=== PATIENT | male | born 1980 | race Caucasian/White ===

== ENCOUNTER → 2018-01-30 | Outpatient (CLI) | payer BC ==
--- NOTE | 2018-01-30 15:48 | P.HPBAR ---
Bariatric H&P - History & Physicial H&P Date: 01/30/18 History & Physicial: Visit/CC: Patient initial contact: Initial weight: Initial weight in pounds: Height: Initial BMI: Last weight: Current weight: 310 Current weight in pounds: Current BMI: [place] body weight (based on NIH guidelines): Excess body weight loss: The patient is a 37 year-old M who presents for Bariatric Assessment. Patient resents for new patient consultation for sleeve gastrectomy. He currently weighs 310 pounds. His BMI is 44. He has lifetime problems obesity. He is requesting sleeve gastrectomy... Past Medical History Past Medical History: No Reported History History of Any Multi-Drug Resistant Organisms: None Reported Past Surgical History: Orthopedic Surgery Past Anesthesia/Blood Transfusion Reactions: No Reported Reaction Smoking Status: Never smoker Past Alcohol Use History: Rare Past Drug Use History: None Reported - Past Family History Mother Family Medical History: No Reported History Surgical - Exam - General well developed, well nourished, moderate distress - Eyes PERRL - ENT normal pinna - Neck no masses - Respiratory normal expansion - Cardiovascular Rhythm: regular - Abdomen Abdomen: soft, non tender Bariatric Assessment & Plan Plan: Morbid obesity with severe comorbidities. Patient will be scheduled for EGD. I discussed the patient risk of surgery including conversion O procedure and injury to the stomach liver spleen. The patient will follow-up after his EGD performed. Bariatric Checklist Checklist: Plan: Checklist: EGD: 1. Hiatal hernia: 2. H. Pylori: HgbA1c: Vitamin D: Smoking: Never smoker Primary care physician referral: Psychiatry clearance: Cardiology clearance: Sleep study: Diet journal: VTE risk score: VTE risk level: Rehab needs at discharge:
[2018-01-30 16:00] VITALS: BP 129/80; PULSE 81; RESP 15; TEMP 98.5; BMI 40.0
== END | disposition home or self-care (01) ==
LOC: BARWHC3 15:26
PROVIDERS: ATTEND Surgery
DX: E66.01 Morbid (severe) obesity due to excess calories (principal); Z68.41 Body mass index [BMI] 40.0-44.9, adult; Z98.890 Other specified postprocedural states
CPT/HCPCS: 99211

== ENCOUNTER 2018-04-09 20:33 | Inpatient (IN) | payer BC ==
[2018-04-09] MEDS ORDERED: IBUPROFEN 600 MG TAB PO STA (20:45)
[2018-04-09] MEDS ORDERED: ACETAMINOPHEN TAB 500 MG TAB PO STA (20:45)
--- NOTE | 2018-04-09 21:28 | ED ---
URI HPI - General Chief Complaint: Upper Respiratory Infection Stated Complaint: Fever Time Seen by Provider: 04/09/18 20:45 Source: patient Mode of arrival: ambulatory Limitations: no limitations - History of Present Illness Initial Comments: Bakari is a previously healthy 38-year-old male who presents the emergency department today for evaluation of URI symptoms and fever. Patient reports he' s had a cough for a couple of days, yesterday he developed a fever, he's been taking 1000 mg of Tylenol every 6 hours and has had a persistent fever. She reports overnight last night he had shaking chills and was sweating, he felt like he couldn't get warm but he also had a fever. Throughout the day he still very fatigued and unwell so he came to the ER for evaluation. Patient states a prior to arrival in the emergency department he had a fever of 104 Fahrenheit. The patient has not yet had a flu shot this year. - Related Data Home Medications Medication Instructions Recorded Confirmed Acetaminophen Tab [Tylenol Tab] 650 mg PO Q4H PRN 04/09/18 04/09/18 Allergies Allergy/AdvReac Type Severity Reaction Status Date / Time No Known Allergies Allergy Verified 04/09/18 21:29 Review of Systems ROS Statement: Those systems with pertinent positive or pertinent negative responses have been documented in the HPI. ROS Other: All systems not noted in ROS Statement are negative. Past Medical History Past Medical History: No Reported History Additional Past Medical History / Comment(s): seasonal allergies History of Any Multi-Drug Resistant Organisms: None Reported Past Surgical History: Orthopedic Surgery Additional Past Surgical History / Comment(s): Right ACL sx Past Anesthesia/Blood Transfusion Reactions: No Reported Reaction Past Psychological History: No Psychological Hx Reported Smoking Status: Never smoker Past Alcohol Use History: Rare Past Drug Use History: None Reported - Past Family History Mother Family Medical History: No Reported History General Exam - General Exam Comments Initial Comments: Physical Exam GENERAL: Flushed, diaphoretic and appears unwell HENT: Normocephalic, Atraumatic. EYES: PERRL, EOMI PULMONARY: Unlabored respirations. No audible rales rhonchi or wheezing was noted. CARDIOVASCULAR: Tachycardic, regular warm and well-perfused extremities ABDOMEN: Obese, Soft and nontender with normal bowel sounds. SKIN: Skin is clear with no lesions or rashes and otherwise unremarkable. : Deferred NEUROLOGIC: Patient is alert and oriented x3. Moving all extremities spontaneously MUSCULOSKELETAL: Normal extremities with adequate strength and full range of motion. No lower extremity swelling or edema. No calf tenderness. PSYCHIATRIC: Normal psychiatric evaluation. Limitations: no limitations Limitations: no limitations Course Vital Signs 04/09/18 04/09/18 04/09/18 20:39 20:54 22:11 Temperature 101.8 F H 102.3 F H 102.7 F H Pulse Rate 124 H 113 H 107 H Respiratory 20 18 Rate Blood Pressure 108/76 140/80 O2 Sat by Pulse 96 96 Oximetry 04/10/18 04/10/18 00:00 00:23 Temperature 98.4 F Pulse Rate 86 Respiratory 16 Rate Blood Pressure 134/79 O2 Sat by Pulse 95 Oximetry Medical Decision Making - Medical Decision Making The patient was seen and evaluated immediately upon arrival to the emergency department, patient was noted to be febrile and tachycardic, history is concerning for influenza however a sepsis workup was initiated Patient is taken Tylenol prior to arrival, Motrin was given in the ER IV fluids infusing Labs with no significant abnormalities aside from mildly elevated lactic acid at 2.3 Influenza was negative Patient was reassessed and results were discussed, despite Tylenol Motrin IV fluids the patient's fever is actually increasing, patient is diaphoretic and appears unwell at this time I don't feel the patient is stable for discharge home have a high concern that he will become dehydrated given his fever and his persistent sweating and feeling unwell patient is agreeable to plan for admission Patient care was discussed with admitting physician Dr. Rushing who agrees with plan for admission but requests that antibiotics be ordered empirically recommends Rocephin and azithromycin. Orders were placed. was reevaluated and updated on plan for admission, at this time the patient's fever has broke however the patient remains diaphoretic, IV fluids infusing - Lab Data Result diagrams: 04/09/18 21:20 04/09/18 21:20 Lab Results 04/09/18 04/09/18 04/09/18 Range/Units 21:20 21:20 21:20 WBC 5.0 (3.8-10.6) k/uL RBC 5.24 (4.30-5.90) m/uL Hgb 13.8 (13.0-17.5) gm/dL Hct 42.3 (39.0-53.0) % MCV 80.7 (80.0-100.0) fL MCH 26.3 (25.0-35.0) pg MCHC 32.6 (31.0-37.0) g/dL RDW 13.4 (11.5-15.5) % Plt Count 193 (150-450) k/uL Neutrophils % 66 % Lymphocytes % 23 % Monocytes % 7 % Eosinophils % 1 % Basophils % 1 % Neutrophils # 3.3 (1.3-7.7) k/uL Lymphocytes # 1.1 (1.0-4.8) k/uL Monocytes # 0.4 (0-1.0) k/uL Eosinophils # 0.0 (0-0.7) k/uL Basophils # 0.0 (0-0.2) k/uL PT (9.0-12.0) sec INR (<1.2) APTT (22.0-30.0) sec Sodium 139 (137-145) mmol/L Potassium 4.5 (3.5-5.1) mmol/L Chloride 105 (98-107) mmol/L Carbon Dioxide 22 (22-30) mmol/L Anion Gap 12 mmol/L BUN 21 H (9-20) mg/dL Creatinine 1.00 (0.66-1.25) mg/dL Est GFR (CKD-EPI)AfAm >90 (>60 ml/min/1.73 sqM) Est GFR (CKD-EPI)NonAf >90 (>60 ml/min/1.73 sqM) Glucose 122 H (74-99) mg/dL Lactic Ac Sepsis Rflx Plasma Lactic Acid Esau 2.3 H* (0.7-2.0) mmol/L Calcium 9.5 (8.4-10.2) mg/dL Total Bilirubin 1.0 (0.2-1.3) mg/dL AST 46 (17-59) U/L ALT 40 (21-72) U/L Alkaline Phosphatase 133 H (38-126) U/L Troponin I (0.000-0.034) ng/mL Total Protein 7.6 (6.3-8.2) g/dL Albumin 4.2 (3.5-5.0) g/dL Urine Color Urine Appearance (Clear) Urine pH (5.0-8.0) Ur Specific [place] (1.001-1.035) Urine Protein (Negative) Urine Glucose (UA) (Negative) Urine Ketones (Negative) Urine Blood (Negative) Urine Nitrite (Negative) Urine Bilirubin (Negative) Urine Urobilinogen (<2.0) mg/dL Ur Leukocyte Esterase (Negative) Urine RBC (0-5) /hpf Urine WBC (0-5) /hpf Ur Squamous Epith Cells (0-4) /hpf Urine Bacteria (None) /hpf Urine Mucus (None) /hpf Influenza Type A RNA (Not Detectd) Influenza Type B (PCR) (Not Detectd) 04/09/18 04/09/18 04/09/18 Range/Units 21:20 21:20 22:04 WBC (3.8-10.6) k/uL RBC (4.30-5.90) m/uL Hgb (13.0-17.5) gm/dL Hct (39.0-53.0) % MCV (80.0-100.0) fL MCH (25.0-35.0) pg MCHC (31.0-37.0) g/dL RDW (11.5-15.5) % Plt Count (150-450) k/uL Neutrophils % % Lymphocytes % % Monocytes % % Eosinophils % % Basophils % % Neutrophils # (1.3-7.7) k/uL Lymphocytes # (1.0-4.8) k/uL Monocytes # (0-1.0) k/uL Eosinophils # (0-0.7) k/uL Basophils # (0-0.2) k/uL PT 10.6 (9.0-12.0) sec INR 1.1 (<1.2) APTT 25.6 (22.0-30.0) sec Sodium (137-145) mmol/L Potassium (3.5-5.1) mmol/L Chloride (98-107) mmol/L Carbon Dioxide (22-30) mmol/L Anion Gap mmol/L BUN (9-20) mg/dL Creatinine (0.66-1.25) mg/dL Est GFR (CKD-EPI)AfAm (>60 ml/min/1.73 sqM) Est GFR (CKD-EPI)NonAf (>60 ml/min/1.73 sqM) Glucose (74-99) mg/dL Lactic Ac Sepsis Rflx Y Plasma Lactic Acid Esau (0.7-2.0) mmol/L Calcium (8.4-10.2) mg/dL Total Bilirubin (0.2-1.3) mg/dL AST (17-59) U/L ALT (21-72) U/L Alkaline Phosphatase (38-126) U/L Troponin I <0.012 (0.000-0.034) ng/mL Total Protein (6.3-8.2) g/dL Albumin (3.5-5.0) g/dL Urine Color Urine Appearance (Clear) Urine pH (5.0-8.0) Ur Specific [place] (1.001-1.035) Urine Protein (Negative) Urine Glucose (UA) (Negative) Urine Ketones (Negative) Urine Blood (Negative) Urine Nitrite (Negative) Urine Bilirubin (Negative) Urine Urobilinogen (<2.0) mg/dL Ur Leukocyte Esterase (Negative) Urine RBC (0-5) /hpf Urine WBC (0-5) /hpf Ur Squamous Epith Cells (0-4) /hpf Urine Bacteria (None) /hpf Urine Mucus (None) /hpf Influenza Type A RNA (Not Detectd) Influenza Type B (PCR) (Not Detectd) 04/09/18 04/09/18 Range/Units 22:04 23:08 WBC (3.8-10.6) k/uL RBC (4.30-5.90) m/uL Hgb (13.0-17.5) gm/dL Hct (39.0-53.0) % MCV (80.0-100.0) fL MCH (25.0-35.0) pg MCHC (31.0-37.0) g/dL RDW (11.5-15.5) % Plt Count (150-450) k/uL Neutrophils % % Lymphocytes % % Monocytes % % Eosinophils % % Basophils % % Neutrophils # (1.3-7.7) k/uL Lymphocytes # (1.0-4.8) k/uL Monocytes # (0-1.0) k/uL Eosinophils # (0-0.7) k/uL Basophils # (0-0.2) k/uL PT (9.0-12.0) sec INR (<1.2) APTT (22.0-30.0) sec Sodium (137-145) mmol/L Potassium (3.5-5.1) mmol/L Chloride (98-107) mmol/L Carbon Dioxide (22-30) mmol/L Anion Gap mmol/L BUN (9-20) mg/dL Creatinine (0.66-1.25) mg/dL Est GFR (CKD-EPI)AfAm (>60 ml/min/1.73 sqM) Est GFR (CKD-EPI)NonAf (>60 ml/min/1.73 sqM) Glucose (74-99) mg/dL Lactic Ac Sepsis Rflx Plasma Lactic Acid Esau (0.7-2.0) mmol/L Calcium (8.4-10.2) mg/dL Total Bilirubin (0.2-1.3) mg/dL AST (17-59) U/L ALT (21-72) U/L Alkaline Phosphatase (38-126) U/L Troponin I (0.000-0.034) ng/mL Total Protein (6.3-8.2) g/dL Albumin (3.5-5.0) g/dL Urine Color Yellow Urine Appearance Clear (Clear) Urine pH 6.5 (5.0-8.0) Ur Specific [place] 1.039 H (1.001-1.035) Urine Protein 1+ H (Negative) Urine Glucose (UA) Negative (Negative) Urine Ketones Negative (Negative) Urine Blood Negative (Negative) Urine Nitrite Negative (Negative) Urine Bilirubin Negative (Negative) Urine Urobilinogen 4.0 (<2.0) mg/dL Ur Leukocyte Esterase Negative (Negative) Urine RBC <1 (0-5) /hpf Urine WBC 1 (0-5) /hpf Ur Squamous Epith Cells <1 (0-4) /hpf Urine Bacteria Rare H (None) /hpf Urine Mucus Moderate H (None) /hpf Influenza Type A RNA Not Detected (Not Detectd) Influenza Type B (PCR) Not Detected (Not Detectd) Disposition Clinical Impression: Viral infection Disposition: ADMITTED IP TO THIS HOSP Condition: Stable
[2018-04-09] MEDS: SODIUM CHLORIDE 0.9% 500 ML 500 ML IV SCH ×2 (21:29→23:21)
[2018-04-09 21:48] LABS: Basophils % (A) 1 %; Eosinophils % (A) 1 %; HCT 42.3 % (39.0-53.0); HGB 13.8 gm/dL (13.0-17.5); Lymphocytes # (A) 1.1 k/uL (1.0-4.8); Lymphocytes % (A) 23 %; MCH 26.3 pg (25.0-35.0); MCHC 32.6 g/dL (31.0-37.0); MCV 80.7 fL (80.0-100.0); Mean Platelet Volume 7.4; Monocytes # (A) 0.4 k/uL (0-1.0); Monocytes % (A) 7 %; Neutrophils # (A) 3.3 k/uL (1.3-7.7); Neutrophils % (A) 66 %; Platelet Count 193 k/uL (150-450); RBC 5.24 m/uL (4.30-5.90); RDW 13.4 % (11.5-15.5)
[2018-04-09 22:00] LABS: INR 1.1 (<1.2); Partial Thromboplastin Time 25.6 sec (22.0-30.0); Prothrombin Time 10.6 sec (9.0-12.0)
[2018-04-09 22:02] LABS: Albumin 4.2 g/dL (3.5-5.0); Anion Gap 12 mmol/L; Blood Urea Nitrogen 21 mg/dL (9-20); Calcium 9.5 mg/dL (8.4-10.2); Carbon Dioxide 22 mmol/L (22-30); Chloride 105 mmol/L (98-107); Glucose 122 mg/dL (74-99); Sodium 139 mmol/L (137-145); Total Protein 7.6 g/dL (6.3-8.2)
[2018-04-09 22:04] LABS: ALT 40 U/L (21-72); AST 46 U/L (17-59); Alkaline Phosphatase 133 U/L (38-126); Potassium 4.5 mmol/L (3.5-5.1)
--- NOTE | 2018-04-09 22:45 | XR ---
EXAMINATION TYPE: XR chest 2V DATE OF EXAM: 04/09/2018 COMPARISON: NONE HISTORY: Fever and cough TECHNIQUE: Frontal and lateral views of the chest are obtained. FINDINGS: Heart and mediastinum are normal. Lungs are clear. Diaphragm is normal. Bony thorax appear s normal. Pulmonary vascularity is normal. IMPRESSION: Normal chest
[2018-04-09 23:36] LABS: Appearance,Urine Clear (Clear); Bacteria,Urine Rare /hpf; Bilirubin,Urine Negative (Negative); Blood,Urine Negative (Negative); Color,Urine Yellow; Glucose,Urine (UA) Negative (Negative); Ketones,Urine Negative (Negative); Leukocyte Esterase,Urine Negative (Negative); Mucus,Urine Moderate /hpf; Nitrite,Urine Negative (Negative); PH, Urine 6.5 (5.0-8.0); Protein,Urine 1+ (Negative); RBC,Urine <1 /hpf (0-5); Specific Gravity,Urine 1.039 (1.001-1.035); Squamous Epithelial Cell,Urine <1 /hpf (0-4); WBC,Urine 1 /hpf (0-5)
[2018-04-10] MEDS ORDERED: NALOXONE 0.4 MG/ML 1 ML VIAL IV PRN (01:11)
[2018-04-10] MEDS ORDERED: AZITHROMYCIN 500 MG TAB PO STA (01:11)
[2018-04-10] MEDS: SODIUM CHLORIDE 0.9% 1,000 ML IV SCH ×5 (01:48→21:27)
[2018-04-10] MEDS: ACETAMINOPHEN TAB 325 MG TAB PO PRN ×3 (05:51→21:27)
[2018-04-10 09:32] LABS: Basophils % (A) 1 %; Eosinophils % (A) 1 %; HCT 35.3 % (39.0-53.0); Lymphocytes # (A) 0.8 k/uL (1.0-4.8); Lymphocytes % (A) 20 %; MCH 27.2 pg (25.0-35.0); MCHC 34.1 g/dL (31.0-37.0); MCV 79.8 fL (80.0-100.0); Mean Platelet Volume 6.9; Monocytes # (A) 0.4 k/uL (0-1.0); Monocytes % (A) 9 %; Neutrophils # (A) 2.6 k/uL (1.3-7.7); Neutrophils % (A) 66 %; Platelet Count 151 k/uL (150-450); RBC 4.42 m/uL (4.30-5.90); RDW 13.3 % (11.5-15.5); WBC 3.9 k/uL (3.8-10.6)
[2018-04-10 09:52] LABS: ALT 52 U/L (21-72); AST 43 U/L (17-59); Albumin 3.2 g/dL (3.5-5.0); Alkaline Phosphatase 110 U/L (38-126); Anion Gap 7 mmol/L; Blood Urea Nitrogen 17 mg/dL (9-20); Calcium 8.4 mg/dL (8.4-10.2); Carbon Dioxide 24 mmol/L (22-30); Chloride 108 mmol/L (98-107); Glucose 124 mg/dL (74-99); Potassium 3.9 mmol/L (3.5-5.1); Sodium 139 mmol/L (137-145); Total Bilirubin 0.8 mg/dL (0.2-1.3); Total Protein 6.2 g/dL (6.3-8.2)
--- NOTE | 2018-04-10 10:25 | P.HPIM ---
History of Present Illness H&P Date: 04/10/18 Chief Complaint: Fever This is a 37-year-old male patient presents to emergency room with fever 104. Patient states fever started Saturday night and that he has taken Tylenol every 6 hours the fever has been persistent. Patient does complain that he's had slight cough for the past few days and headache. Patient had one episode of emesis in emergency room but denies any other GI issues. Patient denies any significant past medical history. Chest x-ray completed showing normal chest. EKG completed showing sinus tachycardia with a heart rate of 107. Patient denies any alcohol or drug use. Patient denies any nicotine dependence. Initial lactic 2.3. Repeat lactic 0.8. Urinary analysis completed. Influenza A and B negative. Urine and blood cultures have been ordered. Patient started on Zithromax and Rocephin. At this time patient denies chest pain or shortness of breath. Patient denies any nausea vomiting or diarrhea. Patient denies any urinary burning or frequency. Dr. De Santiago has been consulted for infectious disease. Review of Systems please refer to HPI otherwise unremarkable Past Medical History Past Medical History: No Reported History Additional Past Medical History / Comment(s): seasonal allergies History of Any Multi-Drug Resistant Organisms: None Reported Past Surgical History: Orthopedic Surgery Additional Past Surgical History / Comment(s): Right ACL sx Past Anesthesia/Blood Transfusion Reactions: No Reported Reaction Past Psychological History: No Psychological Hx Reported Smoking Status: Never smoker Past Alcohol Use History: Rare Past Drug Use History: None Reported - Past Family History Mother Family Medical History: No Reported History Father History Unknown: Yes Medications and Allergies Home Medications Medication Instructions Recorded Confirmed Type Acetaminophen Tab [Tylenol Tab] 650 mg PO Q4H PRN 04/09/18 04/09/18 History Allergies Allergy/AdvReac Type Severity Reaction Status Date / Time No Known Allergies Allergy Verified 04/09/18 21:29 Physical Exam Vitals: Vital Signs Temp Pulse Pulse Resp BP BP Pulse Ox 04/10/18 05:53 99.6 F 04/10/18 03:25 81 18 04/10/18 03:24 98.0 F 81 18 106/64 96 04/10/18 02:24 98.8 F 78 18 138/72 98 04/10/18 00:23 86 16 134/79 95 04/10/18 00:00 98.4 F 04/09/18 22:11 102.7 F H 107 H 18 140/80 96 04/09/18 20:54 102.3 F H 113 H 04/09/18 20:39 101.8 F H 124 H 20 108/76 96 Intake and Output 04/09/18 04/10/18 04/10/18 22:59 06:59 14:59 Intake Total 480 240 Balance 480 240 Intake: Oral 480 240 Other: Voiding Method Toilet Urinal Weight 136.078 kg 140.9 kg Head normocephalic Neck supple Lungs clear to auscultation bilaterally no wheezing or crackles Heart regular rate and rhythm S1-S2, no rub or gallop Abdomen is soft nontender nondistended positive bowel sounds no hepatosplenomegaly Extremities no edema Neuro alert and orientated to 3 Results CBC & Chem 7: 04/10/18 08:51 04/10/18 08:51 Labs: Abnormal Lab Results - Last 24 Hours (Table) 04/09/18 04/09/18 04/09/18 Range/Units 21:20 21:20 23:08 Hgb (13.0-17.5) gm/dL Hct (39.0-53.0) % MCV (80.0-100.0) fL Lymphocytes # (1.0-4.8) k/uL Chloride (98-107) mmol/L BUN 21 H (9-20) mg/dL Glucose 122 H (74-99) mg/dL Plasma Lactic Acid Esau 2.3 H* (0.7-2.0) mmol/L Alkaline Phosphatase 133 H (38-126) U/L Total Protein (6.3-8.2) g/dL Albumin (3.5-5.0) g/dL Ur Specific [place] 1.039 H (1.001-1.035) Urine Protein 1+ H (Negative) Urine Bacteria Rare H (None) /hpf Urine Mucus Moderate H (None) /hpf 04/10/18 04/10/18 Range/Units 08:51 08:51 Hgb 12.0 L (13.0-17.5) gm/dL Hct 35.3 L (39.0-53.0) % MCV 79.8 L (80.0-100.0) fL Lymphocytes # 0.8 L (1.0-4.8) k/uL Chloride 108 H (98-107) mmol/L BUN (9-20) mg/dL Glucose 124 H (74-99) mg/dL Plasma Lactic Acid Esau (0.7-2.0) mmol/L Alkaline Phosphatase (38-126) U/L Total Protein 6.2 L (6.3-8.2) g/dL Albumin 3.2 L (3.5-5.0) g/dL Ur Specific [place] (1.001-1.035) Urine Protein (Negative) Urine Bacteria (None) /hpf Urine Mucus (None) /hpf Thrombosis Risk Factor Assmnt - Choose All That Apply Any of the Below Risk Factors Present?: No Other Risk Factors: No Other congenital or acquired thrombophilia - If yes, enter type in comment: No Thrombosis Risk Factor Assessment Level: Very Low Risk Assessment and Plan Assessment: 1. Fever. Patient reports high fever of 104. Urine and blood cultures have been ordered. Chest x-ray completed showing normal chest. EKG completed showing sinus tachycardia. Influenza negative. Urine and blood cultures have been ordered. Patient started on Rocephin and Zithromax. Dr. De Santiago has been consulted for infectious disease. Urine and blood cultures ordered. 2. History of right ACL repair DVT prophylaxis Lovenox. GI prophylaxis Protonix Time with Patient: Greater than 30 (Greater than 60% of the total time spent in counseling and coordination of care. I performed an examination of the patient and discussed their management with the Nurse Practitioner. I have reviewed the Nurse Practitioner's notes and agree with the documented findings and plan of care)
[2018-04-10] MEDS: IBUPROFEN 400 MG TAB PO PRN ×2 (11:06→22:36)
--- NOTE | 2018-04-10 20:15 | CT ---
EXAMINATION TYPE: CT brain without contrast DATE OF EXAM: 04/10/2018 COMPARISON: None HISTORY: ams, headache, fever CT DLP: 1211.4 mGycm. Automated Exposure Control for Dose Reduction was Utilized. TECHNIQUE: CT scan of the head is performed without contrast. FINDINGS: Ventricles of normal size. There is no mass effect nor midline shift. There is no sign of i ntracranial hemorrhage. Calvarium is intact. IMPRESSION: Negative CT scan of the brain.
--- NOTE | 2018-04-10 20:24 | CONS ---
CONSULTATION DATE OF SERVICE: 04/10/2018 REASON FOR CONSULTATION: Fever of unknown origin. HISTORY OF PRESENT ILLNESS: The patient is a 37-year-old male, otherwise healthy, who presented to the ER with the chief complaints of headache and a fever. His symptoms had been going on for about 2 days before he presented to hospital. The patient says he has been exposed to his son, who has some cough but no fever. The patient's cough is mostly mild in intensity and dry in nature with no associated shortness of breath or chest pain. The patient is also complaining of headache. Headache is mostly mild to moderate in intensity, about 5 to 6 out of 10. Denies significant photophobia. Some nausea but no vomiting. He mentioned that he just has no appetite. Denies having any abdominal pain. No diarrhea. No burning or frequency of urine. With these symptoms, the patient was evaluated by the ER physician. On arrival in the ER, the patient had a chest x-ray which was negative for any acute infiltrate. The patient's white count is normal at 5.0; repeat was 3.9 this morning. The patient's lactic acid was initially high at 2.3; repeat is 0.8. Liver enzymes are normal. UA has been negative. Influenza serology was negative. The patient did receive a dose of Rocephin in the ER. He subsequently has been admitted to hospital. I was asked to see the patient for further recommendations regarding this fever with no clear focus of infection. The patient denies having any joint swelling and no cellulitis. REVIEW OF SYSTEMS: CONSTITUTIONAL: Positive for weakness along with a fever. EYES: No complaint. ENT: No complaint. RESPIRATORY: As per HPI. CARDIOVASCULAR: No complaint. GENITOURINARY: No complaint. GASTROINTESTINAL: No complaint. MUSCULOSKELETAL: No complaint. INTEGUMENTARY: No complaint. PSYCHOLOGICAL: No complaint. ENDOCRINE: No complaint. NEUROLOGICAL: No complaint. PAST MEDICAL HISTORY: Seasonal allergies. No other medical problem. PAST SURGICAL HISTORY: Right ACL repair. SOCIAL HISTORY: The patient denies smoking. Rarely drinks. No drug use. 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 FAMILY HISTORY: No pertinent findings were noticed. ALLERGIES: NO KNOWN DRUG ALLERGIES. MEDICATION: Medications currently include: 1. Protonix. 2. Narcan. 3. Motrin. 4. Lovenox. 5. Tylenol. 6. Did receive a dose of Rocephin and Zithromax in the ER. PHYSICAL EXAMINATION: Blood pressure is 115/69 with a pulse of 83, temperature 97.4. He is 98% on room air. General description is a middle-aged male lying in bed in no distress. No tachypnea or accessory muscle of respiration use. HEENT examination shows no pallor or scleral icterus. Oral mucosa membrane is dry. NECK: Trachea is central. No thyromegaly. LUNGS: Unlabored breathing. Clear to auscultation anteriorly. No wheeze or crackle. HEART: S1, S2. Regular rate and rhythm. No murmur. ABDOMEN: Soft. No tenderness. No guarding or rigidity. EXTREMITIES: No edema of the feet. SKIN EXAMINATION: No rashes or mass palpable. No evidence of any cellulitis. No joint swelling was noticed, either. Neurologically the patient is awake, alert, oriented x3. Mood and affect normal. No neck rigidity was noticed. LABS: Hemoglobin is 12, white count 3.9 with a BUN of 17, creatinine 0.86. Electrolytes have been normal. Liver enzymes are normal. Lactic acid was 2.3, down to 0.8. Chest x-ray reported negative. DIAGNOSTIC IMPRESSION AND PLAN: Patient admitted to hospital with a fever of 102 degrees Fahrenheit. The patient was also having a headache and mild cough. No clinical findings on lung examination to be suspicious for pneumonia. Chest x-ray has been negative. UA has been negative. No sign of cellulitis or joint swelling. His abdomen was soft on clinical examination. Concern for possible viral meningitis is to be on top of the list. Clinically doubt bacterial meningitis. The patient currently does not look toxic. Did not have any elevated white count. Doubt encephalitis. PLAN: 1. STAT CT of the brain to make sure no evidence of any bleed, though clinically doubt. Afterwards will recommend obtaining anesthesia evaluation for an LP. The fluid should be sent for Gram stain, protein, cell count, differential and cultures. 2. Symptomatic treatment of his headache and cough. 3. Will follow up on his clinical condition as well as investigations to further adjust medication if needed. Thank you for this consultation. Will follow this patient along with you. MMODL / IJN: [id number] /
[2018-04-10] MEDS ORDERED: SODIUM CHLORIDE 0.9% 1,000 ML IV ONE (20:30)
--- NOTE | 2018-04-10 21:12 | P.PCN ---
Date of Procedure: 04/10/18 Preoperative Diagnosis: FUO Postoperative Diagnosis: Same Procedure(s) Performed: Diagnostic LP Anesthesia: local Surgeon: Michael Weller Estimated Blood Loss (ml): 0.01 IV fluids (ml): 20 Urine output (ml): 0 Pathology: other (Four sample tubes labeled 1 through 4 sequentially containing 3-4 mL of clear untinged CSF) Condition: stable Disposition: floor Indications for Procedure: FUO Operative Findings: Clear untinged CSF Description of Procedure: Cap, mask, and sterile gloves. With the patient seated at the edge of the streatcher, the skin over the lumbar back was sterilely prepped and draped. Approximately 0.5 cc of 1% plain lidocaine was used to raise a skin wheal over the L3-4 interspace. A 20 ga quinke spinal needle was then advanced through the wheal into the sub dural space with the elicitation of a R sided paresthesia which instantly resolved. Subsequently, 3 to 4 cc of clear untinged CSF was collected sequentially in specimen tubes 1 throuth 4. The patient tolerated the procedure well and was returned to his room.
[2018-04-10 21:51] LABS: Glucose,CSF 60 mg/dL (40-70)
[2018-04-10 22:00] LABS: Appearance,CSF Clear; CSF Tube Number 4; CSF Tube Volume 3.5; Nucleated Cells, CSF 0 u/L (0-5); Red Blood Cell,CSF 0 u/L (0-10)
[2018-04-10] MEDS ORDERED: LEVOFLOXACIN 750MG-D5W PMX 750 MG in DEXTROSE/WATER 1 150ML.BAG IVPB STA (22:39)
[2018-04-11] MEDS: SODIUM CHLORIDE 0.9% 1,000 ML IV SCH ×5 (02:44→21:12)
[2018-04-11] MEDS: PANTOPRAZOLE 40 MG TABLET PO SCH (06:39)
[2018-04-11 06:52] LABS: HCT 35.9 % (39.0-53.0); HGB 11.6 gm/dL (13.0-17.5); MCH 25.9 pg (25.0-35.0); MCHC 32.3 g/dL (31.0-37.0); MCV 80.4 fL (80.0-100.0); Mean Platelet Volume 7.1; Platelet Count 120 k/uL (150-450); RBC 4.47 m/uL (4.30-5.90); RDW 13.4 % (11.5-15.5); WBC 2.6 k/uL (3.8-10.6)
[2018-04-11 06:55] LABS: ALT 48 U/L (21-72); AST 44 U/L (17-59); Alkaline Phosphatase 117 U/L (38-126); Anion Gap 6 mmol/L; Blood Urea Nitrogen 13 mg/dL (9-20); Calcium 8.4 mg/dL (8.4-10.2); Carbon Dioxide 24 mmol/L (22-30); Chloride 108 mmol/L (98-107); Glucose 97 mg/dL (74-99); Potassium 4.3 mmol/L (3.5-5.1); Sodium 138 mmol/L (137-145); Total Bilirubin 0.7 mg/dL (0.2-1.3)
--- NOTE | 2018-04-11 07:49 | XR ---
EXAMINATION TYPE: XR chest 2V DATE OF EXAM: 04/11/2018 COMPARISON: Chest x-ray from 2 days ago. HISTORY: High fever for 4 days. TECHNIQUE: Frontal and lateral views of the chest are obtained. FINDINGS: Low lung volumes are redemonstrated. There is no focal air space opacity, pleural effusion , or pneumothorax seen. The cardiac silhouette size is within normal limits. The osseous structure s are intact. IMPRESSION: No suspicious acute infiltrate. No significant change from prior.
[2018-04-11 08:05] LABS: Eosinophils # (M) 0.08 k/uL (0-0.7); Monocytes # (M) 0.23 k/uL (0-1.0); Neutrophils # (M) 0.99 k/uL (1.3-7.7); Neutrophils % (M) 38 %; Nucleated Red Blood Cells 0 /100 WBC (0-0); Total Cells Counted 100
[2018-04-11 08:06] LABS: Poikilocytosis (M) Present
[2018-04-11] MEDS: ENOXAPARIN 40 MG/0.4 ML SYRINGE SQ SCH (09:04)
--- NOTE | 2018-04-11 11:07 | P.PN ---
Subjective Progress Note Date: 04/11/18 This is a 37-year-old male patient presents to emergency room with fever 104. Patient states fever started Saturday night and that he has taken Tylenol every 6 hours the fever has been persistent. Patient does complain that he's had slight cough for the past few days and headache. Patient had one episode of emesis in emergency room but denies any other GI issues. Patient denies any significant past medical history. Chest x-ray completed showing normal chest. EKG completed showing sinus tachycardia with a heart rate of 107. Patient denies any alcohol or drug use. Patient denies any nicotine dependence. Initial lactic 2.3. Repeat lactic 0.8. Urinary analysis completed. Influenza A and B negative. Urine and blood cultures have been ordered. Patient started on Zithromax and Rocephin. At this time patient denies chest pain or shortness of breath. Patient denies any nausea vomiting or diarrhea. Patient denies any urinary burning or frequency. Dr. De Santiago has been consulted for infectious disease. On 04/11/2018 patient is currently sitting up in chair. Patient still feels very fatigued. Patient had a temp of 102.8 last night. Patient also has two enlarged lymph nodes on right side of neck. Patient denies any open sores or problems with teeth. Patient denies any ear pain. Patient denies chest pain or shortness breath. Patient denies any nausea vomiting or diarrhea. Patient denies any upper respiratory symptoms. Patient denies any urinary burning or frequency Objective - Vital Signs Vital signs: Vital Signs Temp 98.0 F 04/11/18 08:00 Pulse 88 04/11/18 08:00 Resp 16 04/11/18 08:00 BP 118/74 04/11/18 08:00 Pulse Ox 97 04/11/18 08:00 Intake & Output 04/10/18 04/11/18 04/11/18 18:59 06:59 18:59 Intake Total 702 0 540 Output Total 700 500 Balance 2 -500 540 Weight 140.9 kg Intake: IV 0 Intake, IV Titration 300 Amount Sodium Chloride 0.9% 1, 200 000 ml @ 200 mls/hr IV . Q5H [place] Rx#:[id number] cefTRIAXone 1,000 mg In 100 Sodium Chloride 0.9% 50 ml @ 100 mls/hr IVPB Q24HR [place] Rx#:[id number] Oral 702 240 Output: Urine 700 500 Other: Voiding Method Toilet Toilet Urinal # Voids 1 1 - Exam Head normocephalic Neck supple. 2 enlarged right cervical lymph nodes Lungs clear to auscultation bilaterally no wheezing or crackles Heart regular rate and rhythm S1-S2, no rub or gallop Abdomen is soft nontender nondistended positive bowel sounds no hepatosplenomegaly Extremities no edema Neuro alert and orientated to 3 - Labs CBC & Chem 7: 04/11/18 05:40 04/11/18 05:40 Labs: Abnormal Lab Results - Last 24 Hours (Table) 04/10/18 04/11/18 04/11/18 Range/Units 20:46 05:40 05:40 WBC 2.6 L (3.8-10.6) k/uL Hgb 11.6 L (13.0-17.5) gm/dL Hct 35.9 L (39.0-53.0) % Plt Count 120 L (150-450) k/uL Neutrophils # (Manual) 0.99 L (1.3-7.7) k/uL Chloride 108 H (98-107) mmol/L Total Protein 6.0 L (6.3-8.2) g/dL Albumin 3.0 L (3.5-5.0) g/dL CSF Total Protein 86 H (12-60) mg/dL Microbiology - Last 24 Hours (Table) 04/10/18 20:46 CSF Gram Stain - Preliminary Cerebral Spinal Fluid 04/09/18 21:20 Blood Culture - Preliminary Blood No Growth after 24 hours 04/09/18 23:08 Urine Culture - Preliminary Urine,Voided Assessment and Plan Assessment: 1. Fever. Patient reports high fever of 104. Urine and blood cultures have been ordered. Chest x-ray completed showing normal chest. EKG completed showing sinus tachycardia. Influenza negative. Urine and blood cultures have been ordered. Patient started on Rocephin and Zithromax. Infectious disease following. Lumbar puncture has been performed. Patient remains on Rocephin for antibiotics 2. History of right ACL repair 3. 2 enlarged right cervical lymph nodes. Dr. benitez has been consulted for hematology cervices. DVT prophylaxis Lovenox. GI prophylaxis Protonix I performed an examination of the patient and discussed their management with the Nurse Practitioner. I have reviewed the Nurse Practitioner's notes and agree with the documented findings and plan of care
[2018-04-11] MEDS: ACETAMINOPHEN TAB 325 MG TAB PO PRN (11:14)
[2018-04-11] MEDS: LEVOFLOXACIN 750 MG TAB PO SCH (12:45)
[2018-04-11] MEDS: IBUPROFEN 400 MG TAB PO PRN (12:45)
[2018-04-11] MEDS ORDERED: CALCIUM CARBONATE 500 MG CHEWABLE PO PRN (18:20)
--- NOTE | 2018-04-11 23:13 | PN ---
PROGRESS NOTE DATE OF SERVICE: 04/11/2018. REASON FOR FOLLOWUP: Fever. INTERVAL HISTORY: The patient's overall fever pattern has improved. His temperature today has been 100.4. The patient has been complaining of a lump on his right side of neck but denies significant difficulty swallowing or sore throat. Did mention some problem with right- sided upper teeth, but denies having any pain on chewing. No chest pain or shortness of breath. Minimal cough and nasal drainage. No abdominal pain, no diarrhea. EXAMINATION: Blood pressure is 120/68 with a pulse of 91, temperature 98.6, T-max is 100.4. GENERAL DESCRIPTION: A middle-aged male up in the bed in no distress. HEENT: Shows slight pallor. No scleral icterus. Minimal pharyngeal erythema. No dental caries or periodontal inflammation was noticed. NECK: Examination shows right-sided lymph node. LUNGS: Unlabored breathing. Clear to auscultation anteriorly. HEART: S1, S2. Regular rate and rhythm. ABDOMEN: No tenderness. EXTREMITIES: No edema of the feet. LABS: Hemoglobin 11.6, white count 4.6 with a BUN of 13, creatinine 0.88. Blood culture has been negative so far. DIAGNOSTIC IMPRESSION AND PLAN: Patient admitted to the hospital with a fever with a question of possible viral syndrome versus bacterial pharyngitis. The patient did have right-sided cervical lymphadenopathy. The patient's fever pattern seems to be improving. Continue patient on Rocephin and Levaquin while waiting for the cultures to finalize. Family was present at bedside, they have multiple questions which were all answered. MMODL / IJN: [id number] /
[2018-04-12] MEDS: SODIUM CHLORIDE 0.9% 1,000 ML IV SCH ×5 (03:05→22:47)
[2018-04-12] MEDS: ACETAMINOPHEN TAB 325 MG TAB PO PRN ×2 (05:25→17:50)
[2018-04-12] MEDS: PANTOPRAZOLE 40 MG TABLET PO SCH (06:11)
[2018-04-12] MEDS: IBUPROFEN 400 MG TAB PO PRN ×2 (06:11→20:05)
[2018-04-12 06:56] LABS: HCT 34.9 % (39.0-53.0); HGB 11.6 gm/dL (13.0-17.5); MCH 26.4 pg (25.0-35.0); MCHC 33.2 g/dL (31.0-37.0); MCV 79.5 fL (80.0-100.0); Mean Platelet Volume 6.7; Platelet Count 119 k/uL (150-450); RBC 4.39 m/uL (4.30-5.90); RDW 13.2 % (11.5-15.5); WBC 2.3 k/uL (3.8-10.6)
[2018-04-12 07:16] LABS: ALT 61 U/L (21-72); AST 57 U/L (17-59); Albumin 3.2 g/dL (3.5-5.0); Alkaline Phosphatase 138 U/L (38-126); Anion Gap 8 mmol/L; Blood Urea Nitrogen 8 mg/dL (9-20); Calcium 8.5 mg/dL (8.4-10.2); Carbon Dioxide 23 mmol/L (22-30); Chloride 107 mmol/L (98-107); Glucose 110 mg/dL (74-99); Potassium 4.1 mmol/L (3.5-5.1); Sodium 138 mmol/L (137-145); Total Bilirubin 0.7 mg/dL (0.2-1.3); Total Protein 6.1 g/dL (6.3-8.2)
[2018-04-12] MEDS: ENOXAPARIN 40 MG/0.4 ML SYRINGE SQ SCH (08:43)
[2018-04-12] MEDS: LEVOFLOXACIN 750 MG TAB PO SCH (08:43)
[2018-04-12 08:44] LABS: Band Neutrophils % 1 %; Basophils # (M) 0.02 k/uL (0-0.2); Lymphocytes # (M) 0.97 k/uL (1.0-4.8); Monocytes # (M) 0.25 k/uL (0-1.0); Neutrophils % (M) 45 %; Nucleated Red Blood Cells 0 /100 WBC (0-0); Total Cells Counted 100
[2018-04-12] MEDS: AMPICILLIN-SULBACTAM 3 GM in SODIUM CHLORIDE 0.9% 100 ML IVPB SCH ×3 (11:34→22:47)
[2018-04-12] MEDS: IOPAMIDOL-300 CONTRAST 30 ML VIAL (ORAL USE) PO PRN ×2 (11:34→12:33)
--- NOTE | 2018-04-12 13:11 | P.PN ---
Subjective Progress Note Date: 04/12/18 This is a 37-year-old male patient presents to emergency room with fever 104. Patient states fever started day night and that he has taken Tylenol every 6 hours the fever has been persistent. Patient does complain that he's had slight cough for the past few days and headache. Patient had one episode of emesis in emergency room but denies any other GI issues. Patient denies any significant past medical history. Chest x-ray completed showing normal chest. EKG completed showing sinus tachycardia with a heart rate of 107. Patient denies any alcohol or drug use. Patient denies any nicotine dependence. Initial lactic 2.3. Repeat lactic 0.8. Urinary analysis completed. Influenza A and B negative. Urine and blood cultures have been ordered. Patient started on Zithromax and Rocephin. At this time patient denies chest pain or shortness of breath. Patient denies any nausea vomiting or diarrhea. Patient denies any urinary burning or frequency. Dr. De Santiago has been consulted for infectious disease. On 04/11/2018 patient is currently sitting up in chair. Patient still feels very fatigued. Patient had a temp of 102.8 last night. Patient also has two enlarged lymph nodes on right side of neck. Patient denies any open sores or problems with teeth. Patient denies any ear pain. Patient denies chest pain or shortness breath. Patient denies any nausea vomiting or diarrhea. Patient denies any upper respiratory symptoms. Patient denies any urinary burning or frequency On 04/12/2018 patient currently sitting up in chair with family at bedside. Patient had temp this AM 101.3. Per infectious disease possible viral syndrome versus bacterial pharyngitis. Patient does have right cervical lymph node enlargement. Dr. Stevens per oncology consulted. At this time patient denies chest pain or shortness of breath. Patient denies nausea vomiting or diarrhea. Patient denies any urinary burning or frequency Objective - Vital Signs Vital signs: Vital Signs Temp 98.3 F 04/12/18 11:49 Pulse 82 04/12/18 11:49 Resp 18 04/12/18 11:49 BP 116/72 04/12/18 11:49 Pulse Ox 98 04/12/18 11:49 Intake & Output 04/11/18 04/12/18 04/12/18 18:59 06:59 18:59 Intake Total 2850 1180 Output Total 403 Balance 2447 1180 Weight 141 kg Intake: Intake, IV Titration 1900 700 Amount Sodium Chloride 0.9% 1, 1800 600 000 ml @ 200 mls/hr IV . Q5H [place] Rx#:[id number] cefTRIAXone 1,000 mg In 100 100 Sodium Chloride 0.9% 50 ml @ 100 mls/hr IVPB Q24HR [place] Rx#:[id number] Oral 950 480 Output: Urine 403 Other: Voiding Method Toilet # Voids 3 2 1 - Exam Head normocephalic Neck supple. 2 enlarged right cervical lymph nodes Lungs clear to auscultation bilaterally no wheezing or crackles Heart regular rate and rhythm S1-S2, no rub or gallop Abdomen is soft nontender nondistended positive bowel sounds no hepatosplenomegaly Extremities no edema Neuro alert and orientated to 3 - Labs CBC & Chem 7: 04/12/18 06:36 04/12/18 06:36 Labs: Abnormal Lab Results - Last 24 Hours (Table) 04/12/18 04/12/18 Range/Units 06:36 06:36 WBC 2.3 L (3.8-10.6) k/uL Hgb 11.6 L (13.0-17.5) gm/dL Hct 34.9 L (39.0-53.0) % MCV 79.5 L (80.0-100.0) fL Plt Count 119 L (150-450) k/uL Neutrophils # (Manual) 1.00 L (1.3-7.7) k/uL Lymphocytes # (Manual) 0.97 L (1.0-4.8) k/uL BUN 8 L (9-20) mg/dL Glucose 110 H (74-99) mg/dL Alkaline Phosphatase 138 H (38-126) U/L Total Protein 6.1 L (6.3-8.2) g/dL Albumin 3.2 L (3.5-5.0) g/dL Microbiology - Last 24 Hours (Table) 04/10/18 23:36 Blood Culture - Preliminary Blood No Growth after 24 hours 04/09/18 21:20 Blood Culture - Preliminary Blood No Growth after 48 hours 04/10/18 20:46 CSF Gram Stain - Preliminary Cerebral Spinal Fluid CSF Culture - Preliminary 04/09/18 23:08 Urine Culture - Final Urine,Voided Assessment and Plan Assessment: 1. Fever. Patient reports high fever of 104. Urine and blood cultures have been ordered. Chest x-ray completed showing normal chest. EKG completed showing sinus tachycardia. Influenza negative. Urine and blood cultures have been ordered. Patient started on Rocephin and Zithromax. Infectious disease following. Lumbar puncture has been performed. Patient remains Unasyn and Levaquin for antibiotics. Blood, urine and cerebrospinal fluid cultures currently negative 2. History of right ACL repair 3. 2 enlarged right cervical lymph nodes. Dr. stevens has been consulted for hematology services. CT scan of the chest abdomen and pelvis and soft tissue neck ordered per oncology services DVT prophylaxis Lovenox. GI prophylaxis Protonix I performed an examination of the patient and discussed their management with the Nurse Practitioner. I have reviewed the Nurse Practitioner's notes and agree with the documented findings and plan of care
--- NOTE | 2018-04-12 14:14 | PN ---
PROGRESS NOTE DATE OF SERVICE: 04/12/2018 REASON FOR FOLLOWUP: Fever. INTERVAL HISTORY: The patient did have a fever of 101.6 this morning, has been afebrile since then. The patient did mention that the right-sided head and neck swelling and redness and the pain has decreased. Denies any difficulty swallowing. No chest pain or shortness of breath. He did have a cough last night and was bringing up some sputum. However, has been thrown away and not collected. No abdominal pain, no diarrhea. PHYSICAL EXAMINATION: Blood pressure 116/72 with a pulse of 82, temperature 98.8, T-max 101.3. He is 98% on room air. General description is a middle-aged male, up in the bed in no distress. RESPIRATORY SYSTEM: Unlabored breathing, clear to auscultation. HEART: S1, S2. Regular rate and rhythm. ABDOMEN: Soft, no tenderness. LABS: Hemoglobin is 11.8, white count of 2.3 with a BUN of 8, creatinine 0.85. DIAGNOSTIC IMPRESSION AND PLAN: Patient with fever with right cervical lymph node with concern for possible oropharyngeal infection near persistent fever despite being on Rocephin antibiotic bed to Unasyn 3 g every 6 hours and continue with Levaquin. Waiting for the urine for Legionella to finalize as well. With him having a more productive sputum, will get a sputum for Gram stain culture and repeat a chest x-ray tomorrow. Continue supportive care. MMODL / IJN: [id number] /
--- NOTE | 2018-04-12 15:40 | CT ---
EXAMINATION TYPE: CT ChestAbdPelvis w con DATE OF EXAM: 04/12/2018 INDICATION: lymphadenopathy COMPARISON: None CT DLP: 3176 mGycm CONTRAST: Performed with Oral Contrast and with IV Contrast, patient injected with 100 mL of Isovue 300. TECHNIQUE: Axial images at 5 mm thick sections. Reconstructed images in the coronal plane. Delayed images through the kidneys. FINDINGS: CT CHEST: Portion of the thyroid visualized is normal. No suspicious lung nodules or focal infiltrates are present. No enlarged mediastinal or hilar adenopathy is evident. Significant shotty lymphadenopathy is not milagros ntified. There are couple tiny nodes in the pretracheal space. The ascending aorta diameter at the level of the main pulmonary artery is 4.2 cm. The main pulmonary artery diameter at the bifurcation is 3.[address] ABDOMEN: No retrocrural adenopathy is evident. No periaortic or retrocaval area. Liver: Mild fatty infiltration may be within the liver. Spleen: Enlarged measuring 19.5 cm. Normal less than 12.5 cm dimension. Pancreas: Normal Adrenal glands: The adrenal glands are normal. Gallbladder: Normal Kidneys: No masses are evident. No hydronephrosis is present. There is a 0.9 cm hypodense area with in the anterior lateral left mid kidney measuring 32 Hounsfield units on postcontrast imaging. Monito ring is recommended. Delayed images were obtained through the kidneys, which remain unremarkable. Aorta: Normal Inferior vena cava: Normal. CT PELVIS: Greater canal or iliac chain adenopathy is evident. Couple small inguinal r region lymph nodes are pr esent. Largest on the left measures 1.3 cm. Largest on the right measures 1.0 cm. Series 3022, image 151. Loops of bowel within the abdomen and pelvis are normal. There are loops of bowel which are incom pletely distended or lack oral contrast limiting their evaluation. Appendix: Normal as visualized. Urinary bladder: Normal. Genitourinary structures: Prostate is unremarkable. Osseous structures: No suspicious lytic or sclerotic lesions. IMPRESSIONS: 1. Ascending thoracic aortic aneurysm at the level of main pulmonary artery measures 4.2 cm. Aorta ta pers remaining visualized course. 2. Inguinal adenopathy. Additional adenopathy. 3. Splenomegaly 4. Complex cyst left kidney. Monitoring is recommended.
--- NOTE | 2018-04-12 15:44 | CT ---
EXAMINATION TYPE: CT soft tissue neck w con DATE OF EXAM: 04/12/2018 COMPARISON: CT chest same date HISTORY: lymphadenopathy CT DLP: 685 mGycm CONTRAST: Patient injected with 100 mL of Isovue 300. TECHNIQUE: Axial images at 3 mm thick sections. Reconstructed images in the coronal plane and sagitt al plane are reviewed. FINDINGS: Limited CT sections are obtained the lung apices. The lung apices appear clear. CT neck: The torus tubarius and fossa of Rosenmuller are normal. Buckle Sewer spaces are normal. Rete ntion cysts are within the bilateral maxillary sinuses. Parotid glands appear normal and symmetrical. Submandibular glands, are normal. Parapharyngeal spac es are normal. No suspicious adenopathy is evident. A small lymph nodes are present in the submandib ular regions. The hypopharynx appears within normal limits. Vocal cord level appear symmetrical. Thyroid as visualized is normal. Osseous structures are normal. There is straightening of the cervical spine sagittal plane. Preverteb ral space appears unremarkable. IMPRESSIONS: 1. No suspicious enlarged adenopathy.
--- NOTE | 2018-04-12 17:13 | P.CONS ---
History of Present Illness - Reason for Consult Consult date: 04/12/18 Lymphadenopathy - History of Present Illness The patient is a 37-year-old white male, and otherwise good health. The patient had presented to the hospital with complaints of fever, up to 104, accompanied with some chills and malaise, that had started about 4 days prior. He had been taking Tylenol at home without benefit. Due to progression of the symptoms he came into the emergency room and was admitted for further management. The patient reported some sore throat, and was started on antibiotics. Fever pattern has improved. Cultures, including CSF study have remained negative. The patient stated that he had noted a lump in his right upper neck, about 2 days ago. This was mildly tender on palpation, with some improvement since starting antibiotics. Consult was therefore placed for further evaluation. He denied any prior history of malignancy. No history of smoking or chewing tobacco use. Review of Systems Constitutional: Reports fever, Reports malaise Eyes: denies blurred vision, denies pain Ears, nose, mouth and throat: Reports neck lump Cardiovascular: Denies chest pain, Denies shortness of breath Respiratory: Denies cough Gastrointestinal: Denies abdominal pain, Denies diarrhea, Denies nausea, Denies vomiting Genitourinary: Reports as per HPI Musculoskeletal: Reports neck pain, Denies myalgias Integumentary: Denies pruritus, Denies rash Neurological: Denies numbness, Denies weakness Psychiatric: Denies anxiety, Denies depression Endocrine: Denies fatigue, Denies weight change Hematologic/Lymphatic: Reports lymphadenopathy Past Medical History Past Medical History: No Reported History Additional Past Medical History / Comment(s): seasonal allergies History of Any Multi-Drug Resistant Organisms: None Reported Past Surgical History: Orthopedic Surgery Additional Past Surgical History / Comment(s): Right ACL sx Past Anesthesia/Blood Transfusion Reactions: No Reported Reaction Past Psychological History: No Psychological Hx Reported Smoking Status: Never smoker Past Alcohol Use History: Rare Past Drug Use History: None Reported - Past Family History Mother Family Medical History: No Reported History Father History Unknown: Yes Medications and Allergies Home Medications Medication Instructions Recorded Confirmed Type Acetaminophen Tab [Tylenol Tab] 650 mg PO Q4H PRN 04/09/18 04/09/18 History Allergies Allergy/AdvReac Type Severity Reaction Status Date / Time No Known Allergies Allergy Verified 04/09/18 21:29 Physical Exam Vitals: Vital Signs Temp Pulse Resp BP Pulse Ox 04/12/18 11:49 98.3 F 82 18 116/72 98 04/12/18 07:53 98.4 F 76 16 110/69 96 04/12/18 06:41 99.1 F 04/12/18 06:13 101.3 F H 04/12/18 04:00 101.5 F H 98 18 117/70 95 04/12/18 00:00 98.8 F 81 18 113/70 99 04/11/18 20:00 98.1 F 86 18 117/71 96 04/11/18 16:00 98.6 F 91 16 120/68 96 Intake and Output 04/11/18 04/12/18 04/12/18 22:59 06:59 14:59 Intake Total 2069 940 Output Total 3 Balance 2066 940 Intake: Intake, IV Titration 1600 700 Amount Sodium Chloride 0.9% 1, 1600 600 000 ml @ 200 mls/hr IV . Q5H [place] Rx#:[id number] cefTRIAXone 1,000 mg In 100 Sodium Chloride 0.9% 50 ml @ 100 mls/hr IVPB Q24HR [place] Rx#:[id number] Oral 470 240 Output: Urine 3 Other: Voiding Method Toilet Toilet # Voids 3 2 1 Weight 141 kg - Constitutional General appearance: no acute distress - EENT Eyes: EOMI, PERRLA ENT: hearing grossly normal, pharyngeal erythema - Neck Neck: lymphadenopathy (2.5-3 cm oblong mass right upper lateral cervical chain) Thyroid: bilateral: normal size - Respiratory Respiratory: bilateral: CTA - Cardiovascular Rhythm: regular Heart sounds: normal: S1, S2 - Gastrointestinal General gastrointestinal: normal bowel sounds, soft - Neurologic Neurologic: CNII-XII intact - Musculoskeletal Musculoskeletal: generalized weakness, strength equal bilaterally - Psychiatric Psychiatric: A&O x's 3, appropriate affect Results CBC & Chem 7: 04/12/18 06:36 04/12/18 06:36 Labs: Abnormal Lab Results - Last 24 Hours (Table) 04/12/18 04/12/18 Range/Units 06:36 06:36 WBC 2.3 L (3.8-10.6) k/uL Hgb 11.6 L (13.0-17.5) gm/dL Hct 34.9 L (39.0-53.0) % MCV 79.5 L (80.0-100.0) fL Plt Count 119 L (150-450) k/uL Neutrophils # (Manual) 1.00 L (1.3-7.7) k/uL Lymphocytes # (Manual) 0.97 L (1.0-4.8) k/uL BUN 8 L (9-20) mg/dL Glucose 110 H (74-99) mg/dL Alkaline Phosphatase 138 H (38-126) U/L Total Protein 6.1 L (6.3-8.2) g/dL Albumin 3.2 L (3.5-5.0) g/dL Microbiology - Last 24 Hours (Table) 04/10/18 23:36 Blood Culture - Preliminary Blood No Growth after 24 hours 04/09/18 21:20 Blood Culture - Preliminary Blood No Growth after 48 hours 04/10/18 20:46 CSF Gram Stain - Preliminary Cerebral Spinal Fluid CSF Culture - Preliminary 04/09/18 23:08 Urine Culture - Final Urine,Voided Chest x-ray: report reviewed CT Scan - head: report reviewed Assessment and Plan (1) Lymphadenopathy of right cervical region Narrative/Plan: According to the patient, this is a fairly acute finding. This is recommended tender on palpation. Given the patient's presentation, reactive etiology is more likely. However malignant etiology cannot be totally ruled out. - I will just check computed tomography scan of the neck, as well as chest abdomen and pelvis. The patient has other sites of significant adenopathy, then malignant etiology is more suspicious. I will also check labs for adenopathy. If his scans and labs did not show any major findings, and the patient can likely be discharged with follow-up in the outpatient setting. In that case if the nga enlargement is persistent, then biopsy can be arranged Current Visit: Yes Status: Acute Code(s): R59.0 - LOCALIZED ENLARGED LYMPH NODES SNOMED Code(s): 310967373 (2) Bicytopenia Narrative/Plan: Counts are in a safe range. Given the clinical presentation, viral suppression is the primary differential diagnosis. Other etiologies are not ruled out. Autoimmune and inflammatory markers, as well as protein electrophoresis studies have already been ordered as part of lymphadenopathy workup. If no abnormality is noted, recommend outpatient follow-up to ensure recovery. Current Visit: Yes Status: Acute Code(s): D75.89 - OTHER SPECIFIED DISEASES OF BLOOD AND BLOOD-FORMING ORGANS SNOMED Code(s): 409906139 (3) Viral infection Narrative/Plan: Cultures are negative. ID is following. Clinically this appears to be very reasonable differential, given improvement in fever pattern, and his clinical presentation Current Visit: Yes Status: Acute Code(s): B34.9 - VIRAL INFECTION, UNSPECIFIED SNOMED Code(s): 05141898 Plan: Case discussed in detail with the admitting service
[2018-04-12 20:01] LABS: Protein, Total 5.6 g/dL (6.2-8.2); Rheumatoid Factor 10 IU/mL (0-15)
[2018-04-13] MEDS: SODIUM CHLORIDE 0.9% 1,000 ML IV SCH ×5 (05:59→23:21)
[2018-04-13] MEDS: AMPICILLIN-SULBACTAM 3 GM in SODIUM CHLORIDE 0.9% 100 ML IVPB SCH ×4 (05:59→23:21)
[2018-04-13] MEDS: PANTOPRAZOLE 40 MG TABLET PO SCH (05:59)
[2018-04-13 07:32] LABS: HGB 12.4 gm/dL (13.0-17.5); MCH 26.8 pg (25.0-35.0); MCHC 33.6 g/dL (31.0-37.0); MCV 79.8 fL (80.0-100.0); Platelet Count 112 k/uL (150-450); RBC 4.64 m/uL (4.30-5.90); RDW 13.6 % (11.5-15.5); WBC 2.4 k/uL (3.8-10.6)
[2018-04-13 07:33] LABS: ALT 76 U/L (21-72); AST 86 U/L (17-59); Albumin 3.1 g/dL (3.5-5.0); Alkaline Phosphatase 184 U/L (38-126); Anion Gap 5 mmol/L; Blood Urea Nitrogen 8 mg/dL (9-20); Calcium 8.5 mg/dL (8.4-10.2); Carbon Dioxide 28 mmol/L (22-30); Chloride 107 mmol/L (98-107); Glucose 102 mg/dL (74-99); Potassium 4.7 mmol/L (3.5-5.1); Sodium 140 mmol/L (137-145); Total Bilirubin 0.7 mg/dL (0.2-1.3); Total Protein 6.1 g/dL (6.3-8.2)
[2018-04-13] MEDS: ACETAMINOPHEN TAB 325 MG TAB PO PRN ×2 (08:00→14:06)
[2018-04-13] MEDS: LEVOFLOXACIN 750 MG TAB PO SCH (08:00)
[2018-04-13] MEDS: ENOXAPARIN 40 MG/0.4 ML SYRINGE SQ SCH (08:00)
[2018-04-13 10:55] LABS: Basophils # (M) 0.02 k/uL (0-0.2); Eosinophils # (M) 0.07 k/uL (0-0.7); Lymphocytes # (M) 1.08 k/uL (1.0-4.8); Monocytes # (M) 0.31 k/uL (0-1.0); Neutrophils # (M) 0.91 k/uL (1.3-7.7); Neutrophils % (M) 38 %; Nucleated Red Blood Cells 0 /100 WBC (0-0); Total Cells Counted 100
--- NOTE | 2018-04-13 11:53 | P.PN ---
Subjective Progress Note Date: 04/13/18 This is a 37-year-old male patient presents to emergency room with fever 104. Patient states fever started day night and that he has taken Tylenol every 6 hours the fever has been persistent. Patient does complain that he's had slight cough for the past few days and headache. Patient had one episode of emesis in emergency room but denies any other GI issues. Patient denies any significant past medical history. Chest x-ray completed showing normal chest. EKG completed showing sinus tachycardia with a heart rate of 107. Patient denies any alcohol or drug use. Patient denies any nicotine dependence. Initial lactic 2.3. Repeat lactic 0.8. Urinary analysis completed. Influenza A and B negative. Urine and blood cultures have been ordered. Patient started on Zithromax and Rocephin. At this time patient denies chest pain or shortness of breath. Patient denies any nausea vomiting or diarrhea. Patient denies any urinary burning or frequency. Dr. De Santiago has been consulted for infectious disease. On 04/11/2018 patient is currently sitting up in chair. Patient still feels very fatigued. Patient had a temp of 102.8 last night. Patient also has two enlarged lymph nodes on right side of neck. Patient denies any open sores or problems with teeth. Patient denies any ear pain. Patient denies chest pain or shortness breath. Patient denies any nausea vomiting or diarrhea. Patient denies any upper respiratory symptoms. Patient denies any urinary burning or frequency On 04/12/2018 patient currently sitting up in chair with family at bedside. Patient had temp this AM 101.3. Per infectious disease possible viral syndrome versus bacterial pharyngitis. Patient does have right cervical lymph node enlargement. Dr. Stevens per oncology consulted. At this time patient denies chest pain or shortness of breath. Patient denies nausea vomiting or diarrhea. Patient denies any urinary burning or frequency On 04/13/2018 patient was seen and examined on the telemetry floor he is alert and oriented 3 in no apparent distress still having elevated temperature up to 102 this morning still complaining of headache and nausea otherwise no complaints at this time there is no dizziness no chest pain no shortness of breath there is occasional cough no vomiting no abdominal pain no diarrhea and no urinary symptoms Objective - Vital Signs Vital signs: Vital Signs Temp 98.7 F 04/13/18 11:26 Pulse 95 11/22/18 11:26 Resp 17 04/13/18 11:26 BP 121/72 04/13/18 11:26 Pulse Ox 96 04/13/18 11:26 Intake & Output 04/12/18 04/13/18 04/13/18 18:59 06:59 18:59 Intake Total 3220 1600 2240 Balance 3220 1600 2240 Weight 141.6 kg Intake: IV 1600 2000 0.9 1600 2000 Intake, IV Titration 2500 Amount Ampicillin-Sulbactam 3 gm 200 In Sodium Chloride 0.9% 100 ml @ 200 mls/hr IVPB Q6HR [place] Rx#:[id number] Sodium Chloride 0.9% 1, 2200 000 ml @ 200 mls/hr IV . Q5H [place] Rx#:[id number] cefTRIAXone 1,000 mg In 100 Sodium Chloride 0.9% 50 ml @ 100 mls/hr IVPB Q24HR [place] Rx#:[id number] Oral 720 240 Other: Voiding Method Toilet Toilet # Voids 1 - Exam Head normocephalic and atraumatic Neck supple. 2 enlarged right cervical lymph nodes Lungs clear to auscultation bilaterally no wheezing or crackles Heart regular rate and rhythm S1-S2, no rub or gallop Abdomen is soft nontender nondistended positive bowel sounds no hepatosplenomegaly Extremities no edema no cyanosis or clubbing Neuro alert and orientated to 3 no gross focal deficit - Labs CBC & Chem 7: 04/13/18 06:29 04/13/18 06:29 Labs: Abnormal Lab Results - Last 24 Hours (Table) 04/12/18 04/12/18 04/13/18 Range/Units 06:36 06:36 06:29 WBC 2.4 L (3.8-10.6) k/uL Hgb 12.4 L (13.0-17.5) gm/dL Hct 37.0 L (39.0-53.0) % MCV 79.8 L (80.0-100.0) fL Plt Count 112 L (150-450) k/uL Neutrophils # (Manual) 0.91 L (1.3-7.7) k/uL BUN (9-20) mg/dL Glucose (74-99) mg/dL AST (17-59) U/L ALT (21-72) U/L Alkaline Phosphatase (38-126) U/L Lactate Dehydrogenase 819 H (313-618) U/L Total Protein (6.3-8.2) g/dL Total Protein (PEP) 5.6 L (6.2-8.2) g/dL Albumin (3.5-5.0) g/dL 04/13/18 Range/Units 06:29 WBC (3.8-10.6) k/uL Hgb (13.0-17.5) gm/dL Hct (39.0-53.0) % MCV (80.0-100.0) fL Plt Count (150-450) k/uL Neutrophils # (Manual) (1.3-7.7) k/uL BUN 8 L (9-20) mg/dL Glucose 102 H (74-99) mg/dL AST 86 H (17-59) U/L ALT 76 H (21-72) U/L Alkaline Phosphatase 184 H (38-126) U/L Lactate Dehydrogenase (313-618) U/L Total Protein 6.1 L (6.3-8.2) g/dL Total Protein (PEP) (6.2-8.2) g/dL Albumin 3.1 L (3.5-5.0) g/dL Microbiology - Last 24 Hours (Table) 04/10/18 23:36 Blood Culture - Preliminary Blood No Growth after 48 hours 04/09/18 21:20 Blood Culture - Preliminary Blood No Growth after 72 hours 04/10/18 20:46 CSF Gram Stain - Preliminary Cerebral Spinal Fluid CSF Culture - Preliminary Assessment and Plan Plan: 1. Fever. Patient reports high fever of 104. Urine and blood cultures have been ordered. Chest x-ray completed showing normal chest. EKG completed showing sinus tachycardia. Influenza negative. Urine and blood cultures have been ordered. Patient started on Rocephin and Zithromax. Infectious disease following. Lumbar puncture has been performed. Patient remains Unasyn and Levaquin for antibiotics. Blood, urine and cerebrospinal fluid cultures currently negative 2. History of right ACL repair 3. 2 enlarged right cervical lymph nodes. Dr. stevens has been consulted for hematology services. CT scan of the chest abdomen and pelvis and soft tissue neck ordered per oncology services Case discussed today with Dr. Stevens at this time no need for intervention. Enlarged lymph nodes may be related to infectious process patient will continue to receive antibiotics if he still has enlarged lymph nodes in 2-3 weeks he will be followed as outpatient by Dr. Stevens and then may proceed with biopsy. DVT prophylaxis Lovenox. GI prophylaxis Protonix
--- NOTE | 2018-04-13 12:21 | P.PN ---
Subjective Progress Note Date: 04/13/18 The patient spiked a temp of 101. 9 today. He feels somewhat tired. He feels that the right neck mass is less prominent and tender. Objective - Vital Signs Vital signs: Vital Signs Temp 98.7 F 04/13/18 11:26 Pulse 95 04/13/18 11:26 Resp 17 04/13/18 11:26 BP 121/72 04/13/18 11:26 Pulse Ox 96 04/13/18 11:26 Intake & Output 04/12/18 04/13/18 04/13/18 18:59 06:59 18:59 Intake Total 3220 1600 2240 Balance 3220 1600 2240 Weight 141.6 kg Intake: IV 1600 2000 0.9 1600 2000 Intake, IV Titration 2500 Amount Ampicillin-Sulbactam 3 gm 200 In Sodium Chloride 0.9% 100 ml @ 200 mls/hr IVPB Q6HR [place] Rx#:[id number] Sodium Chloride 0.9% 1, 2200 000 ml @ 200 mls/hr IV . Q5H [place] Rx#:[id number] cefTRIAXone 1,000 mg In 100 Sodium Chloride 0.9% 50 ml @ 100 mls/hr IVPB Q24HR [place] Rx#:[id number] Oral 720 240 Other: Voiding Method Toilet Toilet # Voids 1 - Constitutional General appearance: Present: no acute distress - EENT Eyes: Present: EOMI ENT: Present: hearing grossly normal, normal oropharynx - Neck Neck: Present: lymphadenopathy (Right upper neck mass is less prominent, and not tender today.) - Respiratory Respiratory: bilateral: CTA - Cardiovascular Rhythm: regular - Gastrointestinal General gastrointestinal: Present: normal bowel sounds, soft - Integumentary Integumentary: Present: normal - Neurologic Neurologic: Present: CNII-XII intact - Musculoskeletal Musculoskeletal: Present: generalized weakness, strength equal bilaterally - Psychiatric Psychiatric: Present: A&O x's 3, appropriate affect - Labs CBC & Chem 7: 04/13/18 06:29 04/13/18 06:29 Labs: Abnormal Lab Results - Last 24 Hours (Table) 04/12/18 04/12/18 04/13/18 Range/Units 06:36 06:36 06:29 WBC 2.4 L (3.8-10.6) k/uL Hgb 12.4 L (13.0-17.5) gm/dL Hct 37.0 L (39.0-53.0) % MCV 79.8 L (80.0-100.0) fL Plt Count 112 L (150-450) k/uL Neutrophils # (Manual) 0.91 L (1.3-7.7) k/uL BUN (9-20) mg/dL Glucose (74-99) mg/dL AST (17-59) U/L ALT (21-72) U/L Alkaline Phosphatase (38-126) U/L Lactate Dehydrogenase 819 H (313-618) U/L Total Protein (6.3-8.2) g/dL Total Protein (PEP) 5.6 L (6.2-8.2) g/dL Albumin (3.5-5.0) g/dL 04/13/18 Range/Units 06:29 WBC (3.8-10.6) k/uL Hgb (13.0-17.5) gm/dL Hct (39.0-53.0) % MCV (80.0-100.0) fL Plt Count (150-450) k/uL Neutrophils # (Manual) (1.3-7.7) k/uL BUN 8 L (9-20) mg/dL Glucose 102 H (74-99) mg/dL AST 86 H (17-59) U/L ALT 76 H (21-72) U/L Alkaline Phosphatase 184 H (38-126) U/L Lactate Dehydrogenase (313-618) U/L Total Protein 6.1 L (6.3-8.2) g/dL Total Protein (PEP) (6.2-8.2) g/dL Albumin 3.1 L (3.5-5.0) g/dL Microbiology - Last 24 Hours (Table) 04/10/18 23:36 Blood Culture - Preliminary Blood No Growth after 48 hours 04/09/18 21:20 Blood Culture - Preliminary Blood No Growth after 72 hours 04/10/18 20:46 CSF Gram Stain - Preliminary Cerebral Spinal Fluid CSF Culture - Preliminary Assessment and Plan (1) Lymphadenopathy of right cervical region Narrative/Plan: This is definitely less prominent today on exam. The patient also feels that this is less tender. Computed tomography scan of the chest abdomen and pelvis did not show any abnormal findings in the chest. In the abdomen he was noted to have a mild splenomegaly. There was mention of lymph node enlargement in the left iliac and left inguinal regions. However the measurements of the lymph nodes in this area, are normal to only borderline increased. Therefore this finding is nonspecific. In addition, the CT of the neck did not mention any mass, though the patient has a definite palpable abnormality! Labs for lymphadenopathy negative so far with additional labs pending. Given the improvement in the right neck mass, a secondary or reactive causes thus appears more likely. However the patient will need close follow-up till resolution. If adenopathy persists in the outpatient setting, over the next couple of weeks, then we will proceed to biopsy All the above plan was discussed in detail with the admitting service Current Visit: Yes Status: Acute Code(s): R59.0 - LOCALIZED ENLARGED LYMPH NODES SNOMED Code(s): 195441844 (2) Bicytopenia Narrative/Plan: The patient has mild pancytopenia, along with liver enzyme elevation. This picture, in association with his fever and overall general condition is again more suggestive of an infectious illness, likely viral. Counts are in a safe range. Continue to monitor at this time. Cytopenia workup is pending. Current Visit: Yes Status: Acute Code(s): D75.89 - OTHER SPECIFIED DISEASES OF BLOOD AND BLOOD-FORMING ORGANS SNOMED Code(s): 872311129 (3) Viral infection Narrative/Plan: ID is following. There is also concern for lesion of her testing for the same pending. Continue treatment per ID. Current Visit: Yes Status: Acute Code(s): B34.9 - VIRAL INFECTION, UNSPECIFIED SNOMED Code(s): 33527745
[2018-04-13] MEDS: IBUPROFEN 400 MG TAB PO PRN (16:18)
[2018-04-14] MEDS: ACETAMINOPHEN TAB 325 MG TAB PO PRN ×2 (05:12→17:06)
[2018-04-14] MEDS: SODIUM CHLORIDE 0.9% 1,000 ML IV SCH ×2 (05:28→12:39)
[2018-04-14] MEDS: PANTOPRAZOLE 40 MG TABLET PO SCH (06:07)
[2018-04-14] MEDS: AMPICILLIN-SULBACTAM 3 GM in SODIUM CHLORIDE 0.9% 100 ML IVPB SCH ×4 (06:11→23:01)
[2018-04-14 06:30] LABS: ALT 106 U/L (21-72); AST 135 U/L (17-59); Albumin 3.1 g/dL (3.5-5.0); Alkaline Phosphatase 280 U/L (38-126); Anion Gap 6 mmol/L; Blood Urea Nitrogen 11 mg/dL (9-20); Calcium 8.3 mg/dL (8.4-10.2); Carbon Dioxide 24 mmol/L (22-30); Chloride 107 mmol/L (98-107); Glucose 130 mg/dL (74-99); Potassium 3.9 mmol/L (3.5-5.1); Sodium 137 mmol/L (137-145); Total Bilirubin 0.8 mg/dL (0.2-1.3)
[2018-04-14 06:34] LABS: HCT 36.1 % (39.0-53.0); HGB 12.1 gm/dL (13.0-17.5); MCH 26.2 pg (25.0-35.0); MCHC 33.6 g/dL (31.0-37.0); Mean Platelet Volume 7.7; Platelet Count 87 k/uL (150-450); RBC 4.63 m/uL (4.30-5.90); RDW 13.6 % (11.5-15.5); WBC 1.8 k/uL (3.8-10.6)
[2018-04-14 07:42] LABS: Eosinophils # (M) 0.02 k/uL (0-0.7); Monocytes # (M) 0.13 k/uL (0-1.0); Neutrophils # (M) 0.76 k/uL (1.3-7.7); Neutrophils % (M) 42 %; Nucleated Red Blood Cells 0 /100 WBC (0-0); Total Cells Counted 100
[2018-04-14] MEDS: IBUPROFEN 400 MG TAB PO PRN ×2 (08:22→20:26)
[2018-04-14] MEDS: ENOXAPARIN 40 MG/0.4 ML SYRINGE SQ SCH (08:23)
--- NOTE | 2018-04-14 09:36 | PN ---
PROGRESS NOTE DATE OF SERVICE: 04/13/2018 REASON FOR FOLLOWUP: Fever, possible viral syndrome. INTERVAL HISTORY: The patient is currently running a low-grade fever, complaining of feeling weak and lethargic. The painful swelling to the right side of the neck has decreased. No difficult swallowing. No chest pain. He did have some cough, not bringing up any sputum. No nausea or vomiting. No abdominal pain, no diarrhea. EXAMINATION: Blood pressure 128/69 with a pulse of 87, temperature 100.3. He is 96% on room air. GENERAL DESCRIPTION: Middle aged male up in the bed in no distress. HEENT: The right submandibular lymph nodes decreased in size. LUNGS: Unlabored breathing, clear to auscultation. HEART: S1, S2. Regular rate and rhythm. ABDOMEN: Soft, no tenderness. EXTREMITIES: No edema of the feet. LABS: Hemoglobin is 12.4, white count 2.4 with a BUN of 8, creatinine 0.89. DIAGNOSTIC IMPRESSION AND PLAN: Patient with fever, possible viral syndrome. He did have a right submandibular lymph node and is currently covered with Unasyn. CMV serology has been ordered. Continue to monitor clinical course closely. Plan of care discussed with the attending physician as well as the oncologist. Continue supportive care. MMODL / IJN: [id number] /
--- NOTE | 2018-04-14 11:45 | P.PN ---
Subjective Progress Note Date: 04/14/18 This is a 37-year-old male patient presents to emergency room with fever 104. Patient states fever started day night and that he has taken Tylenol every 6 hours the fever has been persistent. Patient does complain that he's had slight cough for the past few days and headache. Patient had one episode of emesis in emergency room but denies any other GI issues. Patient denies any significant past medical history. Chest x-ray completed showing normal chest. EKG completed showing sinus tachycardia with a heart rate of 107. Patient denies any alcohol or drug use. Patient denies any nicotine dependence. Initial lactic 2.3. Repeat lactic 0.8. Urinary analysis completed. Influenza A and B negative. Urine and blood cultures have been ordered. Patient started on Zithromax and Rocephin. At this time patient denies chest pain or shortness of breath. Patient denies any nausea vomiting or diarrhea. Patient denies any urinary burning or frequency. Dr. De Santiago has been consulted for infectious disease. On 04/11/2018 patient is currently sitting up in chair. Patient still feels very fatigued. Patient had a temp of 102.8 last night. Patient also has two enlarged lymph nodes on right side of neck. Patient denies any open sores or problems with teeth. Patient denies any ear pain. Patient denies chest pain or shortness breath. Patient denies any nausea vomiting or diarrhea. Patient denies any upper respiratory symptoms. Patient denies any urinary burning or frequency On 04/12/2018 patient currently sitting up in chair with family at bedside. Patient had temp this AM 101.3. Per infectious disease possible viral syndrome versus bacterial pharyngitis. Patient does have right cervical lymph node enlargement. Dr. Stevens per oncology consulted. At this time patient denies chest pain or shortness of breath. Patient denies nausea vomiting or diarrhea. Patient denies any urinary burning or frequency On 04/13/2018 patient was seen and examined on the telemetry floor he is alert and oriented 3 in no apparent distress still having elevated temperature up to 102 this morning still complaining of headache and nausea otherwise no complaints at this time there is no dizziness no chest pain no shortness of breath there is occasional cough no vomiting no abdominal pain no diarrhea and no urinary symptoms On 04/14/2018 patient remains alert and oriented 3. Patient's temp remains elevated at 101.3. This time patient is requesting possible transfer to [facility] for further evaluation. Discussed with case management attempted transferring process. This time patient denies chest pain or shortness breath. Patient denies nausea vomiting or diarrhea. Patient denies any urinary burning or frequency Objective - Vital Signs Vital signs: Vital Signs Temp 98.8 F 04/14/18 08:15 Pulse 92 04/14/18 08:15 Resp 18 04/14/18 08:15 BP 113/70 04/14/18 08:15 Pulse Ox 95 04/14/18 08:15 Intake & Output 04/13/18 04/14/18 04/14/18 18:59 06:59 18:59 Intake Total 2240 1600 Output Total 800 500 Balance 1440 1600 -500 Weight 141.3 kg Intake: IV 2000 1600 0.9 2000 1600 Oral 240 Output: Urine 800 500 Other: Voiding Method Toilet Toilet # Voids 1 - Exam Head normocephalic Neck supple. 2 enlarged right cervical lymph nodes Lungs clear to auscultation bilaterally no wheezing or crackles Heart regular rate and rhythm S1-S2, no rub or gallop Abdomen is soft nontender nondistended positive bowel sounds no hepatosplenomegaly Extremities no edema Neuro alert and orientated to 3 - Labs CBC & Chem 7: 04/14/18 06:04 04/14/18 06:04 Labs: Abnormal Lab Results - Last 24 Hours (Table) 04/14/18 04/14/18 Range/Units 06:04 06:04 WBC 1.8 L (3.8-10.6) k/uL Hgb 12.1 L (13.0-17.5) gm/dL Hct 36.1 L (39.0-53.0) % MCV 78.0 L (80.0-100.0) fL Plt Count 87 L (150-450) k/uL Neutrophils # (Manual) 0.76 L (1.3-7.7) k/uL Lymphocytes # (Manual) 0.90 L (1.0-4.8) k/uL Glucose 130 H (74-99) mg/dL Calcium 8.3 L (8.4-10.2) mg/dL AST 135 H (17-59) U/L ALT 106 H (21-72) U/L Alkaline Phosphatase 280 H (38-126) U/L Total Protein 6.0 L (6.3-8.2) g/dL Albumin 3.1 L (3.5-5.0) g/dL Microbiology - Last 24 Hours (Table) 04/10/18 23:36 Blood Culture - Preliminary Blood No Growth after 72 hours 04/09/18 21:20 Blood Culture - Preliminary Blood No Growth after 96 hours 04/10/18 20:46 CSF Gram Stain - Preliminary Cerebral Spinal Fluid CSF Culture - Preliminary Assessment and Plan Assessment: 1. Fever. Patient reports high fever of 104. Urine and blood cultures have been ordered. Chest x-ray completed showing normal chest. EKG completed showing sinus tachycardia. Influenza negative. Urine and blood cultures have been ordered. Patient started on Rocephin and Zithromax. Infectious disease following. Lumbar puncture has been performed. Patient remains Unasyn and Levaquin for antibiotics. Blood, urine and cerebrospinal fluid cultures currently negative. Per infectious disease patient remains on Unasyn for IV antibiotic. CMV serology has been ordered per infectious disease 2. History of right ACL repair 3. 2 enlarged right cervical lymph nodes. Dr. stevens has been consulted for hematology services. CT scan of the chest abdomen and pelvis and soft tissue neck ordered per oncology services 4. Elevated liver enzymes. Alkaline phosphatase 280 ALT 106 and AST 135 Case discussed today with Dr. Stevens at this time no need for intervention. Enlarged lymph nodes may be related to infectious process patient will continue to receive antibiotics if he still has enlarged lymph nodes in 2-3 weeks he will be followed as outpatient by Dr. Stevens and then may proceed with biopsy.\ Requesting possible transfer to [facility]. Discussed with case management attempted transfer in process DVT prophylaxis Lovenox. GI prophylaxis Protonix I performed an examination of the patient and discussed their management with the Nurse Practitioner. I have reviewed the Nurse Practitioner's notes and agree with the documented findings and plan of care
--- NOTE | 2018-04-14 16:04 | PN ---
PROGRESS NOTE DATE OF SERVICE: 04/12/2018 REASON FOR FOLLOWUP: Fever, likely viral syndrome. INTERVAL HISTORY: The patient had another fever this morning of 101.3 degrees Fahrenheit. The patient has been afebrile since then. The patient seems to be slightly frustrated with the persistent fever. Patient denies having any neck or chest pain. Minimal cough. No abdominal pain. No diarrhea. PHYSICAL EXAMINATION: Blood pressure 119/72 with a pulse of 83, temperature 98.3. He is 96% on room air. General description is a middle-aged male up in the chair in no distress. HEENT EXAMINATION: No pallor or scleral icterus. LUNGS: Unlabored breathing. Clear to auscultation anteriorly. HEART: S1, S2. Regular rate and rhythm. ABDOMEN: Soft. No tenderness. LABS: Hemoglobin is 12.1, white count 1.8 with a BUN of 11, creatinine 0.85. Liver enzymes are elevated. CMV IgG is positive; IgM is negative. EBV is currently pending. DIAGNOSTIC IMPRESSION AND PLAN: Patient with persistent fever, now with evidence of leukopenia and thrombocytopenia as well as elevated liver enzymes pointing towards a possible viral infection with a question of possible EBV, as his CMV IgM was negative, though IgG is positive. Clinically patient has no evidence of any bacterial infection, as the patient did have extensive workup, including a CSF that was negative. CT of the neck, chest and abdomen did not show any evidence of any inflammation, and all his cultures have been negative. The patient has shown an interest in transferring to [place], which I do not have any problem with. Plan of care was discussed in detail with the patient and attending physician. Antibiotic Unasyn may be discontinued. Continue with supportive care. MMODL / IJN: [id number] /
[2018-04-15] MEDS: PANTOPRAZOLE 40 MG TABLET PO SCH (06:00)
[2018-04-15] MEDS: SODIUM CHLORIDE 0.9% 1,000 ML IV SCH (06:00)
[2018-04-15] MEDS: AMPICILLIN-SULBACTAM 3 GM in SODIUM CHLORIDE 0.9% 100 ML IVPB SCH ×2 (06:00→17:54)
[2018-04-15 06:52] LABS: HGB 11.6 gm/dL (13.0-17.5); MCH 25.7 pg (25.0-35.0); MCHC 32.3 g/dL (31.0-37.0); MCV 79.4 fL (80.0-100.0); Mean Platelet Volume 7.5; Platelet Count 60 k/uL (150-450); RBC 4.53 m/uL (4.30-5.90); RDW 13.5 % (11.5-15.5); WBC 2.5 k/uL (3.8-10.6)
[2018-04-15 07:12] LABS: ALT 188 U/L (21-72); AST 216 U/L (17-59); Alkaline Phosphatase 373 U/L (38-126); Anion Gap 6 mmol/L; Blood Urea Nitrogen 12 mg/dL (9-20); Calcium 8.6 mg/dL (8.4-10.2); Carbon Dioxide 28 mmol/L (22-30); Chloride 106 mmol/L (98-107); Glucose 100 mg/dL (74-99); Sodium 140 mmol/L (137-145); Total Bilirubin 1.7 mg/dL (0.2-1.3); Total Protein 5.8 g/dL (6.3-8.2)
[2018-04-15 07:35] LABS: Potassium 4.1 mmol/L (3.5-5.1)
[2018-04-15 08:40] LABS: Band Neutrophils % 2 %; Eosinophils # (M) 0.08 k/uL (0-0.7); Lymphocytes # (M) 1.23 k/uL (1.0-4.8); Metamyelocytes # (M) 0.03 k/uL (0); Metamyelocytes % 1 %; Monocytes # (M) 0.25 k/uL (0-1.0); Myelocytes # (M) 0.03 k/uL (0); Myelocytes % 1 %; Neutrophils % (M) 36 %; Nucleated Red Blood Cells 0 /100 WBC (0-0); Total Cells Counted 200
[2018-04-15] MEDS: ENOXAPARIN 40 MG/0.4 ML SYRINGE SQ SCH (09:01)
[2018-04-15] MEDS: IBUPROFEN 400 MG TAB PO PRN ×2 (09:01→15:49)
--- NOTE | 2018-04-15 14:07 | P.PN ---
Subjective Progress Note Date: 04/15/18 This is a 37-year-old male patient presents to emergency room with fever 104. Patient states fever started day night and that he has taken Tylenol every 6 hours the fever has been persistent. Patient does complain that he's had slight cough for the past few days and headache. Patient had one episode of emesis in emergency room but denies any other GI issues. Patient denies any significant past medical history. Chest x-ray completed showing normal chest. EKG completed showing sinus tachycardia with a heart rate of 107. Patient denies any alcohol or drug use. Patient denies any nicotine dependence. Initial lactic 2.3. Repeat lactic 0.8. Urinary analysis completed. Influenza A and B negative. Urine and blood cultures have been ordered. Patient started on Zithromax and Rocephin. At this time patient denies chest pain or shortness of breath. Patient denies any nausea vomiting or diarrhea. Patient denies any urinary burning or frequency. Dr. De Santiago has been consulted for infectious disease. On 04/11/2018 patient is currently sitting up in chair. Patient still feels very fatigued. Patient had a temp of 102.8 last night. Patient also has two enlarged lymph nodes on right side of neck. Patient denies any open sores or problems with teeth. Patient denies any ear pain. Patient denies chest pain or shortness breath. Patient denies any nausea vomiting or diarrhea. Patient denies any upper respiratory symptoms. Patient denies any urinary burning or frequency On 04/12/2018 patient currently sitting up in chair with family at bedside. Patient had temp this AM 101.3. Per infectious disease possible viral syndrome versus bacterial pharyngitis. Patient does have right cervical lymph node enlargement. Dr. Stevens per oncology consulted. At this time patient denies chest pain or shortness of breath. Patient denies nausea vomiting or diarrhea. Patient denies any urinary burning or frequency On 04/13/2018 patient was seen and examined on the telemetry floor he is alert and oriented 3 in no apparent distress still having elevated temperature up to 102 this morning still complaining of headache and nausea otherwise no complaints at this time there is no dizziness no chest pain no shortness of breath there is occasional cough no vomiting no abdominal pain no diarrhea and no urinary symptoms On 04/14/2018 patient remains alert and oriented 3. Patient's temp remains elevated at 101.3. This time patient is requesting possible transfer to [facility] for further evaluation. Discussed with case management attempted transferring process. This time patient denies chest pain or shortness breath. Patient denies nausea vomiting or diarrhea. Patient denies any urinary burning or frequency. On 04/15/2018 patient is alert and oriented 3, temperature has been normal in the last 24 hours, he has occasional headache otherwise he denies any complaints , there is no dizziness no chest pain no shortness of breath no cough no nausea or vomiting no abdominal pain no diarrhea and no urinary symptoms enlarged lymph node on the right side of the neck are improving Objective - Vital Signs Vital signs: Vital Signs Temp 98.9 F 04/15/18 08:55 Pulse 100 04/15/18 12:25 Resp 16 04/15/18 12:25 BP 129/75 04/15/18 12:25 Pulse Ox 94 L 04/15/18 12:25 Intake & Output 04/14/18 04/15/18 04/15/18 18:59 06:59 18:59 Intake Total 1180 350 240 Output Total 500 700 Balance 680 350 -460 Weight 141.3 kg Intake: IV 600 350 0.9 600 350 Intake, IV Titration 100 Amount Ampicillin-Sulbactam 3 gm 100 In Sodium Chloride 0.9% 100 ml @ 200 mls/hr IVPB Q6HR [facility] Rx#:[id number] Oral 480 240 Output: Urine 500 700 Other: Voiding Method Toilet Toilet Toilet # Voids 2 - Exam Head normocephalic Neck supple. 2 enlarged right cervical lymph nodes Lungs clear to auscultation bilaterally no wheezing or crackles Heart regular rate and rhythm S1-S2, no rub or gallop Abdomen is soft nontender nondistended positive bowel sounds no hepatosplenomegaly Extremities no edema Neuro alert and orientated to 3 - Labs CBC & Chem 7: 04/15/18 06:03 04/15/18 06:03 Labs: Abnormal Lab Results - Last 24 Hours (Table) 04/13/18 04/15/18 04/15/18 Range/Units 06:29 06:03 06:03 WBC 2.5 L (3.8-10.6) k/uL Hgb 11.6 L (13.0-17.5) gm/dL Hct 36.0 L (39.0-53.0) % MCV 79.4 L (80.0-100.0) fL Plt Count 60 L (150-450) k/uL Neutrophils # (Manual) 0.90 L (1.3-7.7) k/uL Metamyelocytes # (Man) 0.03 H (0) k/uL Myelocytes # (Manual) 0.03 H (0) k/uL Glucose 100 H (74-99) mg/dL Total Bilirubin 1.7 H (0.2-1.3) mg/dL AST 216 H (17-59) U/L ALT 188 H (21-72) U/L Alkaline Phosphatase 373 H (38-126) U/L Total Protein 5.8 L (6.3-8.2) g/dL Albumin 3.0 L (3.5-5.0) g/dL CMV IgG Ab Reactive H (Non-Reactive) Microbiology - Last 24 Hours (Table) 04/10/18 23:36 Blood Culture - Preliminary Blood No Growth after 96 hours 04/10/18 20:46 CSF Gram Stain - Final Cerebral Spinal Fluid CSF Culture - Final 04/09/18 21:20 Blood Culture - Preliminary Blood No Growth after 120 hours Assessment and Plan Plan: 1. Fever. Patient reports high fever of 104. Urine and blood cultures have been ordered. Chest x-ray completed showing normal chest. EKG completed showing sinus tachycardia. Influenza negative. Urine and blood cultures have been ordered. Patient started on Rocephin and Zithromax. Infectious disease following. Lumbar puncture has been performed. Patient remains Unasyn and Levaquin for antibiotics. Blood, urine and cerebrospinal fluid cultures currently negative. Per infectious disease patient remains on Unasyn for IV antibiotic. CMV serology has been ordered per infectious disease 2. History of right ACL repair 3. 2 enlarged right cervical lymph nodes. Dr. stevens has been consulted for hematology services. CT scan of the chest abdomen and pelvis and soft tissue neck ordered per oncology services 4. Elevated liver enzymes. Alkaline phosphatase 280 ALT 106 and AST 135 Case discussed today with Dr. Stevens at this time no need for intervention. Enlarged lymph nodes may be related to infectious process patient will continue to receive antibiotics if he still has enlarged lymph nodes in 2-3 weeks he will be followed as outpatient by Dr. Stevens and then may proceed with biopsy.\ Requesting possible transfer to [facility]. Discussed with case management attempted transfer in process DVT prophylaxis Lovenox. GI prophylaxis Protonix
--- NOTE | 2018-04-15 15:22 | US ---
EXAMINATION TYPE: US abdomen complete DATE OF EXAM: 04/15/2018 COMPARISON: CT 04/12/2018 CLINICAL HISTORY: fever, elevated liver enzymes. Very difficult and limited exam due to overlying bow el gas and patient body habitus. patient ate " a few hours ago" EXAM MEASUREMENTS: Liver Length: 18.1 cm Gallbladder Wall: 0.2 cm CBD: 0.4 cm Spleen: 17.2 cm Right Kidney: 13.3 x 6.2 x 6.2 cm Left Kidney: 14.4 x 6.0 x 6.2 cm Pancreas: Obscured by bowel gas Liver: Limited visualization. Diffusely heterogeneous, enlarged. Portal vein appears enlarged Gallbladder: No stones visualized Evidence for sonographic Reyes's sign: No CBD: wnl as visualized, limited due to overlying bowel gas Spleen: Enlarged Right Kidney: No hydronephrosis or masses seen Left Kidney: No hydronephrosis. Area visualized on CT not appreciated with ultrasound Upper IVC: wnl as visualized Abd Aorta: Not visualized due to overlying bowel gas Suboptimal study due to patient's body habitus and in proper fasting. Marked fatty infiltration of li pamela is redemonstrated. Evaluation for focal masses is suboptimal due to the heterogeneity. No obvious masses noted on recent CT. No surrounding ascites is seen. Splenomegaly is redemonstrated. Subcentim eter lesion left kidney on CT is not clearly identified on ultrasound still presumed benign. IMPRESSION: Marked fatty infiltration of liver redemonstrated. Splenomegaly again seen.
[2018-04-16] MEDS: SODIUM CHLORIDE 0.9% 1,000 ML IV SCH ×2 (02:55→23:37)
--- NOTE | 2018-04-16 06:39 | PN ---
PROGRESS NOTE DATE OF SERVICE: 04/15/2018 REASON FOR FOLLOWUP: Fever, possible viral syndrome. INTERVAL HISTORY: The patient is afebrile over the last 24 hours. He is feeling slightly better, breathing comfortably. Denies having any chest pain, shortness of breath or cough. No nausea. No abdominal pain, no diarrhea. EXAMINATION: Blood pressure 125/74 with a pulse of 83, temperature 98.7. He is 97% on room air. General description is a middle-aged male up in bed in no distress. Respiratory System: Unlabored breathing, clear to auscultation anteriorly. Heart: S1, S2. Regular rate and rhythm. Abdomen: Soft, no tenderness. LABS: Hemoglobin is 11.6, white count of 2.5. BUN of 12, creatinine 0.88. Liver enzymes have been elevated. Ultrasound has been negative for any gallbladder disease. DIAGNOSTIC IMPRESSION AND PLAN: Patient with fever with leukopenia, elevated liver enzymes, likely representing a viral syndrome, questionable CMV. Patient at this time to be managed conservatively closely off antibiotic therapy and continue supportive care. All of the questions have been answered. MMODL / IJN: [id number] /
[2018-04-16] MEDS: IBUPROFEN 400 MG TAB PO PRN ×2 (07:46→20:53)
[2018-04-16] MEDS: ENOXAPARIN 40 MG/0.4 ML SYRINGE SQ SCH (07:47)
[2018-04-16] MEDS: PANTOPRAZOLE 40 MG TABLET PO SCH (07:47)
[2018-04-16 07:54] LABS: HCT 34.1 % (39.0-53.0); HGB 11.3 gm/dL (13.0-17.5); MCH 26.4 pg (25.0-35.0); MCHC 33.2 g/dL (31.0-37.0); MCV 79.3 fL (80.0-100.0); RDW 13.6 % (11.5-15.5); WBC 2.5 k/uL (3.8-10.6)
[2018-04-16 08:09] LABS: Platelet Count 44 k/uL (150-450)
[2018-04-16 08:25] LABS: ALT 204 U/L (21-72); AST 213 U/L (17-59); Alkaline Phosphatase 459 U/L (38-126); Anion Gap 8 mmol/L; Blood Urea Nitrogen 11 mg/dL (9-20); Calcium 8.4 mg/dL (8.4-10.2); Carbon Dioxide 26 mmol/L (22-30); Chloride 104 mmol/L (98-107); Glucose 98 mg/dL (74-99); Potassium 3.7 mmol/L (3.5-5.1); Sodium 138 mmol/L (137-145); Total Bilirubin 2.6 mg/dL (0.2-1.3); Total Protein 5.9 g/dL (6.3-8.2)
[2018-04-16 12:16] LABS: Neutrophils % (M) 19 %
[2018-04-16 12:17] LABS: Lymphocytes # (M) 1.75 k/uL (1.0-4.8); Monocytes # (M) 0.28 k/uL (0-1.0); Neutrophils # (M) 0.48 k/uL (1.3-7.7); Nucleated Red Blood Cells 0 /100 WBC (0-0); Total Cells Counted 100
[2018-04-16 12:29] LABS: Reactive Lymphocytes Present
--- NOTE | 2018-04-16 13:27 | P.PN ---
Subjective Progress Note Date: 04/16/18 This is a 37-year-old male patient presents to emergency room with fever 104. Patient states fever started day night and that he has taken Tylenol every 6 hours the fever has been persistent. Patient does complain that he's had slight cough for the past few days and headache. Patient had one episode of emesis in emergency room but denies any other GI issues. Patient denies any significant past medical history. Chest x-ray completed showing normal chest. EKG completed showing sinus tachycardia with a heart rate of 107. Patient denies any alcohol or drug use. Patient denies any nicotine dependence. Initial lactic 2.3. Repeat lactic 0.8. Urinary analysis completed. Influenza A and B negative. Urine and blood cultures have been ordered. Patient started on Zithromax and Rocephin. At this time patient denies chest pain or shortness of breath. Patient denies any nausea vomiting or diarrhea. Patient denies any urinary burning or frequency. Dr. De Santiago has been consulted for infectious disease. On 04/11/2018 patient is currently sitting up in chair. Patient still feels very fatigued. Patient had a temp of 102.8 last night. Patient also has two enlarged lymph nodes on right side of neck. Patient denies any open sores or problems with teeth. Patient denies any ear pain. Patient denies chest pain or shortness breath. Patient denies any nausea vomiting or diarrhea. Patient denies any upper respiratory symptoms. Patient denies any urinary burning or frequency On 04/12/2018 patient currently sitting up in chair with family at bedside. Patient had temp this AM 101.3. Per infectious disease possible viral syndrome versus bacterial pharyngitis. Patient does have right cervical lymph node enlargement. Dr. Stevens per oncology consulted. At this time patient denies chest pain or shortness of breath. Patient denies nausea vomiting or diarrhea. Patient denies any urinary burning or frequency On 04/13/2018 patient was seen and examined on the telemetry floor he is alert and oriented 3 in no apparent distress still having elevated temperature up to 102 this morning still complaining of headache and nausea otherwise no complaints at this time there is no dizziness no chest pain no shortness of breath there is occasional cough no vomiting no abdominal pain no diarrhea and no urinary symptoms On 04/14/2018 patient remains alert and oriented 3. Patient's temp remains elevated at 101.3. This time patient is requesting possible transfer to [facility] for further evaluation. Discussed with case management attempted transferring process. This time patient denies chest pain or shortness breath. Patient denies nausea vomiting or diarrhea. Patient denies any urinary burning or frequency. On 04/15/2018 patient is alert and oriented 3, temperature has been normal in the last 24 hours, he has occasional headache otherwise he denies any complaints , there is no dizziness no chest pain no shortness of breath no cough no nausea or vomiting no abdominal pain no diarrhea and no urinary symptoms enlarged lymph node on the right side of the neck are improving On 04/16/2018 patient was seen and examined on the medical floor he is alert and oriented 3 he is still having low-grade fever occasionally to 99 there is no chills no dizziness he has occasional headache no cough no nausea or vomiting no abdominal pain no diarrhea no burning with urination no frequency or urgency complains that urine is darker and smells strong, he is still complaining of enlarged nodule in the right side of his neck otherwise he denies any complaints Objective - Vital Signs Vital signs: Vital Signs Temp 99.4 F 04/16/18 07:30 Pulse 93 04/16/18 07:30 Resp 16 04/16/18 07:30 BP 116/71 04/16/18 07:30 Pulse Ox 96 04/16/18 07:30 Intake & Output 04/15/18 04/16/18 04/16/18 18:59 06:59 18:59 Intake Total 640 Output Total 700 Balance -60 Weight 141.3 kg Intake: Intake, IV Titration 400 Amount Sodium Chloride 0.9% 1, 400 000 ml @ 50 mls/hr IV . Q20H [facility] Rx#:[id number] Oral 240 Output: Urine 700 Other: Voiding Method Toilet Toilet Toilet # Voids 3 - Exam Head normocephalic and atraumatic Neck supple. 2 enlarged right cervical lymph nodes Lungs clear to auscultation bilaterally no wheezing or crackles Heart regular rate and rhythm S1-S2, no rub or gallop Abdomen is soft nontender nondistended positive bowel sounds no hepatosplenomegaly Extremities no edema no cyanosis or clubbing Neuro alert and orientated to 3 - Labs CBC & Chem 7: 04/16/18 06:41 04/16/18 06:41 Labs: Abnormal Lab Results - Last 24 Hours (Table) 04/16/18 04/16/18 Range/Units 06:41 06:41 WBC 2.5 L (3.8-10.6) k/uL Hgb 11.3 L (13.0-17.5) gm/dL Hct 34.1 L (39.0-53.0) % MCV 79.3 L (80.0-100.0) fL Plt Count 44 L (150-450) k/uL Neutrophils # (Manual) 0.48 L* (1.3-7.7) k/uL Total Bilirubin 2.6 H (0.2-1.3) mg/dL AST 213 H (17-59) U/L ALT 204 H (21-72) U/L Alkaline Phosphatase 459 H (38-126) U/L Total Protein 5.9 L (6.3-8.2) g/dL Albumin 3.0 L (3.5-5.0) g/dL Microbiology - Last 24 Hours (Table) 04/10/18 23:36 Blood Culture - Preliminary Blood No Growth after 120 hours 04/09/18 21:20 Blood Culture - Final Blood No Growth after 144 hours Assessment and Plan Plan: 1. Fever. Patient reports high fever of 104. Urine and blood cultures have been ordered. Chest x-ray completed showing normal chest. EKG completed showing sinus tachycardia. Influenza negative. Urine and blood cultures have been ordered. Patient started on Rocephin and Zithromax. Infectious disease following. Lumbar puncture has been performed. Patient remains Unasyn and Levaquin for antibiotics. Blood, urine and cerebrospinal fluid cultures currently negative. Per infectious disease patient remains on Unasyn for IV antibiotic. CMV serology has been ordered per infectious disease 2. History of right ACL repair 3. 2 enlarged right cervical lymph nodes. Dr. stevens has been consulted for hematology services. CT scan of the chest abdomen and pelvis and soft tissue neck ordered per oncology services 4. Elevated liver enzymes. Alkaline phosphatase 280 ALT 106 and AST 135 Case discussed today with Dr. Stevens at this time no need for intervention. Enlarged lymph nodes may be related to infectious process patient will continue to receive antibiotics if he still has enlarged lymph nodes in 2-3 weeks he will be followed as outpatient by Dr. Stevens and then may proceed with biopsy.\ Requesting possible transfer to [facility]. Discussed with case management attempted transfer in process DVT prophylaxis Lovenox. GI prophylaxis Protonix At this time patient is off all antibiotics Liver enzymes are still elevated and higher than yesterday Liver ultrasound revealed fatty infiltration of the liver otherwise no abnormality At this time will consult gastroenterology will continue to monitor
[2018-04-16] MEDS: FILGRASTIM-SNDZ 480 MCG/0.8 ML SYRINGE SQ SCH (20:54)
--- NOTE | 2018-04-16 21:44 | P.PN ---
Subjective Progress Note Date: 04/16/18 Fever pattern is improved. He still feels somewhat fatigued. He denied any obvious bleeding or bruising. No new LAD noted Objective - Vital Signs Vital signs: Vital Signs Temp 98.8 F 04/16/18 20:57 Pulse 96 04/16/18 20:57 Resp 16 04/16/18 20:57 BP 115/73 04/16/18 20:57 Pulse Ox 95 04/16/18 17:12 Intake & Output 04/16/18 04/16/18 04/17/18 06:59 18:59 06:59 Intake Total 1350 Balance 1350 Weight 141.3 kg Intake: Intake, IV Titration 350 Amount Sodium Chloride 0.9% 1, 350 000 ml @ 50 mls/hr IV . Q20H [facility] Rx#:[id number] Oral 1000 Other: Voiding Method Toilet Toilet - Constitutional General appearance: Present: no acute distress - EENT Eyes: Present: EOMI ENT: Present: hearing grossly normal, normal oropharynx - Neck Neck: Present: lymphadenopathy (rt ant neck mass stable, 2.5 cm, non tender) - Respiratory Respiratory: bilateral: CTA - Cardiovascular Rhythm: regular Heart sounds: normal: S1, S2 - Gastrointestinal General gastrointestinal: Present: normal bowel sounds, soft - Integumentary Integumentary: Present: normal - Neurologic Neurologic: Present: CNII-XII intact - Musculoskeletal Musculoskeletal: Present: generalized weakness, strength equal bilaterally - Psychiatric Psychiatric: Present: A&O x's 3, appropriate affect - Labs CBC & Chem 7: 04/16/18 06:41 04/16/18 06:41 Labs: Abnormal Lab Results - Last 24 Hours (Table) 04/16/18 04/16/18 Range/Units 06:41 06:41 WBC 2.5 L (3.8-10.6) k/uL Hgb 11.3 L (13.0-17.5) gm/dL Hct 34.1 L (39.0-53.0) % MCV 79.3 L (80.0-100.0) fL Plt Count 44 L (150-450) k/uL Neutrophils # (Manual) 0.48 L* (1.3-7.7) k/uL Total Bilirubin 2.6 H (0.2-1.3) mg/dL AST 213 H (17-59) U/L ALT 204 H (21-72) U/L Alkaline Phosphatase 459 H (38-126) U/L Total Protein 5.9 L (6.3-8.2) g/dL Albumin 3.0 L (3.5-5.0) g/dL Microbiology - Last 24 Hours (Table) 04/10/18 23:36 Blood Culture - Preliminary Blood No Growth after 120 hours 04/09/18 21:20 Blood Culture - Final Blood No Growth after 144 hours Assessment and Plan (1) Lymphadenopathy of right cervical region Narrative/Plan: Rt neck node is stable and asymptomatic. No new LAD noted. Current Visit: Yes Status: Acute Code(s): R59.0 - LOCALIZED ENLARGED LYMPH NODES SNOMED Code(s): 610658108 (2) Viral infection Narrative/Plan: Fever pattern is improved. Counts and liver enzymes have progressively worsened. WBC on p/s were noted to be abnormal, due to which heterophile Ab was ordered, resulting positive. Thus at this time EBV infection appears to be the main differential. This was d/w pt and his family in detail. He was advised that the treatment would be supportive, with spontaneous recovery of counts expected. Continue monitoring, and consider bone marrow if counts do not recover / node biopsy if adenopathy progressed Current Visit: Yes Status: Acute Code(s): B34.9 - VIRAL INFECTION, UNSPECIFIED SNOMED Code(s): 44463790 (3) Pancytopenia Narrative/Plan: [place] to be due to marrow suppression from viral infection at this time. Hgb is stable, but plt and WBC are still dropping. Start GCSF, as ANC < 1000. Current Visit: Yes Status: Acute Code(s): D61.818 - OTHER PANCYTOPENIA SNOMED Code(s): 609035159
--- NOTE | 2018-04-16 23:39 | PN ---
PROGRESS NOTE DATE OF SERVICE: 04/16/2018. REASON FOR FOLLOWUP: Acute EBV infection. INTERVAL HISTORY: The patient is afebrile. Highest temperature has been 99.4 this morning. The patient has been feeling weak and tired, no energy. The patient denies any difficulty swallowing. No chest pain or shortness of breath. Minimal cough. No abdominal pain and no diarrhea. EXAMINATION: Blood pressure 115/73 with a pulse of 93, temperature 98.8. GENERAL DESCRIPTION: A middle aged male up in the bed in no distress. HEENT: Right side mandibular abnormality persists. LUNG: Unlabored breathing. Clear to auscultation. HEART: S1, S2. Regular rate and rhythm. ABDOMEN: Soft. EXTREMITIES: No edema of the feet. LABS: The antibody came back positive. His hemoglobin is to 11.2, 2.5. Platelet count still low at 44. BUN of 11, creatinine 0.77. Liver enzymes remain to be elevated. DIAGNOSTIC IMPRESSION AND PLAN: Patient with acute febrile illness, likely secondary to acute EBV infection. No evidence of any bacterial infection. Plan at this time is to continue with supportive treatment. No need for antibiotic therapy. They had multiple questions which were answered. Continue supportive care. MMODL / IJN: [id number] /
[2018-04-17 08:53] LABS: HCT 35.1 % (39.0-53.0); HGB 11.9 gm/dL (13.0-17.5); MCH 26.4 pg (25.0-35.0); MCV 77.7 fL (80.0-100.0); Mean Platelet Volume 12.8; RBC 4.52 m/uL (4.30-5.90); WBC 7.3 k/uL (3.8-10.6)
[2018-04-17 09:06] LABS: ALT 205 U/L (21-72); AST 192 U/L (17-59); Alkaline Phosphatase 512 U/L (38-126); Anion Gap 7 mmol/L; Blood Urea Nitrogen 8 mg/dL (9-20); Calcium 8.4 mg/dL (8.4-10.2); Carbon Dioxide 28 mmol/L (22-30); Chloride 105 mmol/L (98-107); Glucose 88 mg/dL (74-99); Potassium 3.6 mmol/L (3.5-5.1); Sodium 140 mmol/L (137-145); Total Bilirubin 3.5 mg/dL (0.2-1.3)
[2018-04-17] MEDS: PANTOPRAZOLE 40 MG TABLET PO SCH (09:09)
[2018-04-17 09:10] LABS: Band Neutrophils % 9 %; Neutrophils % (M) 54 %; Nucleated Red Blood Cells 0 /100 WBC (0-0); Total Cells Counted 100
[2018-04-17] MEDS: IBUPROFEN 400 MG TAB PO PRN (09:10)
[2018-04-17 09:15] LABS: Platelet Count 16 k/uL (150-450)
--- NOTE | 2018-04-17 10:01 | P.PN ---
Subjective Progress Note Date: 04/17/18 This is a 37-year-old male patient presents to emergency room with fever 104. Patient states fever started day night and that he has taken Tylenol every 6 hours the fever has been persistent. Patient does complain that he's had slight cough for the past few days and headache. Patient had one episode of emesis in emergency room but denies any other GI issues. Patient denies any significant past medical history. Chest x-ray completed showing normal chest. EKG completed showing sinus tachycardia with a heart rate of 107. Patient denies any alcohol or drug use. Patient denies any nicotine dependence. Initial lactic 2.3. Repeat lactic 0.8. Urinary analysis completed. Influenza A and B negative. Urine and blood cultures have been ordered. Patient started on Zithromax and Rocephin. At this time patient denies chest pain or shortness of breath. Patient denies any nausea vomiting or diarrhea. Patient denies any urinary burning or frequency. Dr. De Santiago has been consulted for infectious disease. On 04/11/2018 patient is currently sitting up in chair. Patient still feels very fatigued. Patient had a temp of 102.8 last night. Patient also has two enlarged lymph nodes on right side of neck. Patient denies any open sores or problems with teeth. Patient denies any ear pain. Patient denies chest pain or shortness breath. Patient denies any nausea vomiting or diarrhea. Patient denies any upper respiratory symptoms. Patient denies any urinary burning or frequency On 04/12/2018 patient currently sitting up in chair with family at bedside. Patient had temp this AM 101.3. Per infectious disease possible viral syndrome versus bacterial pharyngitis. Patient does have right cervical lymph node enlargement. Dr. Stevens per oncology consulted. At this time patient denies chest pain or shortness of breath. Patient denies nausea vomiting or diarrhea. Patient denies any urinary burning or frequency On 04/13/2018 patient was seen and examined on the telemetry floor he is alert and oriented 3 in no apparent distress still having elevated temperature up to 102 this morning still complaining of headache and nausea otherwise no complaints at this time there is no dizziness no chest pain no shortness of breath there is occasional cough no vomiting no abdominal pain no diarrhea and no urinary symptoms On 04/14/2018 patient remains alert and oriented 3. Patient's temp remains elevated at 101.3. This time patient is requesting possible transfer to [facility] for further evaluation. Discussed with case management attempted transferring process. This time patient denies chest pain or shortness breath. Patient denies nausea vomiting or diarrhea. Patient denies any urinary burning or frequency. On 04/15/2018 patient is alert and oriented 3, temperature has been normal in the last 24 hours, he has occasional headache otherwise he denies any complaints , there is no dizziness no chest pain no shortness of breath no cough no nausea or vomiting no abdominal pain no diarrhea and no urinary symptoms enlarged lymph node on the right side of the neck are improving On 04/16/2018 patient was seen and examined on the medical floor he is alert and oriented 3 he is still having low-grade fever occasionally to 99 there is no chills no dizziness he has occasional headache no cough no nausea or vomiting no abdominal pain no diarrhea no burning with urination no frequency or urgency complains that urine is darker and smells strong, he is still complaining of enlarged nodule in the right side of his neck otherwise he denies any complaints On 04/17/2018 patient is alert and oriented 3 patient still having low-grade temps 99.3 this a.m. At this time patient denies chest pain or shortness of breath. Patient denies nausea vomiting or diarrhea. She denies any urinary burning or frequency. Patient still complaining of enlarged lymph nodes on the right side. Patient also complaining of intermittent headaches Objective - Vital Signs Vital signs: Vital Signs Temp 99.3 F 04/17/18 09:15 Pulse 93 04/17/18 07:00 Resp 18 04/17/18 07:00 BP 133/76 04/17/18 07:00 Pulse Ox 94 L 04/17/18 08:35 Intake & Output 04/16/18 04/17/18 04/17/18 18:59 06:59 18:59 Intake Total 1350 500 Balance 1350 500 Intake: Intake, IV Titration 350 500 Amount Sodium Chloride 0.9% 1, 350 500 000 ml @ 50 mls/hr IV . Q20H [facility] Rx#:[id number] Oral 1000 Other: Voiding Method Toilet - Exam Head normocephalic Neck supple. 2 enlarged right cervical lymph nodes Lungs clear to auscultation bilaterally no wheezing or crackles Heart regular rate and rhythm S1-S2, no rub or gallop Abdomen is soft nontender nondistended positive bowel sounds no hepatosplenomegaly Extremities no edema Neuro alert and orientated to 3 - Labs CBC & Chem 7: 04/17/18 08:09 04/17/18 08:09 Labs: Abnormal Lab Results - Last 24 Hours (Table) 04/16/18 04/17/18 04/17/18 Range/Units 06:41 08:09 08:09 Hgb 11.9 L (13.0-17.5) gm/dL Hct 35.1 L (39.0-53.0) % MCV 77.7 L (80.0-100.0) fL Plt Count 16 L* D (150-450) k/uL Neutrophils # (Manual) 0.48 L* (1.3-7.7) k/uL BUN 8 L (9-20) mg/dL Total Bilirubin 3.5 H (0.2-1.3) mg/dL AST 192 H (17-59) U/L ALT 205 H (21-72) U/L Alkaline Phosphatase 512 H (38-126) U/L Total Protein 6.0 L (6.3-8.2) g/dL Albumin 3.0 L (3.5-5.0) g/dL Microbiology - Last 24 Hours (Table) 04/10/18 23:36 Blood Culture - Final Blood No Growth after 144 hours Assessment and Plan Assessment: 1. Acute febrile illness. Patient reports high fever of 104. Urine and blood cultures have been ordered. Chest x-ray completed showing normal chest. EKG completed showing sinus tachycardia. Influenza negative. Urine and blood cultures have been ordered. Patient started on Rocephin and Zithromax. Infectious disease following. Lumbar puncture has been performed. Patient remains Unasyn and Levaquin for antibiotics. Blood, urine and cerebrospinal fluid cultures currently negative. Per infectious disease patient remains on Unasyn for IV antibiotic. Patient with acute febrile illness likely secondary to acute EBV infection. no need for antibiotic treatment. continue supportive treatment. 2. History of right ACL repair 3. 2 enlarged right cervical lymph nodes. Dr. stevens has been consulted for hematology services. Case discussed today with Dr. Stevens at this time no need for intervention. Enlarged lymph nodes may be related to infectious process patient will continue to receive antibiotics if he still has enlarged lymph nodes in 2-3 weeks he will be followed as outpatient by Dr. Stevens and then may proceed with biopsy. 4. Elevated liver enzymes. Abdomen ultrasound completed showing marked fatty infiltration of liver redemonstrated. Splenomegaly again seen Alkaline phosphatase 512, ALT 205, AST 192 and total bili 3.5. GI services have been consulted awaiting their input 5. Thrombocytopenia. Dr. Stevens following. Per Oncology services likely due to bone marrow suppression from viral infection at this time. Platelet 16. patient started on Zarxio per oncology services DVT prophylaxis Lovenox DC'd due to thrombocytopenia, . GI prophylaxis Protonix
[2018-04-17 10:54] LABS: Parvovirus B-19 IgG Antibodies 5.84 INDEX (<=0.90); Parvovirus B-19 IgM Antibodies 0.43 INDEX (<=0.90)
[2018-04-17 10:57] LABS: Gamma Globulin 0.87 g/dL (0.70-1.50)
[2018-04-17] MEDS: FILGRASTIM-SNDZ 480 MCG/0.8 ML SYRINGE SQ SCH (11:32)
[2018-04-17 12:31] LABS: Hepatitis A Antibody IgM Non-Reactive (Non-Reactive); Hepatitis B Core IgM Non-Reactive (Non-Reactive)
[2018-04-17 13:20] LABS: Prothrombin Time 10.2 sec (9.0-12.0)
[2018-04-17] MEDS ORDERED: ONDANSETRON 4 MG/2 ML VIAL IVP PRN (18:20)
[2018-04-17] MEDS: HYDROmorphone 1 MG/ML 1 ML SYRINGE IVP PRN (18:34)
[2018-04-17] MEDS: SODIUM CHLORIDE 0.9% 1,000 ML IV SCH (18:35)
--- NOTE | 2018-04-17 20:37 | PN ---
PROGRESS NOTE DATE OF SERVICE: 04/17/2018 REASON FOR FOLLOWUP: Acute infection. INTERVAL HISTORY: The patient is currently afebrile. He has been breathing comfortably. The patient denies having any chest pain or shortness of breath or cough. No abdominal pain and no diarrhea. PHYSICAL EXAMINATION: Blood pressure 130/76 with a pulse of 91, temperature 98.7. He is 97% on room air. General description is a middle-aged male up in the bed in no distress. RESPIRATORY SYSTEM: Unlabored breathing. Decreased breath sounds at the bases. No wheeze. HEART: S1, S2. Regular rate and rhythm. ABDOMEN: Soft. No tenderness. LABS: His hemoglobin is 11.9, white count 7.3, platelet count low at 16. DIAGNOSTIC IMPRESSION AND PLAN: Patient with acute in this patient who did have a fever, now with elevated liver enzymes as well as low platelet count. Patient to be monitored closely. Symptomatically at this point, no need for any anti-viral or any antibiotic therapy. All his questions and concerns were answered. MMODL / IJN: [id number] /
--- NOTE | 2018-04-17 21:43 | P.CONS ---
History of Present Illness - Reason for Consult Consult date: 04/17/18 Elevated liver enzymes Requesting physician: Sarah Rushing - Chief Complaint Fevers, cough, headache - History of Present Illness 3 pleasant 37-year-old male with no significant medical history who presented to the hospital with a constellation of complaints including cough, headache and fevers. Currently the patient is being treated for viral illness with a positive heterophile antibody. Other testing for CMV, hepatitis a, b and c have been negative. The patient during his hospitalization was found to have a fall in his platelets to 16 and uptrending off his liver enzymes with laboratory investigation today showing total bilirubin 3.5, alkaline phosphatase 512, AST 192 and ALT 205. The patient denies having elevated liver enzymes in the past. His mother who is bedside reports that he was jaundiced as a baby and required hospitalization for 2 days but no other evidence of yellowing of the skin or eyes decides that. He denies any significant alcohol use. Denies IV drug use. No prior blood transfusions. No familial history of intrinsic liver problems. Denies any new medications at home or antibiotics. He was taking Tylenol at home reporting that he was taking extra strength Tylenol every 6 hours as directed on the label. Other than this the patient denies any chronic NSAID or Tylenol use, reporting that he will use it very occasionally for aches or pains. Currently fevers have improved. The patient had an ultrasound of the liver which showed fatty infiltration and splenomegaly. Computed tomography scan was significant for a thoracic aortic aneurysm, inguinal lymphadenopathy, splenomegaly and a left kidney cyst. Review of Systems REVIEW OF SYSTEMS: CARDIO: Denies any chest pain or palpitations. PULMONARY: Denies any shortness of breath or wheezing. GENITOURINARY: No dysuria or hematuria. MUSCULOSKELETAL: Patient continues to report weakness and fatigue. SKIN: Denies any new rashes or lesions, he does note jaundice or pallor. PSYCHIATRIC: Denies any depression or anxiety. NEUROLOGY: Patient is reporting headache, denies any new focal deficits. EARS: No tinnitus, discharge or new hearing loss. NOSE: No discharge or congestion. EYES: No pain in eyes or change in vision. CONSTITUTIONAL: No recent weight loss. Significant for fever, but the 9 chills , night sweats. Past Medical History Past Medical History: No Reported History Additional Past Medical History / Comment(s): seasonal allergies History of Any Multi-Drug Resistant Organisms: None Reported Past Surgical History: Orthopedic Surgery Additional Past Surgical History / Comment(s): Right ACL sx Past Anesthesia/Blood Transfusion Reactions: No Reported Reaction Past Psychological History: No Psychological Hx Reported Smoking Status: Never smoker Past Alcohol Use History: Rare Past Drug Use History: None Reported Additional History: Family history: Denies any history of intrinsic liver disease. - Past Family History Mother Family Medical History: No Reported History Father History Unknown: Yes Medications and Allergies Home Medications Medication Instructions Recorded Confirmed Type Acetaminophen Tab [Tylenol Tab] 650 mg PO Q4H PRN 04/09/18 04/09/18 History Allergies Allergy/AdvReac Type Severity Reaction Status Date / Time No Known Allergies Allergy Verified 04/09/18 21:29 Physical Exam Vitals: Vital Signs Temp Pulse Pulse Resp BP Pulse Ox 04/17/18 20:00 99.7 F H 105 H 18 121/64 98 04/17/18 15:00 98.7 F 91 18 130/76 97 04/17/18 09:15 99.3 F 04/17/18 08:35 94 L 04/17/18 07:00 99.0 F 93 18 133/76 97 04/17/18 00:19 98.3 F 83 97 16 103/68 Intake and Output 04/17/18 04/17/18 04/17/18 06:59 14:59 22:59 Intake Total 350 Balance 350 Intake: Intake, IV Titration 350 Amount Sodium Chloride 0.9% 1, 350 000 ml @ 50 mls/hr IV . Q20H [facility] Rx#:[id number] Other: Voiding Method Toilet Toilet # Voids 2 On physical examination, patient appears comfortable in no apparent distress. HEAD: Normocephalic, atraumatic. EYES: Positive for icterus. No conjunctival injection. MOUTH: No lesions, tongue midline. NECK: Trachea midline, no gross abnormalities. Right sided lymphadenopathy noted. CHEST: Clear to auscultation with no wheezing or rhonchi appreciated. HEART: Regular rate and rhythm. ABDOMEN: Soft, obese. Bowel sounds are positive. No organomegaly. No guarding or rigidity. EXTREMITIES: No pedal edema. SKIN: No rashes, mild jaundice. NEUROLOGIC: Alert and oriented x3. No focal deficits. Results CBC & Chem 7: 04/17/18 08:09 04/17/18 08:09 Labs: Abnormal Lab Results - Last 24 Hours (Table) 04/12/18 04/13/18 04/17/18 Range/Units 06:36 06:29 08:09 Hgb 11.9 L (13.0-17.5) gm/dL Hct 35.1 L (39.0-53.0) % MCV 77.7 L (80.0-100.0) fL Plt Count 16 L* D (150-450) k/uL BUN (9-20) mg/dL Total Bilirubin (0.2-1.3) mg/dL AST (17-59) U/L ALT (21-72) U/L Alkaline Phosphatase (38-126) U/L Total Protein (6.3-8.2) g/dL Albumin (3.5-5.0) g/dL Albumin (PEP) 2.90 L (3.80-4.90) g/dL Ouliy-[id number] 0.41 H (0.10-0.40) g/dL Parvovirus B19 IgG Ab 5.84 H (<=0.90) INDEX 04/17/18 Range/Units 08:09 Hgb (13.0-17.5) gm/dL Hct (39.0-53.0) % MCV (80.0-100.0) fL Plt Count (150-450) k/uL BUN 8 L (9-20) mg/dL Total Bilirubin 3.5 H (0.2-1.3) mg/dL AST 192 H (17-59) U/L ALT 205 H (21-72) U/L Alkaline Phosphatase 512 H (38-126) U/L Total Protein 6.0 L (6.3-8.2) g/dL Albumin 3.0 L (3.5-5.0) g/dL Albumin (PEP) (3.80-4.90) g/dL Gdnqe-[id number]-Dtvjfwyec (0.10-0.40) g/dL Parvovirus B19 IgG Ab (<=0.90) INDEX Microbiology - Last 24 Hours (Table) 04/10/18 23:36 Blood Culture - Final Blood No Growth after [address] scan - abdomen: report reviewed (ultrasound of the liver which showed fatty infiltration and splenomegaly. Computed tomography scan was significant for a thoracic aortic aneurysm, inguinal lymphadenopathy, splenomegaly and a left kidney cyst.) US - abdomen: report reviewed Assessment and Plan (1) Elevated liver enzymes Narrative/Plan: Elevated liver enzymes and predominantly a cholestatic pattern with total bilirubin drinking up to 3.5 and alkaline phosphatase trending up to 512 today. No evidence of cholestatic process on CT or ultrasound with only fatty infiltration and spleen likely noted. Heterophile antibody testing has been positive and elevation in liver enzymes likely represents a viral process. We' ll order a full serology to rule out any other intrinsic liver disease. Current Visit: Yes Status: Acute Code(s): R74.8 - ABNORMAL LEVELS OF OTHER SERUM ENZYMES SNOMED Code(s): 523992102 (2) Lymphadenopathy of right cervical region Current Visit: Yes Status: Acute Code(s): R59.0 - LOCALIZED ENLARGED LYMPH NODES SNOMED Code(s): 008362120 (3) Pancytopenia Current Visit: Yes Status: Acute Code(s): D61.818 - OTHER PANCYTOPENIA SNOMED Code(s): 583381533 (4) Viral infection Current Visit: Yes Status: Acute Code(s): B34.9 - VIRAL INFECTION, UNSPECIFIED SNOMED Code(s): 16761743 Plan: Supportive care Repeat liver enzymes and INR (INR 1.0 today with no evidence of hepatic encephalopathy) Full liver serologies ordered Continue supportive care Continue pain control Continue fluid hydration Diet as tolerated Appreciate hematology/oncology recommendations Thank you for allowing us to participate in the care of this patient, we will continue to follow
[2018-04-18 06:41] LABS: INR 1.2 (<1.2); Prothrombin Time 11.1 sec (9.0-12.0)
[2018-04-18 06:45] LABS: ALT 193 U/L (21-72); AST 173 U/L (17-59); Alkaline Phosphatase 547 U/L (38-126); Anion Gap 7 mmol/L; Bilirubin, Conjugated 1.3 mg/dL (0.0-0.3); Bilirubin, Delta 1.7 mg/dL (0.0-0.2); Bilirubin,Unconjugated 0.6 mg/dL (0.0-1.1); Blood Urea Nitrogen 10 mg/dL (9-20); Calcium 8.2 mg/dL (8.4-10.2); Carbon Dioxide 26 mmol/L (22-30); Chloride 103 mmol/L (98-107); Glucose 98 mg/dL (74-99); Potassium 3.5 mmol/L (3.5-5.1); Sodium 136 mmol/L (137-145); Total Bilirubin 3.6 mg/dL (0.2-1.3); Total Protein 6.1 g/dL (6.3-8.2)
[2018-04-18 07:36] LABS: HGB 11.4 gm/dL (13.0-17.5); MCH 26.4 pg (25.0-35.0); MCHC 32.6 g/dL (31.0-37.0); MCV 80.9 fL (80.0-100.0); RBC 4.33 m/uL (4.30-5.90); RDW 14.4 % (11.5-15.5); WBC 9.4 k/uL (3.8-10.6)
[2018-04-18] MEDS: HYDROmorphone 1 MG/ML 1 ML SYRINGE IVP PRN (07:41)
[2018-04-18 07:46] LABS: Platelet Count 10 k/uL (150-450)
[2018-04-18 08:21] LABS: Lymphocytes # (M) 2.82 k/uL (1.0-4.8); Neutrophils # (M) 5.08 k/uL (1.3-7.7); Neutrophils % (M) 54 %; Nucleated Red Blood Cells 0 /100 WBC (0-0); Total Cells Counted 100
--- NOTE | 2018-04-18 10:19 | P.PN ---
Subjective Progress Note Date: 04/18/18 This is a 37-year-old male patient presents to emergency room with fever 104. Patient states fever started day night and that he has taken Tylenol every 6 hours the fever has been persistent. Patient does complain that he's had slight cough for the past few days and headache. Patient had one episode of emesis in emergency room but denies any other GI issues. Patient denies any significant past medical history. Chest x-ray completed showing normal chest. EKG completed showing sinus tachycardia with a heart rate of 107. Patient denies any alcohol or drug use. Patient denies any nicotine dependence. Initial lactic 2.3. Repeat lactic 0.8. Urinary analysis completed. Influenza A and B negative. Urine and blood cultures have been ordered. Patient started on Zithromax and Rocephin. At this time patient denies chest pain or shortness of breath. Patient denies any nausea vomiting or diarrhea. Patient denies any urinary burning or frequency. Dr. De Santiago has been consulted for infectious disease. On 04/11/2018 patient is currently sitting up in chair. Patient still feels very fatigued. Patient had a temp of 102.8 last night. Patient also has two enlarged lymph nodes on right side of neck. Patient denies any open sores or problems with teeth. Patient denies any ear pain. Patient denies chest pain or shortness breath. Patient denies any nausea vomiting or diarrhea. Patient denies any upper respiratory symptoms. Patient denies any urinary burning or frequency On 04/12/2018 patient currently sitting up in chair with family at bedside. Patient had temp this AM 101.3. Per infectious disease possible viral syndrome versus bacterial pharyngitis. Patient does have right cervical lymph node enlargement. Dr. Stevens per oncology consulted. At this time patient denies chest pain or shortness of breath. Patient denies nausea vomiting or diarrhea. Patient denies any urinary burning or frequency On 04/13/2018 patient was seen and examined on the telemetry floor he is alert and oriented 3 in no apparent distress still having elevated temperature up to 102 this morning still complaining of headache and nausea otherwise no complaints at this time there is no dizziness no chest pain no shortness of breath there is occasional cough no vomiting no abdominal pain no diarrhea and no urinary symptoms On 04/14/2018 patient remains alert and oriented 3. Patient's temp remains elevated at 101.3. This time patient is requesting possible transfer to [facility] for further evaluation. Discussed with case management attempted transferring process. This time patient denies chest pain or shortness breath. Patient denies nausea vomiting or diarrhea. Patient denies any urinary burning or frequency. On 04/15/2018 patient is alert and oriented 3, temperature has been normal in the last 24 hours, he has occasional headache otherwise he denies any complaints , there is no dizziness no chest pain no shortness of breath no cough no nausea or vomiting no abdominal pain no diarrhea and no urinary symptoms enlarged lymph node on the right side of the neck are improving On 04/16/2018 patient was seen and examined on the medical floor he is alert and oriented 3 he is still having low-grade fever occasionally to 99 there is no chills no dizziness he has occasional headache no cough no nausea or vomiting no abdominal pain no diarrhea no burning with urination no frequency or urgency complains that urine is darker and smells strong, he is still complaining of enlarged nodule in the right side of his neck otherwise he denies any complaints On 04/17/2018 patient is alert and oriented 3 patient still having low-grade temps 99.3 this a.m. At this time patient denies chest pain or shortness of breath. Patient denies nausea vomiting or diarrhea. She denies any urinary burning or frequency. Patient still complaining of enlarged lymph nodes on the right side. Patient also complaining of intermittent headaches On 04/18/2018 patient is alert and oriented times.. Patient did have a temperature 100.4 this a.m. Platelets also down to 10. Cardiology services are following platelets have been ordered. Patient remains fatigued. She denies chest pain or shortness breath. Patient denies nausea vomiting or diarrhea. Patient denies any urinary burning or frequency. Objective - Vital Signs Vital signs: Vital Signs Temp 99.6 F 04/18/18 07:33 Pulse 98 04/18/18 07:33 Resp 16 04/18/18 07:33 BP 109/73 04/18/18 07:33 Pulse Ox 93 L 04/18/18 07:33 Intake & Output 04/17/18 04/18/18 04/18/18 18:59 06:59 18:59 Intake Total 150 220 Balance 150 220 Weight 141.3 kg Intake: Intake, IV Titration 150 Amount Sodium Chloride 0.9% 1, 150 000 ml @ 50 mls/hr IV . Q20H [facility] Rx#:[id number] Oral 220 Other: Voiding Method Toilet Toilet # Voids 2 2 1 - Exam Head normocephalic Neck supple. 2 enlarged right cervical lymph nodes Lungs clear to auscultation bilaterally no wheezing or crackles Heart regular rate and rhythm S1-S2, no rub or gallop Abdomen is soft nontender nondistended positive bowel sounds no hepatosplenomegaly Extremities no edema Neuro alert and orientated to 3 - Labs CBC & Chem 7: 04/18/18 06:10 04/18/18 06:10 Labs: Abnormal Lab Results - Last 24 Hours (Table) 04/12/18 04/13/18 04/18/18 Range/Units 06:36 06:29 06:10 Hgb 11.4 L (13.0-17.5) gm/dL Hct 35.0 L (39.0-53.0) % Plt Count 10 L* (150-450) k/uL Monocytes # (Manual) 1.50 H (0-1.0) k/uL INR (<1.2) Sodium (137-145) mmol/L Calcium (8.4-10.2) mg/dL Total Bilirubin (0.2-1.3) mg/dL Conjugated Bilirubin (0.0-0.3) mg/dL Delta Bilirubin (0.0-0.2) mg/dL AST (17-59) U/L ALT (21-72) U/L Alkaline Phosphatase (38-126) U/L Total Protein (6.3-8.2) g/dL Albumin (3.5-5.0) g/dL Albumin (PEP) 2.90 L (3.80-4.90) g/dL [id number] 0.41 H (0.10-0.40) g/dL Parvovirus B19 IgG Ab 5.84 H (<=0.90) INDEX 04/18/18 04/18/18 Range/Units 06:10 06:10 Hgb (13.0-17.5) gm/dL Hct (39.0-53.0) % Plt Count (150-450) k/uL Monocytes # (Manual) (0-1.0) k/uL INR 1.2 H (<1.2) Sodium 136 L (137-145) mmol/L Calcium 8.2 L (8.4-10.2) mg/dL Total Bilirubin 3.6 H (0.2-1.3) mg/dL Conjugated Bilirubin 1.3 H (0.0-0.3) mg/dL Delta Bilirubin 1.7 H (0.0-0.2) mg/dL AST 173 H (17-59) U/L ALT 193 H (21-72) U/L Alkaline Phosphatase 547 H (38-126) U/L Total Protein 6.1 L (6.3-8.2) g/dL Albumin 3.0 L (3.5-5.0) g/dL Albumin (PEP) (3.80-4.90) g/dL Ynjnz-5-[id number] (0.10-0.40) g/dL Parvovirus B19 IgG Ab (<=0.90) INDEX Assessment and Plan Assessment: 1. Acute febrile illness. Patient reports high fever of 104. Urine and blood cultures have been ordered. Chest x-ray completed showing normal chest. EKG completed showing sinus tachycardia. Influenza negative. Urine and blood cultures have been ordered. Patient started on Rocephin and Zithromax. Infectious disease following. Lumbar puncture has been performed. Patient remains Unasyn and Levaquin for antibiotics. Blood, urine and cerebrospinal fluid cultures currently negative. Per infectious disease patient remains on Unasyn for IV antibiotic. Patient with acute febrile illness likely secondary to acute EBV infection. no need for antibiotic treatment. continue supportive treatment. 2. History of right ACL repair 3. 2 enlarged right cervical lymph nodes. Dr. stevens has been consulted for hematology services. Case discussed today with Dr. Stevens at this time no need for intervention. Enlarged lymph nodes may be related to infectious process patient will continue to receive antibiotics if he still has enlarged lymph nodes in 2-3 weeks he will be followed as outpatient by Dr. Stevens and then may proceed with biopsy. 4. Elevated liver enzymes. Abdomen ultrasound completed showing marked fatty infiltration of liver redemonstrated. Splenomegaly again seen Alkaline phosphatase 512, ALT 205, AST 192 and total bili 3.5. Per GI services. Liver serologies ordered along with repeat liver enzymes per GI services 5. Thrombocytopenia. Dr. Stevens following. Per Oncology services likely due to bone marrow suppression from viral infection at this time. Platelet 16. patient started on Zarxio per oncology services. Platelets down to 10. Zaroxolyn has been DC'd per oncology services platelets have been ordered DVT prophylaxis Lovenox DC'd due to thrombocytopenia, I performed an examination of the patient and discussed their management with the Nurse Practitioner. I have reviewed the Nurse Practitioner's notes and agree with the documented findings and plan of care
[2018-04-18 12:19] LABS: Ceruloplasmin 37.6 mg/dL (20.0-60.0)
--- NOTE | 2018-04-18 12:47 | P.PN ---
Subjective Progress Note Date: 04/18/18 Principal diagnosis: Elevated liver enzymes LFTs relatively same as yesterday. Reports headache. T-max 101.3. Hepatitis screen negative. Heterophile positive. INR 1.2. Platelet 10,000; transfusion scheduled today. Objective - Vital Signs Vital signs: Vital Signs Temp 99.6 F 04/18/18 07:33 Pulse 98 04/18/18 07:33 Resp 16 04/18/18 07:33 BP 109/73 04/18/18 07:33 Pulse Ox 93 L 04/18/18 07:33 Intake & Output 04/17/18 04/18/18 04/18/18 18:59 06:59 18:59 Intake Total 150 220 Balance 150 220 Weight 141.3 kg Intake: Intake, IV Titration 150 Amount Sodium Chloride 0.9% 1, 150 000 ml @ 50 mls/hr IV . Q20H [facility] Rx#:[id number] Oral 220 Other: Voiding Method Toilet Toilet # Voids 2 2 1 - Exam General appearance: The patient is alert, oriented, in no acute distress. HET: Head is normocephalic and atraumatic. Pupils are equal and reactive. Oropharynx is clear without lesions. Neck: Supple without lymphadenopathy. Trachea midline. Heart: S1 S2. Regular rate and rhythm. Lungs: No crackles or wheezes are heard. Abdomen: Soft, nontender, nondistended with bowel sounds. No peritoneal signs. No palpable organomegaly or masses. Extremities: Normal skin color and turgor. No cyanosis, rash, ulceration, clubbing, or edema. Radial and pedal pulses are 2/4 bilaterally. Neurological: No focal deficits. Strength and sensation are grossly intact. - Labs CBC & Chem 7: 04/18/18 06:10 04/18/18 06:10 Labs: Abnormal Lab Results - Last 24 Hours (Table) 04/18/18 04/18/18 04/18/18 Range/Units 06:10 06:10 06:10 Hgb 11.4 L (13.0-17.5) gm/dL Hct 35.0 L (39.0-53.0) % Plt Count 10 L* (150-450) k/uL Monocytes # (Manual) 1.50 H (0-1.0) k/uL INR 1.2 H (<1.2) Sodium 136 L (137-145) mmol/L Calcium 8.2 L (8.4-10.2) mg/dL Total Bilirubin 3.6 H (0.2-1.3) mg/dL Conjugated Bilirubin 1.3 H (0.0-0.3) mg/dL Delta Bilirubin 1.7 H (0.0-0.2) mg/dL AST 173 H (17-59) U/L ALT 193 H (21-72) U/L Alkaline Phosphatase 547 H (38-126) U/L Total Protein 6.1 L (6.3-8.2) g/dL Albumin 3.0 L (3.5-5.0) g/dL Assessment and Plan (1) Elevated liver enzymes Current Visit: Yes Status: Acute Code(s): R74.8 - ABNORMAL LEVELS OF OTHER SERUM ENZYMES SNOMED Code(s): 096437269 (2) Viral infection Current Visit: Yes Status: Acute Code(s): B34.9 - VIRAL INFECTION, UNSPECIFIED SNOMED Code(s): 12849089 (3) Bicytopenia Current Visit: Yes Status: Acute Code(s): D75.89 - OTHER SPECIFIED DISEASES OF BLOOD AND BLOOD-FORMING ORGANS SNOMED Code(s): 323764610 Plan: 1. Supportive measures. Daily CMP PT/INR. Will check EBV viral load. We'll continue to follow. Assessment and plan of care discussed with Dr. Parker
[2018-04-18 12:50] LABS: IgG Subclass 3 32.2 mg/dL (11.0-85.0)
[2018-04-18 13:02] LABS: IgG Subclass 4 1.9 mg/dL (3.0-175.0)
[2018-04-18 13:03] LABS: Iron Saturation 14.06 (15.00-50.00)
[2018-04-18 14:04] LABS: HIV 1 AB Non-Reactive (Non-Reactive); HIV AB P24 Non-Reactive (Non-Reactive); HIV P24 AG Non-Reactive (Non-Reactive)
--- NOTE | 2018-04-18 17:09 | P.PN ---
Subjective Progress Note Date: 04/18/18 Principal diagnosis: Viral infection and Pancytopenia Mother at bedside, Yves spiked a fever early am of 101.3 again. His platelets have decreased to 10. He feels weak, diaphoretic, and just uncomfortable with body aches. Has some bruising but no overt bleeding. Objective - Vital Signs Vital signs: Vital Signs Temp 99.2 F 04/18/18 13:52 Pulse 98 04/18/18 13:52 Resp 16 04/18/18 13:52 BP 125/72 04/18/18 13:52 Pulse Ox 96 04/18/18 13:52 Intake & Output 04/17/18 04/18/18 04/18/18 18:59 06:59 18:59 Intake Total 150 740 Balance 150 740 Weight 141.3 kg Intake: Intake, IV Titration 150 400 Amount Sodium Chloride 0.9% 1, 150 400 000 ml @ 75 mls/hr IV . [id number] [place] Rx#:[id number] Oral 340 Other: Voiding Method Toilet Toilet Toilet # Voids 2 2 3 - Exam - Constitutional General appearance: Present: no acute distress - EENT Eyes: Present: EOMI ENT: Present: hearing grossly normal, normal oropharynx - Neck Neck: Present: lymphadenopathy (rt ant neck mass stable, 2.5 cm, non tender) - Respiratory Respiratory: bilateral: CTA - Cardiovascular Rhythm: regular Heart sounds: normal: S1, S2 - Gastrointestinal General gastrointestinal: Present: normal bowel sounds, soft - Integumentary Integumentary: Present: normal - Neurologic Neurologic: Present: CNII-XII intact - Musculoskeletal Musculoskeletal: Present: generalized weakness, strength equal bilaterally - Psychiatric Psychiatric: Present: A&O x's 3, appropriate affect - Labs CBC & Chem 7: 04/18/18 06:10 04/18/18 06:10 Labs: Abnormal Lab Results - Last 24 Hours (Table) 04/18/18 04/18/18 04/18/18 Range/Units 06:10 06:10 06:10 Hgb 11.4 L (13.0-17.5) gm/dL Hct 35.0 L (39.0-53.0) % Plt Count 10 L* (150-450) k/uL Monocytes # (Manual) 1.50 H (0-1.0) k/uL INR 1.2 H (<1.2) Sodium 136 L (137-145) mmol/L Calcium 8.2 L (8.4-10.2) mg/dL Iron (65-175) ug/dL Iron Saturation (15.00-50.00) Transferrin (204.0-354.0) mg/dL Ferritin (22.0-322.0) ng/mL Total Bilirubin 3.6 H (0.2-1.3) mg/dL Conjugated Bilirubin 1.3 H (0.0-0.3) mg/dL Delta Bilirubin 1.7 H (0.0-0.2) mg/dL AST 173 H (17-59) U/L ALT 193 H (21-72) U/L Alkaline Phosphatase 547 H (38-126) U/L Total Protein 6.1 L (6.3-8.2) g/dL Albumin 3.0 L (3.5-5.0) g/dL IgG4 (3.0-175.0) mg/dL 04/18/18 Range/Units 06:10 Hgb (13.0-17.5) gm/dL Hct (39.0-53.0) % Plt Count (150-450) k/uL Monocytes # (Manual) (0-1.0) k/uL INR (<1.2) Sodium (137-145) mmol/L Calcium (8.4-10.2) mg/dL Iron 35 L (65-175) ug/dL Iron Saturation 14.06 L (15.00-50.00) Transferrin 188.0 L (204.0-354.0) mg/dL Ferritin 2590.7 H (22.0-322.0) ng/mL Total Bilirubin (0.2-1.3) mg/dL Conjugated Bilirubin (0.0-0.3) mg/dL Delta Bilirubin (0.0-0.2) mg/dL AST (17-59) U/L ALT (21-72) U/L Alkaline Phosphatase (38-126) U/L Total Protein (6.3-8.2) g/dL Albumin (3.5-5.0) g/dL IgG4 1.9 L (3.0-175.0) mg/dL Assessment and Plan Plan: (1) Lymphadenopathy of right cervical region Narrative/Plan: - Rt neck node is stable and asymptomatic. No new LAD noted. - Reactive Lymph node secondary to underlying infection, EBV+ Current Visit: Yes Status: Acute Code(s): R59.0 - LOCALIZED ENLARGED LYMPH NODES SNOMED Code(s): 161534289 (2) Viral infection: - T-Max overnight 101.3, I did discuss case with Dr. De Santiago today. - Infectious Disease continues to follow. - Heterophile Ab was ordered, resulting positive. Thus at this time EBV infection appears to be the main differential. (3) Liver Transiminitis Narrative/Plan: - Liver enzymes have progressively worsened. - GI is following - Continue close Monitoring Current Visit: Yes Status: Acute Code(s): B34.9 - VIRAL INFECTION, UNSPECIFIED SNOMED Code(s): 45979420 (3) Pancytopenia Narrative/Plan: - [place] to be due to marrow suppression from viral infection at this time. - Hgb is stable, but plt is 10 today. Will transfuse one unit of irradiated platelets today and check a one hour post, if patient responds to platelets, less likely related to underlying ITP and more secondary to bone marrow supporession from systemic virus. - GCSF has been discontinued as his WBC has improved - Will Consider Bone marrow Biopsy if CBC doesnot improve and/or Adenopathy does not improve. Current Visit: Yes Status: Acute Code(s): D61.818 - OTHER PANCYTOPENIA SNOMED Code(s): 739549332 Taylor Rodriguez NP
[2018-04-18] MEDS: SODIUM CHLORIDE 0.9% 1,000 ML IV SCH (18:20)
--- NOTE | 2018-04-18 23:38 | PN ---
PROGRESS NOTE DATE OF SERVICE: 04/18/2018. REASON FOR FOLLOWUP: Fever, likely secondary to acute EBV infection. INTERVAL HISTORY: The patient did have fever at midnight, however, afebrile afterward. The patient denies having diarrhea. Had episodes of fever. Denies having any chest pain or shortness of breath. No abdominal pain, no diarrhea. EXAMINATION: Blood pressure 137/75 with a pulse of 100, temperature of 99.6. He is 97% on room air. GENERAL DESCRIPTION: A middle-aged male lying in bed in no distress. RESPIRATORY SYSTEM: Unlabored breathing with decreased breath sounds at the bases. No wheeze. HERAT: S1, S2. Regular rate and rhythm. ABDOMEN: Soft, no tenderness. LABS: Hemoglobin 11.4, white count 9.4, platelet count , BUN of 10, creatinine 0.86. Liver enzymes remain to be elevated. DIAGNOSTIC IMPRESSION AND PLAN: Patient with fever, source is likely acute EBV infection as the patient did have extensive workup and the rest of serology has come back negative. The patient is monitored closely off antibiotic therapy at this point. Continue supportive care. MMODL / IJN: [id number] /
[2018-04-19] MEDS: SODIUM CHLORIDE 0.9% 1,000 ML IV SCH ×2 (05:08→19:15)
[2018-04-19 06:34] LABS: Herpes simplex I and/or II IgM 0.85 INDEX (<=0.90); Herpes simplex IgG I Ab 15.6 (< or = 0.90); Herpes simplex IgG II Ab 0.08 (< or = 0.90)
[2018-04-19 08:07] LABS: HGB 11.1 gm/dL (13.0-17.5); MCH 26.5 pg (25.0-35.0); MCHC 33.5 g/dL (31.0-37.0); MCV 79.1 fL (80.0-100.0); RBC 4.17 m/uL (4.30-5.90); RDW 14.6 % (11.5-15.5); WBC 8.6 k/uL (3.8-10.6)
[2018-04-19 08:31] LABS: Platelet Count 10 k/uL (150-450)
[2018-04-19 08:32] LABS: Mean Platelet Volume 12.8
[2018-04-19 08:35] LABS: ALT 177 U/L (21-72); AST 174 U/L (17-59); Albumin 2.9 g/dL (3.5-5.0); Alkaline Phosphatase 569 U/L (38-126); Anion Gap 8 mmol/L; Blood Urea Nitrogen 8 mg/dL (9-20); Calcium 8.3 mg/dL (8.4-10.2); Carbon Dioxide 28 mmol/L (22-30); Chloride 103 mmol/L (98-107); Glucose 94 mg/dL (74-99); Potassium 3.5 mmol/L (3.5-5.1); Sodium 139 mmol/L (137-145); Total Bilirubin 3.6 mg/dL (0.2-1.3)
--- NOTE | 2018-04-19 11:02 | P.PN ---
Subjective Progress Note Date: 04/19/18 Principal diagnosis: Elevated liver enzymes LFTs relatively same as yesterday. TB 3.6. AST 164. ALT 177. AP 569. Headaches improved. Afebrile. Platelet 10,000; transfusion given earlier this morning. Denies abdominal pain. Objective - Vital Signs Vital signs: Vital Signs Temp 98.7 F 04/19/18 09:34 Pulse 109 H 04/19/18 09:34 Resp 16 04/19/18 09:34 BP 121/80 04/19/18 09:34 Pulse Ox 97 04/19/18 09:34 Intake & Output 04/18/18 04/19/18 04/19/18 18:59 06:59 18:59 Intake Total 740 1104 Balance 740 1104 Weight 141.3 kg Intake: Intake, IV Titration 400 600 Amount Sodium Chloride 0.9% 1, 400 600 000 ml @ 75 mls/hr IV . [id number] [facility] Rx#:[id number] Oral 340 Blood Product 504 Platelet Irr Pheresis 2 252 Acda Unit [id number] Other: Voiding Method Toilet Toilet # Voids 3 - Exam General appearance: The patient is alert, oriented, in no acute distress. HET: Head is normocephalic and atraumatic. Right neck swelling. Pupils are equal and reactive. Oropharynx is clear without lesions. Neck: Supple without lymphadenopathy. Trachea midline. Heart: S1 S2. Regular rate and rhythm. Lungs: No crackles or wheezes are heard. Abdomen: Soft, nontender, nondistended with bowel sounds. No peritoneal signs. No palpable organomegaly or masses. Extremities: Normal skin color and turgor. No cyanosis, rash, ulceration, clubbing, or edema. Radial and pedal pulses are 2/4 bilaterally. Neurological: No focal deficits. Strength and sensation are grossly intact. - Labs CBC & Chem 7: 04/19/18 07:00 04/19/18 07:00 Labs: Abnormal Lab Results - Last 24 Hours (Table) 04/18/18 04/18/18 04/19/18 Range/Units 06:10 06:10 07:00 RBC 4.17 L (4.30-5.90) m/uL Hgb 11.1 L (13.0-17.5) gm/dL Hct 33.0 L (39.0-53.0) % MCV 79.1 L (80.0-100.0) fL Plt Count 10 L* (150-450) k/uL BUN (9-20) mg/dL Calcium (8.4-10.2) mg/dL Iron 35 L (65-175) ug/dL Iron Saturation 14.06 L (15.00-50.00) Transferrin 188.0 L (204.0-354.0) mg/dL Ferritin 2590.7 H (22.0-322.0) ng/mL Total Bilirubin (0.2-1.3) mg/dL AST (17-59) U/L ALT (21-72) U/L Alkaline Phosphatase (38-126) U/L Total Protein (6.3-8.2) g/dL Albumin (3.5-5.0) g/dL IgG4 1.9 L (3.0-175.0) mg/dL HSV I IgG Ab 15.60 H (< or = 0.90) 04/19/18 Range/Units 07:00 RBC (4.30-5.90) m/uL Hgb (13.0-17.5) gm/dL Hct (39.0-53.0) % MCV (80.0-100.0) fL Plt Count (150-450) k/uL BUN 8 L (9-20) mg/dL Calcium 8.3 L (8.4-10.2) mg/dL Iron (65-175) ug/dL Iron Saturation (15.00-50.00) Transferrin (204.0-354.0) mg/dL Ferritin (22.0-322.0) ng/mL Total Bilirubin 3.6 H (0.2-1.3) mg/dL AST 174 H (17-59) U/L ALT 177 H (21-72) U/L Alkaline Phosphatase 569 H (38-126) U/L Total Protein 6.0 L (6.3-8.2) g/dL Albumin 2.9 L (3.5-5.0) g/dL IgG4 (3.0-175.0) mg/dL HSV I IgG Ab (< or = 0.90) Assessment and Plan (1) Elevated liver enzymes Current Visit: Yes Status: Acute Code(s): R74.8 - ABNORMAL LEVELS OF OTHER SERUM ENZYMES SNOMED Code(s): 700183368 (2) Viral infection Current Visit: Yes Status: Acute Code(s): B34.9 - VIRAL INFECTION, UNSPECIFIED SNOMED Code(s): 75624078 (3) Bicytopenia Current Visit: Yes Status: Acute Code(s): D75.89 - OTHER SPECIFIED DISEASES OF BLOOD AND BLOOD-FORMING ORGANS SNOMED Code(s): 842260427 Plan: 1. Supportive measures. Daily CMP PT/INR. We'll continue to follow. Assessment and plan of care discussed with Dr. Parker
--- NOTE | 2018-04-19 12:33 | P.PN ---
Subjective Progress Note Date: 04/19/18 This is a 37-year-old male patient presents to emergency room with fever 104. Patient states fever started day night and that he has taken Tylenol every 6 hours the fever has been persistent. Patient does complain that he's had slight cough for the past few days and headache. Patient had one episode of emesis in emergency room but denies any other GI issues. Patient denies any significant past medical history. Chest x-ray completed showing normal chest. EKG completed showing sinus tachycardia with a heart rate of 107. Patient denies any alcohol or drug use. Patient denies any nicotine dependence. Initial lactic 2.3. Repeat lactic 0.8. Urinary analysis completed. Influenza A and B negative. Urine and blood cultures have been ordered. Patient started on Zithromax and Rocephin. At this time patient denies chest pain or shortness of breath. Patient denies any nausea vomiting or diarrhea. Patient denies any urinary burning or frequency. Dr. De Santiago has been consulted for infectious disease. On 04/11/2018 patient is currently sitting up in chair. Patient still feels very fatigued. Patient had a temp of 102.8 last night. Patient also has two enlarged lymph nodes on right side of neck. Patient denies any open sores or problems with teeth. Patient denies any ear pain. Patient denies chest pain or shortness breath. Patient denies any nausea vomiting or diarrhea. Patient denies any upper respiratory symptoms. Patient denies any urinary burning or frequency On 04/12/2018 patient currently sitting up in chair with family at bedside. Patient had temp this AM 101.3. Per infectious disease possible viral syndrome versus bacterial pharyngitis. Patient does have right cervical lymph node enlargement. Dr. Stevens per oncology consulted. At this time patient denies chest pain or shortness of breath. Patient denies nausea vomiting or diarrhea. Patient denies any urinary burning or frequency On 04/13/2018 patient was seen and examined on the telemetry floor he is alert and oriented 3 in no apparent distress still having elevated temperature up to 102 this morning still complaining of headache and nausea otherwise no complaints at this time there is no dizziness no chest pain no shortness of breath there is occasional cough no vomiting no abdominal pain no diarrhea and no urinary symptoms On 04/14/2018 patient remains alert and oriented 3. Patient's temp remains elevated at 101.3. This time patient is requesting possible transfer to [facility] for further evaluation. Discussed with case management attempted transferring process. This time patient denies chest pain or shortness breath. Patient denies nausea vomiting or diarrhea. Patient denies any urinary burning or frequency. On 04/15/2018 patient is alert and oriented 3, temperature has been normal in the last 24 hours, he has occasional headache otherwise he denies any complaints , there is no dizziness no chest pain no shortness of breath no cough no nausea or vomiting no abdominal pain no diarrhea and no urinary symptoms enlarged lymph node on the right side of the neck are improving On 04/16/2018 patient was seen and examined on the medical floor he is alert and oriented 3 he is still having low-grade fever occasionally to 99 there is no chills no dizziness he has occasional headache no cough no nausea or vomiting no abdominal pain no diarrhea no burning with urination no frequency or urgency complains that urine is darker and smells strong, he is still complaining of enlarged nodule in the right side of his neck otherwise he denies any complaints On 04/17/2018 patient is alert and oriented 3 patient still having low-grade temps 99.3 this a.m. At this time patient denies chest pain or shortness of breath. Patient denies nausea vomiting or diarrhea. She denies any urinary burning or frequency. Patient still complaining of enlarged lymph nodes on the right side. Patient also complaining of intermittent headaches On 04/18/2018 patient is alert and oriented times.. Patient did have a temperature 100.4 this a.m. Platelets also down to 10. Oncology services are following platelets have been ordered. Patient remains fatigued. She denies chest pain or shortness breath. Patient denies nausea vomiting or diarrhea. Patient denies any urinary burning or frequency. On 04/19/2018 patient is alert and oriented 3 resting comfortably in chair. Fevers have subsided. Patient did receive platelets early this a.m. per oncology. repeat platelet level remains low at 10. Awaiting oncology input. This time patient denies any signs of bleeding. Patient denies any abdominal pain or tenderness. Patient denies nausea vomiting or diarrhea. Patient denies any urinary burning or frequency. Patient's headaches have improved Objective - Vital Signs Vital signs: Vital Signs Temp 98.7 F 04/19/18 09:34 Pulse 109 H 04/19/18 09:34 Resp 16 04/19/18 09:34 BP 121/80 04/19/18 09:34 Pulse Ox 97 04/19/18 09:34 Intake & Output 04/18/18 04/19/18 04/19/18 18:59 06:59 18:59 Intake Total 740 1104 Balance 740 1104 Weight 141.3 kg Intake: Intake, IV Titration 400 600 Amount Sodium Chloride 0.9% 1, 400 600 000 ml @ 75 mls/hr IV . [id number] [facility] Rx#:[id number] Oral 340 Blood Product 504 Platelet Irr Pheresis 2 252 Acda Unit [id number] Other: Voiding Method Toilet Toilet # Voids 3 - Exam Head normocephalic Neck supple. 2 enlarged right cervical lymph nodes Lungs clear to auscultation bilaterally no wheezing or crackles Heart regular rate and rhythm S1-S2, no rub or gallop Abdomen is soft nontender nondistended positive bowel sounds no hepatosplenomegaly Extremities no edema Neuro alert and orientated to 3 - Labs CBC & Chem 7: 04/19/18 07:00 04/19/18 07:00 Labs: Abnormal Lab Results - Last 24 Hours (Table) 04/18/18 04/18/18 04/19/18 Range/Units 06:10 06:10 07:00 RBC 4.17 L (4.30-5.90) m/uL Hgb 11.1 L (13.0-17.5) gm/dL Hct 33.0 L (39.0-53.0) % MCV 79.1 L (80.0-100.0) fL Plt Count 10 L* (150-450) k/uL BUN (9-20) mg/dL Calcium (8.4-10.2) mg/dL Iron 35 L (65-175) ug/dL Iron Saturation 14.06 L (15.00-50.00) Transferrin 188.0 L (204.0-354.0) mg/dL Ferritin 2590.7 H (22.0-322.0) ng/mL Total Bilirubin (0.2-1.3) mg/dL AST (17-59) U/L ALT (21-72) U/L Alkaline Phosphatase (38-126) U/L Total Protein (6.3-8.2) g/dL Albumin (3.5-5.0) g/dL IgG4 1.9 L (3.0-175.0) mg/dL HSV I IgG Ab 15.60 H (< or = 0.90) 04/19/18 Range/Units 07:00 RBC (4.30-5.90) m/uL Hgb (13.0-17.5) gm/dL Hct (39.0-53.0) % MCV (80.0-100.0) fL Plt Count (150-450) k/uL BUN 8 L (9-20) mg/dL Calcium 8.3 L (8.4-10.2) mg/dL Iron (65-175) ug/dL Iron Saturation (15.00-50.00) Transferrin (204.0-354.0) mg/dL Ferritin (22.0-322.0) ng/mL Total Bilirubin 3.6 H (0.2-1.3) mg/dL AST 174 H (17-59) U/L ALT 177 H (21-72) U/L Alkaline Phosphatase 569 H (38-126) U/L Total Protein 6.0 L (6.3-8.2) g/dL Albumin 2.9 L (3.5-5.0) g/dL IgG4 (3.0-175.0) mg/dL HSV I IgG Ab (< or = 0.90) Assessment and Plan Assessment: 1. Acute febrile illness. Patient reports high fever of 104. Urine and blood cultures have been ordered. Chest x-ray completed showing normal chest. EKG completed showing sinus tachycardia. Influenza negative. Urine and blood cultures have been ordered. Patient started on Rocephin and Zithromax. Infectious disease following. Lumbar puncture has been performed. Patient remains Unasyn and Levaquin for antibiotics. Blood, urine and cerebrospinal fluid cultures currently negative. Per infectious disease patient remains on Unasyn for IV antibiotic. Patient with acute febrile illness likely secondary to acute EBV infection. no need for antibiotic treatment. continue supportive treatment. 2. History of right ACL repair 3. 2 enlarged right cervical lymph nodes. Dr. stevens has been consulted for hematology services. Case discussed today with Dr. Stevens at this time no need for intervention. Enlarged lymph nodes may be related to infectious process patient will continue to receive antibiotics if he still has enlarged lymph nodes in 2-3 weeks he will be followed as outpatient by Dr. Stevens and then may proceed with biopsy. 4. Elevated liver enzymes. Abdomen ultrasound completed showing marked fatty infiltration of liver redemonstrated. Splenomegaly again seen Alkaline phosphatase 512, ALT 205, AST 192 and total bili 3.5. Per GI services. Liver serologies ordered along with repeat liver enzymes per GI services. Per GI services continue supportive measures and monitor CMP and PT/INR daily 5. Thrombocytopenia. Dr. Stevens following. Per Oncology services likely due to bone marrow suppression from viral infection at this time. Platelet 16. patient started on Zarxio per oncology services. Platelets down to 10. Zaroxolyn has been DC'd per oncology services platelets have been ordered. Repeat platelet level 10. Awaiting oncology for possible platelet transfusion DVT prophylaxis Lovenox DC'd due to thrombocytopenia, SCDs I performed an examination of the patient and discussed their management with the Nurse Practitioner. I have reviewed the Nurse Practitioner's notes and agree with the documented findings and plan of care
[2018-04-19 12:51] LABS: INR 1.1 (<1.2); Prothrombin Time 10.5 sec (9.0-12.0)
[2018-04-19 13:02] LABS: Reticulocyte % 2.5 % (0.5-2.0)
--- NOTE | 2018-04-19 16:15 | P.PN ---
Subjective Progress Note Date: 04/19/18 Principal diagnosis: Viral infection and Pancytopenia Received one unit of platlets overnight of irradiated platelets, although no increase in count. Will transfuse again today and draw one hour post. Lymphadenopathy still present and patient still intermittent fevers although improved from yesterday. Objective - Vital Signs Vital signs: Vital Signs Temp 98.8 F 04/19/18 16:09 Pulse 95 04/19/18 16:09 Resp 16 04/19/18 16:09 BP 121/78 04/19/18 16:09 Pulse Ox 98 04/19/18 16:09 Intake & Output 04/18/18 04/19/18 04/19/18 18:59 06:59 18:59 Intake Total 740 1104 1000 Balance 740 1104 1000 Weight 141.3 kg Intake: Intake, IV Titration 400 600 500 Amount Sodium Chloride 0.9% 1, 400 600 500 000 ml @ 75 mls/hr IV . [id number] [facility] Rx#:[id number] Oral 340 500 Blood Product 504 0 Platelet Irr Pheresis 2 252 Acda Unit [id number] Platelet Irr Pheresis 2 0 Acda Unit [id number] Other: Voiding Method Toilet Toilet # Voids 3 - Exam - Constitutional General appearance: Present: no acute distress - EENT Eyes: Present: EOMI ENT: Present: hearing grossly normal, normal oropharynx - Neck Neck: Present: lymphadenopathy (rt ant neck mass stable, 2.5 cm, non tender) - Respiratory Respiratory: bilateral: CTA - Cardiovascular Rhythm: regular Heart sounds: normal: S1, S2 - Gastrointestinal General gastrointestinal: Present: normal bowel sounds, soft - Integumentary Integumentary: Present: normal - Neurologic Neurologic: Present: CNII-XII intact - Musculoskeletal Musculoskeletal: Present: generalized weakness, strength equal bilaterally - Psychiatric Psychiatric: Present: A&O x's 3, appropriate affect - Labs CBC & Chem 7: 04/19/18 07:00 04/19/18 07:00 Labs: Abnormal Lab Results - Last 24 Hours (Table) 04/18/18 04/19/18 04/19/18 Range/Units 06:10 07:00 07:00 RBC 4.17 L (4.30-5.90) m/uL Hgb 11.1 L (13.0-17.5) gm/dL Hct 33.0 L (39.0-53.0) % MCV 79.1 L (80.0-100.0) fL Plt Count 10 L* (150-450) k/uL Retic Count (0.5-2.0) % BUN 8 L (9-20) mg/dL Calcium 8.3 L (8.4-10.2) mg/dL Total Bilirubin 3.6 H (0.2-1.3) mg/dL AST 174 H (17-59) U/L ALT 177 H (21-72) U/L Alkaline Phosphatase 569 H (38-126) U/L Total Protein 6.0 L (6.3-8.2) g/dL Albumin 2.9 L (3.5-5.0) g/dL HSV I IgG Ab 15.60 H (< or = 0.90) 04/19/18 Range/Units 12:08 RBC (4.30-5.90) m/uL Hgb (13.0-17.5) gm/dL Hct (39.0-53.0) % MCV (80.0-100.0) fL Plt Count (150-450) k/uL Retic Count 2.5 H (0.5-2.0) % BUN (9-20) mg/dL Calcium (8.4-10.2) mg/dL Total Bilirubin (0.2-1.3) mg/dL AST (17-59) U/L ALT (21-72) U/L Alkaline Phosphatase (38-126) U/L Total Protein (6.3-8.2) g/dL Albumin (3.5-5.0) g/dL HSV I IgG Ab (< or = 0.90) Assessment and Plan Plan: (1) Lymphadenopathy of right cervical region Narrative/Plan: - Rt neck node is stable and asymptomatic. No new LAD noted. - Reactive Lymph node secondary to underlying infection, EBV+ Current Visit: Yes Status: Acute Code(s): R59.0 - LOCALIZED ENLARGED LYMPH NODES SNOMED Code(s): 634409436 (2) Viral infection: - T-Max overnight on 04/18/18 101.3, repeat blood cultures in progress, although likely still reactive to persistent virus. - Infectious Disease continues to follow. - Heterophile Ab was ordered, resulting positive. Thus at this time EBV infection appears to be the main differential. (3) Liver Transiminitis Narrative/Plan: - Liver enzymes have progressively worsened. - GI is following - Continue close Monitoring Current Visit: Yes Status: Acute Code(s): B34.9 - VIRAL INFECTION, UNSPECIFIED SNOMED Code(s): 96472534 (3) Pancytopenia Narrative/Plan: - Lester to be due to marrow suppression from viral infection at this time. - Hgb is stable, but plt is 10 again today. Will transfuse one unit of irradiated platelets today and check a one hour post, if patient responds to platelets, less likely related to underlying ITP and more secondary to bone marrow supporession from systemic virus. - GCSF has been discontinued as his WBC has improved - Will Consider Bone marrow Biopsy if CBC does not improve and/or Adenopathy does not improve. Current Visit: Yes Status: Acute Code(s): D61.818 - OTHER PANCYTOPENIA SNOMED Code(s): 827234673 Taylor Rodriguez NP
[2018-04-19 20:48] LABS: HCT 34.8 % (39.0-53.0); HGB 11.1 gm/dL (13.0-17.5); MCH 25.7 pg (25.0-35.0); MCHC 31.9 g/dL (31.0-37.0); MCV 80.6 fL (80.0-100.0); Mean Platelet Volume 11.6; RBC 4.32 m/uL (4.30-5.90); RDW 14.6 % (11.5-15.5); WBC 8.2 k/uL (3.8-10.6)
[2018-04-19 20:52] LABS: Platelet Count 11 k/uL (150-450)
[2018-04-19 21:06] LABS: Eosinophils # (M) 0.08 k/uL (0-0.7); Lymphocytes # (M) 6.07 k/uL (1.0-4.8); Nucleated Red Blood Cells 0 /100 WBC (0-0)
--- NOTE | 2018-04-19 22:00 | PN ---
PROGRESS NOTE DATE OF SERVICE: 04/19/2018 REASON FOR FOLLOWUP: Fever, likely viral syndrome, questionably EBV. INTERVAL HISTORY: The patient is currently afebrile. Highest temperature has been 99.1. The patient said he had a shower and he shaved, and afterward felt weak and tired; no energy. Denies having any chest pain or shortness of breath or cough. No abdominal pain. No nausea, vomiting or diarrhea. PHYSICAL EXAMINATION: Blood pressure is 121/78 with a pulse of 95, temperature 98.8. He is 98% on room air. General description is a middle-aged male up in the bed in no distress. RESPIRATORY SYSTEM: Unlabored breathing. Clear to auscultation anteriorly. HEART: S1, S2. Regular rate and rhythm. ABDOMEN: Soft. No tenderness. LABS: Hemoglobin 11.1, white count 8.2. Platelet count was 10. BUN of 8, creatinine 0.84. DIAGNOSTIC IMPRESSION AND PLAN: Patient with a fever, concerning likely for a viral syndrome and possibility of Sarah- Rodriguez viral infection with positive heterophile antibody. Underlying malignancy is not likely but not entirely excluded. Plan of care was discussed with the general office assistant. He may benefit from a bone marrow biopsy once his platelet count improves. Continue supportive treatment at this point. No need for any systemic antibiotic therapy. Continue with supportive care. MMODL / IJN: [id number] /
[2018-04-20] MEDS: SODIUM CHLORIDE 0.9% 1,000 ML IV SCH ×2 (06:17→22:25)
[2018-04-20 08:45] LABS: HCT 33.6 % (39.0-53.0); HGB 10.9 gm/dL (13.0-17.5); MCH 25.9 pg (25.0-35.0); MCHC 32.4 g/dL (31.0-37.0); MCV 79.9 fL (80.0-100.0); Mean Platelet Volume 7.5; RBC 4.21 m/uL (4.30-5.90); RDW 14.8 % (11.5-15.5)
[2018-04-20 08:51] LABS: Platelet Count 5 k/uL (150-450)
[2018-04-20 08:52] LABS: INR 1.1 (<1.2); Prothrombin Time 10.8 sec (9.0-12.0)
[2018-04-20 09:00] LABS: ALT 201 U/L (21-72); AST 233 U/L (17-59); Albumin 2.9 g/dL (3.5-5.0); Alkaline Phosphatase 593 U/L (38-126); Anion Gap 5 mmol/L; Blood Urea Nitrogen 8 mg/dL (9-20); Calcium 8.3 mg/dL (8.4-10.2); Carbon Dioxide 30 mmol/L (22-30); Chloride 105 mmol/L (98-107); Glucose 100 mg/dL (74-99); Potassium 3.4 mmol/L (3.5-5.1); Sodium 140 mmol/L (137-145); Total Bilirubin 3.5 mg/dL (0.2-1.3); Total Protein 6.1 g/dL (6.3-8.2)
[2018-04-20 10:20] LABS: Uric Acid 5.2 mg/dL (3.5-8.5)
[2018-04-20] MEDS ORDERED: Potassium Replacement Protocol 1 EACH MISC MISCELLANE PRN (10:37)
[2018-04-20 10:43] LABS: Band Neutrophils % 1 %; Basophils # (M) 0.08 k/uL (0-0.2); Monocytes # (M) 0.25 k/uL (0-1.0); Neutrophils % (M) 22 %; Total Cells Counted 200
[2018-04-20 10:44] LABS: Reactive Lymphocytes Present
[2018-04-20 10:45] LABS: Large Platelets Present
[2018-04-20 10:52] LABS: Large Platelets Present; Lymphocytes # (M) 4.32 k/uL (1.0-4.8); Monocytes # (M) 0.48 k/uL (0-1.0); Neutrophils % (M) 40 %; Nucleated Red Blood Cells 0 /100 WBC (0-0); Polychromasia Present; Reactive Lymphocytes Present; Total Cells Counted 100
[2018-04-20 11:05] LABS: D-Dimer 8.47 mg/L FEU (<0.60); Partial Thromboplastin Time 26.5 sec (22.0-30.0)
[2018-04-20] MEDS: POTASSIUM CHLORIDE ER 20 MEQ TAB.ER PO SCH ×2 (11:35→13:51)
--- NOTE | 2018-04-20 12:24 | P.PN ---
Subjective Progress Note Date: 04/20/18 Principal diagnosis: Elevated liver enzymes LFTs relatively same as yesterday. TB 3.5. AST 233. ALT 201. AP 593. LDH 1600. Headaches improved. Platelet 5,000; transfusion in process. Denies abdominal pain. INR 1.1. Objective - Vital Signs Vital signs: Vital Signs Temp 99.1 F 04/20/18 11:41 Pulse 99 04/20/18 11:41 Resp 16 04/20/18 11:41 BP 131/82 04/20/18 11:41 Pulse Ox 96 04/20/18 11:01 Intake & Output 04/19/18 04/20/18 04/20/18 18:59 06:59 18:59 Intake Total 1313 1200 0 Balance 1313 1200 0 Weight 141.3 kg Intake: Intake, IV Titration 500 1200 Amount Sodium Chloride 0.9% 1, 500 1200 000 ml @ 75 mls/hr IV . [id number] [facility] Rx#:[id number] Oral 500 Blood Product 313 0 Platelet Irr Pheresis 2 313 Acda Unit [id number] Platelet Irr Pheresis 0 Acda1 Unit [id number] Other: Voiding Method Toilet - Exam General appearance: The patient is alert, oriented, in no acute distress. HET: Head is normocephalic and atraumatic. Right neck swelling. Pupils are equal and reactive. Oropharynx is clear without lesions. Neck: Supple without lymphadenopathy. Trachea midline. Heart: S1 S2. Regular rate and rhythm. Lungs: No crackles or wheezes are heard. Abdomen: Soft, nontender, nondistended with bowel sounds. No peritoneal signs. No palpable organomegaly or masses. Extremities: Normal skin color and turgor. No cyanosis, rash, ulceration, clubbing, or edema. Radial and pedal pulses are 2/4 bilaterally. Neurological: No focal deficits. Strength and sensation are grossly intact. - Labs CBC & Chem 7: 04/20/18 07:29 04/20/18 07:29 Labs: Abnormal Lab Results - Last 24 Hours (Table) 04/19/18 04/19/18 04/20/18 Range/Units 12:08 20:26 07:29 RBC (4.30-5.90) m/uL Hgb 11.1 L (13.0-17.5) gm/dL Hct 34.8 L (39.0-53.0) % MCV (80.0-100.0) fL Plt Count 11 L* (150-450) k/uL Lymphocytes # (Manual) 6.07 H (1.0-4.8) k/uL Retic Count 2.5 H (0.5-2.0) % D-Dimer (<0.60) mg/L FEU Potassium 3.4 L (3.5-5.1) mmol/L BUN 8 L (9-20) mg/dL Glucose 100 H (74-99) mg/dL Calcium 8.3 L (8.4-10.2) mg/dL Total Bilirubin 3.5 H (0.2-1.3) mg/dL AST 233 H (17-59) U/L ALT 201 H (21-72) U/L Alkaline Phosphatase 593 H (38-126) U/L Lactate Dehydrogenase (313-618) U/L Total Protein 6.1 L (6.3-8.2) g/dL Albumin 2.9 L (3.5-5.0) g/dL 04/20/18 04/20/18 04/20/18 Range/Units 07:29 07:29 07:29 RBC 4.21 L (4.30-5.90) m/uL Hgb 10.9 L (13.0-17.5) gm/dL Hct 33.6 L (39.0-53.0) % MCV 79.9 L (80.0-100.0) fL Plt Count 5 L* D (150-450) k/uL Lymphocytes # (Manual) (1.0-4.8) k/uL Retic Count (0.5-2.0) % D-Dimer 8.47 H (<0.60) mg/L FEU Potassium (3.5-5.1) mmol/L BUN (9-20) mg/dL Glucose (74-99) mg/dL Calcium (8.4-10.2) mg/dL Total Bilirubin (0.2-1.3) mg/dL AST (17-59) U/L ALT (21-72) U/L Alkaline Phosphatase (38-126) U/L Lactate Dehydrogenase 1600 H (313-618) U/L Total Protein (6.3-8.2) g/dL Albumin (3.5-5.0) g/dL Assessment and Plan (1) Elevated liver enzymes Current Visit: Yes Status: Acute Code(s): R74.8 - ABNORMAL LEVELS OF OTHER SERUM ENZYMES SNOMED Code(s): 280486156 (2) Viral infection Current Visit: Yes Status: Acute Code(s): B34.9 - VIRAL INFECTION, UNSPECIFIED SNOMED Code(s): 10634174 (3) Bicytopenia Current Visit: Yes Status: Acute Code(s): D75.89 - OTHER SPECIFIED DISEASES OF BLOOD AND BLOOD-FORMING ORGANS SNOMED Code(s): 147641226 Plan: 1. Supportive measures. Daily CMP PT/INR. Hematology following possible bone marrow biopsy. We'll continue to follow. Assessment and plan of care discussed with Dr. Parker
--- NOTE | 2018-04-20 13:31 | P.PN ---
Subjective Progress Note Date: 04/20/18 This is a 37-year-old male patient presents to emergency room with fever 104. Patient states fever started day night and that he has taken Tylenol every 6 hours the fever has been persistent. Patient does complain that he's had slight cough for the past few days and headache. Patient had one episode of emesis in emergency room but denies any other GI issues. Patient denies any significant past medical history. Chest x-ray completed showing normal chest. EKG completed showing sinus tachycardia with a heart rate of 107. Patient denies any alcohol or drug use. Patient denies any nicotine dependence. Initial lactic 2.3. Repeat lactic 0.8. Urinary analysis completed. Influenza A and B negative. Urine and blood cultures have been ordered. Patient started on Zithromax and Rocephin. At this time patient denies chest pain or shortness of breath. Patient denies any nausea vomiting or diarrhea. Patient denies any urinary burning or frequency. Dr. De Santiago has been consulted for infectious disease. On 04/11/2018 patient is currently sitting up in chair. Patient still feels very fatigued. Patient had a temp of 102.8 last night. Patient also has two enlarged lymph nodes on right side of neck. Patient denies any open sores or problems with teeth. Patient denies any ear pain. Patient denies chest pain or shortness breath. Patient denies any nausea vomiting or diarrhea. Patient denies any upper respiratory symptoms. Patient denies any urinary burning or frequency On 04/12/2018 patient currently sitting up in chair with family at bedside. Patient had temp this AM 101.3. Per infectious disease possible viral syndrome versus bacterial pharyngitis. Patient does have right cervical lymph node enlargement. Dr. Stevens per oncology consulted. At this time patient denies chest pain or shortness of breath. Patient denies nausea vomiting or diarrhea. Patient denies any urinary burning or frequency On 04/13/2018 patient was seen and examined on the telemetry floor he is alert and oriented 3 in no apparent distress still having elevated temperature up to 102 this morning still complaining of headache and nausea otherwise no complaints at this time there is no dizziness no chest pain no shortness of breath there is occasional cough no vomiting no abdominal pain no diarrhea and no urinary symptoms On 04/14/2018 patient remains alert and oriented 3. Patient's temp remains elevated at 101.3. This time patient is requesting possible transfer to [facility] for further evaluation. Discussed with case management attempted transferring process. This time patient denies chest pain or shortness breath. Patient denies nausea vomiting or diarrhea. Patient denies any urinary burning or frequency. On 04/15/2018 patient is alert and oriented 3, temperature has been normal in the last 24 hours, he has occasional headache otherwise he denies any complaints , there is no dizziness no chest pain no shortness of breath no cough no nausea or vomiting no abdominal pain no diarrhea and no urinary symptoms enlarged lymph node on the right side of the neck are improving On 04/16/2018 patient was seen and examined on the medical floor he is alert and oriented 3 he is still having low-grade fever occasionally to 99 there is no chills no dizziness he has occasional headache no cough no nausea or vomiting no abdominal pain no diarrhea no burning with urination no frequency or urgency complains that urine is darker and smells strong, he is still complaining of enlarged nodule in the right side of his neck otherwise he denies any complaints On 04/17/2018 patient is alert and oriented 3 patient still having low-grade temps 99.3 this a.m. At this time patient denies chest pain or shortness of breath. Patient denies nausea vomiting or diarrhea. She denies any urinary burning or frequency. Patient still complaining of enlarged lymph nodes on the right side. Patient also complaining of intermittent headaches On 04/18/2018 patient is alert and oriented times.. Patient did have a temperature 100.4 this a.m. Platelets also down to 10. Oncology services are following platelets have been ordered. Patient remains fatigued. She denies chest pain or shortness breath. Patient denies nausea vomiting or diarrhea. Patient denies any urinary burning or frequency. On 04/19/2018 patient is alert and oriented 3 resting comfortably in chair. Fevers have subsided. Patient did receive platelets early this a.m. per oncology. repeat platelet level remains low at 10. Awaiting oncology input. This time patient denies any signs of bleeding. Patient denies any abdominal pain or tenderness. Patient denies nausea vomiting or diarrhea. Patient denies any urinary burning or frequency. Patient's headaches have improved On 04/20/2018 patient remains alert and oriented 3. Patient is currently receiving platelet transfusion for platelet level of 5. Patient is still having low-grade temps at 100.1. Discussed case with oncology services. Planning bone marrow biopsy. Discussed with GI services. Will continue to monitor liver enzymes. At this time patient denies chest pain or shortness of breath. Denies nausea vomiting or diarrhea. Patient denies any urinary burning or frequency Objective - Vital Signs Vital signs: Vital Signs Temp 99.1 F 04/20/18 11:41 Pulse 99 04/20/18 11:41 Resp 16 04/20/18 11:41 BP 131/82 04/20/18 11:41 Pulse Ox 96 04/20/18 11:01 Intake & Output 04/19/18 04/20/18 04/20/18 18:59 06:59 18:59 Intake Total 1313 1200 0 Balance 1313 1200 0 Weight 141.3 kg Intake: Intake, IV Titration 500 1200 Amount Sodium Chloride 0.9% 1, 500 1200 000 ml @ 75 mls/hr IV . [id number] [facility] Rx#:[id number] Oral 500 Blood Product 313 0 Platelet Irr Pheresis 2 313 Acda Unit [id number] Platelet Irr Pheresis 0 Acda1 Unit [id number] Other: Voiding Method Toilet - Exam Head normocephalic Neck supple. 2 enlarged right cervical lymph nodes Lungs clear to auscultation bilaterally no wheezing or crackles Heart regular rate and rhythm S1-S2, no rub or gallop Abdomen is soft nontender nondistended positive bowel sounds no hepatosplenomegaly Extremities no edema Neuro alert and orientated to 3 - Labs CBC & Chem 7: 04/20/18 07:29 04/20/18 07:29 Labs: Abnormal Lab Results - Last 24 Hours (Table) 04/19/18 04/20/18 04/20/18 Range/Units 20:26 07:29 07:29 RBC 4.21 L (4.30-5.90) m/uL Hgb 11.1 L 10.9 L (13.0-17.5) gm/dL Hct 34.8 L 33.6 L (39.0-53.0) % MCV 79.9 L (80.0-100.0) fL Plt Count 11 L* 5 L* D (150-450) k/uL Lymphocytes # (Manual) 6.07 H (1.0-4.8) k/uL D-Dimer (<0.60) mg/L FEU Potassium 3.4 L (3.5-5.1) mmol/L BUN 8 L (9-20) mg/dL Glucose 100 H (74-99) mg/dL Calcium 8.3 L (8.4-10.2) mg/dL Total Bilirubin 3.5 H (0.2-1.3) mg/dL AST 233 H (17-59) U/L ALT 201 H (21-72) U/L Alkaline Phosphatase 593 H (38-126) U/L Lactate Dehydrogenase (313-618) U/L Total Protein 6.1 L (6.3-8.2) g/dL Albumin 2.9 L (3.5-5.0) g/dL 04/20/18 04/20/18 Range/Units 07:29 07:29 RBC (4.30-5.90) m/uL Hgb (13.0-17.5) gm/dL Hct (39.0-53.0) % MCV (80.0-100.0) fL Plt Count (150-450) k/uL Lymphocytes # (Manual) (1.0-4.8) k/uL D-Dimer 8.47 H (<0.60) mg/L FEU Potassium (3.5-5.1) mmol/L BUN (9-20) mg/dL Glucose (74-99) mg/dL Calcium (8.4-10.2) mg/dL Total Bilirubin (0.2-1.3) mg/dL AST (17-59) U/L ALT (21-72) U/L Alkaline Phosphatase (38-126) U/L Lactate Dehydrogenase 1600 H (313-618) U/L Total Protein (6.3-8.2) g/dL Albumin (3.5-5.0) g/dL Assessment and Plan Assessment: 1. Acute febrile illness. Patient reports high fever of 104. Urine and blood cultures have been ordered. Chest x-ray completed showing normal chest. EKG completed showing sinus tachycardia. Influenza negative. Urine and blood cultures have been ordered. Patient started on Rocephin and Zithromax. Infectious disease following. Lumbar puncture has been performed. Patient remains Unasyn and Levaquin for antibiotics. Blood, urine and cerebrospinal fluid cultures currently negative. Per infectious disease patient remains on Unasyn for IV antibiotic. Patient with acute febrile illness likely secondary to acute EBV infection. no need for antibiotic treatment. continue supportive treatment. 2. History of right ACL repair 3. 2 enlarged right cervical lymph nodes. Dr. stevens has been consulted for hematology services. Case discussed today with Dr. Stevens at this time no need for intervention. Enlarged lymph nodes may be related to infectious process patient will continue to receive antibiotics if he still has enlarged lymph nodes in 2-3 weeks he will be followed as outpatient by Dr. Stevens and then may proceed with biopsy. 4. Elevated liver enzymes. Abdomen ultrasound completed showing marked fatty infiltration of liver redemonstrated. Splenomegaly again seen Alkaline phosphatase 512, ALT 205, AST 192 and total bili 3.5. Per GI services. Liver serologies ordered along with repeat liver enzymes per GI services. Per GI services continue supportive measures and monitor CMP and PT/INR daily 5. Thrombocytopenia. Dr. Stevens following. Per Oncology services likely due to bone marrow suppression from viral infection at this time. Platelet 16. patient started on Zarxio per oncology services. Platelets down to 10. Zaroxolyn has been DC'd per oncology services platelets have been ordered. Repeat platelet level 10. Patient received additional platelet transfusion yesterday. Platelets continue to drop to 5. Orders for additional platelets today per oncology. Discussed with oncology service is planning bone marrow biopsy. DVT prophylaxis Lovenox DC'd due to thrombocytopenia, SCDs I performed an examination of the patient and discussed their management with the Nurse Practitioner. I have reviewed the Nurse Practitioner's notes and agree with the documented findings and plan of care
[2018-04-20 15:02] LABS: Liver/Kidney Microsome Antibod 1.2 UNITS (<=20)
--- NOTE | 2018-04-20 15:20 | XR ---
EXAMINATION TYPE: XR chest 2V DATE OF EXAM: 04/20/2018 COMPARISON: 04/11/2018 HISTORY: Shortness of breath and fever TECHNIQUE: Frontal and lateral views of the chest are obtained. FINDINGS: There are low lung volumes crating crowding of the pulmonary vasculature and linear left ba silar atelectasis. Slight right hemidiaphragm elevation is unchanged from the prior There is no focal air space opacity, pleural effusion, or pneumothorax seen. The cardiac silhouette size is upper low its of normal. The osseous structures are intact. IMPRESSION: Hypoventilatory lungs with left basilar atelectasis. Otherwise no acute cardiopulmonary process.
[2018-04-20 16:33] LABS: Platelet Count 10 k/uL (150-450)
--- NOTE | 2018-04-20 17:20 | P.PN ---
<Taylor Rodriguez - Last Filed: 04/20/18 17:18> Subjective Progress Note Date: 04/20/18 Principal diagnosis: Viral infection and Pancytopenia Received one unit of platlets overnight of irradiated platelets, no increase in counts. worsening overall Objective - Vital Signs Vital signs: Vital Signs Temp 99.0 F 04/20/18 14:32 Pulse 94 04/20/18 14:32 Resp 16 04/20/18 13:47 BP 141/94 04/20/18 14:32 Pulse Ox 96 04/20/18 14:32 Intake & Output 04/19/18 04/20/18 04/20/18 18:59 06:59 18:59 Intake Total 1313 1200 0 Balance 1313 1200 0 Weight 141.3 kg Intake: Intake, IV Titration 500 1200 Amount Sodium Chloride 0.9% 1, 500 1200 000 ml @ 75 mls/hr IV . [id number] [facility] Rx#:[id number] Oral 500 Blood Product 313 0 Platelet Irr Pheresis 2 313 Acda Unit [id number] Platelet Irr Pheresis 0 Acda1 Unit [id number] Other: Voiding Method Toilet # Voids 1 - Exam - Constitutional General appearance: Present: no acute distress - EENT Eyes: Present: EOMI ENT: Present: hearing grossly normal, normal oropharynx - Neck Neck: Present: lymphadenopathy (rt ant neck mass stable, 2.5 cm, non tender) - Respiratory Respiratory: bilateral: CTA - Cardiovascular Rhythm: regular Heart sounds: normal: S1, S2 - Gastrointestinal General gastrointestinal: Present: normal bowel sounds, soft - Integumentary Integumentary: Present: normal - Neurologic Neurologic: Present: CNII-XII intact - Musculoskeletal Musculoskeletal: Present: generalized weakness, strength equal bilaterally - Psychiatric Psychiatric: Present: A&O x's 3, appropriate affect - Labs CBC & Chem 7: 04/20/18 16:03 04/20/18 07:29 Labs: Abnormal Lab Results - Last 24 Hours (Table) 04/19/18 04/20/18 04/20/18 Range/Units 20:26 07:29 07:29 RBC 4.21 L (4.30-5.90) m/uL Hgb 11.1 L 10.9 L (13.0-17.5) gm/dL Hct 34.8 L 33.6 L (39.0-53.0) % MCV 79.9 L (80.0-100.0) fL Plt Count 11 L* 5 L* D (150-450) k/uL Lymphocytes # (Manual) 6.07 H (1.0-4.8) k/uL D-Dimer (<0.60) mg/L FEU Potassium 3.4 L (3.5-5.1) mmol/L BUN 8 L (9-20) mg/dL Glucose 100 H (74-99) mg/dL Calcium 8.3 L (8.4-10.2) mg/dL Total Bilirubin 3.5 H (0.2-1.3) mg/dL AST 233 H (17-59) U/L ALT 201 H (21-72) U/L Alkaline Phosphatase 593 H (38-126) U/L Lactate Dehydrogenase (313-618) U/L Total Protein 6.1 L (6.3-8.2) g/dL Albumin 2.9 L (3.5-5.0) g/dL 04/20/18 04/20/18 04/20/18 Range/Units 07:29 07:29 16:03 RBC (4.30-5.90) m/uL Hgb (13.0-17.5) gm/dL Hct (39.0-53.0) % MCV (80.0-100.0) fL Plt Count 10 L* D (150-450) k/uL Lymphocytes # (Manual) (1.0-4.8) k/uL D-Dimer 8.47 H (<0.60) mg/L FEU Potassium (3.5-5.1) mmol/L BUN (9-20) mg/dL Glucose (74-99) mg/dL Calcium (8.4-10.2) mg/dL Total Bilirubin (0.2-1.3) mg/dL AST (17-59) U/L ALT (21-72) U/L Alkaline Phosphatase (38-126) U/L Lactate Dehydrogenase 1600 H (313-618) U/L Total Protein (6.3-8.2) g/dL Albumin (3.5-5.0) g/dL Microbiology - Last 24 Hours (Table) 04/19/18 14:06 Blood Culture - Preliminary Blood No Growth after 24 hours 04/19/18 12:08 Blood Culture - Preliminary Blood No Growth after 24 hours Assessment and Plan Plan: (1) Lymphadenopathy of right cervical region Narrative/Plan: - Rt neck node is stable and asymptomatic. No new LAD noted. - Reactive Lymph node secondary to underlying infection, EBV+ Current Visit: Yes Status: Acute Code(s): R59.0 - LOCALIZED ENLARGED LYMPH NODES SNOMED Code(s): 131046815 (2) Viral infection: - T-Max overnight on 04/18/18 101.3, repeat blood cultures in progress, although likely still reactive to persistent virus. - Infectious Disease continues to follow. - Heterophile Ab was ordered, resulting positive. Thus at this time EBV infection appears to be the main differential. (3) Liver Transiminitis Narrative/Plan: - Liver enzymes have progressively worsened. - GI is following - Continue close Monitoring Current Visit: Yes Status: Acute Code(s): B34.9 - VIRAL INFECTION, UNSPECIFIED SNOMED Code(s): 87698925 (3) Pancytopenia Narrative/Plan: - [place] to be due to marrow suppression from viral infection at this time. - Hgb is stable, but plt is 5 after transfusion. platlets ordered today - GCSF has been discontinued as his WBC has improved - Will Consider Bone marrow Biopsy if CBC does not improve and/or Adenopathy does not improve. Current Visit: Yes Status: Acute Code(s): D61.818 - OTHER PANCYTOPENIA SNOMED Code(s): 646881961 Plan: - Bone Marrow Biopsy tomorrow - Await further work-up Taylor Rodriguez NP Physician Attest: I have completed the full history and physical of this patient and agree with above dictation by Taylor Rodriguez NP. Dictated as scribe <RodneyJohn - Last Filed: 04/20/18 19:06> Objective - Vital Signs Vital signs: Vital Signs Temp 99.0 F 04/20/18 14:32 Pulse 94 04/20/18 14:32 Resp 16 04/20/18 13:47 BP 141/94 04/20/18 14:32 Pulse Ox 96 04/20/18 14:32 Intake & Output 04/20/18 04/20/18 04/21/18 06:59 18:59 06:59 Intake Total 1200 0 Balance 1200 0 Weight 141.3 kg Intake: Intake, IV Titration 1200 Amount Sodium Chloride 0.9% 1, 1200 000 ml @ 75 mls/hr IV . [id number] [facility] Rx#:[id number] Blood Product 0 Platelet Irr Pheresis 0 Acda1 Unit [id number] Other: Voiding Method Toilet # Voids 1 - Labs CBC & Chem 7: 04/20/18 16:03 04/20/18 07:29 Labs: Abnormal Lab Results - Last 24 Hours (Table) 04/19/18 04/20/18 04/20/18 Range/Units 20:26 07: 07:29 RBC 4.21 L (4.30-5.90) m/uL Hgb 11.1 L 10.9 L (13.0-17.5) gm/dL Hct 34.8 L 33.6 L (39.0-53.0) % MCV 79.9 L (80.0-100.0) fL Plt Count 11 L* 5 L* D (150-450) k/uL Lymphocytes # (Manual) 6.07 H (1.0-4.8) k/uL D-Dimer (<0.60) mg/L FEU Potassium 3.4 L (3.5-5.1) mmol/L BUN 8 L (9-20) mg/dL Glucose 100 H (74-99) mg/dL Calcium 8.3 L (8.4-10.2) mg/dL Total Bilirubin 3.5 H (0.2-1.3) mg/dL AST 233 H (17-59) U/L ALT 201 H (21-72) U/L Alkaline Phosphatase 593 H (38-126) U/L Lactate Dehydrogenase (313-618) U/L Total Protein 6.1 L (6.3-8.2) g/dL Albumin 2.9 L (3.5-5.0) g/dL 04/20/18 04/20/18 04/20/18 Range/Units 07:29 07:29 16:03 RBC (4.30-5.90) m/uL Hgb (13.0-17.5) gm/dL Hct (39.0-53.0) % MCV (80.0-100.0) fL Plt Count 10 L* D (150-450) k/uL Lymphocytes # (Manual) (1.0-4.8) k/uL D-Dimer 8.47 H (<0.60) mg/L FEU Potassium (3.5-5.1) mmol/L BUN (9-20) mg/dL Glucose (74-99) mg/dL Calcium (8.4-10.2) mg/dL Total Bilirubin (0.2-1.3) mg/dL AST (17-59) U/L ALT (21-72) U/L Alkaline Phosphatase (38-126) U/L Lactate Dehydrogenase 1600 H (313-618) U/L Total Protein (6.3-8.2) g/dL Albumin (3.5-5.0) g/dL Microbiology - Last 24 Hours (Table) 04/19/18 14:06 Blood Culture - Preliminary Blood No Growth after 24 hours 04/19/18 12:08 Blood Culture - Preliminary Blood No Growth after 24 hours Assessment and Plan (1) Lymphadenopathy of right cervical region Current Visit: Yes Status: Acute Code(s): R59.0 - LOCALIZED ENLARGED LYMPH NODES SNOMED Code(s): 327723005 (2) Viral infection Current Visit: Yes Status: Acute Code(s): B34.9 - VIRAL INFECTION, UNSPECIFIED SNOMED Code(s): 59054497 (3) Pancytopenia Current Visit: Yes Status: Acute Code(s): D61.818 - OTHER PANCYTOPENIA SNOMED Code(s): 455721602 Plan: Bone marrow aspiration and biopsy was discussed in detail with the patient. He is agreeable to proceed. This is scheduled for 1 PM tomorrow
[2018-04-20 17:23] LABS: Folate, Serum 11.8 ng/mL
[2018-04-20] MEDS ORDERED: MORPHINE SULFATE 2 MG/ML SYRINGE IV PRN (18:43)
[2018-04-20] MEDS: SENNOSIDES-DOCUSATE SODIUM 1 EACH TAB PO SCH (22:24)
[2018-04-20] MEDS: NYSTATIN 100,000 UNIT/ML SUSP 500,000 UNIT/5 ML CUP PO SCH (22:25)
--- NOTE | 2018-04-20 23:19 | PN ---
PROGRESS NOTE DATE OF SERVICE: 04/20/2018 REASON FOR FOLLOWUP: Fever, likely viral syndrome. INTERVAL HISTORY: The patient did have a low-grade fever last night; however, apparently that was during platelet transfusion. The patient denies any headache. No chest pain, shortness of breath. Very minimal cough. No abdominal pain and no diarrhea. PHYSICAL EXAMINATION: Blood pressure is 128/74 with a pulse of 101, temperature of 99.1. He is 95% on room air. General description is a middle-aged male up in the bed in no distress. RESPIRATORY SYSTEM: Unlabored breathing with decreased breath sounds at the base. No wheeze. HEART: S1, S2. Regular rate and rhythm. ABDOMEN: Soft. No tenderness. LABS: Hemoglobin 10.9, white count 8, platelet count repeat is 10 with a BUN of 8, creatinine 0.82. Bilirubin is 3.5. ALT is 201. DIAGNOSTIC IMPRESSION AND PLAN: Patient with a fever and leukopenia, thrombocytopenia, as well as elevated liver enzymes, likely secondary to acute EBV infection. Hematologic malignancy is less likely but not entirely excluded. The patient will be monitored closely off antibiotic therapy. Continue with supportive care. MMODL / IJN: [id number] /
[2018-04-21] MEDS: LACTATED RINGERS 1,000 ML IV SCH ×2 (06:33→17:21)
[2018-04-21] MEDS: NYSTATIN 100,000 UNIT/ML SUSP 500,000 UNIT/5 ML CUP PO SCH ×3 (06:34→18:08)
[2018-04-21] MEDS: SENNOSIDES-DOCUSATE SODIUM 1 EACH TAB PO SCH ×2 (06:34→23:45)
[2018-04-21 07:47] LABS: HCT 32.7 % (39.0-53.0); HGB 10.6 gm/dL (13.0-17.5); MCH 25.9 pg (25.0-35.0); MCHC 32.5 g/dL (31.0-37.0); MCV 79.9 fL (80.0-100.0); Mean Platelet Volume 11.4; RDW 15.2 % (11.5-15.5); WBC 9.5 k/uL (3.8-10.6)
[2018-04-21 07:53] LABS: Platelet Count 9 k/uL (150-450)
[2018-04-21 08:01] LABS: ALT 224 U/L (21-72); AST 284 U/L (17-59); Alkaline Phosphatase 562 U/L (38-126); Anion Gap 6 mmol/L; Blood Urea Nitrogen 8 mg/dL (9-20); Calcium 8.3 mg/dL (8.4-10.2); Carbon Dioxide 28 mmol/L (22-30); Chloride 104 mmol/L (98-107); Glucose 100 mg/dL (74-99); Potassium 3.9 mmol/L (3.5-5.1); Sodium 138 mmol/L (137-145); Total Bilirubin 3.7 mg/dL (0.2-1.3); Total Protein 6.3 g/dL (6.3-8.2)
[2018-04-21] MEDS: SODIUM CHLORIDE 0.9% 1,000 ML IV SCH (08:27)
[2018-04-21 09:14] LABS: Lymphocytes # (M) 7.41 k/uL (1.0-4.8); Monocytes # (M) 0.19 k/uL (0-1.0); Neutrophils % (M) 20 %; Nucleated Red Blood Cells 0 /100 WBC (0-0); Reactive Lymphocytes Present; Total Cells Counted 200
[2018-04-21 09:15] LABS: Anisocytosis (M) Present; Poikilocytosis (M) Present
--- NOTE | 2018-04-21 10:45 | P.PN ---
Subjective Progress Note Date: 04/21/18 Principal diagnosis: Elevated liver enzymes LFTs relatively same as yesterday. TB 3.7. AST 284. ALT 224. AP 562. Platelet 9 ,000. Denies abdominal pain. Objective - Vital Signs Vital signs: Vital Signs Temp 98.8 F 04/21/18 07:00 Pulse 94 04/21/18 07:00 Resp 20 04/21/18 00:32 BP 139/78 04/21/18 07:00 Pulse Ox 96 04/21/18 07:00 Intake & Output 04/20/18 04/21/18 04/21/18 18:59 06:59 18:59 Intake Total 0 900 Balance 0 900 Weight 141.3 kg Intake: Intake, IV Titration 600 Amount Sodium Chloride 0.9% 1, 600 000 ml @ 75 mls/hr IV . [id number] [facility] Rx#:[id number] Blood Product 0 300 Platelet Irr Pheresis 0 Acda1 Unit [id number] Platelet Irr Pheresis 300 Acda1 Unit [id number] Other: Voiding Method Toilet # Voids 1 - Exam General appearance: The patient is alert, oriented, in no acute distress. HET: Head is normocephalic and atraumatic. Right neck swelling. Pupils are equal and reactive. Oropharynx is clear without lesions. Neck: Supple without lymphadenopathy. Trachea midline. Heart: S1 S2. Regular rate and rhythm. Lungs: No crackles or wheezes are heard. Abdomen: Soft, nontender, nondistended with bowel sounds. No peritoneal signs. No palpable organomegaly or masses. Extremities: Normal skin color and turgor. No cyanosis, rash, ulceration, clubbing, or edema. Radial and pedal pulses are 2/4 bilaterally. Neurological: No focal deficits. Strength and sensation are grossly intact. - Labs CBC & Chem 7: 04/21/18 07:03 04/21/18 07:03 Labs: Abnormal Lab Results - Last 24 Hours (Table) 04/19/18 04/20/18 04/20/18 Range/Units 20:26 07: 16:03 RBC (4.30-5.90) m/uL Hgb (13.0-17.5) gm/dL Hct (39.0-53.0) % MCV (80.0-100.0) fL Plt Count 11 L* 10 L* D (150-450) k/uL Lymphocytes # (Manual) 6.07 H (1.0-4.8) k/uL D-Dimer 8.47 H (<0.60) mg/L FEU BUN (9-20) mg/dL Glucose (74-99) mg/dL Calcium (8.4-10.2) mg/dL Total Bilirubin (0.2-1.3) mg/dL AST (17-59) U/L ALT (21-72) U/L Alkaline Phosphatase (38-126) U/L Albumin (3.5-5.0) g/dL 04/21/18 04/21/18 Range/Units 07:03 07:03 RBC 4.10 L (4.30-5.90) m/uL Hgb 10.6 L (13.0-17.5) gm/dL Hct 32.7 L (39.0-53.0) % MCV 79.9 L (80.0-100.0) fL Plt Count 9 L* (150-450) k/uL Lymphocytes # (Manual) 7.41 H (1.0-4.8) k/uL D-Dimer (<0.60) mg/L FEU BUN 8 L (9-20) mg/dL Glucose 100 H (74-99) mg/dL Calcium 8.3 L (8.4-10.2) mg/dL Total Bilirubin 3.7 H (0.2-1.3) mg/dL AST 284 H (17-59) U/L ALT 224 H (21-72) U/L Alkaline Phosphatase 562 H (38-126) U/L Albumin 3.0 L (3.5-5.0) g/dL Microbiology - Last 24 Hours (Table) 04/19/18 14:06 Blood Culture - Preliminary Blood No Growth after 24 hours 04/19/18 12:08 Blood Culture - Preliminary Blood No Growth after 24 hours Assessment and Plan (1) Viral hepatitis Current Visit: Yes Status: Acute Code(s): B19.9 - UNSPECIFIED VIRAL HEPATITIS WITHOUT HEPATIC COMA SNOMED Code(s): 8167511 (2) Elevated liver enzymes Current Visit: Yes Status: Acute Code(s): R74.8 - ABNORMAL LEVELS OF OTHER SERUM ENZYMES SNOMED Code(s): 452006660 (3) Viral infection Current Visit: Yes Status: Acute Code(s): B34.9 - VIRAL INFECTION, UNSPECIFIED SNOMED Code(s): 13797203 (4) Bicytopenia Current Visit: Yes Status: Acute Code(s): D75.89 - OTHER SPECIFIED DISEASES OF BLOOD AND BLOOD-FORMING ORGANS SNOMED Code(s): 801460825 Plan: 1. Supportive measures. Bone marrow biopsy sxcheduled today. Daily CMP PT/ INR. We'll continue to follow. Assessment and plan of care discussed with Dr. Parker
[2018-04-21] MEDS ORDERED: IV FLUID CONTINUATION 900 ML IV ONE (13:25)
--- NOTE | 2018-04-21 13:57 | P.PCN ---
Date of Procedure: 04/21/18 Preoperative Diagnosis: Pancytopenia, FUO Postoperative Diagnosis: Same Anesthesia: MAC Surgeon: John Stevens [employer] Servicer #1: Stated None Estimated Blood Loss (ml): 3 Pathology: other Condition: stable Disposition: floor Indications for Procedure: Pancytopenia, FUO, adenopathy Operative Findings: Adequate sample Description of Procedure: The procedure was explained in detail to the patient on the floor, where informed consent was obtained. He was brought to the outpatient endoscopy suite. He was then placed in the left lateral decubitus position. The area over both posterior iliac crest was cleaned and prepped with chlorhexidine and sterile draping. IV sedation was then initiated. Local anesthesia was administered with lidocaine to the right posterior iliac rest. A Jamshidi needle was then inserted and bone marrow aspirate obtained. A second pass was made with a biopsy being obtained. On withdrawal of the needle hemostasis was easily achieved. Blood loss was minimal and recovery from sedation was satisfactory. He appeared to have tolerated the procedure well without any obvious immediate complications
--- NOTE | 2018-04-21 14:28 | P.PN ---
Subjective Progress Note Date: 04/21/18 his is a 37-year-old male patient presents to emergency room with fever 104. Patient states fever started day night and that he has taken Tylenol every 6 hours the fever has been persistent. Patient does complain that he's had slight cough for the past few days and headache. Patient had one episode of emesis in emergency room but denies any other GI issues. Patient denies any significant past medical history. Chest x-ray completed showing normal chest. EKG completed showing sinus tachycardia with a heart rate of 107. Patient denies any alcohol or drug use. Patient denies any nicotine dependence. Initial lactic 2.3. Repeat lactic 0.8. Urinary analysis completed. Influenza A and B negative. Urine and blood cultures have been ordered. Patient started on Zithromax and Rocephin. At this time patient denies chest pain or shortness of breath. Patient denies any nausea vomiting or diarrhea. Patient denies any urinary burning or frequency. Dr. De Santiago has been consulted for infectious disease. On 04/11/2018 patient is currently sitting up in chair. Patient still feels very fatigued. Patient had a temp of 102.8 last night. Patient also has two enlarged lymph nodes on right side of neck. Patient denies any open sores or problems with teeth. Patient denies any ear pain. Patient denies chest pain or shortness breath. Patient denies any nausea vomiting or diarrhea. Patient denies any upper respiratory symptoms. Patient denies any urinary burning or frequency On 04/12/2018 patient currently sitting up in chair with family at bedside. Patient had temp this AM 101.3. Per infectious disease possible viral syndrome versus bacterial pharyngitis. Patient does have right cervical lymph node enlargement. Dr. Stevens per oncology consulted. At this time patient denies chest pain or shortness of breath. Patient denies nausea vomiting or diarrhea. Patient denies any urinary burning or frequency On 04/13/2018 patient was seen and examined on the telemetry floor he is alert and oriented 3 in no apparent distress still having elevated temperature up to 102 this morning still complaining of headache and nausea otherwise no complaints at this time there is no dizziness no chest pain no shortness of breath there is occasional cough no vomiting no abdominal pain no diarrhea and no urinary symptoms On 04/14/2018 patient remains alert and oriented 3. Patient's temp remains elevated at 101.3. This time patient is requesting possible transfer to [facility] for further evaluation. Discussed with case management attempted transferring process. This time patient denies chest pain or shortness breath. Patient denies nausea vomiting or diarrhea. Patient denies any urinary burning or frequency. On 04/15/2018 patient is alert and oriented 3, temperature has been normal in the last 24 hours, he has occasional headache otherwise he denies any complaints , there is no dizziness no chest pain no shortness of breath no cough no nausea or vomiting no abdominal pain no diarrhea and no urinary symptoms enlarged lymph node on the right side of the neck are improving On 04/16/2018 patient was seen and examined on the medical floor he is alert and oriented 3 he is still having low-grade fever occasionally to 99 there is no chills no dizziness he has occasional headache no cough no nausea or vomiting no abdominal pain no diarrhea no burning with urination no frequency or urgency complains that urine is darker and smells strong, he is still complaining of enlarged nodule in the right side of his neck otherwise he denies any complaints On 04/17/2018 patient is alert and oriented 3 patient still having low-grade temps 99.3 this a.m. At this time patient denies chest pain or shortness of breath. Patient denies nausea vomiting or diarrhea. She denies any urinary burning or frequency. Patient still complaining of enlarged lymph nodes on the right side. Patient also complaining of intermittent headaches On 04/18/2018 patient is alert and oriented times.. Patient did have a temperature 100.4 this a.m. Platelets also down to 10. Oncology services are following platelets have been ordered. Patient remains fatigued. She denies chest pain or shortness breath. Patient denies nausea vomiting or diarrhea. Patient denies any urinary burning or frequency. On 04/19/2018 patient is alert and oriented 3 resting comfortably in chair. Fevers have subsided. Patient did receive platelets early this a.m. per oncology. repeat platelet level remains low at 10. Awaiting oncology input. This time patient denies any signs of bleeding. Patient denies any abdominal pain or tenderness. Patient denies nausea vomiting or diarrhea. Patient denies any urinary burning or frequency. Patient's headaches have improved On 04/20/2018 patient remains alert and oriented 3. Patient is currently receiving platelet transfusion for platelet level of 5. Patient is still having low-grade temps at 100.1. Discussed case with oncology services. Planning bone marrow biopsy. Discussed with GI services. Will continue to monitor liver enzymes. At this time patient denies chest pain or shortness of breath. Denies nausea vomiting or diarrhea. Patient denies any urinary burning or frequency On 04/21/2018 Patient is s/p lumbar puncture per oncology. platelets remain low at 9. patient remains alert and oriented x 3. Denies chest pain or shortness of breath. Denies nausea or vomitting. denies any urinary burning or frequency. Patient having low grade temps at 100.1. Objective - Vital Signs Vital signs: Vital Signs Temp 98.8 F 04/21/18 07:00 Pulse 94 04/21/18 07:00 Resp 20 04/21/18 08:30 BP 139/78 04/21/18 07:00 Pulse Ox 96 04/21/18 07:00 Intake & Output 04/20/18 04/21/18 04/21/18 18:59 06:59 18:59 Intake Total 314 900 100 Balance 314 900 100 Weight 141.3 kg 141.3 kg Intake: IV 100 Intake, IV Titration 600 Amount Sodium Chloride 0.9% 1, 600 000 ml @ 75 mls/hr IV . [id number] [facility] Rx#:[id number] Blood Product 314 300 Platelet Irr Pheresis 314 Acda1 Unit [id number] Platelet Irr Pheresis 300 Acda1 Unit [id number] Other: Voiding Method Toilet Toilet # Voids 1 - Exam Head normocephalic Neck supple. 2 enlarged right cervical lymph nodes Lungs clear to auscultation bilaterally no wheezing or crackles Heart regular rate and rhythm S1-S2, no rub or gallop Abdomen is soft nontender nondistended positive bowel sounds no hepatosplenomegaly Extremities no edema Neuro alert and orientated to 3 - Labs CBC & Chem 7: 04/21/18 07:03 04/21/18 07:03 Labs: Abnormal Lab Results - Last 24 Hours (Table) 04/20/18 04/21/18 04/21/18 Range/Units 16:03 07:03 07:03 RBC 4.10 L (4.30-5.90) m/uL Hgb 10.6 L (13.0-17.5) gm/dL Hct 32.7 L (39.0-53.0) % MCV 79.9 L (80.0-100.0) fL Plt Count 10 L* D 9 L* (150-450) k/uL Lymphocytes # (Manual) 7.41 H (1.0-4.8) k/uL BUN 8 L (9-20) mg/dL Glucose 100 H (74-99) mg/dL Calcium 8.3 L (8.4-10.2) mg/dL Total Bilirubin 3.7 H (0.2-1.3) mg/dL AST 284 H (17-59) U/L ALT 224 H (21-72) U/L Alkaline Phosphatase 562 H (38-126) U/L Albumin 3.0 L (3.5-5.0) g/dL Microbiology - Last 24 Hours (Table) 04/19/18 14:06 Blood Culture - Preliminary Blood No Growth after 24 hours 04/19/18 12:08 Blood Culture - Preliminary Blood No Growth after 24 hours Assessment and Plan Assessment: 1. Acute febrile illness. Patient reports high fever of 104. Urine and blood cultures have been ordered. Chest x-ray completed showing normal chest. EKG completed showing sinus tachycardia. Influenza negative. Urine and blood cultures have been ordered. Patient started on Rocephin and Zithromax. Infectious disease following. Lumbar puncture has been performed. Patient remains Unasyn and Levaquin for antibiotics. Blood, urine and cerebrospinal fluid cultures currently negative. Per infectious disease patient remains on Unasyn for IV antibiotic. Patient with acute febrile illness likely secondary to acute EBV infection. no need for antibiotic treatment. continue supportive treatment. 2. History of right ACL repair 3. 2 enlarged right cervical lymph nodes. Dr. stevens has been consulted for hematology services. Case discussed today with Dr. Stevens at this time no need for intervention. Enlarged lymph nodes may be related to infectious process patient will continue to receive antibiotics if he still has enlarged lymph nodes in 2-3 weeks he will be followed as outpatient by Dr. Stevens and then may proceed with biopsy. 4. Elevated liver enzymes. Abdomen ultrasound completed showing marked fatty infiltration of liver redemonstrated. Splenomegaly again seen Alkaline phosphatase 512, ALT 205, AST 192 and total bili 3.5. Per GI services. Liver serologies ordered along with repeat liver enzymes per GI services. Per GI services continue supportive measures and monitor CMP and PT/INR daily 5. Thrombocytopenia. Dr. Stevens following. Per Oncology services likely due to bone marrow suppression from viral infection at this time. Platelet 16. patient started on Zarxio per oncology services. Platelets down to 10. Zaroxolyn has been DC'd per oncology services platelets have been ordered. Repeat platelet level 10. Patient received additional platelet transfusion yesterday. Platelets continue to drop to 5. Orders for additional platelets today per oncology. S/P bone marrow biopys per Oncology. platelets remain low at 9. patient has had a total of 4 platelet transfusions DVT prophylaxis Lovenox DC'd due to thrombocytopenia, SCDs I performed an examination of the patient and discussed their management with the Nurse Practitioner. I have reviewed the Nurse Practitioner's notes and agree with the documented findings and plan of care
--- NOTE | 2018-04-21 17:57 | P.PN ---
Subjective Progress Note Date: 04/21/18 A fever pattern is improved. The patient feels fatigued, but denies any new complaints. His status post bone marrow biopsy today which is tolerated well so far. No history of any nausea, vomiting, or obvious bleeding Objective - Vital Signs Vital signs: Vital Signs Temp 98.4 F 04/21/18 14:45 Pulse 90 04/21/18 14:45 Resp 20 04/21/18 15:55 BP 177/76 04/21/18 14:45 Pulse Ox 93 L 04/21/18 14:45 Intake & Output 04/20/18 04/21/18 04/21/18 18:59 06:59 18:59 Intake Total 314 900 475 Balance 314 900 475 Weight 141.3 kg 141.3 kg Intake: IV 100 Intake, IV Titration 600 375 Amount Sodium Chloride 0.9% 1, 600 375 000 ml @ 75 mls/hr IV . [id number] [facility] Rx#:[id number] Blood Product 314 300 Platelet Irr Pheresis 314 Acda1 Unit [id number] Platelet Irr Pheresis 300 Acda1 Unit [id number] Other: Voiding Method Toilet Toilet # Voids 1 - Constitutional General appearance: Present: no acute distress - EENT Eyes: Present: EOMI ENT: Present: hearing grossly normal, normal oropharynx - Neck Neck: Present: lymphadenopathy (Right upper cervical node is stable) - Respiratory Respiratory: bilateral: CTA - Cardiovascular Rhythm: regular Heart sounds: normal: S1, S2 - Gastrointestinal General gastrointestinal: Present: normal bowel sounds, soft - Integumentary Integumentary: Present: normal - Neurologic Neurologic: Present: CNII-XII intact - Musculoskeletal Musculoskeletal: Present: generalized weakness, strength equal bilaterally - Psychiatric Psychiatric: Present: A&O x's 3, appropriate affect - Labs CBC & Chem 7: 04/21/18 07:03 04/21/18 07:03 Labs: Abnormal Lab Results - Last 24 Hours (Table) 04/21/18 04/21/18 Range/Units 07:03 07:03 RBC 4.10 L (4.30-5.90) m/uL Hgb 10.6 L (13.0-17.5) gm/dL Hct 32.7 L (39.0-53.0) % MCV 79.9 L (80.0-100.0) fL Plt Count 9 L* (150-450) k/uL Lymphocytes # (Manual) 7.41 H (1.0-4.8) k/uL BUN 8 L (9-20) mg/dL Glucose 100 H (74-99) mg/dL Calcium 8.3 L (8.4-10.2) mg/dL Total Bilirubin 3.7 H (0.2-1.3) mg/dL AST 284 H (17-59) U/L ALT 224 H (21-72) U/L Alkaline Phosphatase 562 H (38-126) U/L Albumin 3.0 L (3.5-5.0) g/dL Microbiology - Last 24 Hours (Table) 04/19/18 14:06 Blood Culture - Preliminary Blood No Growth after 48 hours 04/19/18 12:08 Blood Culture - Preliminary Blood No Growth after 48 hours Assessment and Plan (1) Lymphadenopathy of right cervical region Current Visit: Yes Status: Acute Code(s): R59.0 - LOCALIZED ENLARGED LYMPH NODES SNOMED Code(s): 079006971 (2) Viral infection Narrative/Plan: Fever pattern is improved. Serologies available discussed with ID. Based on those early EBV infection is felt to be more likely. Current Visit: Yes Status: Acute Code(s): B34.9 - VIRAL INFECTION, UNSPECIFIED SNOMED Code(s): 22577262 (3) Pancytopenia Narrative/Plan: The patient's hemoglobin and white cells were overall stable, but platelets have been continuing to decrease. Therefore bone marrow aspiration biopsy was performed today. Patient tolerated the procedure well. The plan was discussed in detail with ID. In addition to hematology workup, bacterial and fungal cultures, as well as viral PCR testing was also ordered. We will await those results. Patient's platelet count was 9 today. An additional unit of platelet transfusion was ordered. Continue to monitor, and transfuse as needed Current Visit: Yes Status: Acute Code(s): D61.818 - OTHER PANCYTOPENIA SNOMED Code(s): 868254579
--- NOTE | 2018-04-21 22:59 | PN ---
PROGRESS NOTE DATE OF SERVICE: 04/21/2018 REASON FOR FOLLOWUP: Fever, likely viral syndrome. INTERVAL HISTORY: The patient is afebrile. The patient did have a bone marrow biopsy completed today. Patient tolerated the procedure. Denies having any chest pain, shortness of breath or cough. No abdominal pain and no diarrhea. PHYSICAL EXAMINATION: Blood pressure 137/77 with a pulse of 118, temperature 98.8. He is 94% on room air. General description is a middle-aged male lying in bed in no distress. RESPIRATORY SYSTEM: Unlabored breathing. Clear to auscultation anteriorly. HEART: S1, S2. Regular rate and rhythm. ABDOMEN: Soft. No tenderness. LABS: Hemoglobin is 10.6, white count 9.5, platelet count of 9 with a BUN of 8, creatinine 0.83. Liver enzymes mildly elevated. DIAGNOSTIC IMPRESSION AND PLAN: Patient with a fever, leukopenia and elevated liver enzymes; concern likely for acute EBV infection. Treatment will be supportive. He is status post bone marrow biopsy to rule out any other etiologies. Continue with supportive care. Family was present at the bedside. All their questions were answered. MMODL / IJN: [id number] /
[2018-04-22] MEDS: NYSTATIN 100,000 UNIT/ML SUSP 500,000 UNIT/5 ML CUP PO SCH ×4 (00:29→21:15)
[2018-04-22] MEDS: SODIUM CHLORIDE 0.9% 1,000 ML IV SCH ×2 (01:36→09:01)
[2018-04-22 02:21] LABS: HCT 32.6 % (39.0-53.0); HGB 10.8 gm/dL (13.0-17.5); MCH 26.3 pg (25.0-35.0); MCHC 33.2 g/dL (31.0-37.0); MCV 79.1 fL (80.0-100.0); Mean Platelet Volume 10.8; RBC 4.12 m/uL (4.30-5.90); RDW 15.4 % (11.5-15.5); WBC 10.7 k/uL (3.8-10.6)
[2018-04-22 02:30] LABS: Glucose,Whole Blood 104 mg/dL (75-99)
[2018-04-22 02:35] LABS: Platelet Count 16 k/uL (150-450)
[2018-04-22 02:37] LABS: INR 1.1 (<1.2); Prothrombin Time 10.9 sec (9.0-12.0)
[2018-04-22] MEDS ORDERED: NALOXONE 0.4 MG/ML 1 ML VIAL IV PRN (02:47)
[2018-04-22 03:02] LABS: Band Neutrophils % 7 %; Eosinophils # (M) 0.11 k/uL (0-0.7); Lymphocytes # (M) 7.81 k/uL (1.0-4.8); Monocytes # (M) 0.43 k/uL (0-1.0); Neutrophils % (M) 15 %; Nucleated Red Blood Cells 0 /100 WBC (0-0); Total Cells Counted 100
[2018-04-22] MEDS: SENNOSIDES-DOCUSATE SODIUM 1 EACH TAB PO SCH ×2 (08:57→21:06)
[2018-04-22 11:20] LABS: Basophils # (A) 0.2 k/uL (0-0.2); Basophils % (A) 2 %; Eosinophils % (A) 0 %; HCT 32.5 % (39.0-53.0); HGB 10.4 gm/dL (13.0-17.5); Lymphocytes # (A) 6.7 k/uL (1.0-4.8); Lymphocytes % (A) 55 %; MCH 25.5 pg (25.0-35.0); MCHC 31.9 g/dL (31.0-37.0); MCV 79.8 fL (80.0-100.0); Monocytes # (A) 0.5 k/uL (0-1.0); Monocytes % (A) 4 %; Neutrophils # (A) 2.5 k/uL (1.3-7.7); Neutrophils % (A) 20 %; RBC 4.08 m/uL (4.30-5.90); RDW 15.7 % (11.5-15.5); WBC 12.2 k/uL (3.8-10.6)
[2018-04-22 11:27] LABS: Platelet Count 10 k/uL (150-450)
--- NOTE | 2018-04-22 11:30 | P.CNPUL ---
History of Present Illness Consult date: 04/22/18 Requesting physician: Sarah Rushing Reason for consult: other Chief complaint: Vomiting of blood, epistaxis, thrombocytopenia History of present illness: This is a 37-year-old white male patient who was initially admitted on 2017 the emergency department for evaluation of upper respiratory symptoms, fever of 104F, malaise, chills, sore throat, cough. Chest x-ray was negative, a CT was obtained for evaluation of headache, fever and acute mental status changes, and was negative. CT of abdomen, chest and pelvis was obtained, and showed ascending thoracic aortic aneurysm at the level of main pulmonary artery measuring 4.2 cm, inguinal adenopathy, splenomegaly, complex left kidney cyst. Initial CBC was within normal limits, no leukocytosis, platelet count was 193 , electrolytes were within normal limits, renal profile was unremarkable, with B1 of 21 and creatinine of 1, plasma lactic acid was elevated at the time at 2.3 , urinalysis showed 1+ protein, rare bacteria, 4 LV or nitrites. Influenza screen was negative. Patient was started on antibiotics, fever pattern has improved, cultures, including CSF study have been negative. Patient did develop right upper neck lump 2 days ago, which was mildly tender on palpation, and had some improvement since starting antibiotics. CT of the neck was obtained, and showed no suspicious adenopathy. No prior history of malignancy, no history of smoking or chewing tobacco. Patient has been feeling tired, with fever pattern has been improving, patient developed leukopenia and trauma cytopenia with elevated liver enzymes pointing towards a possible viral infection with a question of possible Sarah-Rodriguez virus. Patient's CMV IgM was negative, IgG was positive. There is no evidence of any bacterial infection , patient was treated with antibiotics in the form of Unasyn, check since been discontinued. Last night on 04/21/2018 patient developed significant epistaxis , he was vomiting bright red blood, platelet count was down to 9,000, and patient was transferred to the intensive care unit for further monitoring and treatment. Patient has received 7 units of weight loss, this morning his platelet count up to 16, WBC is 10.7, hemoglobin is 10.8, INR is 1.1, renal profile and electrolytes are within normal limits, liver enzymes remain elevated , AST is 07/14/1983, ALT is 224, alkaline phosphatase at 562, she is afebrile, this morning there has been no further vomiting or epistaxis. He is in no distress, denies any chest pain or dyspnea. Lung sounds are clear to auscultation, abdomen is soft and nontender. Sinus tachycardia on the monitor, with a rate of 101 BPM, but pressures 120/92, sats on 2 L per nasal cannula is 95%. Review of Systems All systems: negative Constitutional: Denies chills, Denies fever Eyes: denies blurred vision, denies pain Ears, nose, mouth and throat: Reports epistaxis, Denies headache, Denies sore throat Cardiovascular: Denies chest pain, Denies shortness of breath Respiratory: Denies cough Gastrointestinal: Denies abdominal pain, Denies diarrhea, Denies nausea, Denies vomiting Musculoskeletal: Denies myalgias Integumentary: Denies pruritus, Denies rash Neurological: Denies numbness, Denies weakness Psychiatric: Denies anxiety, Denies depression Endocrine: Denies fatigue, Denies weight change Past Medical History Past Medical History: No Reported History Additional Past Medical History / Comment(s): seasonal allergies History of Any Multi-Drug Resistant Organisms: None Reported Past Surgical History: Orthopedic Surgery Additional Past Surgical History / Comment(s): Right ACL sx Past Anesthesia/Blood Transfusion Reactions: No Reported Reaction Past Psychological History: No Psychological Hx Reported Smoking Status: Never smoker Past Alcohol Use History: Rare Past Drug Use History: None Reported - Past Family History Mother Family Medical History: No Reported History Father History Unknown: Yes Medications and Allergies Home Medications Medication Instructions Recorded Confirmed Type Acetaminophen Tab [Tylenol Tab] 650 mg PO Q4H PRN 04/09/18 04/09/18 History Allergies Allergy/AdvReac Type Severity Reaction Status Date / Time No Known Allergies Allergy Verified 04/09/18 21:29 Physical Exam Vitals: Vital Signs Temp Pulse Pulse Pulse Resp BP BP 04/22/18 09:04 98.6 F 101 H 22 128/92 04/22/18 07:06 99.0 F 102 H 32 H 129/87 04/22/18 06:56 98.5 F 107 H 30 H 129/86 04/22/18 06:11 99.5 F 105 H 29 H 129/87 04/22/18 06:00 105 H 32 H 127/85 04/22/18 05:26 101 H 35 H 04/22/18 05:00 107 H 40 H 125/88 04/22/18 04:53 99.8 F H 105 H 35 H 127/85 04/22/18 04:23 99.6 F 105 H 32 H 135/90 04/22/18 04:13 99.8 F H 109 H 35 H 134/90 04/22/18 04:00 109 H 19 04/22/18 03:00 105 H 10 L 123/77 04/22/18 02:24 111 H 8 L 04/22/18 01:45 98.2 F 113 H 20 135/78 04/22/18 01:31 100.3 F H 114 H 22 115/79 04/21/18 23:49 99.4 F 110 H 20 138/78 04/21/18 23:47 99.8 F H 109 H 22 122/78 04/21/18 23:39 99.8 F H 110 H 16 119/78 04/21/18 23:30 99.4 F 113 H 20 128/80 04/21/18 21:22 98.8 F 118 H 22 137/77 04/21/18 20:56 99.5 F 126 H 24 04/21/18 20:34 100.4 F H 125 H 18 134/87 04/21/18 20:20 100.2 F H 124 H 16 115/75 04/21/18 19:04 98.6 F 108 H 22 122/80 04/21/18 15:55 20 04/21/18 14:45 98.4 F 90 177/76 Pulse Ox 04/22/18 09:04 04/22/18 07:06 95 04/22/18 06:56 93 L 04/22/18 06:11 04/22/18 06:00 94 L 04/22/18 05:26 04/22/18 05:00 94 L 04/22/18 04:53 95 04/22/18 04:23 92 L 04/22/18 04:13 92 L 04/22/18 04:00 93 L 04/22/18 03:00 94 L 04/22/18 02:24 92 L 04/22/18 01:45 04/22/18 01:31 91 L 04/21/18 23:49 93 L 04/21/18 23:47 94 L 04/21/18 23:39 04/21/18 23:30 04/21/18 21:22 94 L 04/21/18 20:56 04/21/18 20:34 94 L 04/21/18 20:20 93 L 04/21/18 19:04 94 L 04/21/18 15:55 04/21/18 14:45 93 L Intake and Output 04/21/18 04/22/18 04/22/18 22:59 06:59 14:59 Intake Total 1040 488 226 Balance 1040 488 226 Intake: Intake, IV Titration 800 200 Amount Sodium Chloride 0.9% 1, 800 200 000 ml @ 100 mls/hr IV . Q10H [facility] Rx#:[id number] Oral 240 Blood Product 288 226 Platelet Irr Pheresis 2 0 226 Acda Unit [id number] Platelet Irr Pheresis 0 Acda1 Unit [id number] Platelet Irr Pheresis Pas 288 -C Unit [id number] Other: Voiding Method Toilet Toilet # Voids 1 Weight 141.3 kg GENERAL EXAM: Alert, pleasant 37-year-old white male, currently on 2 L per nasal cannula comfortable in no apparent distress. HEAD: Normocephalic/atraumatic. EYES: Normal reaction of pupils, equal size. Conjunctiva pink, sclera white. NOSE: Clear with pink turbinates. THROAT: No erythema or exudates. NECK: No masses, no JVD, no thyroid enlargement, no adenopathy. CHEST: No chest wall deformity. Symmetrical expansion. LUNGS: Equal air entry with no crackles, wheeze, rhonchi or dullness. CVS: Regular rate and rhythm, normal S1 and S2, no gallops, no murmurs, no rubs ABDOMEN: Soft, nontender. No hepatosplenomegaly, normal bowel sounds, no guarding or rigidity. EXTREMITIES: No clubbing, trace pretibial edema, no cyanosis, 2+ pulses and upper and lower extremities. MUSCULOSKELETAL: Muscle strength and tone normal. SPINE: No scoliosis or deformity SKIN: No rashes CENTRAL NERVOUS SYSTEM: Alert and oriented -3. No focal deficits, tone is normal in all 4 extremities. PSYCHIATRIC: Alert and oriented -3. Appropriate affect. Intact judgment and insight. Results - Laboratory Findings CBC and BMP: 04/22/18 01:56 04/21/18 07:03 PT/INR, D-dimer PT 10.9 sec (9.0-12.0) 04/22/18 01:56 INR 1.1 (<1.2) 04/22/18 01:56 D-Dimer 8.47 mg/L FEU (<0.60) H 04/20/18 07:29 Abnormal lab findings: Abnormal Labs 04/09/18 04/09/18 04/09/18 21:20 21:20 23:08 WBC RBC Hgb Hct MCV Plt Count Neutrophils # (Manual) Lymphocytes # Lymphocytes # (Manual) Monocytes # (Manual) Metamyelocytes # (Man) Myelocytes # (Manual) Retic Count INR D-Dimer Sodium Potassium Chloride BUN 21 H Glucose 122 H POC Glucose (mg/dL) Plasma Lactic Acid Esau 2.3 H* Calcium Iron Iron Saturation Transferrin Ferritin Total Bilirubin Conjugated Bilirubin Delta Bilirubin AST ALT Alkaline Phosphatase 133 H Lactate Dehydrogenase Total Protein Total Protein (PEP) Albumin Albumin (PEP) Sgpor-7-Bfdrgdauu Ur Specific [place] 1.039 H Urine Protein 1+ H Urine Bacteria Rare H Urine Mucus Moderate H CSF Total Protein IgG4 IgA CMV IgG Ab HSV I IgG Ab Parvovirus B19 IgG Ab Crossmatch 04/10/18 04/10/18 04/10/18 08:51 08:51 20:46 WBC RBC Hgb 12.0 L Hct 35.3 L MCV 79.8 L Plt Count Neutrophils # (Manual) Lymphocytes # 0.8 L Lymphocytes # (Manual) Monocytes # (Manual) Metamyelocytes # (Man) Myelocytes # (Manual) Retic Count INR D-Dimer Sodium Potassium Chloride 108 H BUN Glucose 124 H POC Glucose (mg/dL) Plasma Lactic Acid Esau Calcium Iron Iron Saturation Transferrin Ferritin Total Bilirubin Conjugated Bilirubin Delta Bilirubin AST ALT Alkaline Phosphatase Lactate Dehydrogenase Total Protein 6.2 L Total Protein (PEP) Albumin 3.2 L Albumin (PEP) Kiprv-6-Xgxbefyal Ur Specific [place] Urine Protein Urine Bacteria Urine Mucus CSF Total Protein 86 H IgG4 IgA CMV IgG Ab HSV I IgG Ab Parvovirus B19 IgG Ab Crossmatch 04/11/18 04/11/18 04/12/18 05:40 05:40 06:36 WBC 2.6 L 2.3 L RBC Hgb 11.6 L 11.6 L Hct 35.9 L 34.9 L MCV 79.5 L Plt Count 120 L 119 L Neutrophils # (Manual) 0.99 L 1.00 L Lymphocytes # Lymphocytes # (Manual) 0.97 L Monocytes # (Manual) Metamyelocytes # (Man) Myelocytes # (Manual) Retic Count INR D-Dimer Sodium Potassium Chloride 108 H BUN Glucose POC Glucose (mg/dL) Plasma Lactic Acid Esau Calcium Iron Iron Saturation Transferrin Ferritin Total Bilirubin Conjugated Bilirubin Delta Bilirubin AST ALT Alkaline Phosphatase Lactate Dehydrogenase Total Protein 6.0 L Total Protein (PEP) Albumin 3.0 L Albumin (PEP) Epbsj-7-Dpxlwkcju Ur Specific [place] Urine Protein Urine Bacteria Urine Mucus CSF Total Protein IgG4 IgA CMV IgG Ab HSV I IgG Ab Parvovirus B19 IgG Ab Crossmatch 04/12/18 04/12/18 04/12/18 06:36 06:36 06:36 WBC RBC Hgb Hct MCV Plt Count Neutrophils # (Manual) Lymphocytes # Lymphocytes # (Manual) Monocytes # (Manual) Metamyelocytes # (Man) Myelocytes # (Manual) Retic Count INR D-Dimer Sodium Potassium Chloride BUN 8 L Glucose 110 H POC Glucose (mg/dL) Plasma Lactic Acid Esau Calcium Iron Iron Saturation Transferrin Ferritin Total Bilirubin Conjugated Bilirubin Delta Bilirubin AST ALT Alkaline Phosphatase 138 H Lactate Dehydrogenase 819 H Total Protein 6.1 L Total Protein (PEP) 5.6 L Albumin 3.2 L Albumin (PEP) 2.90 L Gsygw-9-Xervjokyd 0.41 H Ur Specific [place] Urine Protein Urine Bacteria Urine Mucus CSF Total Protein IgG4 IgA CMV IgG Ab HSV I IgG Ab Parvovirus B19 IgG Ab Crossmatch 04/13/18 04/13/18 04/13/18 06:29 06:29 06:29 WBC 2.4 L RBC Hgb 12.4 L Hct 37.0 L MCV 79.8 L Plt Count 112 L Neutrophils # (Manual) 0.91 L Lymphocytes # Lymphocytes # (Manual) Monocytes # (Manual) Metamyelocytes # (Man) Myelocytes # (Manual) Retic Count INR D-Dimer Sodium Potassium Chloride BUN 8 L Glucose 102 H POC Glucose (mg/dL) Plasma Lactic Acid Esau Calcium Iron Iron Saturation Transferrin Ferritin Total Bilirubin Conjugated Bilirubin Delta Bilirubin AST 86 H ALT 76 H Alkaline Phosphatase 184 H Lactate Dehydrogenase Total Protein 6.1 L Total Protein (PEP) Albumin 3.1 L Albumin (PEP) Zjrdg-5-Lowryektu Ur Specific [place] Urine Protein Urine Bacteria Urine Mucus CSF Total Protein IgG4 IgA CMV IgG Ab HSV I IgG Ab Parvovirus B19 IgG Ab 5.84 H Crossmatch 04/13/18 04/14/18 04/14/18 06:29 06:04 06:04 WBC 1.8 L RBC Hgb 12.1 L Hct 36.1 L MCV 78.0 L Plt Count 87 L Neutrophils # (Manual) 0.76 L Lymphocytes # Lymphocytes # (Manual) 0.90 L Monocytes # (Manual) Metamyelocytes # (Man) Myelocytes # (Manual) Retic Count INR D-Dimer Sodium Potassium Chloride BUN Glucose 130 H POC Glucose (mg/dL) Plasma Lactic Acid Esau Calcium 8.3 L Iron Iron Saturation Transferrin Ferritin Total Bilirubin Conjugated Bilirubin Delta Bilirubin AST 135 H ALT 106 H Alkaline Phosphatase 280 H Lactate Dehydrogenase Total Protein 6.0 L Total Protein (PEP) Albumin 3.1 L Albumin (PEP) Czlrz-8-Zboqlszrg Ur Specific [place] Urine Protein Urine Bacteria Urine Mucus CSF Total Protein IgG4 IgA CMV IgG Ab Reactive H HSV I IgG Ab Parvovirus B19 IgG Ab Crossmatch 04/15/18 04/15/18 04/16/18 06:03 06:03 06:41 WBC 2.5 L 2.5 L RBC Hgb 11.6 L 11.3 L Hct 36.0 L 34.1 L MCV 79.4 L 79.3 L Plt Count 60 L 44 L Neutrophils # (Manual) 0.90 L 0.48 L* Lymphocytes # Lymphocytes # (Manual) Monocytes # (Manual) Metamyelocytes # (Man) 0.03 H Myelocytes # (Manual) 0.03 H Retic Count INR D-Dimer Sodium Potassium Chloride BUN Glucose 100 H POC Glucose (mg/dL) Plasma Lactic Acid Esau Calcium Iron Iron Saturation Transferrin Ferritin Total Bilirubin 1.7 H Conjugated Bilirubin Delta Bilirubin AST 216 H ALT 188 H Alkaline Phosphatase 373 H Lactate Dehydrogenase Total Protein 5.8 L Total Protein (PEP) Albumin 3.0 L Albumin (PEP) Omvob-7-Erehdaisu Ur Specific [place] Urine Protein Urine Bacteria Urine Mucus CSF Total Protein IgG4 IgA CMV IgG Ab HSV I IgG Ab Parvovirus B19 IgG Ab Crossmatch 04/16/18 04/17/18 04/17/18 06:41 08:09 08:09 WBC RBC Hgb 11.9 L Hct 35.1 L MCV 77.7 L Plt Count 16 L* D Neutrophils # (Manual) Lymphocytes # Lymphocytes # (Manual) Monocytes # (Manual) Metamyelocytes # (Man) Myelocytes # (Manual) Retic Count INR D-Dimer Sodium Potassium Chloride BUN 8 L Glucose POC Glucose (mg/dL) Plasma Lactic Acid Esau Calcium Iron Iron Saturation Transferrin Ferritin Total Bilirubin 2.6 H 3.5 H Conjugated Bilirubin Delta Bilirubin AST 213 H 192 H ALT 204 H 205 H Alkaline Phosphatase 459 H 512 H Lactate Dehydrogenase Total Protein 5.9 L 6.0 L Total Protein (PEP) Albumin 3.0 L 3.0 L Albumin (PEP) Twnyf-9-Wvyutpjne Ur Specific [place] Urine Protein Urine Bacteria Urine Mucus CSF Total Protein IgG4 IgA CMV IgG Ab HSV I IgG Ab Parvovirus B19 IgG Ab Crossmatch 04/18/18 04/18/18 04/18/18 06:10 06:10 06:10 WBC RBC Hgb 11.4 L Hct 35.0 L MCV Plt Count 10 L* Neutrophils # (Manual) Lymphocytes # Lymphocytes # (Manual) Monocytes # (Manual) 1.50 H Metamyelocytes # (Man) Myelocytes # (Manual) Retic Count INR 1.2 H D-Dimer Sodium 136 L Potassium Chloride BUN Glucose POC Glucose (mg/dL) Plasma Lactic Acid [place]au Calcium 8.2 L Iron Iron Saturation Transferrin Ferritin Total Bilirubin 3.6 H Conjugated Bilirubin 1.3 H Delta Bilirubin 1.7 H AST 173 H ALT 193 H Alkaline Phosphatase 547 H Lactate Dehydrogenase Total Protein 6.1 L Total Protein (PEP) Albumin 3.0 L Albumin (PEP) Xznxc-0-Lqznsdoux Ur Specific [place] Urine Protein Urine Bacteria Urine Mucus CSF Total Protein IgG4 IgA CMV IgG Ab HSV I IgG Ab Parvovirus B19 IgG Ab Crossmatch 04/18/18 04/18/18 04/19/18 06:10 06:10 07:00 WBC RBC 4.17 L Hgb 11.1 L Hct 33.0 L MCV 79.1 L Plt Count 10 L* Neutrophils # (Manual) Lymphocytes # Lymphocytes # (Manual) Monocytes # (Manual) Metamyelocytes # (Man) Myelocytes # (Manual) Retic Count INR D-Dimer Sodium Potassium Chloride BUN Glucose POC Glucose (mg/dL) Plasma Lactic Acid Esau Calcium Iron 35 L Iron Saturation 14.06 L Transferrin 188.0 L Ferritin 2590.7 H Total Bilirubin Conjugated Bilirubin Delta Bilirubin AST ALT Alkaline Phosphatase Lactate Dehydrogenase Total Protein Total Protein (PEP) Albumin Albumin (PEP) Uuvny-7-Dazjzfxkd Ur Specific [place] Urine Protein Urine Bacteria Urine Mucus CSF Total Protein IgG4 1.9 L IgA CMV IgG Ab HSV I IgG Ab 15.60 H Parvovirus B19 IgG Ab Crossmatch 04/19/18 04/19/18 04/19/18 07:00 12:08 20:26 WBC RBC Hgb 11.1 L Hct 34.8 L MCV Plt Count 11 L* Neutrophils # (Manual) Lymphocytes # Lymphocytes # (Manual) 6.07 H Monocytes # (Manual) Metamyelocytes # (Man) Myelocytes # (Manual) Retic Count 2.5 H INR D-Dimer Sodium Potassium Chloride BUN 8 L Glucose POC Glucose (mg/dL) Plasma Lactic Acid Esau Calcium 8.3 L Iron Iron Saturation Transferrin Ferritin Total Bilirubin 3.6 H Conjugated Bilirubin Delta Bilirubin AST 174 H ALT 177 H Alkaline Phosphatase 569 H Lactate Dehydrogenase Total Protein 6.0 L Total Protein (PEP) Albumin 2.9 L Albumin (PEP) Viazw-4-Xljqwuzkk Ur Specific [place] Urine Protein Urine Bacteria Urine Mucus CSF Total Protein IgG4 IgA CMV IgG Ab HSV I IgG Ab Parvovirus B19 IgG Ab Crossmatch 04/20/18 04/20/18 04/20/18 07:29 07:29 07:29 WBC RBC 4.21 L Hgb 10.9 L Hct 33.6 L MCV 79.9 L Plt Count 5 L* D Neutrophils # (Manual) Lymphocytes # Lymphocytes # (Manual) Monocytes # (Manual) Metamyelocytes # (Man) Myelocytes # (Manual) Retic Count INR D-Dimer 8.47 H Sodium Potassium 3.4 L Chloride BUN 8 L Glucose 100 H POC Glucose (mg/dL) Plasma Lactic Acid Esau Calcium 8.3 L Iron Iron Saturation Transferrin Ferritin Total Bilirubin 3.5 H Conjugated Bilirubin Delta Bilirubin AST 233 H ALT 201 H Alkaline Phosphatase 593 H Lactate Dehydrogenase Total Protein 6.1 L Total Protein (PEP) Albumin 2.9 L Albumin (PEP) Rccfv-1-Vxxzdgint Ur Specific [place] Urine Protein Urine Bacteria Urine Mucus CSF Total Protein IgG4 IgA CMV IgG Ab HSV I IgG Ab Parvovirus B19 IgG Ab Crossmatch 04/20/18 04/20/18 04/20/18 07:29 07:29 16:03 WBC RBC Hgb Hct MCV Plt Count 10 L* D Neutrophils # (Manual) Lymphocytes # Lymphocytes # (Manual) Monocytes # (Manual) Metamyelocytes # (Man) Myelocytes # (Manual) Retic Count INR D-Dimer Sodium Potassium Chloride BUN Glucose POC Glucose (mg/dL) Plasma Lactic Acid Es[place] Calcium Iron Iron Saturation Transferrin Ferritin Total Bilirubin Conjugated Bilirubin Delta Bilirubin AST ALT Alkaline Phosphatase Lactate Dehydrogenase 1600 H Total Protein Total Protein (PEP) Albumin Albumin (PEP) Tqtjm-1-Dyypuhpjn Ur Specific [place] Urine Protein Urine Bacteria Urine Mucus CSF Total Protein IgG4 IgA 372.0 H CMV IgG Ab HSV I IgG Ab Parvovirus B19 IgG Ab Crossmatch 04/21/18 04/21/18 04/22/18 07:03 07:03 01:56 WBC 10.7 H RBC 4.10 L 4.12 L Hgb 10.6 L 10.8 L Hct 32.7 L 32.6 L MCV 79.9 L 79.1 L Plt Count 9 L* 16 L* D Neutrophils # (Manual) Lymphocytes # Lymphocytes # (Manual) 7.41 H 7.81 H Monocytes # (Manual) Metamyelocytes # (Man) Myelocytes # (Manual) Retic Count INR D-Dimer Sodium Potassium Chloride BUN 8 L Glucose 100 H POC Glucose (mg/dL) Plasma Lactic Acid Esau Calcium 8.3 L Iron Iron Saturation Transferrin Ferritin Total Bilirubin 3.7 H Conjugated Bilirubin Delta Bilirubin AST 284 H ALT 224 H Alkaline Phosphatase 562 H Lactate Dehydrogenase Total Protein Total Protein (PEP) Albumin 3.0 L Albumin (PEP) Zftdt-5-Ozpccfkjh Ur Specific [place] Urine Protein Urine Bacteria Urine Mucus CSF Total Protein IgG4 IgA CMV IgG Ab HSV I IgG Ab Parvovirus B19 IgG Ab Crossmatch 04/22/18 04/22/18 01:56 02:18 WBC RBC Hgb Hct MCV Plt Count Neutrophils # (Manual) Lymphocytes # Lymphocytes # (Manual) Monocytes # (Manual) Metamyelocytes # (Man) Myelocytes # (Manual) Retic Count INR D-Dimer Sodium Potassium Chloride BUN Glucose POC Glucose (mg/dL) 104 H Plasma Lactic Acid Esau Calcium Iron Iron Saturation Transferrin Ferritin Total Bilirubin Conjugated Bilirubin Delta Bilirubin AST ALT Alkaline Phosphatase Lactate Dehydrogenase Total Protein Total Protein (PEP) Albumin Albumin (PEP) Kusfa-1-Vegfmyasx Ur Specific [place] Urine Protein Urine Bacteria Urine Mucus CSF Total Protein IgG4 IgA CMV IgG Ab HSV I IgG Ab Parvovirus B19 IgG Ab Crossmatch See Detail - Diagnostic Findings Chest x-ray: report reviewed, image reviewed CT scan - chest: report reviewed, image reviewed Additional studies: Brain CT results, CT of chest/abdomen and pelvis, soft tissue neck CT, EKG, microbiology results all have been reviewed Assessment and Plan Plan: Assessment: #1. Acute epistaxis, related to profound thrombocytopenia, resolved #2. Leukopenia, thrombocytopenia, febrile illness, splenomegaly, no evidence of bacterial infection, likely related to Sarah-Rodriguez virus. Patient is status post bone marrow biopsy, results are pending #3. Right upper cervical adenopathy, soft tissue CT of the neck did not show any suspicious adenopathy #4. Elevated liver enzymes #5. Lifetime nonsmoker Plan: Continue supportive treatment, patient's epistaxis has resolved,patient has received a total of 7 units of platelets, he remains hemodynamically stable, this morning's hemoglobin 10.8, he denies any dyspnea, any chest pain, wean the oxygen. Chest x-rays, CAT scans of the chest abdomen and pelvis, of the neck, and microbiology have all been reviewed, chart has been reviewed, patient will remain the intensive care for further monitoring, currently without any specific complaints. Continue to follow I performed a history & physical examination of the patient and discussed their management with my nurse practitioner, Francy Woods. I reviewed the nurse practitioner's note and agree with the documented findings and plan of care. Lung sounds are positive clear breath sounds. The findings and the impression was discussed with the patient. I attest to the documentation by the nurse practitioner. Time with Patient: Greater than 30
[2018-04-22 11:48] LABS: ALT 207 U/L (21-72); AST 215 U/L (17-59); Albumin 3.3 g/dL (3.5-5.0); Alkaline Phosphatase 572 U/L (38-126); Anion Gap 8 mmol/L; Calcium 8.5 mg/dL (8.4-10.2); Carbon Dioxide 28 mmol/L (22-30); Chloride 105 mmol/L (98-107); D-Dimer 8.48 mg/L FEU (<0.60); Glucose 97 mg/dL (74-99); INR 1.1 (<1.2); Phosphorus 4.6 mg/dL (2.5-4.5); Potassium 3.8 mmol/L (3.5-5.1); Prothrombin Time 10.4 sec (9.0-12.0); Sodium 141 mmol/L (137-145); Total Bilirubin 3.4 mg/dL (0.2-1.3); Total Protein 6.7 g/dL (6.3-8.2)
[2018-04-22 12:03] LABS: Magnesium 2.2 mg/dL (1.6-2.3)
[2018-04-22 12:21] LABS: Blood Urea Nitrogen 15 mg/dL (9-20)
[2018-04-22] MEDS ORDERED: POTASSIUM CHLORIDE ER 20 MEQ TAB.ER PO SCH (13:00)
--- NOTE | 2018-04-22 13:04 | P.PN ---
Subjective Progress Note Date: 04/22/18 Principal diagnosis: Pancytopenia, or fever of unknown origin Patient seen today in follow-up. He had intractable nosebleed last night, he is seen in the intensive care unit today. His nose has ceased bleeding, no other bleeding to report. Patient has significant hematomas and bruising in known areas of needle sticks on the arms, some petechiae on his neck and chest. Patient is feeling pretty weak and lethargic, he denied any hemoptysis, emesis once last night after swallowing a lot of blood from epistaxis, no blood in the urine or stool. Objective - Vital Signs Vital signs: Vital Signs Temp 98.6 F 04/22/18 09:04 Pulse 101 H 04/22/18 09:04 Resp 22 04/22/18 09:04 BP 128/92 04/22/18 09:04 Pulse Ox 95 04/22/18 07:06 Intake & Output 04/21/18 04/22/18 04/22/18 18:59 06:59 18:59 Intake Total 715 1288 226 Balance 715 1288 226 Weight 141.3 kg Intake: IV 100 Intake, IV Titration 375 1000 Amount Sodium Chloride 0.9% 1, 1000 000 ml @ 100 mls/hr IV . Q10H [place] Rx#:[id number] Sodium Chloride 0.9% 1, 375 000 ml @ 75 mls/hr IV . [id number] [place] Rx#:[id number] Oral 240 Blood Product 288 226 Platelet Irr Pheresis 2 0 226 Acda Unit [id number] Platelet Irr Pheresis 0 Acda1 Unit [id number] Platelet Irr Pheresis Pas 288 -C Unit [id number] Other: Voiding Method Toilet Toilet # Voids 1 - Constitutional General appearance: Present: cooperative, no acute distress, obese - EENT EENT Comment(s): 1 with purpura noted in the middle of the tongue, bilateral there's do have dried blood Eyes: Present: anicteric sclerae, EOMI - Neck Details: Right neck, anterior cervical area, approximately 3 cm lymph node palpated, painless, slightly fixed, firm to the touch. Possible left supraclavicular adenopathy? No axillary or inguinal adenopathy Neck: Present: lymphadenopathy - Respiratory Respiratory: bilateral: CTA - Cardiovascular Rhythm: regular Heart sounds: normal: S1, S2 Abnormal Heart Sounds: Absent: systolic murmur, diastolic murmur, rub, S3 Gallop , S4 Gallop, click, other - Peripheral edema leg Peripheral Edema: bilateral: Trace - Gastrointestinal General gastrointestinal: Present: normal bowel sounds, soft - Integumentary Integumentary Comment(s): Right posterior hip dressing from bone marrow intact, no blood can be seen through the dressing, no bruising above or below the resting, no swelling noted Integumentary: Present: rash - Neurologic Neurologic: Present: CNII-XII intact - Musculoskeletal Musculoskeletal: Present: generalized weakness - Psychiatric Psychiatric: Present: A&O x's 3, appropriate affect, intact judgment & insight - Labs CBC & Chem 7: 04/22/18 10:10 04/22/18 10:10 Labs: Abnormal Lab Results - Last 24 Hours (Table) 04/20/18 04/22/18 04/22/18 Range/Units 07:29 01:56 01:56 WBC 10.7 H (3.8-10.6) k/uL RBC 4.12 L (4.30-5.90) m/uL Hgb 10.8 L (13.0-17.5) gm/dL Hct 32.6 L (39.0-53.0) % MCV 79.1 L (80.0-100.0) fL RDW (11.5-15.5) % Plt Count 16 L* D (150-450) k/uL Lymphocytes # (Manual) 7.81 H (1.0-4.8) k/uL D-Dimer (<0.60) mg/L FEU POC Glucose (mg/dL) (75-99) mg/dL Phosphorus (2.5-4.5) mg/dL Total Bilirubin (0.2-1.3) mg/dL AST (17-59) U/L ALT (21-72) U/L Alkaline Phosphatase (38-126) U/L Albumin (3.5-5.0) g/dL IgA 372.0 H (60.0-350.0) mg/dL Crossmatch See Detail 04/22/18 04/22/18 04/22/18 Range/Units 02:18 10:10 10:10 WBC 12.2 H (3.8-10.6) k/uL RBC 4.08 L (4.30-5.90) m/uL Hgb 10.4 L (13.0-17.5) gm/dL Hct 32.5 L (39.0-53.0) % MCV 79.8 L (80.0-100.0) fL RDW 15.7 H (11.5-15.5) % Plt Count 10 L* (150-450) k/uL Lymphocytes # (Manual) (1.0-4.8) k/uL D-Dimer (<0.60) mg/L FEU POC Glucose (mg/dL) 104 H (75-99) mg/dL Phosphorus 4.6 H (2.5-4.5) mg/dL Total Bilirubin 3.4 H (0.2-1.3) mg/dL AST 215 H (17-59) U/L ALT 207 H (21-72) U/L Alkaline Phosphatase 572 H (38-126) U/L Albumin 3.3 L (3.5-5.0) g/dL IgA (60.0-350.0) mg/dL Crossmatch 04/22/18 Range/Units 10:10 WBC (3.8-10.6) k/uL RBC (4.30-5.90) m/uL Hgb (13.0-17.5) gm/dL Hct (39.0-53.0) % MCV (80.0-100.0) fL RDW (11.5-15.5) % Plt Count (150-450) k/uL Lymphocytes # (Manual) (1.0-4.8) k/uL D-Dimer 8.48 H (<0.60) mg/L FEU POC Glucose (mg/dL) (75-99) mg/dL Phosphorus (2.5-4.5) mg/dL Total Bilirubin (0.2-1.3) mg/dL AST (17-59) U/L ALT (21-72) U/L Alkaline Phosphatase (38-126) U/L Albumin (3.5-5.0) g/dL IgA (60.0-350.0) mg/dL Crossmatch Microbiology - Last 24 Hours (Table) 04/21/18 13:40 Gram Stain - Preliminary Aspirate Body Fluid Culture - Preliminary 04/21/18 13:40 Fungal Culture - Preliminary Bone Marrow 04/21/18 13:40 Anaerobic Culture - Preliminary Bone Marrow 04/19/18 14:06 Blood Culture - Preliminary Blood No Growth after 48 hours 04/19/18 12:08 Blood Culture - Preliminary Blood No Growth after 48 hours Assessment and Plan (1) Lymphadenopathy of right cervical region Narrative/Plan: Workup in progress. If the results of bone marrow biopsy and aspirate do not provide diagnosis/underlying cause, core biopsy of the adenopathy in the neck may be requested. Current Visit: Yes Status: Acute Priority: High Code(s): R59.0 - LOCALIZED ENLARGED LYMPH NODES SNOMED Code(s): 033834444 (2) Pancytopenia Narrative/Plan: Status post bone marrow biopsy and aspirate. Results pending. WBCs slightly elevated compared to yesterday, hemoglobin stable compared to yesterday. Patient's platelet count has further dropped after platelet transfusion this a.m. patient does have platelets ordered for transfusion. CBC daily Resulted viral workup reviewed, no evidence of acute Sarah-Rodriguez infection on reported lab work up. There is noted exposure/immunity to cytomegalovirus, HSV- 1 as well as parvovirus. Cultures so far are all negative as well. Did discuss the case with Dr. Mcclellan, ongoing CBC monitoring, conservative transfusions as needed and based on symptoms, pending bone marrow results. Current Visit: Yes Status: Acute Priority: High Code(s): D61.818 - OTHER PANCYTOPENIA SNOMED Code(s): 158898811
--- NOTE | 2018-04-22 13:42 | P.PN ---
Subjective Progress Note Date: 04/22/18 This is a 37-year-old male patient presents to emergency room with fever 104. Patient states fever started day night and that he has taken Tylenol every 6 hours the fever has been persistent. Patient does complain that he's had slight cough for the past few days and headache. Patient had one episode of emesis in emergency room but denies any other GI issues. Patient denies any significant past medical history. Chest x-ray completed showing normal chest. EKG completed showing sinus tachycardia with a heart rate of 107. Patient denies any alcohol or drug use. Patient denies any nicotine dependence. Initial lactic 2.3. Repeat lactic 0.8. Urinary analysis completed. Influenza A and B negative. Urine and blood cultures have been ordered. Patient started on Zithromax and Rocephin. At this time patient denies chest pain or shortness of breath. Patient denies any nausea vomiting or diarrhea. Patient denies any urinary burning or frequency. Dr. De Santiago has been consulted for infectious disease. On 04/11/2018 patient is currently sitting up in chair. Patient still feels very fatigued. Patient had a temp of 102.8 last night. Patient also has two enlarged lymph nodes on right side of neck. Patient denies any open sores or problems with teeth. Patient denies any ear pain. Patient denies chest pain or shortness breath. Patient denies any nausea vomiting or diarrhea. Patient denies any upper respiratory symptoms. Patient denies any urinary burning or frequency On 04/12/2018 patient currently sitting up in chair with family at bedside. Patient had temp this AM 101.3. Per infectious disease possible viral syndrome versus bacterial pharyngitis. Patient does have right cervical lymph node enlargement. Dr. Stevens per oncology consulted. At this time patient denies chest pain or shortness of breath. Patient denies nausea vomiting or diarrhea. Patient denies any urinary burning or frequency On 04/13/2018 patient was seen and examined on the telemetry floor he is alert and oriented 3 in no apparent distress still having elevated temperature up to 102 this morning still complaining of headache and nausea otherwise no complaints at this time there is no dizziness no chest pain no shortness of breath there is occasional cough no vomiting no abdominal pain no diarrhea and no urinary symptoms On 04/14/2018 patient remains alert and oriented 3. Patient's temp remains elevated at 101.3. This time patient is requesting possible transfer to [facility] for further evaluation. Discussed with case management attempted transferring process. This time patient denies chest pain or shortness breath. Patient denies nausea vomiting or diarrhea. Patient denies any urinary burning or frequency. On 04/15/2018 patient is alert and oriented 3, temperature has been normal in the last 24 hours, he has occasional headache otherwise he denies any complaints , there is no dizziness no chest pain no shortness of breath no cough no nausea or vomiting no abdominal pain no diarrhea and no urinary symptoms enlarged lymph node on the right side of the neck are improving On 04/16/2018 patient was seen and examined on the medical floor he is alert and oriented 3 he is still having low-grade fever occasionally to 99 there is no chills no dizziness he has occasional headache no cough no nausea or vomiting no abdominal pain no diarrhea no burning with urination no frequency or urgency complains that urine is darker and smells strong, he is still complaining of enlarged nodule in the right side of his neck otherwise he denies any complaints On 04/17/2018 patient is alert and oriented 3 patient still having low-grade temps 99.3 this a.m. At this time patient denies chest pain or shortness of breath. Patient denies nausea vomiting or diarrhea. She denies any urinary burning or frequency. Patient still complaining of enlarged lymph nodes on the right side. Patient also complaining of intermittent headaches On 04/18/2018 patient is alert and oriented times.. Patient did have a temperature 100.4 this a.m. Platelets also down to 10. Oncology services are following platelets have been ordered. Patient remains fatigued. She denies chest pain or shortness breath. Patient denies nausea vomiting or diarrhea. Patient denies any urinary burning or frequency. On 04/19/2018 patient is alert and oriented 3 resting comfortably in chair. Fevers have subsided. Patient did receive platelets early this a.m. per oncology. repeat platelet level remains low at 10. Awaiting oncology input. This time patient denies any signs of bleeding. Patient denies any abdominal pain or tenderness. Patient denies nausea vomiting or diarrhea. Patient denies any urinary burning or frequency. Patient's headaches have improved On 04/20/2018 patient remains alert and oriented 3. Patient is currently receiving platelet transfusion for platelet level of 5. Patient is still having low-grade temps at 100.1. Discussed case with oncology services. Planning bone marrow biopsy. Discussed with GI services. Will continue to monitor liver enzymes. At this time patient denies chest pain or shortness of breath. Denies nausea vomiting or diarrhea. Patient denies any urinary burning or frequency On 04/21/2018 Patient is s/p lumbar puncture per oncology. platelets remain low at 9. patient remains alert and oriented x 3. Denies chest pain or shortness of breath. Denies nausea or vomitting. denies any urinary burning or frequency. Patient having low grade temps at 100.1 Objective - Vital Signs Vital signs: Vital Signs Temp 98.3 F 04/22/18 12:00 Pulse 112 H 04/22/18 13:00 Resp 22 04/22/18 13:00 BP 127/92 04/22/18 13:00 Pulse Ox 92 L 04/22/18 13:00 Intake & Output 04/21/18 04/22/18 04/22/18 18:59 06:59 18:59 Intake Total 715 1288 1066 Output Total 1000 Balance 715 1288 66 Weight 141.3 kg Intake: IV 100 Intake, IV Titration 375 1000 600 Amount Sodium Chloride 0.9% 1, 1000 600 000 ml @ 100 mls/hr IV . Q10H [place] Rx#:[id number] Sodium Chloride 0.9% 1, 375 000 ml @ 75 mls/hr IV . [id number] [place] Rx#:[id number] Oral 240 240 Blood Product 288 226 Platelet Irr Pheresis 2 0 226 Acda Unit [id number] Platelet Irr Pheresis 0 Acda1 Unit [id number] Platelet Irr Pheresis Pas 288 -C Unit [id number] Output: Urine 1000 Other: Voiding Method Toilet Toilet # Voids 1 - Exam Head normocephalic and atraumatic Neck supple. 2 enlarged right cervical lymph nodes Lungs clear to auscultation bilaterally no wheezing or crackles Heart regular rate and rhythm S1-S2, no rub or gallop Abdomen is soft nontender nondistended positive bowel sounds no hepatosplenomegaly Extremities no edema, no cyanosis or clubbing Neuro alert and orientated to 3 - Labs CBC & Chem 7: 04/22/18 10:10 04/22/18 10:10 Labs: Abnormal Lab Results - Last 24 Hours (Table) 04/20/18 04/22/18 04/22/18 Range/Units 07:29 01:56 01:56 WBC 10.7 H (3.8-10.6) k/uL RBC 4.12 L (4.30-5.90) m/uL Hgb 10.8 L (13.0-17.5) gm/dL Hct 32.6 L (39.0-53.0) % MCV 79.1 L (80.0-100.0) fL RDW (11.5-15.5) % Plt Count 16 L* D (150-450) k/uL Lymphocytes # (Manual) 7.81 H (1.0-4.8) k/uL D-Dimer (<0.60) mg/L FEU POC Glucose (mg/dL) (75-99) mg/dL Phosphorus (2.5-4.5) mg/dL Total Bilirubin (0.2-1.3) mg/dL AST (17-59) U/L ALT (21-72) U/L Alkaline Phosphatase (38-126) U/L Albumin (3.5-5.0) g/dL IgA 372.0 H (60.0-350.0) mg/dL Crossmatch See Detail 04/22/18 04/22/18 04/22/18 Range/Units 02:18 10:10 10:10 WBC 12.2 H (3.8-10.6) k/uL RBC 4.08 L (4.30-5.90) m/uL Hgb 10.4 L (13.0-17.5) gm/dL Hct 32.5 L (39.0-53.0) % MCV 79.8 L (80.0-100.0) fL RDW 15.7 H (11.5-15.5) % Plt Count 10 L* (150-450) k/uL Lymphocytes # (Manual) (1.0-4.8) k/uL D-Dimer (<0.60) mg/L FEU POC Glucose (mg/dL) 104 H (75-99) mg/dL Phosphorus 4.6 H (2.5-4.5) mg/dL Total Bilirubin 3.4 H (0.2-1.3) mg/dL AST 215 H (17-59) U/L ALT 207 H (21-72) U/L Alkaline Phosphatase 572 H (38-126) U/L Albumin 3.3 L (3.5-5.0) g/dL IgA (60.0-350.0) mg/dL Crossmatch 04/22/18 Range/Units 10:10 WBC (3.8-10.6) k/uL RBC (4.30-5.90) m/uL Hgb (13.0-17.5) gm/dL Hct (39.0-53.0) % MCV (80.0-100.0) fL RDW (11.5-15.5) % Plt Count (150-450) k/uL Lymphocytes # (Manual) (1.0-4.8) k/uL D-Dimer 8.48 H (<0.60) mg/L FEU POC Glucose (mg/dL) (75-99) mg/dL Phosphorus (2.5-4.5) mg/dL Total Bilirubin (0.2-1.3) mg/dL AST (17-59) U/L ALT (21-72) U/L Alkaline Phosphatase (38-126) U/L Albumin (3.5-5.0) g/dL IgA (60.0-350.0) mg/dL Crossmatch Microbiology - Last 24 Hours (Table) 04/21/18 13:40 Gram Stain - Preliminary Aspirate Body Fluid Culture - Preliminary 04/21/18 13:40 Fungal Culture - Preliminary Bone Marrow 04/21/18 13:40 Anaerobic Culture - Preliminary Bone Marrow 04/19/18 14:06 Blood Culture - Preliminary Blood No Growth after 48 hours 04/19/18 12:08 Blood Culture - Preliminary Blood No Growth after 48 hours Assessment and Plan Plan: 1. Acute febrile illness. Patient reports high fever of 104. Urine and blood cultures have been ordered. Chest x-ray completed showing normal chest. EKG completed showing sinus tachycardia. Influenza negative. Urine and blood cultures have been ordered. Patient started on Rocephin and Zithromax. Infectious disease following. Lumbar puncture has been performed. Patient remains Unasyn and Levaquin for antibiotics. Blood, urine and cerebrospinal fluid cultures currently negative. Per infectious disease patient remains on Unasyn for IV antibiotic. Patient with acute febrile illness likely secondary to acute EBV infection. no need for antibiotic treatment. continue supportive treatment. 2. History of right ACL repair 3. 2 enlarged right cervical lymph nodes. Dr. stevens has been consulted for hematology services. Case discussed today with Dr. Stevens at this time no need for intervention. Enlarged lymph nodes may be related to infectious process patient will continue to receive antibiotics if he still has enlarged lymph nodes in 2-3 weeks he will be followed as outpatient by Dr. Stevens and then may proceed with biopsy. 4. Elevated liver enzymes. Abdomen ultrasound completed showing marked fatty infiltration of liver redemonstrated. Splenomegaly again seen Alkaline phosphatase 512, ALT 205, AST 192 and total bili 3.5. Per GI services. Liver serologies ordered along with repeat liver enzymes per GI services. Per GI services continue supportive measures and monitor CMP and PT/INR daily 5. Thrombocytopenia. Dr. Stevens following. Per Oncology services likely due to bone marrow suppression from viral infection at this time. Platelet 16. patient started on Zarxio per oncology services. Platelets down to 10. Zaroxolyn has been DC'd per oncology services platelets have been ordered. Repeat platelet level 10. Patient received additional platelet transfusion yesterday. Platelets continue to drop to 5. Orders for additional platelets today per oncology. S/P bone marrow biopys per Oncology. platelets remain low at 9. Patient had stacks's lasting about 6 hours last night he was transferred to intensive care unit patient received a total of 7 platelet transfusions, currently no bleeding platelet count is 10 DVT prophylaxis Lovenox DC'd due to thrombocytopenia, SCDs
[2018-04-22 14:18] LABS: Polychromasia Present
--- NOTE | 2018-04-22 19:38 | P.PN ---
Subjective Progress Note Date: 04/22/18 37-year-old female presents to hospital with significant fatigue and malaise. Also is having significant headaches. He has had extensive workup as noted in the record. Lumbar puncture was performed that is negative. He over continues to have difficulties with intermittent fever and anemia with worsening thrombocytopenia. Admission testing was performed and it positive heterophile antibody was found. No other positive serology to date including negative HIV and hepatitis C. Because of his ongoing thrombocytopenia and anemia, bone marrow aspiration was performed. This was sent for routine a viral assessment of the bone marrow. The patient was evaluated by the oncology team today. They stated to the patient that the virus testing was negative for Sarah-Rodriguez. Some concern arose and consequently further infectious diseases input was requested from the on-call physician. The patient is sitting up eating his dinner. Continues to feel poorly. Is having some low-grade fevers at time. Platelet Count is 10 with transfusions. He was symptomatic significant epistaxis which is now controlled. Objective - Vital Signs Vital signs: Vital Signs Temp 99.3 F 04/22/18 16:00 Pulse 96 04/22/18 16:00 Resp 32 H 04/22/18 16:00 BP 119/83 04/22/18 17:00 Pulse Ox 94 L 04/22/18 17:00 Intake & Output 04/22/18 04/22/18 04/23/18 06:59 18:59 06:59 Intake Total 1288 1166 Output Total 1000 Balance 1288 166 Intake: Intake, IV Titration 1000 700 Amount Sodium Chloride 0.9% 1, 1000 700 000 ml @ 100 mls/hr IV . Q10H [facility] Rx#:[id number] Oral 240 Blood Product 288 226 Platelet Irr Pheresis 2 0 226 Acda Unit [id number] Platelet Irr Pheresis 0 Acda1 Unit [id number] Platelet Irr Pheresis Pas 288 -C Unit [id number] Output: Urine 1000 Other: Voiding Method Toilet # Voids 1 - Exam Pleasant 37-year-old male who is a tall but overweight build is sitting up eating and not in distress HEENT: Anicteric conjunctiva are pink and moist nasal mucosa grossly intact without significant lesions, there is no thrush. No active bleeding of the nares at this time Neck: The neck is supple lymphadenopathy is noted especially to the right side of the neck with no thyromegaly Lungs: Good bilateral air entry without significant crackles or wheezing. There is no significant bronchial sounds. There is no egophony or dullness. Heart: Regular rate and rhythm with an audible S1-S2, no S3 no S4. There is no significant murmur click or rub, PMI was nondisplaced. Abdomen: Positive bowel sounds soft and nontender without palpable masses or organomegaly. There was no guarding or rebound. Extremities: The upper extremities have excellent pulses they are symmetric, no significant petechiae or telangiectasia. No splinter hemorrhages were noted. The lower extremities are free from significant edema. The peripheral pulses were 2+ and symmetric. Neuro: Awake alert oriented to person place and time. There are no acute new gross focal sensory motor deficits. - Labs CBC & Chem 7: 04/22/18 10:10 04/22/18 10:10 Labs: Abnormal Lab Results - Last 24 Hours (Table) 04/22/18 04/22/18 04/22/18 Range/Units 01:56 01:56 02:18 WBC 10.7 H (3.8-10.6) k/uL RBC 4.12 L (4.30-5.90) m/uL Hgb 10.8 L (13.0-17.5) gm/dL Hct 32.6 L (39.0-53.0) % MCV 79.1 L (80.0-100.0) fL RDW (11.5-15.5) % Plt Count 16 L* D (150-450) k/uL Lymphocytes # (1.0-4.8) k/uL Lymphocytes # (Manual) 7.81 H (1.0-4.8) k/uL D-Dimer (<0.60) mg/L FEU POC Glucose (mg/dL) 104 H (75-99) mg/dL Phosphorus (2.5-4.5) mg/dL Total Bilirubin (0.2-1.3) mg/dL AST (17-59) U/L ALT (21-72) U/L Alkaline Phosphatase (38-126) U/L Albumin (3.5-5.0) g/dL Crossmatch See Detail 04/22/18 04/22/18 04/22/18 Range/Units 10:10 10:10 10:10 WBC 12.2 H (3.8-10.6) k/uL RBC 4.08 L (4.30-5.90) m/uL Hgb 10.4 L (13.0-17.5) gm/dL Hct 32.5 L (39.0-53.0) % MCV 79.8 L (80.0-100.0) fL RDW 15.7 H (11.5-15.5) % Plt Count 10 L* (150-450) k/uL Lymphocytes # 6.7 H (1.0-4.8) k/uL Lymphocytes # (Manual) (1.0-4.8) k/uL D-Dimer 8.48 H (<0.60) mg/L FEU POC Glucose (mg/dL) (75-99) mg/dL Phosphorus 4.6 H (2.5-4.5) mg/dL Total Bilirubin 3.4 H (0.2-1.3) mg/dL AST 215 H (17-59) U/L ALT 207 H (21-72) U/L Alkaline Phosphatase 572 H (38-126) U/L Albumin 3.3 L (3.5-5.0) g/dL Crossmatch Microbiology - Last 24 Hours (Table) 04/19/18 14:06 Blood Culture - Preliminary Blood No Growth after 72 hours 04/19/18 12:08 Blood Culture - Preliminary Blood No Growth after 72 hours 04/21/18 13:40 Gram Stain - Preliminary Aspirate Body Fluid Culture - Preliminary 04/21/18 13:40 Fungal Culture - Preliminary Bone Marrow 04/21/18 13:40 Anaerobic Culture - Preliminary Bone Marrow Laboratory Results WBC 12.2 k/uL (3.8-10.6) H 04/22/18 10:10 RBC 4.08 m/uL (4.30-5.90) L 04/22/18 10:10 Hgb 10.4 gm/dL (13.0-17.5) L 04/22/18 10:10 Hct 32.5 % (39.0-53.0) L 04/22/18 10:10 MCV 79.8 fL (80.0-100.0) L 04/22/18 10:10 MCH 25.5 pg (25.0-35.0) 04/22/18 10:10 MCHC 31.9 g/dL (31.0-37.0) 04/22/18 10:10 RDW 15.7 % (11.5-15.5) H 04/22/18 10:10 Plt Count 10 k/uL (150-450) L* 04/22/18 10:10 Neutrophils % 20 % 04/22/18 10:10 Neutrophils % (Manual) 15 % 04/22/18 01:56 Band Neutrophils % 7 % 04/22/18 01:56 Lymphocytes % 55 % 04/22/18 10:10 Lymphocytes % (Manual) 73 % 04/22/18 01:56 Monocytes % 4 % 04/22/18 10:10 Monocytes % (Manual) 4 % 04/22/18 01:56 Eosinophils % 0 % 04/22/18 10:10 Eosinophils % (Manual) 1 % 04/22/18 01:56 Basophils % 2 % 04/22/18 10:10 Basophils % (Manual) 1 % 04/19/18 20:26 Metamyelocytes % 1 % 04/15/18 06:03 Myelocytes % 1 % 04/15/18 06:03 Other Cells % % 04/14/18 06:04 Neutrophils # 2.5 k/uL (1.3-7.7) 04/22/18 10:10 Neutrophils # (Manual) 2.30 k/uL (1.3-7.7) 04/22/18 01:56 Lymphocytes # 6.7 k/uL (1.0-4.8) H 04/22/18 10:10 Lymphocytes # (Manual) 7.81 k/uL (1.0-4.8) H 04/22/18 01:56 Monocytes # 0.5 k/uL (0-1.0) 04/22/18 10:10 Monocytes # (Manual) 0.43 k/uL (0-1.0) 04/22/18 01:56 Eosinophils # 0.0 k/uL (0-0.7) 04/22/18 10:10 Eosinophils # (Manual) 0.11 k/uL (0-0.7) 04/22/18 01:56 Basophils # 0.2 k/uL (0-0.2) 04/22/18 10:10 Basophils # (Manual) 0.08 k/uL (0-0.2) 04/19/18 20:26 Metamyelocytes # (Man) 0.03 k/uL (0) H 04/15/18 06:03 Myelocytes # (Manual) 0.03 k/uL (0) H 04/15/18 06:03 Nucleated RBCs 0 /100 WBC (0-0) 04/22/18 01:56 Differential Comment 04/16/18 06:41 Manual Slide Review Performed 04/22/18 10:10 Reactive Lymphocytes Present 04/21/18 07:03 Large Platelets Present 04/20/18 07:29 RBC Morphology Normal 04/17/18 08:09 Polychromasia Present 04/22/18 10:10 Poikilocytosis (manual Present 04/21/18 07:03 Anisocytosis (manual) Present 04/21/18 07:03 Retic Count 2.5 % (0.5-2.0) H 04/19/18 12:08 PT 10.4 sec (9.0-12.0) 04/22/18 10:10 INR 1.1 (<1.2) 04/22/18 10:10 APTT 26.5 sec (22.0-30.0) 04/20/18 07:29 Fibrinogen 379 mg/dL (200-500) 04/20/18 07:29 D-Dimer 8.48 mg/L FEU (<0.60) H 04/22/18 10:10 Sodium 141 mmol/L (137-145) 04/22/18 10:10 Potassium 3.8 mmol/L (3.5-5.1) 04/22/18 10:10 Chloride 105 mmol/L (98-107) 04/22/18 10:10 Carbon Dioxide 28 mmol/L (22-30) 04/22/18 10:10 Anion Gap 8 mmol/L 04/22/18 10:10 BUN 15 mg/dL (9-20) 04/22/18 10:10 Creatinine 0.96 mg/dL (0.66-1.25) 04/22/18 10:10 Est GFR (CKD-EPI)AfAm >90 (>60 ml/min/1.73 sqM) 04/22/18 10:10 Est GFR (CKD-EPI)NonAf >90 (>60 ml/min/1.73 sqM) 04/22/18 10:10 Glucose 97 mg/dL (74-99) 04/22/18 10:10 POC Glucose (mg/dL) 104 mg/dL (75-99) H 04/22/18 02:18 POC Glu Wood Cutter ID Buck Siddiqui 04/22/18 02:18 Lactic Ac Sepsis Rflx Y 04/09/18 22:04 Plasma Lactic Acid Esau 0.8 mmol/L (0.7-2.0) 04/10/18 01:40 Uric Acid 5.2 mg/dL (3.5-8.5) 04/20/18 07:29 Calcium 8.5 mg/dL (8.4-10.2) 04/22/18 10:10 Phosphorus 4.6 mg/dL (2.5-4.5) H 04/22/18 10:10 Magnesium 2.2 mg/dL (1.6-2.3) 04/22/18 10:10 Iron 35 ug/dL (65-175) L 04/18/18 06:10 TIBC 249 ug/dL (228-460) 04/18/18 06:10 Iron Saturation 14.06 (15.00-50.00) L 04/18/18 06:10 Transferrin 188.0 mg/dL (204.0-354.0) L 04/18/18 06:10 Ferritin 2590.7 ng/mL (22.0-322.0) H 04/18/18 06:10 Total Bilirubin 3.4 mg/dL (0.2-1.3) H 04/22/18 10:10 Conjugated Bilirubin 1.3 mg/dL (0.0-0.3) H 04/18/18 06:10 Unconjugated Bilirubin 0.6 mg/dL (0.0-1.1) 04/18/18 06:10 Delta Bilirubin 1.7 mg/dL (0.0-0.2) H 04/18/18 06:10 AST 215 U/L (17-59) H 04/22/18 10:10 ALT 207 U/L (21-72) H 04/22/18 10:10 Alkaline Phosphatase 572 U/L (38-126) H 04/22/18 10:10 Lactate Dehydrogenase 1600 U/L (313-618) H 04/20/18 07:29 Troponin I <0.012 ng/mL (0.000-0.034) 04/09/18 21:20 Total Protein 6.7 g/dL (6.3-8.2) 04/22/18 10:10 Total Protein (PEP) 5.6 g/dL (6.2-8.2) L 04/12/18 06:36 Albumin 3.3 g/dL (3.5-5.0) L 04/22/18 10:10 Albumin (PEP) 2.90 g/dL (3.80-4.90) L 04/12/18 06:36 Akasn-0-Idrlkfbmj 0.41 g/dL (0.10-0.40) H 04/12/18 06:36 Ipziz-6-Ljhpptdlo 0.64 g/dL (0.60-1.00) 04/12/18 06:36 Beta Globulins 0.77 g/dL (0.60-1.30) 04/12/18 06:36 Gamma Globulins 0.87 g/dL (0.70-1.50) 04/12/18 06:36 PEP Interpretation SEE NOTE 04/12/18 06:36 Ckjry-0-Hpebzzcllho 220.0 mg/dL (99.0-242.0) 04/18/18 06:10 Ceruloplasmin 37.6 mg/dL (20.0-60.0) 04/18/18 06:10 Vitamin B12 515.0 pg/mL (200.0-944.0) 04/20/18 07:29 Methylmalonic Acid 0.33 umol/L (<0.40) 04/20/18 07:29 Folate 11.8 ng/mL 04/20/18 07:29 Urine Color Yellow 04/09/18 23:08 Urine Appearance Clear (Clear) 04/09/18 23:08 Urine pH 6.5 (5.0-8.0) 04/09/18 23:08 Ur Specific Liberty 1.039 (1.001-1.035) H 04/09/18 23:08 Urine Protein 1+ (Negative) H 04/09/18 23:08 Urine Glucose (UA) Negative (Negative) 04/09/18 23:08 Urine Ketones Negative (Negative) 04/09/18 23:08 Urine Blood Negative (Negative) 04/09/18 23:08 Urine Nitrite Negative (Negative) 04/09/18 23:08 Urine Bilirubin Negative (Negative) 04/09/18 23:08 Urine Urobilinogen 4.0 mg/dL (<2.0) 04/09/18 23:08 Ur Leukocyte Esterase Negative (Negative) 04/09/18 23:08 Urine RBC <1 /hpf (0-5) 04/09/18 23:08 Urine WBC 1 /hpf (0-5) 04/09/18 23:08 Ur Squamous Epith Cells <1 /hpf (0-4) 04/09/18 23:08 Urine Bacteria Rare /hpf (None) H 04/09/18 23:08 Urine Mucus Moderate /hpf (None) H 04/09/18 23:08 CSF Tube Number 4 04/10/18 20:46 CSF Volume 3.5 04/10/18 20:46 CSF Appearance Clear 04/10/18 20:46 CSF Color Colorless 04/10/18 20:46 CSF RBC 0 u/L (0-10) 04/10/18 20:46 CSF Tot Nucleated Cells 0 u/L (0-5) 04/10/18 20:46 CSF Glucose 60 mg/dL (40-70) 04/10/18 20:46 CSF Total Protein 86 mg/dL (12-60) H 04/10/18 20:46 IgG 1060.0 mg/dL (700.0-1600.0) 04/20/18 07:29 IgG1 633.0 mg/dL (405.0-1011.0) 04/18/18 06:10 IgG2 262.0 mg/dL (169.0-640.0) 04/18/18 06:10 IgG3 32.2 mg/dL (11.0-85.0) 04/18/18 06:10 IgG4 1.9 mg/dL (3.0-175.0) L 04/18/18 06:10 IgA 372.0 mg/dL (60.0-350.0) H 04/20/18 07:29 IgM 200.0 mg/dL (40.0-280.0) 04/20/18 07:29 Serum HAWA Interpret SEE NOTE 04/12/18 06:36 Rheumatoid Factor 10 IU/mL (0-15) 04/12/18 06:36 ISRALE Screen NEGATIVE (NEGATIVE) 04/12/18 06:36 Anti-Smooth Muscle Ab 17 UNITS (<20) 04/18/18 06:10 Liver/Kid Microsomes Ab 1.2 UNITS (<=20) 04/18/18 06:10 Free Edson LC, Quant 1.32 mg/dL (0.33-1.94) 04/12/18 06:36 CMV IgG Ab Reactive (Non-Reactive) H 04/13/18 06:29 CMV IgM Ab Non-Reactive (Non-Reactive) 04/13/18 06:29 EBV Capsid Ag IgG Ab <10.0 U/mL (<18.0) 04/13/18 06: EBV Capsid Ag IgM Ab 16.6 U/mL (<36.0) 04/13/18 06:29 Hepatitis A IgM Ab Non-Reactive (Non-Reactive) 04/16/18 06:41 Hep Bs Antigen Non-Reactive (Non-Reactive) 04/16/18 06:41 Hep B Core IgM Ab Non-Reactive (Non-Reactive) 04/16/18 06:41 Hep C IgG Ab Non-Reactive (Non-Reactive) 04/16/18 06:41 HSV I&II IgM Ab 0.85 INDEX (<=0.90) 04/18/18 06:10 HSV I IgG Ab 15.60 (< or = 0.90) H 04/18/18 06:10 HSV II IgG 0.08 (< or = 0.90) 04/18/18 06:10 Heterophile Antibody Positive (Negative) 04/16/18 06:41 HIV-1 Antibody Non-Reactive (Non-Reactive) 04/18/18 06:10 HIV Ag/Ab Interpret 04/18/18 06:10 HIV p24 Antibody Non-Reactive (Non-Reactive) 04/18/18 06:10 HIV-2 Antibody Non-Reactive (Non-Reactive) 04/18/18 06:10 HIV P24 Antigen Non-Reactive (Non-Reactive) 04/18/18 06:10 Influenza Type A RNA Not Detected (Not Detectd) 04/09/18 22:04 Influenza Type B (PCR) Not Detected (Not Detectd) 04/09/18 22:04 Urine Legionella Ag Not detected (Not detected) 04/10/18 23:57 Parvovirus B19 IgG Ab 5.84 INDEX (<=0.90) H 04/13/18 06:29 Parvovirus B19 IgM Ab 0.43 INDEX (<=0.90) 04/13/18 06:29 Virus Source Bone Marrow 04/21/18 13:40 Viral Test See Below 04/21/18 13:40 Virus Analysis Interp See Below 04/21/18 13:40 Flow Results See Pathology Report 04/21/18 13:40 Blood Type O Positive 04/22/18 01:56 Blood Type Confirm O Positive 04/18/18 06:10 Blood Type Recheck No 04/22/18 01:56 Antibody Screen NEGATIVE 04/22/18 01:56 Crossmatch See Detail 04/22/18 01:56 Transfuse Platelets [id number] 04/22/18 01:27 Spec Expiration Date 04/25/2018 - 2356 04/22/18 01:56 Microbiology 04/21/18 13:40 Aspirate Gram Stain - Preliminary 04/21/18 13:40 Aspirate Body Fluid Culture - Preliminary 04/19/18 14:06 Blood Blood Culture - Preliminary No Growth after 72 hours 04/19/18 12:08 Blood Blood Culture - Preliminary No Growth after 72 hours 04/21/18 13:40 Bone Marrow Fungal Culture - Preliminary 04/21/18 13:40 Bone Marrow Anaerobic Culture - Preliminary 04/10/18 23:36 Blood Blood Culture - Final No Growth after 144 hours 04/09/18 21:20 Blood Blood Culture - Final No Growth after 144 hours 04/10/18 20:46 Cerebral Spinal Fluid CSF Gram Stain - Final 04/10/18 20:46 Cerebral Spinal Fluid CSF Culture - Final 04/09/18 23:08 Urine,Voided Urine Culture - Final Assessment and Plan (1) Pancytopenia Narrative/Plan: 37-year-old male presents to Hospital many days ago feeling very poorly as an extensive workup to date that included a lumbar puncture that was negative for underlying meningeal encephalitis. At admission because of his symptom complex heterophile antibody was performed that was positive, and a EBV panel was negative. Since that time there's been ongoing difficulties with the evidence of a hepatitis as well as the progressive anemia and significant thrombocytopenia. To date only positive testing was of the heterophile antibody. This was performed about 10 days ago and constantly repeated EBV panel is requested to see if there is been development of antibodies. Given the severity of the illness EBV viral load has been requested, obviously a send out lab. The bone marrow viral panel is reviewed with the nursing staff and the patient and his family. His a standard viral PCR panel that does not include Sarah- Rodriguez viral testing. Consequently although the panel was negative it does not exclude Sarah-Rodriguez viral infection. At this time concern will be for Hemophagocytic lymphohistiocytosis which is associated with EBV infection which causes abnormal immune system activation which results in hepatosplenomegaly and hematological abnormality such as anemia and thrombocytopenia. Bone marrow aspiration has already been performed and may be helpful in determining the presence of this disease state. We'll discuss with hematology. Current Visit: Yes Status: Acute Priority: High Code(s): D61.818 - OTHER PANCYTOPENIA SNOMED Code(s): 746489869 (2) Lymphadenopathy of right cervical region Current Visit: Yes Status: Acute Priority: High Code(s): R59.0 - LOCALIZED ENLARGED LYMPH NODES SNOMED Code(s): 411093473 (3) Hepatitis Current Visit: Yes Status: Acute Code(s): K75.9 - INFLAMMATORY LIVER DISEASE , UNSPECIFIED SNOMED Code(s): 362430687 (4) Heterophil-positive mononucleosis syndrome Current Visit: Yes Status: Acute Code(s): B27.90 - INFECTIOUS MONONUCLEOSIS , UNSPECIFIED WITHOUT COMPLICATION SNOMED Code(s): 88772557
[2018-04-23] MEDS: LACTATED RINGERS 1,000 ML IV SCH ×2 (01:37→14:22)
[2018-04-23] MEDS: NYSTATIN 100,000 UNIT/ML SUSP 500,000 UNIT/5 ML CUP PO SCH ×5 (01:37→21:01)
[2018-04-23] MEDS: SODIUM CHLORIDE 0.9% 1,000 ML IV SCH ×3 (01:37→13:04)
--- NOTE | 2018-04-23 02:51 | P.PN ---
Subjective Progress Note Date: 04/22/18 Principal diagnosis: Weakness, elevated liver enzymes Patient reports an episode of vomiting secondary to a medication yesterday. He subsequently developed a nosebleed and was transferred to the ICU for further management. He has had no further bleeding and is tolerating his diet. No abdominal pain reported. Objective - Vital Signs Vital signs: Vital Signs Temp 98.9 F 04/23/18 00:00 Pulse 108 H 04/23/18 01:34 Resp 17 04/23/18 01:34 BP 125/90 04/23/18 00:00 Pulse Ox 91 L 04/23/18 01:34 Intake & Output 04/22/18 04/22/18 04/23/18 06:59 18:59 06:59 Intake Total 1288 1566 700 Output Total 1600 400 Balance 1288 -34 300 Intake: Intake, IV Titration 1000 1100 700 Amount Sodium Chloride 0.9% 1, 1000 1100 700 000 ml @ 100 mls/hr IV . Q10H [facility] Rx#:[id number] Oral 240 Blood Product 288 226 Platelet Irr Pheresis 2 0 226 Acda Unit [id number] Platelet Irr Pheresis 0 Acda1 Unit [id number] Platelet Irr Pheresis Pas 288 -C Unit [id number] Output: Urine 1600 400 Other: Voiding Method Toilet Toilet Toilet # Voids 1 1 - Exam On physical examination, patient appears comfortable in no apparent distress. HEAD: Normocephalic, atraumatic. EYES: No scleral icterus. No conjunctival injection. MOUTH: No lesions, tongue midline. NECK: Trachea midline, no gross abnormalities. CHEST: Clear to auscultation with no wheezing or rhonchi appreciated. HEART: Regular rate and rhythm. ABDOMEN: Soft, obese. Bowel sounds are positive. No organomegaly. No guarding or rigidity. EXTREMITIES: No pedal edema. SKIN: No rashes, no jaundice. NEUROLOGIC: Alert and oriented x3. No focal deficits. - Labs CBC & Chem 7: 04/22/18 10:10 04/22/18 10:10 Labs: Abnormal Lab Results - Last 24 Hours (Table) 04/22/18 04/22/18 04/22/18 Range/Units 01:56 01:56 10:10 WBC (3.8-10.6) k/uL RBC (4.30-5.90) m/uL Hgb (13.0-17.5) gm/dL Hct (39.0-53.0) % MCV (80.0-100.0) fL RDW (11.5-15.5) % Plt Count (150-450) k/uL Lymphocytes # (1.0-4.8) k/uL Lymphocytes # (Manual) 7.81 H (1.0-4.8) k/uL D-Dimer (<0.60) mg/L FEU Phosphorus 4.6 H (2.5-4.5) mg/dL Total Bilirubin 3.4 H (0.2-1.3) mg/dL AST 215 H (17-59) U/L ALT 207 H (21-72) U/L Alkaline Phosphatase 572 H (38-126) U/L Albumin 3.3 L (3.5-5.0) g/dL Crossmatch See Detail 04/22/18 04/22/18 Range/Units 10:10 10:10 WBC 12.2 H (3.8-10.6) k/uL RBC 4.08 L (4.30-5.90) m/uL Hgb 10.4 L (13.0-17.5) gm/dL Hct 32.5 L (39.0-53.0) % MCV 79.8 L (80.0-100.0) fL RDW 15.7 H (11.5-15.5) % Plt Count 10 L* (150-450) k/uL Lymphocytes # 6.7 H (1.0-4.8) k/uL Lymphocytes # (Manual) (1.0-4.8) k/uL D-Dimer 8.48 H (<0.60) mg/L FEU Phosphorus (2.5-4.5) mg/dL Total Bilirubin (0.2-1.3) mg/dL AST (17-59) U/L ALT (21-72) U/L Alkaline Phosphatase (38-126) U/L Albumin (3.5-5.0) g/dL Crossmatch Microbiology - Last 24 Hours (Table) 04/21/18 13:40 Gram Stain - Preliminary Aspirate Body Fluid Culture - Preliminary 04/19/18 14:06 Blood Culture - Preliminary Blood No Growth after 72 hours 04/19/18 12:08 Blood Culture - Preliminary Blood No Growth after 72 hours 04/21/18 13:40 Fungal Culture - Preliminary Bone Marrow 04/21/18 13:40 Anaerobic Culture - Preliminary Bone Marrow Assessment and Plan (1) Elevated liver enzymes Narrative/Plan: Elevated liver enzymes and predominantly a cholestatic pattern which is improved today today. No evidence of cholestatic process on CT or ultrasound with only fatty infiltration and spleen likely noted. Heterophile antibody testing has been positive and elevation in liver enzymes likely represents a viral process. Liver serology has been negative for intrinsic liver disease. Current Visit: Yes Status: Acute Code(s): R74.8 - ABNORMAL LEVELS OF OTHER SERUM ENZYMES SNOMED Code(s): 252099671 (2) Lymphadenopathy of right cervical region Current Visit: Yes Status: Acute Priority: High Code(s): R59.0 - LOCALIZED ENLARGED LYMPH NODES SNOMED Code(s): 296800271 (3) Pancytopenia Current Visit: Yes Status: Acute Priority: High Code(s): D61.818 - OTHER PANCYTOPENIA SNOMED Code(s): 740885871 (4) Viral infection Current Visit: Yes Status: Acute Code(s): B34.9 - VIRAL INFECTION, UNSPECIFIED SNOMED Code(s): 55200190 Plan: Supportive care Repeat liver enzymes and INR (INR 1.0 today with no evidence of hepatic encephalopathy) Full liver serologies has been negative Continue supportive care Continue pain control Continue fluid hydration Diet as tolerated Appreciate hematology/oncology recommendations Thank you for allowing us to participate in the care of this patient, we will continue to follow
[2018-04-23 05:17] LABS: HCT 32.8 % (39.0-53.0); HGB 10.7 gm/dL (13.0-17.5); MCH 26.1 pg (25.0-35.0); MCHC 32.7 g/dL (31.0-37.0); MCV 79.8 fL (80.0-100.0); Mean Platelet Volume 7.6; RBC 4.11 m/uL (4.30-5.90); RDW 15.7 % (11.5-15.5); WBC 11.2 k/uL (3.8-10.6)
[2018-04-23 05:19] LABS: INR 1.1 (<1.2); Prothrombin Time 10.4 sec (9.0-12.0)
[2018-04-23 05:22] LABS: ALT 181 U/L (21-72); AST 190 U/L (17-59); Albumin 3.2 g/dL (3.5-5.0); Alkaline Phosphatase 572 U/L (38-126); Anion Gap 10 mmol/L; Blood Urea Nitrogen 15 mg/dL (9-20); Calcium 8.5 mg/dL (8.4-10.2); Carbon Dioxide 25 mmol/L (22-30); Chloride 104 mmol/L (98-107); Glucose 97 mg/dL (74-99); Magnesium 2.1 mg/dL (1.6-2.3); Potassium 3.9 mmol/L (3.5-5.1); Sodium 139 mmol/L (137-145); Total Bilirubin 2.8 mg/dL (0.2-1.3); Total Protein 6.6 g/dL (6.3-8.2)
[2018-04-23 05:27] LABS: Platelet Count 10 k/uL (150-450)
[2018-04-23 06:39] LABS: Eosinophils # (M) 0.11 k/uL (0-0.7); Lymphocytes # (M) 8.29 k/uL (1.0-4.8); Neutrophils % (M) 17 %; Nucleated Red Blood Cells 0 /100 WBC (0-0); Total Cells Counted 100
[2018-04-23 06:40] LABS: Polychromasia Present
[2018-04-23] MEDS: SENNOSIDES-DOCUSATE SODIUM 1 EACH TAB PO SCH ×2 (09:46→21:01)
--- NOTE | 2018-04-23 11:30 | P.PN ---
Subjective Progress Note Date: 04/23/18 This is a 37-year-old male patient presents to emergency room with fever 104. Patient states fever started day night and that he has taken Tylenol every 6 hours the fever has been persistent. Patient does complain that he's had slight cough for the past few days and headache. Patient had one episode of emesis in emergency room but denies any other GI issues. Patient denies any significant past medical history. Chest x-ray completed showing normal chest. EKG completed showing sinus tachycardia with a heart rate of 107. Patient denies any alcohol or drug use. Patient denies any nicotine dependence. Initial lactic 2.3. Repeat lactic 0.8. Urinary analysis completed. Influenza A and B negative. Urine and blood cultures have been ordered. Patient started on Zithromax and Rocephin. At this time patient denies chest pain or shortness of breath. Patient denies any nausea vomiting or diarrhea. Patient denies any urinary burning or frequency. Dr. De Santiago has been consulted for infectious disease. On 04/11/2018 patient is currently sitting up in chair. Patient still feels very fatigued. Patient had a temp of 102.8 last night. Patient also has two enlarged lymph nodes on right side of neck. Patient denies any open sores or problems with teeth. Patient denies any ear pain. Patient denies chest pain or shortness breath. Patient denies any nausea vomiting or diarrhea. Patient denies any upper respiratory symptoms. Patient denies any urinary burning or frequency On 04/12/2018 patient currently sitting up in chair with family at bedside. Patient had temp this AM 101.3. Per infectious disease possible viral syndrome versus bacterial pharyngitis. Patient does have right cervical lymph node enlargement. Dr. Stevens per oncology consulted. At this time patient denies chest pain or shortness of breath. Patient denies nausea vomiting or diarrhea. Patient denies any urinary burning or frequency On 04/13/2018 patient was seen and examined on the telemetry floor he is alert and oriented 3 in no apparent distress still having elevated temperature up to 102 this morning still complaining of headache and nausea otherwise no complaints at this time there is no dizziness no chest pain no shortness of breath there is occasional cough no vomiting no abdominal pain no diarrhea and no urinary symptoms On 04/14/2018 patient remains alert and oriented 3. Patient's temp remains elevated at 101.3. This time patient is requesting possible transfer to [facility] for further evaluation. Discussed with case management attempted transferring process. This time patient denies chest pain or shortness breath. Patient denies nausea vomiting or diarrhea. Patient denies any urinary burning or frequency. On 04/15/2018 patient is alert and oriented 3, temperature has been normal in the last 24 hours, he has occasional headache otherwise he denies any complaints , there is no dizziness no chest pain no shortness of breath no cough no nausea or vomiting no abdominal pain no diarrhea and no urinary symptoms enlarged lymph node on the right side of the neck are improving On 04/16/2018 patient was seen and examined on the medical floor he is alert and oriented 3 he is still having low-grade fever occasionally to 99 there is no chills no dizziness he has occasional headache no cough no nausea or vomiting no abdominal pain no diarrhea no burning with urination no frequency or urgency complains that urine is darker and smells strong, he is still complaining of enlarged nodule in the right side of his neck otherwise he denies any complaints On 04/17/2018 patient is alert and oriented 3 patient still having low-grade temps 99.3 this a.m. At this time patient denies chest pain or shortness of breath. Patient denies nausea vomiting or diarrhea. She denies any urinary burning or frequency. Patient still complaining of enlarged lymph nodes on the right side. Patient also complaining of intermittent headaches On 04/18/2018 patient is alert and oriented times.. Patient did have a temperature 100.4 this a.m. Platelets also down to 10. Oncology services are following platelets have been ordered. Patient remains fatigued. She denies chest pain or shortness breath. Patient denies nausea vomiting or diarrhea. Patient denies any urinary burning or frequency. On 04/19/2018 patient is alert and oriented 3 resting comfortably in chair. Fevers have subsided. Patient did receive platelets early this a.m. per oncology. repeat platelet level remains low at 10. Awaiting oncology input. This time patient denies any signs of bleeding. Patient denies any abdominal pain or tenderness. Patient denies nausea vomiting or diarrhea. Patient denies any urinary burning or frequency. Patient's headaches have improved On 04/20/2018 patient remains alert and oriented 3. Patient is currently receiving platelet transfusion for platelet level of 5. Patient is still having low-grade temps at 100.1. Discussed case with oncology services. Planning bone marrow biopsy. Discussed with GI services. Will continue to monitor liver enzymes. At this time patient denies chest pain or shortness of breath. Denies nausea vomiting or diarrhea. Patient denies any urinary burning or frequency On 04/21/2018 Patient is s/p lumbar puncture per oncology. platelets remain low at 9. patient remains alert and oriented x 3. Denies chest pain or shortness of breath. Denies nausea or vomitting. denies any urinary burning or frequency. Patient having low grade temps at 100.1 On 04/23/2018 patient was seen and examined in the intensive care unit he states he is feeling the same, he denies any fever or chills, he is still complaining of headache he is complaining of fatigue and weakness otherwise no complaints there is chest pain or shortness of breath no cough no nausea or vomiting no abdominal pain no diarrhea and no urinary symptoms Objective - Vital Signs Vital signs: Vital Signs Temp 99.5 F 04/23/18 04:00 Pulse 101 H 04/23/18 04:00 Resp 15 04/23/18 04:00 BP 129/89 04/23/18 04:00 Pulse Ox 91 L 04/23/18 01:00 Intake & Output 04/22/18 04/23/18 04/23/18 18:59 06:59 18:59 Intake Total 1566 1200 200 Output Total 1600 400 600 Balance -34 800 -400 Weight 73.9 kg Intake: Intake, IV Titration 1100 1200 200 Amount Sodium Chloride 0.9% 1, 1100 1200 200 000 ml @ 100 mls/hr IV . Q10H [facility] Rx#:[id number] Oral 240 Blood Product 226 Platelet Irr Pheresis 2 226 Acda Unit [id number] Output: Urine 1600 400 600 Other: Voiding Method Toilet Toilet # Voids 1 1 - Exam Head normocephalic and atraumatic Neck supple. 2 enlarged right cervical lymph nodes Lungs clear to auscultation bilaterally no wheezing or crackles Heart regular rate and rhythm S1-S2, no rub or gallop Abdomen is soft nontender nondistended positive bowel sounds no hepatosplenomegaly Extremities no edema, no cyanosis or clubbing Neuro alert and orientated to 3 - Labs CBC & Chem 7: 04/23/18 04:39 04/23/18 04:39 Labs: Abnormal Lab Results - Last 24 Hours (Table) 04/22/18 04/22/18 04/22/18 Range/Units 10:10 10:10 10:10 WBC 12.2 H (3.8-10.6) k/uL RBC 4.08 L (4.30-5.90) m/uL Hgb 10.4 L (13.0-17.5) gm/dL Hct 32.5 L (39.0-53.0) % MCV 79.8 L (80.0-100.0) fL RDW 15.7 H (11.5-15.5) % Plt Count 10 L* (150-450) k/uL Lymphocytes # 6.7 H (1.0-4.8) k/uL Lymphocytes # (Manual) (1.0-4.8) k/uL D-Dimer 8.48 H (<0.60) mg/L FEU Phosphorus 4.6 H (2.5-4.5) mg/dL Total Bilirubin 3.4 H (0.2-1.3) mg/dL AST 215 H (17-59) U/L ALT 207 H (21-72) U/L Alkaline Phosphatase 572 H (38-126) U/L Albumin 3.3 L (3.5-5.0) g/dL 04/23/18 04/23/18 Range/Units 04:39 04:39 WBC 11.2 H (3.8-10.6) k/uL RBC 4.11 L (4.30-5.90) m/uL Hgb 10.7 L (13.0-17.5) gm/dL Hct 32.8 L (39.0-53.0) % MCV 79.8 L (80.0-100.0) fL RDW 15.7 H (11.5-15.5) % Plt Count 10 L* (150-450) k/uL Lymphocytes # (1.0-4.8) k/uL Lymphocytes # (Manual) 8.29 H (1.0-4.8) k/uL D-Dimer (<0.60) mg/L FEU Phosphorus (2.5-4.5) mg/dL Total Bilirubin 2.8 H (0.2-1.3) mg/dL AST 190 H (17-59) U/L ALT 181 H (21-72) U/L Alkaline Phosphatase 572 H (38-126) U/L Albumin 3.2 L (3.5-5.0) g/dL Microbiology - Last 24 Hours (Table) 04/21/18 13:40 Gram Stain - Preliminary Aspirate Body Fluid Culture - Preliminary 04/19/18 14:06 Blood Culture - Preliminary Blood No Growth after 72 hours 04/19/18 12:08 Blood Culture - Preliminary Blood No Growth after 72 hours Assessment and Plan Plan: 1. Acute febrile illness. Patient reports high fever of 104. Urine and blood cultures have been ordered. Chest x-ray completed showing normal chest. EKG completed showing sinus tachycardia. Influenza negative. Urine and blood cultures have been ordered. Patient started on Rocephin and Zithromax. Infectious disease following. Lumbar puncture has been performed. Patient remains Unasyn and Levaquin for antibiotics. Blood, urine and cerebrospinal fluid cultures currently negative. Per infectious disease patient remains on Unasyn for IV antibiotic. Patient with acute febrile illness likely secondary to acute EBV infection. no need for antibiotic treatment. continue supportive treatment. 2. History of right ACL repair 3. 2 enlarged right cervical lymph nodes. Dr. stevens has been consulted for hematology services. Case discussed today with Dr. Stevens at this time no need for intervention. Enlarged lymph nodes may be related to infectious process patient will continue to receive antibiotics if he still has enlarged lymph nodes in 2-3 weeks he will be followed as outpatient by Dr. Stevens and then may proceed with biopsy. 4. Elevated liver enzymes. Abdomen ultrasound completed showing marked fatty infiltration of liver redemonstrated. Splenomegaly again seen Alkaline phosphatase 512, ALT 205, AST 192 and total bili 3.5. Per GI services. Liver serologies ordered along with repeat liver enzymes per GI services. Per GI services continue supportive measures and monitor CMP and PT/INR daily 5. Thrombocytopenia. Dr. Stevens following. Per Oncology services likely due to bone marrow suppression from viral infection at this time. Platelet 16. patient started on Zarxio per oncology services. Platelets down to 10. Zaroxolyn has been DC'd per oncology services platelets have been ordered. Repeat platelet level 10. Patient received additional platelet transfusion yesterday. Platelets continue to drop to 5. Orders for additional platelets today per oncology. S/P bone marrow biopys per Oncology. platelets remain low at 9. Patient had stacks's lasting about 6 hours last night he was transferred to intensive care unit patient received a total of 7 platelet transfusions, currently no bleeding platelet count is 10 DVT prophylaxis Lovenox DC'd due to thrombocytopenia, SCDs
--- NOTE | 2018-04-23 11:48 | PN ---
PROGRESS NOTE This is a patient who was admitted back on April 12. This is a 37-year-old male that we brought to the ICU because of epistaxis and hypotension with tachycardia. The patient is doing relatively well. He is currently not receiving any supplemental oxygen. His IV is 0.9 at 100 to be turned on at 50 mL an hour. His most recent CBC shows a white count 11.2, hemoglobin 10.7, hematocrit 32.8, platelet count of 10,000. The patient unfortunately developed severe thrombocytopenia thought to be related to a possible viral infection. For that reason, he developed epistaxis and required transfer to the ICU for closer observation. In addition, he did develop some hypotension, which responded very nicely to fluids. In addition to the epistaxis and thrombocytopenia, the patient has a history of splenomegaly that is thought to likely have a Sarah Bar viral infection. Bone marrow biopsy results are pending. He also has a history of elevated liver enzymes. He is a lifelong nonsmoker. The patient again is doing relatively well. Sitting up at the bedside. He has had no further bleeding from the right nostril. We DC'd the oxygen because we thought the oxygen was trying his membranes making the situation worse. I did suggest a mask with humidified oxygen should he need oxygen. The patient is stable. He feels much better. Again, many of the studies that have been ordered done are pending. Current vital signs include temperature 99.5, heart rate is 100, respiratory rate 18, blood pressure 129/89, mean 102, room air saturations are 95%. Appears in no acute distress. Sitting up at the bedside. HEENT examination is grossly unremarkable. Mucous membranes are moist. No oral lesions. Dried blood noted in his nostrils, right greater than left. Neck is supple. Full range of motion. No adenopathy. Neck veins are flat. Cardiovascular examination reveals regular rhythm and rate. S1, S2 normal. No S3, S4, or murmur. Lungs reveal mostly clear breath sounds. No wheezes or rhonchi. No crackles. Breath sounds equal bilaterally. Abdomen is soft. Bowel sounds are heard. Extremities are intact. No cyanosis, clubbing, or edema. Skin without rash. Neurologic examination is brief but nonfocal. LABS: Reviewed. As mentioned, white count 11.2, hemoglobin 10.7, hematocrit 32.8, platelet count was 10,000. PT/INR was normal. D-dimer was 8.48. Sodium, potassium, chloride, CO2, anion gap, BUN and creatinine all normal. Liver function tests and comprehensive metabolic profile show a bilirubin which is down from 3 4 to 2 8. The AST is down from 215 to 190 and ALT down from 207 to 181 and alkaline phosphatases which is at 572. Albumin 3.2. Microbiologic studies thus far are all negative. Medications are reviewed. He is basically on PJ's Dilaudid, fluids, Narcan, nystatin, Zofran, potassium protocol and 0.9 IV. ASSESSMENT: 1. Acute epistaxis, resolved, secondary to profound thrombocytopenia, of unclear etiology. 2. Leukopenia and thrombocytopenia, thought to be related to underlying viral infection such as Sarah-Rodriguez virus, bone marrow biopsy and other studies pending. 3. Splenomegaly. 4. Elevated liver enzymes, improving. 5. Lifetime nonsmoker. PLAN: The patient could be transferred to the general medical floor. I do not believe he needs telemetry. Today's hemoglobin is 10.7 and platelet count is 10,000. We will continue to watch that carefully. He has been normotensive. He has had no further episodes of epistaxis. Additional recommendations and suggestions are forthcoming. When he first came down here he was thought to have a GI bleed, but we believe it was nose bleed and he was aspirating blood into his GI tract and then vomiting it up. Again, he has not had any more of that. Additional recommendations and suggestions are forthcoming. Prognosis is guarded. Critical care time is 32 minutes. MMSONIA / JONATHAN: [id number] /
--- NOTE | 2018-04-23 12:39 | P.PN ---
Subjective Progress Note Date: 04/23/18 Principal diagnosis: Pancytopenia, or fever of unknown origin Pt seen in f/u, he is sitting up at bedside, has no appetite but is trying to eat a little, denies nausea, vomiting, no epistaxis or bleeding to report, still bruising very easy. No fever, cough, ELIO. Objective - Vital Signs Vital signs: Vital Signs Temp 99.5 F 04/23/18 04:00 Pulse 101 H 04/23/18 04:00 Resp 15 04/23/18 04:00 BP 129/89 04/23/18 04:00 Pulse Ox 91 L 04/23/18 01:00 Intake & Output 04/22/18 04/23/18 04/23/18 18:59 06:59 18:59 Intake Total 1566 1200 200 Output Total 1600 400 600 Balance -34 800 -400 Weight 73.9 kg Intake: Intake, IV Titration 1100 1200 200 Amount Sodium Chloride 0.9% 1, 1100 1200 200 000 ml @ 100 mls/hr IV . Q10H REPLACED BY [facility] Rx#:[id number] Oral 240 Blood Product 226 Platelet Irr Pheresis 2 226 Acda Unit [id number] Output: Urine 1600 400 600 Other: Voiding Method Toilet Toilet # Voids 1 1 - Constitutional General appearance: Present: cooperative, no acute distress, obese - EENT Eyes: Present: anicteric sclerae, EOMI - Respiratory Respiratory: bilateral: CTA - Cardiovascular Rhythm: regular Heart sounds: normal: S1, S2 - Peripheral edema leg Peripheral Edema: bilateral: None - Gastrointestinal General gastrointestinal: Present: normal bowel sounds, soft - Neurologic Neurologic: Present: CNII-XII intact - Musculoskeletal Musculoskeletal: Present: strength equal bilaterally - Psychiatric Psychiatric: Present: A&O x's 3, appropriate affect, intact judgment & insight - Labs CBC & Chem 7: 04/23/18 04:39 04/23/18 04:39 Labs: Abnormal Lab Results - Last 24 Hours (Table) 04/22/18 04/23/18 04/23/18 Range/Units 10:10 04:39 04:39 WBC 12.2 H 11.2 H (3.8-10.6) k/uL RBC 4.08 L 4.11 L (4.30-5.90) m/uL Hgb 10.4 L 10.7 L (13.0-17.5) gm/dL Hct 32.5 L 32.8 L (39.0-53.0) % MCV 79.8 L 79.8 L (80.0-100.0) fL RDW 15.7 H 15.7 H (11.5-15.5) % Plt Count 10 L* 10 L* (150-450) k/uL Lymphocytes # 6.7 H (1.0-4.8) k/uL Lymphocytes # (Manual) 8.29 H (1.0-4.8) k/uL Total Bilirubin 2.8 H (0.2-1.3) mg/dL AST 190 H (17-59) U/L ALT 181 H (21-72) U/L Alkaline Phosphatase 572 H (38-126) U/L Albumin 3.2 L (3.5-5.0) g/dL Microbiology - Last 24 Hours (Table) 04/21/18 13:40 Gram Stain - Preliminary Aspirate Body Fluid Culture - Preliminary 04/19/18 14:06 Blood Culture - Preliminary Blood No Growth after 72 hours 04/19/18 12:08 Blood Culture - Preliminary Blood No Growth after 72 hours Assessment and Plan (1) Lymphadenopathy of right cervical region Narrative/Plan: Monitor for now. Current Visit: Yes Status: Acute Priority: High Code(s): R59.0 - LOCALIZED ENLARGED LYMPH NODES SNOMED Code(s): 023742910 (2) Pancytopenia Narrative/Plan: CBC is stable today. No transfusions ordered. Current Visit: Yes Status: Acute Priority: High Code(s): D61.818 - OTHER PANCYTOPENIA SNOMED Code(s): 096127171 Plan: Case was discussed with ID. I incorrectly reported EBV negative status, complete work up is not resulted. There are other labs associated with the work up that are suggesting of a rare condition that ID is following and monitoring closely. Did discuss my incorrect report to pt and . They were understanding. Case discussed with Dr. Mcclellan and confirmed with Dr. Gustafson, steroids will be initiated. Pt will cont TUMS for now for GI prophylaxis. CBC daily
[2018-04-23] MEDS: predniSONE 10 MG TAB PO SCH ×2 (12:57→21:01)
--- NOTE | 2018-04-23 18:20 | P.PN ---
Subjective Progress Note Date: 04/23/18 Principal diagnosis: Weakness, elevated liver enzymes Tolerating diet, no abdominal pain. In no acute complaints. Started on prednisone therapy. Objective - Vital Signs Vital signs: Vital Signs Temp 98.3 F 04/23/18 12:00 Pulse 110 H 04/23/18 12:00 Resp 15 04/23/18 15:38 BP 124/86 04/23/18 12:00 Pulse Ox 95 04/23/18 12:00 Intake & Output 04/22/18 04/23/18 04/23/18 18:59 06:59 18:59 Intake Total 1566 1200 840 Output Total 1600 400 600 Balance -34 800 240 Weight 73.9 kg Intake: Intake, IV Titration 1100 1200 600 Amount Sodium Chloride 0.9% 1, 1100 1200 200 000 ml @ 100 mls/hr IV . Q10H [facility] Rx#:[id number] Sodium Chloride 0.9% 1, 400 000 ml @ 50 mls/hr IV . Q20H [facility] Rx#:[id number] Oral 240 240 Blood Product 226 Platelet Irr Pheresis 2 226 Acda Unit [id number] Output: Urine 1600 400 600 Other: Voiding Method Toilet Toilet Toilet # Voids 1 1 3 - Exam On physical examination, patient appears comfortable in no apparent distress. HEAD: Normocephalic, atraumatic. EYES: No scleral icterus. No conjunctival injection. MOUTH: No lesions, tongue midline. NECK: Trachea midline, no gross abnormalities. CHEST: Clear to auscultation with no wheezing or rhonchi appreciated. HEART: Regular rate and rhythm. ABDOMEN: Soft, obese. Bowel sounds are positive. No organomegaly. No guarding or rigidity. EXTREMITIES: No pedal edema. SKIN: No rashes, no jaundice. NEUROLOGIC: Alert and oriented x3. No focal deficits. - Labs CBC & Chem 7: 04/23/18 04:39 04/23/18 04:39 Labs: Abnormal Lab Results - Last 24 Hours (Table) 04/23/18 04/23/18 Range/Units 04:39 04:39 WBC 11.2 H (3.8-10.6) k/uL RBC 4.11 L (4.30-5.90) m/uL Hgb 10.7 L (13.0-17.5) gm/dL Hct 32.8 L (39.0-53.0) % MCV 79.8 L (80.0-100.0) fL RDW 15.7 H (11.5-15.5) % Plt Count 10 L* (150-450) k/uL Lymphocytes # (Manual) 8.29 H (1.0-4.8) k/uL Total Bilirubin 2.8 H (0.2-1.3) mg/dL AST 190 H (17-59) U/L ALT 181 H (21-72) U/L Alkaline Phosphatase 572 H (38-126) U/L Albumin 3.2 L (3.5-5.0) g/dL Microbiology - Last 24 Hours (Table) 04/19/18 14:06 Blood Culture - Preliminary Blood No Growth after 96 hours 04/19/18 12:08 Blood Culture - Preliminary Blood No Growth after 96 hours 04/21/18 13:40 Gram Stain - Preliminary Aspirate Body Fluid Culture - Preliminary Assessment and Plan (1) Elevated liver enzymes Narrative/Plan: Elevated liver enzymes and predominantly a cholestatic pattern which is improved today today, total bilirubin 2.8, alkaline phosphatase 572, AST 190 and ALT 181.. No evidence of cholestatic process on CT or ultrasound with only fatty infiltration and spleen likely noted. Heterophile antibody testing has been positive and elevation in liver enzymes likely represents a viral process. Liver serology has been negative for intrinsic liver disease. Current Visit: Yes Status: Acute Code(s): R74.8 - ABNORMAL LEVELS OF OTHER SERUM ENZYMES SNOMED Code(s): 234487125 (2) Lymphadenopathy of right cervical region Current Visit: Yes Status: Acute Priority: High Code(s): R59.0 - LOCALIZED ENLARGED LYMPH NODES SNOMED Code(s): 528193112 (3) Pancytopenia Current Visit: Yes Status: Acute Priority: High Code(s): D61.818 - OTHER PANCYTOPENIA SNOMED Code(s): 735149414 (4) Viral infection Current Visit: Yes Status: Acute Code(s): B34.9 - VIRAL INFECTION, UNSPECIFIED SNOMED Code(s): 85235237 Plan: Supportive care Repeat liver enzymes and INR (INR 1.1 today with no evidence of hepatic encephalopathy) Full liver serologies has been negative Continue supportive care Continue pain control Continue fluid hydration Diet as tolerated Appreciate hematology/oncology recommendations Thank you for allowing us to participate in the care of this patient, we will continue to follow
--- NOTE | 2018-04-24 00:42 | P.PN ---
Subjective Progress Note Date: 04/23/18 37-year-old female presents to hospital with significant fatigue and malaise. Also is having significant headaches. He has had extensive workup as noted in the record. Lumbar puncture was performed that is negative. He over continues to have difficulties with intermittent fever and anemia with worsening thrombocytopenia. Admission testing was performed and it positive heterophile antibody was found. No other positive serology to date including negative HIV and hepatitis C. Because of his ongoing thrombocytopenia and anemia, bone marrow aspiration was performed. This was sent for routine a viral assessment of the bone marrow. The patient was evaluated by the oncology team today. They stated to the patient that the virus testing was negative for Sarah-Rodriguez. Some concern arose and consequently further infectious diseases input was requested from the on-call physician. The patient is sitting up eating his dinner. Continues to feel poorly. Is having some low-grade fevers at time. Platelet Count is 10 with transfusions. He was symptomatic significant epistaxis which is now controlled. The patient was evaluated with the logistics system engineer [employer]IA LIBRARIAN. As noted laboratories are reviewed. The EBV DNA is pending from the bone marrow aspiration. The repeat EBV panel is pending. Patient feeling slightly better today. Still with significant thrombocytopenia. Fevers have trended to improvement. Objective - Vital Signs Vital signs: Vital Signs Temp 98.5 F 04/23/18 20:00 Pulse 94 04/23/18 20:00 Resp 16 04/23/18 23:44 BP 124/86 04/23/18 12:00 Pulse Ox 95 04/23/18 20:00 Intake & Output 04/23/18 04/23/18 04/24/18 06:59 18:59 06:59 Intake Total 1200 840 Output Total 400 600 Balance 800 240 Weight 73.9 kg Intake: Intake, IV Titration 1200 600 Amount Sodium Chloride 0.9% 1, 1200 200 000 ml @ 100 mls/hr IV . Q10H [place] Rx#:[id number] Sodium Chloride 0.9% 1, 400 000 ml @ 50 mls/hr IV . Q20H [place] Rx#:[id number] Oral 240 Output: Urine 400 600 Other: Voiding Method Toilet Toilet Toilet # Voids 1 3 - Exam Pleasant 37-year-old male who is a tall but overweight build is sitting up eating and not in distress HEENT: Anicteric conjunctiva are pink and moist nasal mucosa grossly intact without significant lesions, there is no thrush. No active bleeding of the nares at this time Neck: The neck is supple lymphadenopathy is noted especially to the right side of the neck with no thyromegaly Lungs: Good bilateral air entry without significant crackles or wheezing. There is no significant bronchial sounds. There is no egophony or dullness. Heart: Regular rate and rhythm with an audible S1-S2, no S3 no S4. There is no significant murmur click or rub, PMI was nondisplaced. Abdomen: Positive bowel sounds soft and nontender without palpable masses or organomegaly. There was no guarding or rebound. Extremities: The upper extremities have excellent pulses they are symmetric, no significant petechiae or telangiectasia. No splinter hemorrhages were noted. The lower extremities are free from significant edema. The peripheral pulses were 2+ and symmetric. Neuro: Awake alert oriented to person place and time. There are no acute new gross focal sensory motor deficits. Skin significant ecchymosis to recent IV sites. No evidence of any active nasal bleeding or oral bleeding at this time - Labs CBC & Chem 7: 04/23/18 04:39 04/23/18 04:39 Labs: Abnormal Lab Results - Last 24 Hours (Table) 04/22/18 04/23/18 04/23/18 Range/Units 01:56 04:39 04:39 WBC 11.2 H (3.8-10.6) k/uL RBC 4.11 L (4.30-5.90) m/uL Hgb 10.7 L (13.0-17.5) gm/dL Hct 32.8 L (39.0-53.0) % MCV 79.8 L (80.0-100.0) fL RDW 15.7 H (11.5-15.5) % Plt Count 10 L* (150-450) k/uL Lymphocytes # (Manual) 8.29 H (1.0-4.8) k/uL Total Bilirubin 2.8 H (0.2-1.3) mg/dL AST 190 H (17-59) U/L ALT 181 H (21-72) U/L Alkaline Phosphatase 572 H (38-126) U/L Albumin 3.2 L (3.5-5.0) g/dL Crossmatch See Detail Microbiology - Last 24 Hours (Table) 04/21/18 13:40 Gram Stain - Preliminary Aspirate Body Fluid Culture - Preliminary 04/21/18 13:40 Anaerobic Culture - Preliminary Bone Marrow 04/19/18 14:06 Blood Culture - Preliminary Blood No Growth after 96 hours 04/19/18 12:08 Blood Culture - Preliminary Blood No Growth after 96 hours Laboratory Results WBC 11.2 k/uL (3.8-10.6) H 04/23/18 04:39 RBC 4.11 m/uL (4.30-5.90) L 04/23/18 04:39 Hgb 10.7 gm/dL (13.0-17.5) L 04/23/18 04:39 Hct 32.8 % (39.0-53.0) L 04/23/18 04:39 MCV 79.8 fL (80.0-100.0) L 04/23/18 04:39 MCH 26.1 pg (25.0-35.0) 04/23/18 04:39 MCHC 32.7 g/dL (31.0-37.0) 04/23/18 04:39 RDW 15.7 % (11.5-15.5) H 04/23/18 04:39 Plt Count 10 k/uL (150-450) L* 04/23/18 04:39 Neutrophils % 20 % 04/22/18 10:10 Neutrophils % (Manual) 17 % 04/23/18 04:39 Band Neutrophils % 7 % 04/22/18 01:56 Lymphocytes % 55 % 04/22/18 10:10 Lymphocytes % (Manual) 74 % 04/23/18 04:39 Monocytes % 4 % 04/22/18 10:10 Monocytes % (Manual) 8 % 04/23/18 04:39 Eosinophils % 0 % 04/22/18 10:10 Eosinophils % (Manual) 1 % 04/23/18 04:39 Basophils % 2 % 04/22/18 10:10 Basophils % (Manual) 1 % 04/19/18 20:26 Metamyelocytes % 1 % 04/15/18 06:03 Myelocytes % 1 % 04/15/18 06:03 Other Cells % % 04/14/18 06:04 Neutrophils # 2.5 k/uL (1.3-7.7) 04/22/18 10:10 Neutrophils # (Manual) 1.90 k/uL (1.3-7.7) 04/23/18 04:39 Lymphocytes # 6.7 k/uL (1.0-4.8) H 04/22/18 10:10 Lymphocytes # (Manual) 8.29 k/uL (1.0-4.8) H 04/23/18 04:39 Monocytes # 0.5 k/uL (0-1.0) 04/22/18 10:10 Monocytes # (Manual) 0.90 k/uL (0-1.0) 04/23/18 04:39 Eosinophils # 0.0 k/uL (0-0.7) 04/22/18 10:10 Eosinophils # (Manual) 0.11 k/uL (0-0.7) 04/23/18 04:39 Basophils # 0.2 k/uL (0-0.2) 04/22/18 10:10 Basophils # (Manual) 0.08 k/uL (0-0.2) 04/19/18 20:26 Metamyelocytes # (Man) 0.03 k/uL (0) H 04/15/18 06:03 Myelocytes # (Manual) 0.03 k/uL (0) H 04/15/18 06:03 Nucleated RBCs 0 /100 WBC (0-0) 04/23/18 04:39 Differential Comment 04/16/18 06:41 Manual Slide Review Performed 04/23/18 04:39 Reactive Lymphocytes Present 04/21/18 07:03 Large Platelets Present 04/20/18 07:29 RBC Morphology Normal 04/17/18 08:09 Polychromasia Present 04/23/18 04:39 Poikilocytosis (manual Present 04/21/18 07:03 Anisocytosis (manual) Present 04/21/18 07:03 Retic Count 2.5 % (0.5-2.0) H 04/19/18 12:08 PT 10.4 sec (9.0-12.0) 04/23/18 04:39 INR 1.1 (<1.2) 04/23/18 04:39 APTT 26.5 sec (22.0-30.0) 04/20/18 07:29 Fibrinogen 379 mg/dL (200-500) 04/20/18 07:29 D-Dimer 8.48 mg/L FEU (<0.60) H 04/22/18 10:10 Sodium 139 mmol/L (137-145) 04/23/18 04:39 Potassium 3.9 mmol/L (3.5-5.1) 04/23/18 04:39 Chloride 104 mmol/L (98-107) 04/23/18 04:39 Carbon Dioxide 25 mmol/L (22-30) 04/23/18 04:39 Anion Gap 10 mmol/L 04/23/18 04:39 BUN 15 mg/dL (9-20) 04/23/18 04:39 Creatinine 0.84 mg/dL (0.66-1.25) 04/23/18 04:39 Est GFR (CKD-EPI)AfAm >90 (>60 ml/min/1.73 sqM) 04/23/18 04:39 Est GFR (CKD-EPI)NonAf >90 (>60 ml/min/1.73 sqM) 04/23/18 04:39 Glucose 97 mg/dL (74-99) 04/23/18 04:39 POC Glucose (mg/dL) 104 mg/dL (75-99) H 04/22/18 02:18 POC Glu Manager Utilization Review ID Buck Siddiqui 04/22/18 02:18 Lactic Ac Sepsis Rflx Y 04/09/18 22:04 Plasma Lactic Acid Esau 0.8 mmol/L (0.7-2.0) 04/10/18 01:40 Uric Acid 5.2 mg/dL (3.5-8.5) 04/20/18 07:29 Calcium 8.5 mg/dL (8.4-10.2) 04/23/18 04:39 Phosphorus 4.0 mg/dL (2.5-4.5) 04/23/18 04:39 Magnesium 2.1 mg/dL (1.6-2.3) 04/23/18 04:39 Iron 35 ug/dL (65-175) L 04/18/18 06:10 TIBC 249 ug/dL (228-460) 04/18/18 06:10 Iron Saturation 14.06 (15.00-50.00) L 04/18/18 06:10 Transferrin 188.0 mg/dL (204.0-354.0) L 04/18/18 06:10 Ferritin 2590.7 ng/mL (22.0-322.0) H 04/18/18 06:10 Total Bilirubin 2.8 mg/dL (0.2-1.3) H 04/23/18 04:39 Conjugated Bilirubin 1.3 mg/dL (0.0-0.3) H 04/18/18 06:10 Unconjugated Bilirubin 0.6 mg/dL (0.0-1.1) 04/18/18 06:10 Delta Bilirubin 1.7 mg/dL (0.0-0.2) H 04/18/18 06:10 AST 190 U/L (17-59) H 04/23/18 04:39 ALT 181 U/L (21-72) H 04/23/18 04:39 Alkaline Phosphatase 572 U/L (38-126) H 04/23/18 04:39 Lactate Dehydrogenase 1600 U/L (313-618) H 04/20/18 07:29 Troponin I <0.012 ng/mL (0.000-0.034) 04/09/18 21:20 Total Protein 6.6 g/dL (6.3-8.2) 04/23/18 04:39 Total Protein (PEP) 5.6 g/dL (6.2-8.2) L 04/12/18 06:36 Albumin 3.2 g/dL (3.5-5.0) L 04/23/18 04:39 Albumin (PEP) 2.90 g/dL (3.80-4.90) L 04/12/18 06:36 Riqtd-6-Avzdqlcss 0.41 g/dL (0.10-0.40) H 04/12/18 06:36 Xlcdt-3-Wwlewykga 0.64 g/dL (0.60-1.00) 04/12/18 06:36 Beta Globulins 0.77 g/dL (0.60-1.30) 04/12/18 06:36 Gamma Globulins 0.87 g/dL (0.70-1.50) 04/12/18 06:36 PEP Interpretation SEE NOTE 04/12/18 06:36 Maneb-0-Hexwkioyhad 220.0 mg/dL (99.0-242.0) 04/18/18 06:10 Ceruloplasmin 37.6 mg/dL (20.0-60.0) 04/18/18 06:10 Vitamin B12 515.0 pg/mL (200.0-944.0) 04/20/18 07:29 Methylmalonic Acid 0.33 umol/L (<0.40) 04/20/18 07: Folate 11.8 ng/mL 04/20/18 07:29 Urine Color Yellow 04/09/18 23:08 Urine Appearance Clear (Clear) 04/09/18 23:08 Urine pH 6.5 (5.0-8.0) 04/09/18 23:08 Ur Specific [place] 1.039 (1.001-1.035) H 04/09/18 23:08 Urine Protein 1+ (Negative) H 04/09/18 23:08 Urine Glucose (UA) Negative (Negative) 04/09/18 23:08 Urine Ketones Negative (Negative) 04/09/18 23:08 Urine Blood Negative (Negative) 04/09/18 23:08 Urine Nitrite Negative (Negative) 04/09/18 23:08 Urine Bilirubin Negative (Negative) 04/09/18 23:08 Urine Urobilinogen 4.0 mg/dL (<2.0) 04/09/18 23:08 Ur Leukocyte Esterase Negative (Negative) 04/09/18 23:08 Urine RBC <1 /hpf (0-5) 04/09/18 23:08 Urine WBC 1 /hpf (0-5) 04/09/18 23:08 Ur Squamous Epith Cells <1 /hpf (0-4) 04/09/18 23:08 Urine Bacteria Rare /hpf (None) H 04/09/18 23:08 Urine Mucus Moderate /hpf (None) H 04/09/18 23:08 CSF Tube Number 4 04/10/18 20:46 CSF Volume 3.5 04/10/18 20:46 CSF Appearance Clear 04/10/18 20:46 CSF Color Colorless 04/10/18 20:46 CSF RBC 0 u/L (0-10) 04/10/18 20:46 CSF Tot Nucleated Cells 0 u/L (0-5) 04/10/18 20:46 CSF Glucose 60 mg/dL (40-70) 04/10/18 20:46 CSF Total Protein 86 mg/dL (12-60) H 04/10/18 20:46 IgG 1060.0 mg/dL (700.0-1600.0) 04/20/18 07:29 IgG1 633.0 mg/dL (405.0-1011.0) 04/18/18 06:10 IgG2 262.0 mg/dL (169.0-640.0) 04/18/18 06:10 IgG3 32.2 mg/dL (11.0-85.0) 04/18/18 06:10 IgG4 1.9 mg/dL (3.0-175.0) L 04/18/18 06:10 IgA 372.0 mg/dL (60.0-350.0) H 04/20/18 07:29 IgM 200.0 mg/dL (40.0-280.0) 04/20/18 07:29 Serum [place] Interpret SEE NOTE 04/12/18 06:36 Rheumatoid Factor 10 IU/mL (0-15) 04/12/18 06:36 [place] Screen NEGATIVE (NEGATIVE) 04/12/18 06:36 Anti-Smooth Muscle Ab 17 UNITS (<20) 04/18/18 06:10 Liver/Kid Microsomes Ab 1.2 UNITS (<=20) 04/18/18 06:10 Free Labelle LC, Quant 1.32 mg/dL (0.33-1.94) 04/12/18 06:36 CMV IgG Ab Reactive (Non-Reactive) H 04/13/18 06:29 CMV IgM Ab Non-Reactive (Non-Reactive) 04/13/18 06:29 EBV Capsid Ag IgG Ab <10.0 U/mL (<18.0) 04/13/18 06:29 EBV Capsid Ag IgM Ab 16.6 U/mL (<36.0) 04/13/18 06:29 Hepatitis A IgM Ab Non-Reactive (Non-Reactive) 04/16/18 06:41 Hep Bs Antigen Non-Reactive (Non-Reactive) 04/16/18 06:41 Hep B Core IgM Ab Non-Reactive (Non-Reactive) 04/16/18 06:41 Hep C IgG Ab Non-Reactive (Non-Reactive) 04/16/18 06:41 HSV I&II IgM Ab 0.85 INDEX (<=0.90) 04/18/18 06:10 HSV I IgG Ab 15.60 (< or = 0.90) H 04/18/18 06:10 HSV II IgG 0.08 (< or = 0.90) 04/18/18 06:10 Heterophile Antibody Positive (Negative) 04/16/18 06:41 HIV-1 Antibody Non-Reactive (Non-Reactive) 04/18/18 06:10 HIV Ag/Ab Interpret 04/18/18 06:10 HIV p24 Antibody Non-Reactive (Non-Reactive) 04/18/18 06:10 HIV-2 Antibody Non-Reactive (Non-Reactive) 04/18/18 06:10 HIV P24 Antigen Non-Reactive (Non-Reactive) 04/18/18 06:10 Influenza Type A RNA Not Detected (Not Detectd) 04/09/18 22:04 Influenza Type B (PCR) Not Detected (Not Detectd) 04/09/18 22:04 Urine Legionella Ag Not detected (Not detected) 04/10/18 23:57 Parvovirus B19 IgG Ab 5.84 INDEX (<=0.90) H 04/13/18 06:29 Parvovirus B19 IgM Ab 0.43 INDEX (<=0.90) 04/13/18 06:29 Virus Source Bone Marrow 04/21/18 13:40 Viral Test See Below 04/21/18 13:40 Virus Analysis Interp See Below 04/21/18 13:40 Flow Results See Pathology Report 04/21/18 13:40 Blood Type O Positive 04/22/18 01:56 Blood Type Confirm O Positive 04/18/18 06:10 Blood Type Recheck No 04/22/18 01:56 Antibody Screen NEGATIVE 04/22/18 01:56 Crossmatch See Detail 04/22/18 01:56 Transfuse Platelets [id number] 04/22/18 01:27 Spec Expiration Date 04/25/2018 - 1072 04/22/18 01:56 Microbiology 04/21/18 13:40 Aspirate Gram Stain - Preliminary 04/21/18 13:40 Aspirate Body Fluid Culture - Preliminary 04/21/18 13:40 Bone Marrow Anaerobic Culture - Preliminary 04/19/18 14:06 Blood Blood Culture - Preliminary No Growth after 96 hours 04/19/18 12:08 Blood Blood Culture - Preliminary No Growth after 96 hours 04/21/18 13:40 Bone Marrow Fungal Culture - Preliminary 04/10/18 23:36 Blood Blood Culture - Final No Growth after 144 hours 04/09/18 21:20 Blood Blood Culture - Final No Growth after 144 hours 04/10/18 20:46 Cerebral Spinal Fluid CSF Gram Stain - Final 04/10/18 20:46 Cerebral Spinal Fluid CSF Culture - Final 04/09/18 23:08 Urine,Voided Urine Culture - Final Assessment and Plan (1) Pancytopenia Narrative/Plan: 37-year-old male presents to Hospital many days ago feeling very poorly as an extensive workup to date that included a lumbar puncture that was negative for underlying meningeal encephalitis. At admission because of his symptom complex heterophile antibody was performed that was positive, and a EBV panel was negative. Since that time there's been ongoing difficulties with the evidence of a hepatitis as well as the progressive anemia and significant thrombocytopenia. To date only positive testing was of the heterophile antibody. This was performed about 10 days ago and constantly repeated EBV panel is requested to see if there is been development of antibodies. Given the severity of the illness EBV viral load has been requested, obviously a send out lab. The bone marrow viral panel is reviewed with the nursing staff and the patient and his family. His a standard viral PCR panel that does not include Sarah- Rodriguez viral testing. Consequently although the panel was negative it does not exclude Sarah-Rodriguez viral infection. At this time concern will be for Hemophagocytic lymphohistiocytosis which is associated with EBV infection which causes abnormal immune system activation which results in hepatosplenomegaly and hematological abnormality such as anemia and thrombocytopenia. Bone marrow aspiration has already been performed and may be helpful in determining the presence of this disease state. We'll discuss with hematology. 04/23/2018 patient feels slightly better today. Patient is understand that further testing is still in process. The EBV DNA is still pending and hopefully wound VAC by Tuesday. Follow-up EBV serology is in process. 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 Await the serological studies and will follow. Current Visit: Yes Status: Acute Priority: High Code(s): D61.818 - OTHER PANCYTOPENIA SNOMED Code(s): 098814008 (2) Lymphadenopathy of right cervical region Current Visit: Yes Status: Acute Priority: High Code(s): R59.0 - LOCALIZED ENLARGED LYMPH NODES SNOMED Code(s): 852853766 (3) Hepatitis Current Visit: Yes Status: Acute Code(s): K75.9 - INFLAMMATORY LIVER DISEASE , UNSPECIFIED SNOMED Code(s): 293905586 (4) Heterophil-positive mononucleosis syndrome Current Visit: Yes Status: Acute Code(s): B27.90 - INFECTIOUS MONONUCLEOSIS , UNSPECIFIED WITHOUT COMPLICATION SNOMED Code(s): 95648285
[2018-04-24 05:05] LABS: HCT 32.5 % (39.0-53.0); HGB 10.5 gm/dL (13.0-17.5); MCH 25.7 pg (25.0-35.0); MCHC 32.3 g/dL (31.0-37.0); MCV 79.7 fL (80.0-100.0); Mean Platelet Volume 9.1; RBC 4.07 m/uL (4.30-5.90); RDW 15.8 % (11.5-15.5); WBC 7.7 k/uL (3.8-10.6)
[2018-04-24 05:06] LABS: Platelet Count 8 k/uL (150-450)
[2018-04-24 05:13] LABS: Anion Gap 6 mmol/L; Blood Urea Nitrogen 14 mg/dL (9-20); Calcium 8.6 mg/dL (8.4-10.2); Carbon Dioxide 26 mmol/L (22-30); Chloride 106 mmol/L (98-107); Glucose 184 mg/dL (74-99); Magnesium 2.3 mg/dL (1.6-2.3); Phosphorus 4.5 mg/dL (2.5-4.5); Potassium 4.5 mmol/L (3.5-5.1); Sodium 138 mmol/L (137-145)
[2018-04-24 05:23] LABS: Band Neutrophils % 3 %; Lymphocytes # (M) 5.54 k/uL (1.0-4.8); Monocytes # (M) 0.54 k/uL (0-1.0); Myelocytes # (M) 0.08 k/uL (0); Myelocytes % 1 %; Neutrophils % (M) 17 %; Nucleated Red Blood Cells 0 /100 WBC (0-0); Total Cells Counted 200
[2018-04-24 07:26] LABS: Reactive Lymphocytes Present
[2018-04-24 07:28] LABS: Reactive Lymphocytes Present
[2018-04-24 07:28] LABS: Reactive Lymphocytes Present
--- NOTE | 2018-04-24 09:00 | P.PN ---
Subjective Progress Note Date: 04/24/18 Principal diagnosis: Elevated liver enzymes LFTS improved yesterday TB decreased to 2.8. CMP pending. Transferred to ICU yesterday secondary to acute epistaxsis x several hours. HGB 10.5. Platelet 8, 000. Afebrile. Objective - Vital Signs Vital signs: Vital Signs Temp 98.5 F 04/23/18 20:00 Pulse 90 04/24/18 04:00 Resp 20 04/24/18 04:00 BP 120/78 04/24/18 04:00 Pulse Ox 92 L 04/24/18 04:00 Intake & Output 04/23/18 04/24/18 04/24/18 18:59 06:59 18:59 Intake Total 840 50 125 Output Total 600 Balance 240 50 125 Weight 135 kg Intake: Intake, IV Titration 600 50 Amount Sodium Chloride 0.9% 1, 200 000 ml @ 100 mls/hr IV . Q10H [place] Rx#:[id number] Sodium Chloride 0.9% 1, 400 50 000 ml @ 50 mls/hr IV . Q20H [place] Rx#:[id number] Oral 240 125 Output: Urine 600 Other: Voiding Method Toilet Toilet # Voids 3 1 - Exam General appearance: The patient is alert, oriented, in no acute distress. HET: Head is normocephalic and atraumatic. Right neck swelling. Pupils are equal and reactive. Oropharynx is clear without lesions. Neck: Supple without lymphadenopathy. Trachea midline. Heart: S1 S2. Regular rate and rhythm. Lungs: No crackles or wheezes are heard. Abdomen: Soft, nontender, nondistended with bowel sounds. No peritoneal signs. No palpable organomegaly or masses. Extremities: Normal skin color and turgor. No cyanosis, rash, ulceration, clubbing, or edema. Radial and pedal pulses are 2/4 bilaterally. Neurological: No focal deficits. Strength and sensation are grossly intact. - Labs CBC & Chem 7: 04/24/18 04:39 04/24/18 04:39 Labs: Abnormal Lab Results - Last 24 Hours (Table) 04/22/18 04/24/18 04/24/18 Range/Units 01:56 04:39 04:39 RBC 4.07 L (4.30-5.90) m/uL Hgb 10.5 L (13.0-17.5) gm/dL Hct 32.5 L (39.0-53.0) % MCV 79.7 L (80.0-100.0) fL RDW 15.8 H (11.5-15.5) % Plt Count 8 L* (150-450) k/uL Lymphocytes # (Manual) 5.54 H (1.0-4.8) k/uL Myelocytes # (Manual) 0.08 H (0) k/uL Glucose 184 H (74-99) mg/dL Crossmatch See Detail Microbiology - Last 24 Hours (Table) 04/21/18 13:40 Gram Stain - Preliminary Aspirate Body Fluid Culture - Preliminary 04/21/18 13:40 Anaerobic Culture - Preliminary Bone Marrow 04/19/18 14:06 Blood Culture - Preliminary Blood No Growth after 96 hours 04/19/18 12:08 Blood Culture - Preliminary Blood No Growth after 96 hours Assessment and Plan (1) Viral hepatitis Current Visit: Yes Status: Acute Code(s): B19.9 - UNSPECIFIED VIRAL HEPATITIS WITHOUT HEPATIC COMA SNOMED Code(s): 0473401 (2) Elevated liver enzymes Current Visit: Yes Status: Acute Code(s): R74.8 - ABNORMAL LEVELS OF OTHER SERUM ENZYMES SNOMED Code(s): 773014474 (3) Viral infection Current Visit: Yes Status: Acute Code(s): B34.9 - VIRAL INFECTION, UNSPECIFIED SNOMED Code(s): 43484517 (4) Bicytopenia Current Visit: Yes Status: Acute Code(s): D75.89 - OTHER SPECIFIED DISEASES OF BLOOD AND BLOOD-FORMING ORGANS SNOMED Code(s): 685138383 (5) Epistaxis Current Visit: Yes Status: Acute Code(s): R04.0 - EPISTAXIS SNOMED Code(s) : 803097258 Plan: 1. Supportive measures. LFTS starting to improve. CMP pending. Nosebleed stopped. Will continue to follow. Assessment and plan of care discusssed with Dr. atwood.
[2018-04-24] MEDS: NYSTATIN 100,000 UNIT/ML SUSP 500,000 UNIT/5 ML CUP PO SCH ×4 (09:11→20:19)
[2018-04-24] MEDS ORDERED: IMMUNE GLOBULIN (GAMMAGARD) 1 GM/10 ML VIAL IV ONE (09:13)
[2018-04-24] MEDS ORDERED: IMMUNE GLOBULIN (GAMUNEX-C) 40 GM in EMPTY BAG 1 BAG IV ONE (10:00)
[2018-04-24] MEDS ORDERED: IMMUNE GLOBULIN (GAMUNEX-C) 20 GM in EMPTY BAG 1 BAG IV ONE ×3 (10:00→14:00)
--- NOTE | 2018-04-24 10:30 | P.PN ---
Subjective Progress Note Date: 04/24/18 Principal diagnosis: Epistaxis, profound thrombocytopenia, febrile illness, elevated transaminases, suspect Sarah-Rodriguez virus This is a 37-year-old white male patient who was initially admitted on 2017 the emergency department for evaluation of upper respiratory symptoms, fever of 104F, malaise, chills, sore throat, cough. Chest x-ray was negative, a CT was obtained for evaluation of headache, fever and acute mental status changes, and was negative. CT of abdomen, chest and pelvis was obtained, and showed ascending thoracic aortic aneurysm at the level of main pulmonary artery measuring 4.2 cm, inguinal adenopathy, splenomegaly, complex left kidney cyst. Initial CBC was within normal limits, no leukocytosis, platelet count was 193 , electrolytes were within normal limits, renal profile was unremarkable, with B1 of 21 and creatinine of 1, plasma lactic acid was elevated at the time at 2.3 , urinalysis showed 1+ protein, rare bacteria, 4 LV or nitrites. Influenza screen was negative. Patient was started on antibiotics, fever pattern has improved, cultures, including CSF study have been negative. Patient did develop right upper neck lump 2 days ago, which was mildly tender on palpation, and had some improvement since starting antibiotics. CT of the neck was obtained, and showed no suspicious adenopathy. No prior history of malignancy, no history of smoking or chewing tobacco. Patient has been feeling tired, with fever pattern has been improving, patient developed leukopenia and trauma cytopenia with elevated liver enzymes pointing towards a possible viral infection with a question of possible Sarah-Rodriguez virus. Patient's CMV IgM was negative, IgG was positive. There is no evidence of any bacterial infection , patient was treated with antibiotics in the form of Unasyn, check since been discontinued. Last night on 04/21/2018 patient developed significant epistaxis , he was vomiting bright red blood, platelet count was down to 9,000, and patient was transferred to the intensive care unit for further monitoring and treatment. Patient has received 7 units of weight loss, this morning his platelet count up to 16, WBC is 10.7, hemoglobin is 10.8, INR is 1.1, renal profile and electrolytes are within normal limits, liver enzymes remain elevated , AST is 07/14/1983, ALT is 224, alkaline phosphatase at 562, she is afebrile, this morning there has been no further vomiting or epistaxis. He is in no distress, denies any chest pain or dyspnea. Lung sounds are clear to auscultation, abdomen is soft and nontender. Sinus tachycardia on the monitor, with a rate of 101 BPM, but pressures 120/92, sats on 2 L per nasal cannula is 95%. On 08/23/2017 patient seen in follow-up in the intensive care unit, he is sitting up in the chair, in no acute distress, room air pulse ox is 94%, afebrile. All microbiology including CSF and bone marrow cultures remain negative. Today's CBC showed WBC of 7.7, hemoglobin of 10.5, and platelet count of 8, electrolytes and renal profile were within normal limits, liver enzymes are improving, with total bilirubin of 2.8, AST of 190, ALT 181, ALT of 572. Patient is status post transfusion with 6 units of platelets, patient will receive additional platelets today, hematology is on, and IVIG has been ordered. He remains on Solu-Medrol 60 mg every 6 hours, he still has the right neck lump, nontender, and he states it has improved. Remains on maintenance IV fluids of 0.9 normal saline at a rate of 50 ML per hour. There has been no recurrence of epistaxis. Denies any dyspnea, denies any chest pain or shortness of breath. Objective - Vital Signs Vital signs: Vital Signs Temp 98.1 F 04/24/18 08:00 Pulse 108 H 04/24/18 08:00 Resp 18 04/24/18 08:00 BP 114/89 04/24/18 08:00 Pulse Ox 94 L 04/24/18 08:00 Intake & Output 04/23/18 04/24/18 04/24/18 18:59 06:59 18:59 Intake Total 840 50 125 Output Total 600 Balance 240 50 125 Weight 135 kg Intake: Intake, IV Titration 600 50 Amount Sodium Chloride 0.9% 1, 200 000 ml @ 100 mls/hr IV . Q10H [place] Rx#:[id number] Sodium Chloride 0.9% 1, 400 50 000 ml @ 50 mls/hr IV . Q20H [place] Rx#:[id number] Oral 240 125 Output: Urine 600 Other: Voiding Method Toilet Toilet Toilet # Voids 3 1 - Exam GENERAL EXAM: Alert, pleasant 37-year-old white male, currently on room air HEAD: Normocephalic/atraumatic. EYES: Normal reaction of pupils, equal size. Conjunctiva pink, sclera white. NOSE: Clear with pink turbinates. THROAT: No erythema or exudates. NECK: No masses, no JVD, no thyroid enlargement, no adenopathy. CHEST: No chest wall deformity. Symmetrical expansion. LUNGS: Equal air entry with no crackles, wheeze, rhonchi or dullness. CVS: Regular rate and rhythm, normal S1 and S2, no gallops, no murmurs, no rubs ABDOMEN: Soft, nontender. No hepatosplenomegaly, normal bowel sounds, no guarding or rigidity. EXTREMITIES: No clubbing, trace pretibial edema, no cyanosis, 2+ pulses and upper and lower extremities. MUSCULOSKELETAL: Muscle strength and tone normal. SPINE: No scoliosis or deformity SKIN: No rashes CENTRAL NERVOUS SYSTEM: Alert and oriented -3. No focal deficits, tone is normal in all 4 extremities. PSYCHIATRIC: Alert and oriented -3. Appropriate affect. Intact judgment and insight. - Labs CBC & Chem 7: 04/24/18 04:39 04/24/18 04:39 Labs: Abnormal Lab Results - Last 24 Hours (Table) 04/22/18 04/24/18 04/24/18 Range/Units 01:56 04:39 04:39 RBC 4.07 L (4.30-5.90) m/uL Hgb 10.5 L (13.0-17.5) gm/dL Hct 32.5 L (39.0-53.0) % MCV 79.7 L (80.0-100.0) fL RDW 15.8 H (11.5-15.5) % Plt Count 8 L* (150-450) k/uL Lymphocytes # (Manual) 5.54 H (1.0-4.8) k/uL Myelocytes # (Manual) 0.08 H (0) k/uL Glucose 184 H (74-99) mg/dL Crossmatch See Detail Microbiology - Last 24 Hours (Table) 04/21/18 13:40 Gram Stain - Preliminary Aspirate Body Fluid Culture - Preliminary 04/21/18 13:40 Anaerobic Culture - Preliminary Bone Marrow 04/19/18 14:06 Blood Culture - Preliminary Blood No Growth after 96 hours 04/19/18 12:08 Blood Culture - Preliminary Blood No Growth after 96 hours Assessment and Plan Plan: Assessment: #1. Acute epistaxis, related to profound thrombocytopenia, resolved #2. Leukopenia, thrombocytopenia, febrile illness, splenomegaly, no evidence of bacterial infection, likely related to Sarah-Rodriguez virus. Patient is status post bone marrow biopsy, results are pending #3. Right upper cervical adenopathy, soft tissue CT of the neck did not show any suspicious adenopathy #4. Elevated liver enzymes, improving #5. Lifetime nonsmoker #6. Suspect underlying obstructive sleep apnea, patient has typical features of IAN Plan: Patient remains hemodynamically stable, he has had no recurrence of epistaxis, he will receive additional platelet infusion today, he has been started on IVIG infusions. Clinically he is without any specific complaints, no dyspnea, no chest pain or shortness of breath. He is on room air, labs have been reviewed. Will remain in the ICU for today, once the platelet count starts trending up we'll consider transferring patient out of intensive care I performed a history & physical examination of the patient and discussed their management with my nurse practitioner, Francy Woods. I reviewed the nurse practitioner's note and agree with the documented findings and plan of care. Lung sounds are positive clear breath sounds. The findings and the impression was discussed with the patient. I attest to the documentation by the nurse practitioner. Time with Patient: Greater than 30
--- NOTE | 2018-04-24 10:34 | P.PN ---
Subjective Progress Note Date: 04/24/18 Principal diagnosis: Pancytopenia, or fever of unknown origin Pt seen in f/u, he is sitting up at bedside, states feeling better today, no fevers, cough, SOB, nausea, vomiting, diarrhea, constipation, epistaxis or bleeding, easy bruising persists in areas of needle sticks. Objective - Vital Signs Vital signs: Vital Signs Temp 98.1 F 04/24/18 08:00 Pulse 108 H 04/24/18 08:00 Resp 18 04/24/18 08:00 BP 114/89 04/24/18 08:00 Pulse Ox 94 L 04/24/18 08:00 Intake & Output 04/23/18 04/24/18 04/24/18 18:59 06:59 18:59 Intake Total 840 50 125 Output Total 600 Balance 240 50 125 Weight 135 kg Intake: Intake, IV Titration 600 50 Amount Sodium Chloride 0.9% 1, 200 000 ml @ 100 mls/hr IV . Q10H [place] Rx#:[id number] Sodium Chloride 0.9% 1, 400 50 000 ml @ 50 mls/hr IV . Q20H [place] Rx#:[id number] Oral 240 125 Output: Urine 600 Other: Voiding Method Toilet Toilet Toilet # Voids 3 1 - Constitutional General appearance: Present: cooperative, no acute distress, obese - EENT Eyes: Present: anicteric sclerae, EOMI ENT: Present: hearing grossly normal - Neck Neck: Present: lymphadenopathy - Respiratory Respiratory: bilateral: CTA - Cardiovascular Rhythm: regular Heart sounds: normal: S1, S2 Abnormal Heart Sounds: Absent: systolic murmur, diastolic murmur, rub, S3 Gallop , S4 Gallop, click, other - Peripheral edema leg Peripheral Edema: bilateral: None - Gastrointestinal General gastrointestinal: Present: normal bowel sounds, soft - Integumentary Integumentary: Present: normal - Neurologic Neurologic: Present: CNII-XII intact - Musculoskeletal Musculoskeletal: Present: strength equal bilaterally - Psychiatric Psychiatric: Present: A&O x's 3, appropriate affect, intact judgment & insight - Labs CBC & Chem 7: 04/24/18 04:39 04/24/18 04:39 Labs: Abnormal Lab Results - Last 24 Hours (Table) 12/01/18 12/03/18 12/03/18 Range/Units 01:56 04:39 04:39 RBC 4.07 L (4.30-5.90) m/uL Hgb 10.5 L (13.0-17.5) gm/dL Hct 32.5 L (39.0-53.0) % MCV 79.7 L (80.0-100.0) fL RDW 15.8 H (11.5-15.5) % Plt Count 8 L* (150-450) k/uL Lymphocytes # (Manual) 5.54 H (1.0-4.8) k/uL Myelocytes # (Manual) 0.08 H (0) k/uL Glucose 184 H (74-99) mg/dL Crossmatch See Detail Microbiology - Last 24 Hours (Table) 04/21/18 13:40 Gram Stain - Preliminary Aspirate Body Fluid Culture - Preliminary 04/21/18 13:40 Anaerobic Culture - Preliminary Bone Marrow 04/19/18 14:06 Blood Culture - Preliminary Blood No Growth after 96 hours 04/19/18 12:08 Blood Culture - Preliminary Blood No Growth after 96 hours Assessment and Plan (1) Lymphadenopathy of right cervical region Narrative/Plan: Ongoing monitoring, no significant change in size of right cervical adenopathy. Current Visit: Yes Status: Acute Priority: High Code(s): R59.0 - LOCALIZED ENLARGED LYMPH NODES SNOMED Code(s): 193068087 (2) Pancytopenia Narrative/Plan: WBC recovery after GCSF support, GCSF discontinued and WBC remains WNL. Hgb stable in the 10 range, no correctable deficiency found. SPEP non- diagnostic. Bone marrow pending. Platelets continue to remain low and require transfusion. Plt count 8,000 today , irradiated platelets ordered for transfusion. Dr. Stevens is calling pathology today to inquire about bone marrow to find out if anything looks suspicious for malignancy. Confirmed with lab that PCR for EBV has been ordered, it needed to be sent to a different lab. Pending result. Plan today is to treat pt for ITP. Prednisone ordered yesterday was changed to solumedrol and IVIg ordered for administration. Current Visit: Yes Status: Acute Priority: High Code(s): D61.818 - OTHER PANCYTOPENIA SNOMED Code(s): 119825850 Plan: Pt will cont TUMS for now for GI prophylaxis. CBC daily
--- NOTE | 2018-04-24 10:56 | P.PN ---
Subjective Progress Note Date: 04/24/18 This is a 37-year-old male patient presents to emergency room with fever 104. Patient states fever started day night and that he has taken Tylenol every 6 hours the fever has been persistent. Patient does complain that he's had slight cough for the past few days and headache. Patient had one episode of emesis in emergency room but denies any other GI issues. Patient denies any significant past medical history. Chest x-ray completed showing normal chest. EKG completed showing sinus tachycardia with a heart rate of 107. Patient denies any alcohol or drug use. Patient denies any nicotine dependence. Initial lactic 2.3. Repeat lactic 0.8. Urinary analysis completed. Influenza A and B negative. Urine and blood cultures have been ordered. Patient started on Zithromax and Rocephin. At this time patient denies chest pain or shortness of breath. Patient denies any nausea vomiting or diarrhea. Patient denies any urinary burning or frequency. Dr. De Santiago has been consulted for infectious disease. On 04/11/2018 patient is currently sitting up in chair. Patient still feels very fatigued. Patient had a temp of 102.8 last night. Patient also has two enlarged lymph nodes on right side of neck. Patient denies any open sores or problems with teeth. Patient denies any ear pain. Patient denies chest pain or shortness breath. Patient denies any nausea vomiting or diarrhea. Patient denies any upper respiratory symptoms. Patient denies any urinary burning or frequency On 04/12/2018 patient currently sitting up in chair with family at bedside. Patient had temp this AM 101.3. Per infectious disease possible viral syndrome versus bacterial pharyngitis. Patient does have right cervical lymph node enlargement. Dr. Stevesn per oncology consulted. At this time patient denies chest pain or shortness of breath. Patient denies nausea vomiting or diarrhea. Patient denies any urinary burning or frequency On 04/13/2018 patient was seen and examined on the telemetry floor he is alert and oriented 3 in no apparent distress still having elevated temperature up to 102 this morning still complaining of headache and nausea otherwise no complaints at this time there is no dizziness no chest pain no shortness of breath there is occasional cough no vomiting no abdominal pain no diarrhea and no urinary symptoms On 04/14/2018 patient remains alert and oriented 3. Patient's temp remains elevated at 101.3. This time patient is requesting possible transfer to [facility] for further evaluation. Discussed with case management attempted transferring process. This time patient denies chest pain or shortness breath. Patient denies nausea vomiting or diarrhea. Patient denies any urinary burning or frequency. On 04/15/2018 patient is alert and oriented 3, temperature has been normal in the last 24 hours, he has occasional headache otherwise he denies any complaints , there is no dizziness no chest pain no shortness of breath no cough no nausea or vomiting no abdominal pain no diarrhea and no urinary symptoms enlarged lymph node on the right side of the neck are improving On 04/16/2018 patient was seen and examined on the medical floor he is alert and oriented 3 he is still having low-grade fever occasionally to 99 there is no chills no dizziness he has occasional headache no cough no nausea or vomiting no abdominal pain no diarrhea no burning with urination no frequency or urgency complains that urine is darker and smells strong, he is still complaining of enlarged nodule in the right side of his neck otherwise he denies any complaints On 04/17/2018 patient is alert and oriented 3 patient still having low-grade temps 99.3 this a.m. At this time patient denies chest pain or shortness of breath. Patient denies nausea vomiting or diarrhea. She denies any urinary burning or frequency. Patient still complaining of enlarged lymph nodes on the right side. Patient also complaining of intermittent headaches On 04/18/2018 patient is alert and oriented times.. Patient did have a temperature 100.4 this a.m. Platelets also down to 10. Oncology services are following platelets have been ordered. Patient remains fatigued. She denies chest pain or shortness breath. Patient denies nausea vomiting or diarrhea. Patient denies any urinary burning or frequency. On 04/19/2018 patient is alert and oriented 3 resting comfortably in chair. Fevers have subsided. Patient did receive platelets early this a.m. per oncology. repeat platelet level remains low at 10. Awaiting oncology input. This time patient denies any signs of bleeding. Patient denies any abdominal pain or tenderness. Patient denies nausea vomiting or diarrhea. Patient denies any urinary burning or frequency. Patient's headaches have improved On 04/20/2018 patient remains alert and oriented 3. Patient is currently receiving platelet transfusion for platelet level of 5. Patient is still having low-grade temps at 100.1. Discussed case with oncology services. Planning bone marrow biopsy. Discussed with GI services. Will continue to monitor liver enzymes. At this time patient denies chest pain or shortness of breath. Denies nausea vomiting or diarrhea. Patient denies any urinary burning or frequency On 04/21/2018 Patient is s/p lumbar puncture per oncology. platelets remain low at 9. patient remains alert and oriented x 3. Denies chest pain or shortness of breath. Denies nausea or vomitting. denies any urinary burning or frequency. Patient having low grade temps at 100.1 On 04/23/2018 patient was seen and examined in the intensive care unit he states he is feeling the same, he denies any fever or chills, he is still complaining of headache he is complaining of fatigue and weakness otherwise no complaints there is chest pain or shortness of breath no cough no nausea or vomiting no abdominal pain no diarrhea and no urinary symptoms On 04/24/2018 patient remains in the intensive care unit. Patient headaches have significantly improved. Patient denies any nosebleed. Patient's platelets remain low at 8 this morning patient patient will receive an additional transfusion of platelets this a.m. at this time patient denies chest pain or diarrhea. Patient denies any urinary burning or frequency Objective - Vital Signs Vital signs: Vital Signs Temp 98.1 F 04/24/18 08:00 Pulse 108 H 04/24/18 08:00 Resp 18 04/24/18 08:00 BP 114/89 04/24/18 08:00 Pulse Ox 94 L 04/24/18 08:00 Intake & Output 04/23/18 04/24/18 04/24/18 18:59 06:59 18:59 Intake Total 840 50 125 Output Total 600 Balance 240 50 125 Weight 135 kg Intake: Intake, IV Titration 600 50 Amount Sodium Chloride 0.9% 1, 200 000 ml @ 100 mls/hr IV . Q10H [place] Rx#:[id number] Sodium Chloride 0.9% 1, 400 50 000 ml @ 50 mls/hr IV . Q20H [place] Rx#:[id number] Oral 240 125 Output: Urine 600 Other: Voiding Method Toilet Toilet Toilet # Voids 3 1 - Exam Head normocephalic Neck supple. 2 enlarged right cervical lymph nodes Lungs clear to auscultation bilaterally no wheezing or crackles Heart regular rate and rhythm S1-S2, no rub or gallop Abdomen is soft nontender nondistended positive bowel sounds no hepatosplenomegaly Extremities no edema Neuro alert and orientated to 3 - Labs CBC & Chem 7: 04/24/18 04:39 04/24/18 04:39 Labs: Abnormal Lab Results - Last 24 Hours (Table) 04/22/18 04/24/18 04/24/18 Range/Units 01:56 04:39 04:39 RBC 4.07 L (4.30-5.90) m/uL Hgb 10.5 L (13.0-17.5) gm/dL Hct 32.5 L (39.0-53.0) % MCV 79.7 L (80.0-100.0) fL RDW 15.8 H (11.5-15.5) % Plt Count 8 L* (150-450) k/uL Lymphocytes # (Manual) 5.54 H (1.0-4.8) k/uL Myelocytes # (Manual) 0.08 H (0) k/uL Glucose 184 H (74-99) mg/dL Crossmatch See Detail Microbiology - Last 24 Hours (Table) 04/21/18 13:40 Gram Stain - Preliminary Aspirate Body Fluid Culture - Preliminary 04/21/18 13:40 Anaerobic Culture - Preliminary Bone Marrow 04/19/18 14:06 Blood Culture - Preliminary Blood No Growth after 96 hours 04/19/18 12:08 Blood Culture - Preliminary Blood No Growth after 96 hours Assessment and Plan Assessment: 1. Acute febrile illness. Patient reports high fever of 104. Urine and blood cultures have been ordered. Chest x-ray completed showing normal chest. EKG completed showing sinus tachycardia. Influenza negative. Urine and blood cultures have been ordered. Patient started on Rocephin and Zithromax. Infectious disease following. Lumbar puncture has been performed. Patient remains Unasyn and Levaquin for antibiotics. Blood, urine and cerebrospinal fluid cultures currently negative. Per infectious disease patient remains on Unasyn for IV antibiotic. Patient with acute febrile illness likely secondary to acute EBV infection. no need for antibiotic treatment. continue supportive treatment. 2. History of right ACL repair 3. 2 enlarged right cervical lymph nodes. Dr. stevens has been consulted for hematology services. Case discussed today with Dr. Stevens at this time no need for intervention. Enlarged lymph nodes may be related to infectious process patient will continue to receive antibiotics if he still has enlarged lymph nodes in 2-3 weeks he will be followed as outpatient by Dr. Stevens and then may proceed with biopsy. 4. Elevated liver enzymes. Abdomen ultrasound completed showing marked fatty infiltration of liver redemonstrated. Splenomegaly again seen Alkaline phosphatase 512, ALT 205, AST 192 and total bili 3.5. Per GI services. Liver serologies ordered along with repeat liver enzymes per GI services. Per GI services continue supportive measures and monitor CMP and PT/INR daily 5. Thrombocytopenia. Dr. Stevens following. Per Oncology services likely due to bone marrow suppression from viral infection at this time. Platelet 16. patient started on Zarxio per oncology services. Platelets down to 10. Zaroxolyn has been DC'd per oncology services platelets have been ordered. Repeat platelet level 10. Patient received additional platelet transfusion yesterday. Platelets continue to drop to 5. Orders for additional platelets today per oncology. S/P bone marrow biopys per Oncology. platelets remain low at 9. Patient had stacks's lasting about 6 hours last night he was transferred to intensive care unit patient received a total of 7 platelet transfusions, currently no bleeding platelet count is 8. Per oncology services IVIG has been ordered and patient currently on Solu-Medrol for ITP DVT prophylaxis Lovenox DC'd due to thrombocytopenia, SCDs I performed an examination of the patient and discussed their management with the Nurse Practitioner. I have reviewed the Nurse Practitioner's notes and agree with the documented findings and plan of care
[2018-04-24 11:06] LABS: ALT 169 U/L (21-72); AST 133 U/L (17-59); Albumin 3.5 g/dL (3.5-5.0); Alkaline Phosphatase 547 U/L (38-126); Anion Gap 8 mmol/L; Blood Urea Nitrogen 14 mg/dL (9-20); Calcium 9.1 mg/dL (8.4-10.2); Carbon Dioxide 27 mmol/L (22-30); Chloride 105 mmol/L (98-107); Glucose 183 mg/dL (74-99); Potassium 4.4 mmol/L (3.5-5.1); Sodium 140 mmol/L (137-145); Total Bilirubin 1.8 mg/dL (0.2-1.3); Total Protein 7.3 g/dL (6.3-8.2)
[2018-04-24 11:14] LABS: EBV-VCA (IgG) 3.2 AI
[2018-04-24] MEDS: SODIUM CHLORIDE 0.9% 1,000 ML IV SCH (11:24)
[2018-04-24] MEDS: SENNOSIDES-DOCUSATE SODIUM 1 EACH TAB PO SCH ×2 (11:24→20:18)
[2018-04-24] MEDS: methylPREDNISolone SOD SUCCI 125 MG/2 ML VIAL IV SCH ×3 (12:36→23:42)
[2018-04-24 14:36] VITALS: BMI 38.2
[2018-04-24] MEDS: predniSONE 10 MG TAB PO SCH (17:43)
[2018-04-24] MEDS: LACTATED RINGERS 1,000 ML IV SCH (18:14)
--- NOTE | 2018-04-24 21:09 | P.PN ---
Subjective Progress Note Date: 04/24/18 37-year-old female presents to hospital with significant fatigue and malaise. Also is having significant headaches. He has had extensive workup as noted in the record. Lumbar puncture was performed that is negative. He over continues to have difficulties with intermittent fever and anemia with worsening thrombocytopenia. Admission testing was performed and it positive heterophile antibody was found. No other positive serology to date including negative HIV and hepatitis C. Because of his ongoing thrombocytopenia and anemia, bone marrow aspiration was performed. This was sent for routine a viral assessment of the bone marrow. The patient was evaluated by the oncology team today. They stated to the patient that the virus testing was negative for Sarah-Rodriguez. Some concern arose and consequently further infectious diseases input was requested from the on-call physician. The patient is sitting up eating his dinner. Continues to feel poorly. Is having some low-grade fevers at time. Platelet Count is 10 with transfusions. He was symptomatic significant epistaxis which is now controlled. 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 As noted laboratories are reviewed. The EBV DNA is pending from the bone marrow aspiration. The repeat EBV panel is pending. Patient feeling slightly better today. Still with significant thrombocytopenia. Fevers have trended to improvement. 04/24/2018 the patient is having some further improvement. He started on steroids yesterday is not having fever, his appetite is definitely improved and denied acute new troubles. No nausea or emesis. Family brought in some food and he enjoyed it. Objective - Vital Signs Vital signs: Vital Signs Temp 98.5 F 04/24/18 17:46 Pulse 98 04/24/18 17:46 Resp 16 04/24/18 17:46 BP 143/89 04/24/18 17:46 Pulse Ox 94 L 04/24/18 17:46 Intake & Output 04/24/18 04/24/18 04/25/18 06:59 18:59 06:59 Intake Total 50 365 Balance 50 365 Weight 135 kg 135 kg Intake: Intake, IV Titration 50 Amount Sodium Chloride 0.9% 1, 50 000 ml @ 50 mls/hr IV . Q20H [place] Rx#:[id number] Oral 365 Other: Voiding Method Toilet Toilet # Voids 1 2 - Exam Pleasant 37-year-old male who is a tall but overweight build is sitting up eating and not in distress HEENT: Anicteric conjunctiva are pink and moist nasal mucosa grossly intact without significant lesions, there is no thrush. No active bleeding of the nares at this time Neck: The neck is supple lymphadenopathy is noted especially to the right side of the neck with no thyromegaly Lungs: Good bilateral air entry without significant crackles or wheezing. There is no significant bronchial sounds. There is no egophony or dullness. Heart: Regular rate and rhythm with an audible S1-S2, no S3 no S4. There is no significant murmur click or rub, PMI was nondisplaced. Abdomen: Positive bowel sounds soft and nontender without palpable masses or organomegaly. There was no guarding or rebound. Extremities: The upper extremities have excellent pulses they are symmetric, no significant petechiae or telangiectasia. No splinter hemorrhages were noted. The lower extremities are free from significant edema. The peripheral pulses were 2+ and symmetric. Neuro: Awake alert oriented to person place and time. There are no acute new gross focal sensory motor deficits. Skin significant ecchymosis to recent IV sites. No evidence of any active nasal bleeding or oral bleeding at this time - Labs CBC & Chem 7: 04/24/18 04:39 04/24/18 10:35 Labs: Abnormal Lab Results - Last 24 Hours (Table) 04/22/18 04/22/18 04/24/18 Range/Units 01:56 10:10 04:39 RBC 4.07 L (4.30-5.90) m/uL Hgb 10.5 L (13.0-17.5) gm/dL Hct 32.5 L (39.0-53.0) % MCV 79.7 L (80.0-100.0) fL RDW 15.8 H (11.5-15.5) % Plt Count 8 L* (150-450) k/uL Lymphocytes # (Manual) 5.54 H (1.0-4.8) k/uL Myelocytes # (Manual) 0.08 H (0) k/uL Glucose (74-99) mg/dL Total Bilirubin (0.2-1.3) mg/dL AST (17-59) U/L ALT (21-72) U/L Alkaline Phosphatase (38-126) U/L EBV Capsid Ag IgG Intrp POSITIVE H (NEGATIVE) EBV Capsid Ag IgM Intrp POSITIVE H (NEGATIVE) EBV EA IgG Ab Interp POSITIVE H (NEGATIVE) EBV Nuc Ag IgG Interp POSITIVE H (NEGATIVE) Crossmatch See Detail 04/24/18 04/24/18 Range/Units 04:39 10:35 RBC (4.30-5.90) m/uL Hgb (13.0-17.5) gm/dL Hct (39.0-53.0) % MCV (80.0-100.0) fL RDW (11.5-15.5) % Plt Count (150-450) k/uL Lymphocytes # (Manual) (1.0-4.8) k/uL Myelocytes # (Manual) (0) k/uL Glucose 184 H 183 H (74-99) mg/dL Total Bilirubin 1.8 H (0.2-1.3) mg/dL AST 133 H (17-59) U/L ALT 169 H (21-72) U/L Alkaline Phosphatase 547 H (38-126) U/L EBV Capsid Ag IgG Intrp (NEGATIVE) EBV Capsid Ag IgM Intrp (NEGATIVE) EBV EA IgG Ab Interp (NEGATIVE) EBV Nuc Ag IgG Interp (NEGATIVE) Crossmatch Microbiology - Last 24 Hours (Table) 04/19/18 14:06 Blood Culture - Preliminary Blood No Growth after 120 hours 04/19/18 12:08 Blood Culture - Preliminary Blood No Growth after 120 hours 04/21/18 13:40 Gram Stain - Preliminary Aspirate Body Fluid Culture - Preliminary 04/21/18 13:40 Anaerobic Culture - Preliminary Bone Marrow Laboratory Results WBC 7.7 k/uL (3.8-10.6) 04/24/18 04:39 RBC 4.07 m/uL (4.30-5.90) L 04/24/18 04:39 Hgb 10.5 gm/dL (13.0-17.5) L 04/24/18 04:39 Hct 32.5 % (39.0-53.0) L 04/24/18 04:39 MCV 79.7 fL (80.0-100.0) L 04/24/18 04:39 MCH 25.7 pg (25.0-35.0) 04/24/18 04:39 MCHC 32.3 g/dL (31.0-37.0) 04/24/18 04:39 RDW 15.8 % (11.5-15.5) H 04/24/18 04:39 Plt Count 8 k/uL (150-450) L* 04/24/18 04:39 Neutrophils % 20 % 04/22/18 10:10 Neutrophils % (Manual) 17 % 04/24/18 04:39 Band Neutrophils % 3 % 04/24/18 04:39 Lymphocytes % 55 % 04/22/18 10:10 Lymphocytes % (Manual) 72 % 04/24/18 04:39 Monocytes % 4 % 04/22/18 10:10 Monocytes % (Manual) 7 % 04/24/18 04:39 Eosinophils % 0 % 04/22/18 10:10 Eosinophils % (Manual) 1 % 04/23/18 04:39 Basophils % 2 % 04/22/18 10:10 Basophils % (Manual) 1 % 04/19/18 20:26 Metamyelocytes % 1 % 04/15/18 06:03 Myelocytes % 1 % 04/24/18 04:39 Other Cells % % 04/14/18 06:04 Neutrophils # 2.5 k/uL (1.3-7.7) 04/22/18 10:10 Neutrophils # (Manual) 1.50 k/uL (1.3-7.7) 04/24/18 04:39 Lymphocytes # 6.7 k/uL (1.0-4.8) H 04/22/18 10:10 Lymphocytes # (Manual) 5.54 k/uL (1.0-4.8) H 04/24/18 04:39 Monocytes # 0.5 k/uL (0-1.0) 04/22/18 10:10 Monocytes # (Manual) 0.54 k/uL (0-1.0) 04/24/18 04:39 Eosinophils # 0.0 k/uL (0-0.7) 04/22/18 10:10 Eosinophils # (Manual) 0.11 k/uL (0-0.7) 04/23/18 04:39 Basophils # 0.2 k/uL (0-0.2) 04/22/18 10:10 Basophils # (Manual) 0.08 k/uL (0-0.2) 04/19/18 20:26 Metamyelocytes # (Man) 0.03 k/uL (0) H 04/15/18 06:03 Myelocytes # (Manual) 0.08 k/uL (0) H 04/24/18 04:39 Nucleated RBCs 0 /100 WBC (0-0) 04/24/18 04:39 Differential Comment 04/16/18 06:41 Manual Slide Review Performed 04/24/18 04:39 Reactive Lymphocytes Present 04/24/18 04:39 Large Platelets Present 04/20/18 07:29 RBC Morphology Normal 04/17/18 08:09 Polychromasia Present 04/23/18 04:39 Poikilocytosis (manual Present 04/21/18 07:03 Anisocytosis (manual) Present 04/21/18 07:03 Retic Count 2.5 % (0.5-2.0) H 04/19/18 12:08 PT 10.4 sec (9.0-12.0) 04/23/18 04:39 INR 1.1 (<1.2) 04/23/18 04:39 APTT 26.5 sec (22.0-30.0) 04/20/18 07:29 Fibrinogen 379 mg/dL (200-500) 04/20/18 07:29 D-Dimer 8.48 mg/L FEU (<0.60) H 04/22/18 10:10 Sodium 140 mmol/L (137-145) 04/24/18 10:35 Potassium 4.4 mmol/L (3.5-5.1) 04/24/18 10:35 Chloride 105 mmol/L (98-107) 04/24/18 10:35 Carbon Dioxide 27 mmol/L (22-30) 04/24/18 10:35 Anion Gap 8 mmol/L 04/24/18 10:35 BUN 14 mg/dL (9-20) 04/24/18 10:35 Creatinine 0.73 mg/dL (0.66-1.25) 04/24/18 10:35 Est GFR (CKD-EPI)AfAm >90 (>60 ml/min/1.73 sqM) 04/24/18 10:35 Est GFR (CKD-EPI)NonAf >90 (>60 ml/min/1.73 sqM) 04/24/18 10:35 Glucose 183 mg/dL (74-99) H 04/24/18 10:35 POC Glucose (mg/dL) 104 mg/dL (75-99) H 04/22/18 02:18 POC Glu Debur[employer] Machine ID Buck Siddiqui 04/22/18 02:18 Lactic Ac Sepsis Rflx Y 04/09/18 22:04 Plasma Lactic Acid Esau 0.8 mmol/L (0.7-2.0) 04/10/18 01:40 Uric Acid 5.2 mg/dL (3.5-8.5) 04/20/18 07:29 Calcium 9.1 mg/dL (8.4-10.2) 04/24/18 10:35 Phosphorus 4.5 mg/dL (2.5-4.5) 04/24/18 04:39 Magnesium 2.3 mg/dL (1.6-2.3) 04/24/18 04:39 Iron 35 ug/dL (65-175) L 04/18/18 06:10 TIBC 249 ug/dL (228-460) 04/18/18 06:10 Iron Saturation 14.06 (15.00-50.00) L 04/18/18 06:10 Transferrin 188.0 mg/dL (204.0-354.0) L 04/18/18 06:10 Ferritin 2590.7 ng/mL (22.0-322.0) H 04/18/18 06:10 Total Bilirubin 1.8 mg/dL (0.2-1.3) H 04/24/18 10:35 Conjugated Bilirubin 1.3 mg/dL (0.0-0.3) H 04/18/18 06:10 Unconjugated Bilirubin 0.6 mg/dL (0.0-1.1) 04/18/18 06:10 Delta Bilirubin 1.7 mg/dL (0.0-0.2) H 04/18/18 06:10 AST 133 U/L (17-59) H 04/24/18 10:35 ALT 169 U/L (21-72) H 04/24/18 10:35 Alkaline Phosphatase 547 U/L (38-126) H 04/24/18 10:35 Lactate Dehydrogenase 1600 U/L (313-618) H 04/20/18 07:29 Troponin I <0.012 ng/mL (0.000-0.034) 04/09/18 21:20 Total Protein 7.3 g/dL (6.3-8.2) 04/24/18 10:35 Total Protein (PEP) 5.6 g/dL (6.2-8.2) L 04/12/18 06:36 Albumin 3.5 g/dL (3.5-5.0) 04/24/18 10:35 Albumin (PEP) 2.90 g/dL (3.80-4.90) L 04/12/18 06:36 Qfmfb-2-Mdxmaktwn 0.41 g/dL (0.10-0.40) H 04/12/18 06:36 Jjamn-5-Bdryptjli 0.64 g/dL (0.60-1.00) 04/12/18 06:36 Beta Globulins 0.77 g/dL (0.60-1.30) 04/12/18 06:36 Gamma Globulins 0.87 g/dL (0.70-1.50) 04/12/18 06:36 PEP Interpretation SEE NOTE 04/12/18 06:36 Lsdxv-5-Nlkfyxdtzuh 220.0 mg/dL (99.0-242.0) 04/18/18 06:10 Ceruloplasmin 37.6 mg/dL (20.0-60.0) 04/18/18 06:10 Vitamin B12 515.0 pg/mL (200.0-944.0) 04/20/18 07:29 Methylmalonic Acid 0.33 umol/L (<0.40) 04/20/18 07:29 Folate 11.8 ng/mL 04/20/18 07:29 Urine Color Yellow 04/09/18 23:08 Urine Appearance Clear (Clear) 04/09/18 23:08 Urine pH 6.5 (5.0-8.0) 04/09/18 23:08 Ur Specific [employer] 1.039 (1.001-1.035) H 04/09/18 23:08 Urine Protein 1+ (Negative) H 04/09/18 23:08 Urine Glucose (UA) Negative (Negative) 04/09/18 23:08 Urine Ketones Negative (Negative) 04/09/18 23:08 Urine Blood Negative (Negative) 04/09/18 23:08 Urine Nitrite Negative (Negative) 04/09/18 23:08 Urine Bilirubin Negative (Negative) 04/09/18 23:08 Urine Urobilinogen 4.0 mg/dL (<2.0) 04/09/18 23:08 Ur Leukocyte Esterase Negative (Negative) 04/09/18 23:08 Urine RBC <1 /hpf (0-5) 04/09/18 23:08 Urine WBC 1 /hpf (0-5) 04/09/18 23:08 Ur Squamous Epith Cells <1 /hpf (0-4) 04/09/18 23:08 Urine Bacteria Rare /hpf (None) H 04/09/18 23:08 Urine Mucus Moderate /hpf (None) H 04/09/18 23:08 CSF Tube Number 4 04/10/18 20:46 CSF Volume 3.5 04/10/18 20:46 CSF Appearance Clear 04/10/18 20:46 CSF Color Colorless 04/10/18 20:46 CSF RBC 0 u/L (0-10) 04/10/18 20:46 CSF Tot Nucleated Cells 0 u/L (0-5) 04/10/18 20:46 CSF Glucose 60 mg/dL (40-70) 04/10/18 20:46 CSF Total Protein 86 mg/dL (12-60) H 04/10/18 20:46 IgG 1060.0 mg/dL (700.0-1600.0) 04/20/18 07:29 IgG1 633.0 mg/dL (405.0-1011.0) 04/18/18 06:10 IgG2 262.0 mg/dL (169.0-640.0) 04/18/18 06:10 IgG3 32.2 mg/dL (11.0-85.0) 04/18/18 06:10 IgG4 1.9 mg/dL (3.0-175.0) L 04/18/18 06:10 IgA 372.0 mg/dL (60.0-350.0) H 04/20/18 07:29 IgM 200.0 mg/dL (40.0-280.0) 04/20/18 07:29 Serum [place] Interpret SEE NOTE 04/12/18 06:36 Rheumatoid Factor 10 IU/mL (0-15) 04/12/18 06:36 ISRAEL Screen NEGATIVE (NEGATIVE) 04/12/18 06:36 Anti-Smooth Muscle Ab 17 UNITS (<20) 04/18/18 06:10 Liver/Kid Microsomes Ab 1.2 UNITS (<=20) 04/18/18 06:10 Free [place] LC, Quant 1.32 mg/dL (0.33-1.94) 04/12/18 06:36 CMV IgG Ab Reactive (Non-Reactive) H 04/13/18 06:29 CMV IgM Ab Non-Reactive (Non-Reactive) 04/13/18 06:29 EBV Capsid Ag IgG Ab 3.2 AI 04/22/18 10:10 EBV Capsid Ag IgG Intrp POSITIVE (NEGATIVE) 04/22/18 10:10 EBV Capsid Ag IgM Ab >4.0 AI 04/22/18 10:10 EBV Capsid Ag IgM Intrp POSITIVE (NEGATIVE) 04/22/18 10:10 EBV Early Antigen IgG 5.3 AI 04/22/18 10:10 EBV EA IgG Ab Interp POSITIVE (NEGATIVE) 04/22/18 10:10 EBV Nuclear Ag IgG Ab 7.6 AI 04/22/18 10:10 EBV Nuc Ag IgG Interp POSITIVE (NEGATIVE) 04/22/18 10:10 Hepatitis A IgM Ab Non-Reactive (Non-Reactive) 04/16/18 06:41 Hep Bs Antigen Non-Reactive (Non-Reactive) 04/16/18 06:41 Hep B Core IgM Ab Non-Reactive (Non-Reactive) 04/16/18 06:41 Hep C IgG Ab Non-Reactive (Non-Reactive) 04/16/18 06:41 HSV I&II IgM Ab 0.85 INDEX (<=0.90) 04/18/18 06:10 HSV I IgG Ab 15.60 (< or = 0.90) H 04/18/18 06:10 HSV II IgG 0.08 (< or = 0.90) 04/18/18 06:10 Heterophile Antibody Positive (Negative) 04/16/18 06:41 HIV-1 Antibody Non-Reactive (Non-Reactive) 04/18/18 06:10 HIV Ag/Ab Interpret 04/18/18 06:10 HIV p24 Antibody Non-Reactive (Non-Reactive) 04/18/18 06:10 HIV-2 Antibody Non-Reactive (Non-Reactive) 04/18/18 06:10 HIV P24 Antigen Non-Reactive (Non-Reactive) 04/18/18 06:10 Influenza Type A RNA Not Detected (Not Detectd) 04/09/18 22:04 Influenza Type B (PCR) Not Detected (Not Detectd) 04/09/18 22:04 Urine Legionella Ag Not detected (Not detected) 04/10/18 23:57 Parvovirus B19 IgG Ab 5.84 INDEX (<=0.90) H 04/13/18 06:29 Parvovirus B19 IgM Ab 0.43 INDEX (<=0.90) 04/13/18 06:29 Virus Source Bone Marrow 04/21/18 13:40 Viral Test See Below 04/21/18 13:40 Virus Analysis Interp See Below 04/21/18 13:40 Flow Results See Pathology Report 04/21/18 13:40 Blood Type O Positive 04/22/18 01:56 Blood Type Confirm O Positive 04/18/18 06:10 Blood Type Recheck No 04/22/18 01:56 Antibody Screen NEGATIVE 04/22/18 01:56 Crossmatch See Detail 04/22/18 01:56 Transfuse Platelets 04/24/18 04/24/18 09:08 Spec Expiration Date 04/25/2018 - 3296 04/22/18 01:56 Microbiology 04/19/18 14:06 Blood Blood Culture - Preliminary No Growth after 120 hours 04/19/18 12:08 Blood Blood Culture - Preliminary No Growth after 120 hours 04/21/18 13:40 Aspirate Gram Stain - Preliminary 04/21/18 13:40 Aspirate Body Fluid Culture - Preliminary 04/21/18 13:40 Bone Marrow Anaerobic Culture - Preliminary 04/21/18 13:40 Bone Marrow Fungal Culture - Preliminary 04/10/18 23:36 Blood Blood Culture - Final No Growth after 144 hours 04/09/18 21:20 Blood Blood Culture - Final No Growth after 144 hours 04/10/18 20:46 Cerebral Spinal Fluid CSF Gram Stain - Final 04/10/18 20:46 Cerebral Spinal Fluid CSF Culture - Final 04/09/18 23:08 Urine,Voided Urine Culture - Final Assessment and Plan (1) Pancytopenia Narrative/Plan: 37-year-old male presents to Hospital many days ago feeling very poorly as an extensive workup to date that included a lumbar puncture that was negative for underlying meningeal encephalitis. At admission because of his symptom complex heterophile antibody was performed that was positive, and a EBV panel was negative. Since that time there's been ongoing difficulties with the evidence of a hepatitis as well as the progressive anemia and significant thrombocytopenia. To date only positive testing was of the heterophile antibody. This was performed about 10 days ago and constantly repeated EBV panel is requested to see if there is been development of antibodies. Given the severity of the illness EBV viral load has been requested, obviously a send out lab. The bone marrow viral panel is reviewed with the nursing staff and the patient and his family. His a standard viral PCR panel that does not include Sarah- Rodriguez viral testing. Consequently although the panel was negative it does not exclude Sarah-Rodriguez viral infection. At this time concern will be for Hemophagocytic lymphohistiocytosis which is associated with EBV infection which causes abnormal immune system activation which results in hepatosplenomegaly and hematological abnormality such as anemia and thrombocytopenia. Bone marrow aspiration has already been performed and may be helpful in determining the presence of this disease state. We'll discuss with hematology. 04/23/2018 patient feels slightly better today. Patient is understand that further testing is still in process. The EBV DNA is still pending and hopefully wound VAC by Tuesday. Follow-up EBV serology is in process. 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 Await the serological studies and will follow. 04/24/2018 the patient is feeling slightly better today and that steroids were started and has helped him with some of the symptoms. Case discussed with hematology and they will begin higher doses of steroids as well as IVIG to further evaluate response. EBV panel has come back as strongly positive for acute Sarah-Rodriguez viral infection EBV DNA is still pending Await the bone marrow results with concern for Hemophagocytic lymphohistiocytosis Current Visit: Yes Status: Acute Priority: High Code(s): D61.818 - OTHER PANCYTOPENIA SNOMED Code(s): 578508936 (2) Lymphadenopathy of right cervical region Current Visit: Yes Status: Acute Priority: High Code(s): R59.0 - LOCALIZED ENLARGED LYMPH NODES SNOMED Code(s): 764319526 (3) Hepatitis Current Visit: Yes Status: Acute Code(s): K75.9 - INFLAMMATORY LIVER DISEASE , UNSPECIFIED SNOMED Code(s): 251231688 (4) Heterophil-positive mononucleosis syndrome Current Visit: Yes Status: Acute Code(s): B27.90 - INFECTIOUS MONONUCLEOSIS , UNSPECIFIED WITHOUT COMPLICATION SNOMED Code(s): 22906630
[2018-04-25] MEDS: SODIUM CHLORIDE 0.9% 1,000 ML IV SCH ×2 (04:23→20:43)
[2018-04-25] MEDS: methylPREDNISolone SOD SUCCI 125 MG/2 ML VIAL IV SCH ×4 (06:31→23:41)
[2018-04-25] MEDS: NYSTATIN 100,000 UNIT/ML SUSP 500,000 UNIT/5 ML CUP PO SCH ×4 (07:35→20:43)
[2018-04-25] MEDS: SENNOSIDES-DOCUSATE SODIUM 1 EACH TAB PO SCH ×2 (07:36→20:42)
[2018-04-25 09:43] LABS: HCT 32.8 % (39.0-53.0); HGB 10.8 gm/dL (13.0-17.5); MCH 26.6 pg (25.0-35.0); MCV 80.6 fL (80.0-100.0); Mean Platelet Volume 10.5; RBC 4.07 m/uL (4.30-5.90); RDW 15.8 % (11.5-15.5)
--- NOTE | 2018-04-25 09:43 | P.PN ---
Subjective Progress Note Date: 04/25/18 This is a 37-year-old male patient presents to emergency room with fever 104. Patient states fever started day night and that he has taken Tylenol every 6 hours the fever has been persistent. Patient does complain that he's had slight cough for the past few days and headache. Patient had one episode of emesis in emergency room but denies any other GI issues. Patient denies any significant past medical history. Chest x-ray completed showing normal chest. EKG completed showing sinus tachycardia with a heart rate of 107. Patient denies any alcohol or drug use. Patient denies any nicotine dependence. Initial lactic 2.3. Repeat lactic 0.8. Urinary analysis completed. Influenza A and B negative. Urine and blood cultures have been ordered. Patient started on Zithromax and Rocephin. At this time patient denies chest pain or shortness of breath. Patient denies any nausea vomiting or diarrhea. Patient denies any urinary burning or frequency. Dr. De Santiago has been consulted for infectious disease. On 04/11/2018 patient is currently sitting up in chair. Patient still feels very fatigued. Patient had a temp of 102.8 last night. Patient also has two enlarged lymph nodes on right side of neck. Patient denies any open sores or problems with teeth. Patient denies any ear pain. Patient denies chest pain or shortness breath. Patient denies any nausea vomiting or diarrhea. Patient denies any upper respiratory symptoms. Patient denies any urinary burning or frequency On 04/12/2018 patient currently sitting up in chair with family at bedside. Patient had temp this AM 101.3. Per infectious disease possible viral syndrome versus bacterial pharyngitis. Patient does have right cervical lymph node enlargement. Dr. Stevens per oncology consulted. At this time patient denies chest pain or shortness of breath. Patient denies nausea vomiting or diarrhea. Patient denies any urinary burning or frequency On 04/13/2018 patient was seen and examined on the telemetry floor he is alert and oriented 3 in no apparent distress still having elevated temperature up to 102 this morning still complaining of headache and nausea otherwise no complaints at this time there is no dizziness no chest pain no shortness of breath there is occasional cough no vomiting no abdominal pain no diarrhea and no urinary symptoms On 04/14/2018 patient remains alert and oriented 3. Patient's temp remains elevated at 101.3. This time patient is requesting possible transfer to [facility] for further evaluation. Discussed with case management attempted transferring process. This time patient denies chest pain or shortness breath. Patient denies nausea vomiting or diarrhea. Patient denies any urinary burning or frequency. On 04/15/2018 patient is alert and oriented 3, temperature has been normal in the last 24 hours, he has occasional headache otherwise he denies any complaints , there is no dizziness no chest pain no shortness of breath no cough no nausea or vomiting no abdominal pain no diarrhea and no urinary symptoms enlarged lymph node on the right side of the neck are improving On 04/16/2018 patient was seen and examined on the medical floor he is alert and oriented 3 he is still having low-grade fever occasionally to 99 there is no chills no dizziness he has occasional headache no cough no nausea or vomiting no abdominal pain no diarrhea no burning with urination no frequency or urgency complains that urine is darker and smells strong, he is still complaining of enlarged nodule in the right side of his neck otherwise he denies any complaints On 04/17/2018 patient is alert and oriented 3 patient still having low-grade temps 99.3 this a.m. At this time patient denies chest pain or shortness of breath. Patient denies nausea vomiting or diarrhea. She denies any urinary burning or frequency. Patient still complaining of enlarged lymph nodes on the right side. Patient also complaining of intermittent headaches On 04/18/2018 patient is alert and oriented times.. Patient did have a temperature 100.4 this a.m. Platelets also down to 10. Oncology services are following platelets have been ordered. Patient remains fatigued. She denies chest pain or shortness breath. Patient denies nausea vomiting or diarrhea. Patient denies any urinary burning or frequency. On 04/19/2018 patient is alert and oriented 3 resting comfortably in chair. Fevers have subsided. Patient did receive platelets early this a.m. per oncology. repeat platelet level remains low at 10. Awaiting oncology input. This time patient denies any signs of bleeding. Patient denies any abdominal pain or tenderness. Patient denies nausea vomiting or diarrhea. Patient denies any urinary burning or frequency. Patient's headaches have improved On 04/20/2018 patient remains alert and oriented 3. Patient is currently receiving platelet transfusion for platelet level of 5. Patient is still having low-grade temps at 100.1. Discussed case with oncology services. Planning bone marrow biopsy. Discussed with GI services. Will continue to monitor liver enzymes. At this time patient denies chest pain or shortness of breath. Denies nausea vomiting or diarrhea. Patient denies any urinary burning or frequency On 04/21/2018 Patient is s/p lumbar puncture per oncology. platelets remain low at 9. patient remains alert and oriented x 3. Denies chest pain or shortness of breath. Denies nausea or vomitting. denies any urinary burning or frequency. Patient having low grade temps at 100.1 On 04/23/2018 patient was seen and examined in the intensive care unit he states he is feeling the same, he denies any fever or chills, he is still complaining of headache he is complaining of fatigue and weakness otherwise no complaints there is chest pain or shortness of breath no cough no nausea or vomiting no abdominal pain no diarrhea and no urinary symptoms On 04/24/2018 patient remains in the intensive care unit. Patient headaches have significantly improved. Patient denies any nosebleed. Patient's platelets remain low at 8 this morning patient patient will receive an additional transfusion of platelets this a.m. at this time patient denies chest pain or diarrhea. Patient denies any urinary burning or frequency On 04/25/2018 patient has been to medical surgical floor. Awaiting platelet transfusion. Patient denies any signs of bleeding at this time. Patient states he does feel better. Headaches have subsided. Patient remains afebrile. Denies chest pain or shortness of breath. Patient denies nausea vomiting or diarrhea. Patient denies any urinary burning or frequency. Objective - Vital Signs Vital signs: Vital Signs Temp 96.6 F L 04/25/18 08:00 Pulse 103 H 04/25/18 08:00 Resp 16 04/25/18 08:00 BP 134/77 04/25/18 08:00 Pulse Ox 96 04/25/18 08:00 Intake & Output 04/24/18 04/25/18 04/25/18 18:59 06:59 18:59 Intake Total 365 75 Balance 365 75 Weight 135 kg Intake: Intake, IV Titration 75 Amount Immune Globulin (Gamunex- 75 C) 20 gm In Empty Bag 1 bag @ 0 mls/hr IV .Q0M ONE Rx#:[id number] Oral 365 Other: Voiding Method Toilet # Voids 2 1 - Exam Head normocephalic Neck supple. 2 enlarged right cervical lymph nodes Lungs clear to auscultation bilaterally no wheezing or crackles Heart regular rate and rhythm S1-S2, no rub or gallop Abdomen is soft nontender nondistended positive bowel sounds no hepatosplenomegaly Extremities no edema Neuro alert and orientated to 3 - Labs CBC & Chem 7: 04/24/18 04:39 04/24/18 10:35 Labs: Abnormal Lab Results - Last 24 Hours (Table) 04/22/18 04/24/18 Range/Units 10:10 10:35 Glucose 183 H (74-99) mg/dL Total Bilirubin 1.8 H (0.2-1.3) mg/dL AST 133 H (17-59) U/L ALT 169 H (21-72) U/L Alkaline Phosphatase 547 H (38-126) U/L EBV Capsid Ag IgG Intrp POSITIVE H (NEGATIVE) EBV Capsid Ag IgM Intrp POSITIVE H (NEGATIVE) EBV EA IgG Ab Interp POSITIVE H (NEGATIVE) EBV Nuc Ag IgG Interp POSITIVE H (NEGATIVE) Microbiology - Last 24 Hours (Table) 04/21/18 13:40 Gram Stain - Preliminary Aspirate Body Fluid Culture - Preliminary 04/19/18 14:06 Blood Culture - Preliminary Blood No Growth after 120 hours 04/19/18 12:08 Blood Culture - Preliminary Blood No Growth after 120 hours Assessment and Plan Assessment: 1. Acute febrile illness. Patient reports high fever of 104. Urine and blood cultures have been ordered. Chest x-ray completed showing normal chest. EKG completed showing sinus tachycardia. Influenza negative. Urine and blood cultures have been ordered. Patient started on Rocephin and Zithromax. Infectious disease following. Lumbar puncture has been performed. Patient remains Unasyn and Levaquin for antibiotics. Blood, urine and cerebrospinal fluid cultures currently negative. Per infectious disease patient remains on Unasyn for IV antibiotic. Patient with acute febrile illness likely secondary to acute EBV infection. no need for antibiotic treatment. continue supportive treatment. 2. History of right ACL repair 3. 2 enlarged right cervical lymph nodes. Dr. stevens has been consulted for hematology services. Case discussed today with Dr. Stevens at this time no need for intervention. Enlarged lymph nodes may be related to infectious process patient will continue to receive antibiotics if he still has enlarged lymph nodes in 2-3 weeks he will be followed as outpatient by Dr. Stevens and then may proceed with biopsy. 4. Elevated liver enzymes. Abdomen ultrasound completed showing marked fatty infiltration of liver redemonstrated. Splenomegaly again seen Alkaline phosphatase 512, ALT 205, AST 192 and total bili 3.5. Per GI services. Liver serologies ordered along with repeat liver enzymes per GI services. Per GI services continue supportive measures and monitor CMP and PT/INR daily 5. Thrombocytopenia. Dr. Stevens following. Per Oncology services likely due to bone marrow suppression from viral infection at this time. Platelet 16. patient started on Zarxio per oncology services. Platelets down to 10. Zaroxolyn has been DC'd per oncology services platelets have been ordered. Repeat platelet level 10. Patient received additional platelet transfusion yesterday. Platelets continue to drop to 5. Orders for additional platelets today per oncology. S/P bone marrow biopys per Oncology. platelets remain low at 9. Patient had stacks's lasting about 6 hours last night he was transferred to intensive care unit patient received a total of 7 platelet transfusions, currently no bleeding platelet count is 8. 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 Awaiting on platelets transfusion DVT prophylaxis Lovenox DC'd due to thrombocytopenia, SCDs I performed an examination of the patient and discussed their management with the Nurse Practitioner. I have reviewed the Nurse Practitioner's notes and agree with the documented findings and plan of care
[2018-04-25 09:45] LABS: Platelet Count 41 k/uL (150-450)
[2018-04-25 10:00] LABS: ALT 144 U/L (21-72); AST 87 U/L (17-59); Albumin 3.5 g/dL (3.5-5.0); Alkaline Phosphatase 436 U/L (38-126); Anion Gap 8 mmol/L; Blood Urea Nitrogen 21 mg/dL (9-20); Carbon Dioxide 25 mmol/L (22-30); Chloride 108 mmol/L (98-107); Glucose 195 mg/dL (74-99); Potassium 4.7 mmol/L (3.5-5.1); Sodium 141 mmol/L (137-145); Total Bilirubin 1.3 mg/dL (0.2-1.3); Total Protein 7.7 g/dL (6.3-8.2)
[2018-04-25 10:17] LABS: Magnesium 2.3 mg/dL (1.6-2.3); Phosphorus 3.8 mg/dL (2.5-4.5)
[2018-04-25 10:23] LABS: Neutrophils % (M) 45 %; Nucleated Red Blood Cells 1 /100 WBC (0-0); Total Cells Counted 100
[2018-04-25 10:24] LABS: Lymphocytes # (M) 3.83 k/uL (1.0-4.8); Monocytes # (M) 1.07 k/uL (0-1.0); Neutrophils # (M) 4.01 k/uL (1.3-7.7); Poikilocytosis (M) Present; Reactive Lymphocytes Present; WBC 8.9 k/uL (3.8-10.6)
--- NOTE | 2018-04-25 10:47 | P.PN ---
Subjective Progress Note Date: 04/25/18 Principal diagnosis: Pancytopenia, or fever of unknown origin Agent seen today in follow-up. He states he has felt good for the last 2 days. His appetite is improved, energy levels better, no fevers or bleeding, there is some healing of his bruises on his forearms noted. Objective - Vital Signs Vital signs: Vital Signs Temp 96.8 F L 04/25/18 10:30 Pulse 93 04/25/18 10:30 Resp 18 04/25/18 10:30 BP 141/91 04/25/18 10:30 Pulse Ox 93 L 04/25/18 10:30 Intake & Output 04/24/18 04/25/18 04/25/18 18:59 06:59 18:59 Intake Total 365 75 120 Balance 365 75 120 Weight 135 kg Intake: Intake, IV Titration 75 Amount Immune Globulin (Gamunex- 75 C) 20 gm In Empty Bag 1 bag @ 0 mls/hr IV .Q0M ONE Rx#:[id number] Oral 365 Blood Product 120 Platelet Irr Pheresis 120 Acda Unit [id number] Other: Voiding Method Toilet # Voids 2 1 - Constitutional General appearance: Present: cooperative, no acute distress, obese - EENT Eyes: Present: anicteric sclerae, EOMI ENT: Present: hearing grossly normal, normal oropharynx - Neck Carotids: bilateral: upstroke normal - Respiratory Respiratory: bilateral: CTA - Cardiovascular Rhythm: regular Heart sounds: normal: S1, S2 - Peripheral edema leg Peripheral Edema: bilateral: None - Gastrointestinal General gastrointestinal: Present: normal bowel sounds, soft - Integumentary Integumentary Comment(s): bilateral upper extremity bruising in known areas of trauma Integumentary: Present: normal - Neurologic Neurologic: Present: CNII-XII intact - Musculoskeletal Musculoskeletal: Present: strength equal bilaterally - Psychiatric Psychiatric: Present: A&O x's 3, appropriate affect, intact judgment & insight - Labs CBC & Chem 7: 04/25/18 09:03 04/25/18 09:03 Labs: Abnormal Lab Results - Last 24 Hours (Table) 04/22/18 04/24/18 04/25/18 Range/Units 10:10 10:35 09:03 RBC 4.07 L (4.30-5.90) m/uL Hgb 10.8 L (13.0-17.5) gm/dL Hct 32.8 L (39.0-53.0) % RDW 15.8 H (11.5-15.5) % Plt Count 41 L D (150-450) k/uL Monocytes # (Manual) 1.07 H (0-1.0) k/uL Nucleated RBCs 1 H (0-0) /100 WBC Chloride (98-107) mmol/L BUN (9-20) mg/dL Glucose 183 H (74-99) mg/dL Total Bilirubin 1.8 H (0.2-1.3) mg/dL AST 133 H (17-59) U/L ALT 169 H (21-72) U/L Alkaline Phosphatase 547 H (38-126) U/L EBV Capsid Ag IgG Intrp POSITIVE H (NEGATIVE) EBV Capsid Ag IgM Intrp POSITIVE H (NEGATIVE) EBV EA IgG Ab Interp POSITIVE H (NEGATIVE) EBV Nuc Ag IgG Interp POSITIVE H (NEGATIVE) 04/25/18 Range/Units 09:03 RBC (4.30-5.90) m/uL Hgb (13.0-17.5) gm/dL Hct (39.0-53.0) % RDW (11.5-15.5) % Plt Count (150-450) k/uL Monocytes # (Manual) (0-1.0) k/uL Nucleated RBCs (0-0) /100 WBC Chloride 108 H (98-107) mmol/L BUN 21 H (9-20) mg/dL Glucose 195 H (74-99) mg/dL Total Bilirubin (0.2-1.3) mg/dL AST 87 H (17-59) U/L ALT 144 H (21-72) U/L Alkaline Phosphatase 436 H (38-126) U/L EBV Capsid Ag IgG Intrp (NEGATIVE) EBV Capsid Ag IgM Intrp (NEGATIVE) EBV EA IgG Ab Interp (NEGATIVE) EBV Nuc Ag IgG Interp (NEGATIVE) Microbiology - Last 24 Hours (Table) 04/21/18 13:40 Gram Stain - Preliminary Aspirate Body Fluid Culture - Preliminary 04/19/18 14:06 Blood Culture - Preliminary Blood No Growth after 120 hours 04/19/18 12:08 Blood Culture - Preliminary Blood No Growth after 120 hours Assessment and Plan (1) Lymphadenopathy of right cervical region Narrative/Plan: Ongoing monitoring. Current Visit: Yes Status: Acute Priority: High Code(s): R59.0 - LOCALIZED ENLARGED LYMPH NODES SNOMED Code(s): 176987398 (2) Pancytopenia Narrative/Plan: Hgb stable. White blood cell count recovered and stable after short course of growth factors. Platelet count today is 41,000. Patient was started on more aggressive treatment for clinical suspicion of underlying ITP. Steroids were increased and immunoglobulin infusion. Platelets were ordered yesterday and infusion started prior to plt count reporting, this was stopped due to the platelet count. Cont monitoring of platelet counts. Pending bone marrow biopsy results. Continue treatment as ordered at this time. Will look for infectious disease recommendations regarding the Ebstein Rodriguez virus workup. Current Visit: Yes Status: Acute Priority: High Code(s): D61.818 - OTHER PANCYTOPENIA SNOMED Code(s): 567417612 Plan: Pt will cont TUMS for now for GI prophylaxis. CBC daily
--- NOTE | 2018-04-25 16:01 | P.PN ---
Subjective Progress Note Date: 04/25/18 Principal diagnosis: Epistaxis, profound thrombocytopenia, febrile illness, elevated transaminases, suspect Sarah-Rodriguez virus This is a 37-year-old white male patient who was initially admitted on 2017 the emergency department for evaluation of upper respiratory symptoms, fever of 104F, malaise, chills, sore throat, cough. Chest x-ray was negative, a CT was obtained for evaluation of headache, fever and acute mental status changes, and was negative. CT of abdomen, chest and pelvis was obtained, and showed ascending thoracic aortic aneurysm at the level of main pulmonary artery measuring 4.2 cm, inguinal adenopathy, splenomegaly, complex left kidney cyst. Initial CBC was within normal limits, no leukocytosis, platelet count was 193 , electrolytes were within normal limits, renal profile was unremarkable, with B1 of 21 and creatinine of 1, plasma lactic acid was elevated at the time at 2.3 , urinalysis showed 1+ protein, rare bacteria, 4 LV or nitrites. Influenza screen was negative. Patient was started on antibiotics, fever pattern has improved, cultures, including CSF study have been negative. Patient did develop right upper neck lump 2 days ago, which was mildly tender on palpation, and had some improvement since starting antibiotics. CT of the neck was obtained, and showed no suspicious adenopathy. No prior history of malignancy, no history of smoking or chewing tobacco. Patient has been feeling tired, with fever pattern has been improving, patient developed leukopenia and trauma cytopenia with elevated liver enzymes pointing towards a possible viral infection with a question of possible Sarah-Rodriguez virus. Patient's CMV IgM was negative, IgG was positive. There is no evidence of any bacterial infection , patient was treated with antibiotics in the form of Unasyn, check since been discontinued. Last night on 04/21/2018 patient developed significant epistaxis , he was vomiting bright red blood, platelet count was down to 9,000, and patient was transferred to the intensive care unit for further monitoring and treatment. Patient has received 7 units of weight loss, this morning his platelet count up to 16, WBC is 10.7, hemoglobin is 10.8, INR is 1.1, renal profile and electrolytes are within normal limits, liver enzymes remain elevated , AST is 07/14/1983, ALT is 224, alkaline phosphatase at 562, she is afebrile, this morning there has been no further vomiting or epistaxis. He is in no distress, denies any chest pain or dyspnea. Lung sounds are clear to auscultation, abdomen is soft and nontender. Sinus tachycardia on the monitor, with a rate of 101 BPM, but pressures 120/92, sats on 2 L per nasal cannula is 95%. On 08/23/2017 patient seen in follow-up in the intensive care unit, he is sitting up in the chair, in no acute distress, room air pulse ox is 94%, afebrile. All microbiology including CSF and bone marrow cultures remain negative. Today's CBC showed WBC of 7.7, hemoglobin of 10.5, and platelet count of 8, electrolytes and renal profile were within normal limits, liver enzymes are improving, with total bilirubin of 2.8, AST of 190, ALT 181, ALT of 572. Patient is status post transfusion with 6 units of platelets, patient will receive additional platelets today, hematology is on, and IVIG has been ordered. He remains on Solu-Medrol 60 mg every 6 hours, he still has the right neck lump, nontender, and he states it has improved. Remains on maintenance IV fluids of 0.9 normal saline at a rate of 50 ML per hour. There has been no recurrence of epistaxis. Denies any dyspnea, denies any chest pain or shortness of breath. On 04/25/2018 patient seen in follow-up in medical surgical floor. Patient received IVIG infusions, and today's lab work revealed platelet count up to 41. WBC is 8.9, hemoglobin is 10.8, sodium is 141, potassium is 4.7, chloride is 108, BUN is 21 and creatinine 0.7. Liver enzymes are continuously improving. There has been no recurrence of staxis, no dyspnea, vital signs are stable, patient is on room air sats are on the percent, afebrile, cultures remain negative. Objective - Vital Signs Vital signs: Vital Signs Temp 98.2 F 04/25/18 15:00 Pulse 100 04/25/18 15:00 Resp 16 04/25/18 15:00 BP 141/84 04/25/18 15:00 Pulse Ox 100 04/25/18 15:00 Intake & Output 04/24/18 04/25/18 04/25/18 18:59 06:59 18:59 Intake Total 365 75 120 Balance 365 75 120 Weight 135 kg Intake: Intake, IV Titration 75 Amount Immune Globulin (Gamunex- 75 C) 20 gm In Empty Bag 1 bag @ 0 mls/hr IV .Q0M ONE Rx#:[id number] Oral 365 Blood Product 120 Platelet Irr Pheresis 120 Acda Unit [id number] Other: Voiding Method Toilet # Voids 2 1 3 - Exam GENERAL EXAM: Alert, pleasant 37-year-old white male, currently on room air HEAD: Normocephalic/atraumatic. EYES: Normal reaction of pupils, equal size. Conjunctiva pink, sclera white. NOSE: Clear with pink turbinates. THROAT: No erythema or exudates. NECK: No masses, no JVD, no thyroid enlargement, no adenopathy. CHEST: No chest wall deformity. Symmetrical expansion. LUNGS: Equal air entry with no crackles, wheeze, rhonchi or dullness. CVS: Regular rate and rhythm, normal S1 and S2, no gallops, no murmurs, no rubs ABDOMEN: Soft, nontender. No hepatosplenomegaly, normal bowel sounds, no guarding or rigidity. EXTREMITIES: No clubbing, trace pretibial edema, no cyanosis, 2+ pulses and upper and lower extremities. MUSCULOSKELETAL: Muscle strength and tone normal. SPINE: No scoliosis or deformity SKIN: No rashes CENTRAL NERVOUS SYSTEM: Alert and oriented -3. No focal deficits, tone is normal in all 4 extremities. PSYCHIATRIC: Alert and oriented -3. Appropriate affect. Intact judgment and insight. - Labs CBC & Chem 7: 04/25/18 09:03 04/25/18 09:03 Labs: Abnormal Lab Results - Last 24 Hours (Table) 04/25/18 04/25/18 Range/Units 09:03 09:03 RBC 4.07 L (4.30-5.90) m/uL Hgb 10.8 L (13.0-17.5) gm/dL Hct 32.8 L (39.0-53.0) % RDW 15.8 H (11.5-15.5) % Plt Count 41 L D (150-450) k/uL Monocytes # (Manual) 1.07 H (0-1.0) k/uL Nucleated RBCs 1 H (0-0) /100 WBC Chloride 108 H (98-107) mmol/L BUN 21 H (9-20) mg/dL Glucose 195 H (74-99) mg/dL AST 87 H (17-59) U/L ALT 144 H (21-72) U/L Alkaline Phosphatase 436 H (38-126) U/L Microbiology - Last 24 Hours (Table) 04/19/18 12:08 Blood Culture - Final Blood No Growth after 144 hours 04/21/18 13:40 Gram Stain - Preliminary Aspirate Body Fluid Culture - Preliminary 04/19/18 14:06 Blood Culture - Preliminary Blood No Growth after 120 hours Assessment and Plan Plan: Assessment: #1. Acute epistaxis, related to profound thrombocytopenia, resolved #2. Leukopenia, thrombocytopenia, febrile illness, splenomegaly, no evidence of bacterial infection, likely related to Sarah-Rodriguez virus. Patient is status post bone marrow biopsy, results are pending #3. Right upper cervical adenopathy, soft tissue CT of the neck did not show any suspicious adenopathy #4. Elevated liver enzymes, improving #5. Lifetime nonsmoker #6. Suspect underlying obstructive sleep apnea, patient has typical features of IAN Plan: No acute issues overnight, platelet count is improved, liver enzymes are improving, dynamically stable, no dyspnea, no chest pain. No epistaxis. No fever or chills, cultures remain negative. We will see on as-needed basis. I performed a history & physical examination of the patient and discussed their management with my nurse practitioner, Francy Woods. I reviewed the nurse practitioner's note and agree with the documented findings and plan of care. Lung sounds are positive clear breath sounds. The findings and the impression was discussed with the patient. I attest to the documentation by the nurse practitioner. Time with Patient: Less than 30
[2018-04-25] MEDS: LACTATED RINGERS 1,000 ML IV SCH (18:04)
[2018-04-26] MEDS: methylPREDNISolone SOD SUCCI 125 MG/2 ML VIAL IV SCH ×4 (06:22→23:25)
--- NOTE | 2018-04-26 07:49 | P.PN ---
Subjective Progress Note Date: 04/26/18 Principal diagnosis: Elevated liver enzymes LFTS improved yesterday TB 1.3. AST 87. ALT 144. AP 436. Platelets increase yesterday to 41,000. Feels well. Denies abdominal pain. Afebrile. Objective - Vital Signs Vital signs: Vital Signs Temp 97.0 F L 04/25/18 23:00 Pulse 94 04/25/18 23:00 Resp 16 04/25/18 23:00 BP 139/76 04/25/18 23:00 Pulse Ox 92 L 04/25/18 23:00 Intake & Output 04/25/18 04/26/18 04/26/18 18:59 06:59 18:59 Intake Total 120 320 Balance 120 320 Intake: Oral 320 Blood Product 120 Platelet Irr Pheresis 120 Acda Unit [id number] Other: # Voids 3 1 - Exam General appearance: The patient is alert, oriented, in no acute distress. HET: Head is normocephalic and atraumatic. Right neck swelling. Pupils are equal and reactive. Oropharynx is clear without lesions. Neck: Supple without lymphadenopathy. Trachea midline. Heart: S1 S2. Regular rate and rhythm. Lungs: No crackles or wheezes are heard. Abdomen: Soft, nontender, nondistended with bowel sounds. No peritoneal signs. No palpable organomegaly or masses. Extremities: Normal skin color and turgor. No cyanosis, rash, ulceration, clubbing, or edema. Radial and pedal pulses are 2/4 bilaterally. Neurological: No focal deficits. Strength and sensation are grossly intact. - Labs CBC & Chem 7: 04/25/18 09:03 04/25/18 09:03 Labs: Abnormal Lab Results - Last 24 Hours (Table) 04/25/18 04/25/18 Range/Units 09:03 09:03 RBC 4.07 L (4.30-5.90) m/uL Hgb 10.8 L (13.0-17.5) gm/dL Hct 32.8 L (39.0-53.0) % RDW 15.8 H (11.5-15.5) % Plt Count 41 L D (150-450) k/uL Monocytes # (Manual) 1.07 H (0-1.0) k/uL Nucleated RBCs 1 H (0-0) /100 WBC Chloride 108 H (98-107) mmol/L BUN 21 H (9-20) mg/dL Glucose 195 H (74-99) mg/dL AST 87 H (17-59) U/L ALT 144 H (21-72) U/L Alkaline Phosphatase 436 H (38-126) U/L Microbiology - Last 24 Hours (Table) 04/21/18 13:40 Anaerobic Culture - Final Bone Marrow 04/21/18 13:40 Gram Stain - Final Aspirate Body Fluid Culture - Final 04/19/18 14:06 Blood Culture - Final Blood No Growth after 144 hours 04/19/18 12:08 Blood Culture - Final Blood No Growth after 144 hours Assessment and Plan (1) Viral hepatitis Current Visit: Yes Status: Acute Code(s): B19.9 - UNSPECIFIED VIRAL HEPATITIS WITHOUT HEPATIC COMA SNOMED Code(s): 5931716 (2) Elevated liver enzymes Current Visit: Yes Status: Acute Code(s): R74.8 - ABNORMAL LEVELS OF OTHER SERUM ENZYMES SNOMED Code(s): 410539432 (3) Viral infection Current Visit: Yes Status: Acute Code(s): B34.9 - VIRAL INFECTION, UNSPECIFIED SNOMED Code(s): 69016279 (4) Bicytopenia Current Visit: Yes Status: Acute Code(s): D75.89 - OTHER SPECIFIED DISEASES OF BLOOD AND BLOOD-FORMING ORGANS SNOMED Code(s): 079243497 (5) Epistaxis Current Visit: Yes Status: Acute Code(s): R04.0 - EPISTAXIS SNOMED Code(s) : 200347011 Plan: 1. Overall his chemistries are improving. Bilirubin has normalized. Discharge per attending and consultants. We'll follow as needed. Assessment and plan a care discussed with Dr. Stevenson
[2018-04-26] MEDS: SENNOSIDES-DOCUSATE SODIUM 1 EACH TAB PO SCH ×2 (08:05→20:48)
[2018-04-26] MEDS ORDERED: IMMUNE GLOBULIN (GAMMAGARD) 1 GM/10 ML VIAL IV ONE (08:59)
[2018-04-26] MEDS ORDERED: IMMUNE GLOBULIN (GAMUNEX-C) 20 GM in EMPTY BAG 1 BAG IV ONE ×3 (10:00)
[2018-04-26 10:08] LABS: ALT 142 U/L (21-72); AST 79 U/L (17-59); Albumin 3.3 g/dL (3.5-5.0); Alkaline Phosphatase 424 U/L (38-126); Anion Gap 6 mmol/L; Blood Urea Nitrogen 19 mg/dL (9-20); Carbon Dioxide 25 mmol/L (22-30); Chloride 106 mmol/L (98-107); Glucose 318 mg/dL (74-99); Magnesium 2.2 mg/dL (1.6-2.3); Phosphorus 3.8 mg/dL (2.5-4.5); Potassium 4.6 mmol/L (3.5-5.1); Sodium 137 mmol/L (137-145); Total Bilirubin 1.2 mg/dL (0.2-1.3); Total Protein 7.2 g/dL (6.3-8.2)
[2018-04-26 10:14] LABS: Anisocytosis Slight; HCT 32.9 % (39.0-53.0); HGB 10.2 gm/dL (13.0-17.5); Hypochromasia Slight; MCH 25.4 pg (25.0-35.0); MCHC 30.8 g/dL (31.0-37.0); MCV 82.3 fL (80.0-100.0); Mean Platelet Volume 8.9; Platelet Count 66 k/uL (150-450); RDW 16.2 % (11.5-15.5)
--- NOTE | 2018-04-26 10:46 | P.PN ---
Subjective Progress Note Date: 04/26/18 This is a 37-year-old male patient presents to emergency room with fever 104. Patient states fever started day night and that he has taken Tylenol every 6 hours the fever has been persistent. Patient does complain that he's had slight cough for the past few days and headache. Patient had one episode of emesis in emergency room but denies any other GI issues. Patient denies any significant past medical history. Chest x-ray completed showing normal chest. EKG completed showing sinus tachycardia with a heart rate of 107. Patient denies any alcohol or drug use. Patient denies any nicotine dependence. Initial lactic 2.3. Repeat lactic 0.8. Urinary analysis completed. Influenza A and B negative. Urine and blood cultures have been ordered. Patient started on Zithromax and Rocephin. At this time patient denies chest pain or shortness of breath. Patient denies any nausea vomiting or diarrhea. Patient denies any urinary burning or frequency. Dr. De Santiago has been consulted for infectious disease. On 04/11/2018 patient is currently sitting up in chair. Patient still feels very fatigued. Patient had a temp of 102.8 last night. Patient also has two enlarged lymph nodes on right side of neck. Patient denies any open sores or problems with teeth. Patient denies any ear pain. Patient denies chest pain or shortness breath. Patient denies any nausea vomiting or diarrhea. Patient denies any upper respiratory symptoms. Patient denies any urinary burning or frequency On 04/12/2018 patient currently sitting up in chair with family at bedside. Patient had temp this AM 101.3. Per infectious disease possible viral syndrome versus bacterial pharyngitis. Patient does have right cervical lymph node enlargement. Dr. Stevens per oncology consulted. At this time patient denies chest pain or shortness of breath. Patient denies nausea vomiting or diarrhea. Patient denies any urinary burning or frequency On 04/13/2018 patient was seen and examined on the telemetry floor he is alert and oriented 3 in no apparent distress still having elevated temperature up to 102 this morning still complaining of headache and nausea otherwise no complaints at this time there is no dizziness no chest pain no shortness of breath there is occasional cough no vomiting no abdominal pain no diarrhea and no urinary symptoms On 04/14/2018 patient remains alert and oriented 3. Patient's temp remains elevated at 101.3. This time patient is requesting possible transfer to [facility] for further evaluation. Discussed with case management attempted transferring process. This time patient denies chest pain or shortness breath. Patient denies nausea vomiting or diarrhea. Patient denies any urinary burning or frequency. On 04/15/2018 patient is alert and oriented 3, temperature has been normal in the last 24 hours, he has occasional headache otherwise he denies any complaints , there is no dizziness no chest pain no shortness of breath no cough no nausea or vomiting no abdominal pain no diarrhea and no urinary symptoms enlarged lymph node on the right side of the neck are improving On 04/16/2018 patient was seen and examined on the medical floor he is alert and oriented 3 he is still having low-grade fever occasionally to 99 there is no chills no dizziness he has occasional headache no cough no nausea or vomiting no abdominal pain no diarrhea no burning with urination no frequency or urgency complains that urine is darker and smells strong, he is still complaining of enlarged nodule in the right side of his neck otherwise he denies any complaints On 04/17/2018 patient is alert and oriented 3 patient still having low-grade temps 99.3 this a.m. At this time patient denies chest pain or shortness of breath. Patient denies nausea vomiting or diarrhea. She denies any urinary burning or frequency. Patient still complaining of enlarged lymph nodes on the right side. Patient also complaining of intermittent headaches On 04/18/2018 patient is alert and oriented times.. Patient did have a temperature 100.4 this a.m. Platelets also down to 10. Oncology services are following platelets have been ordered. Patient remains fatigued. She denies chest pain or shortness breath. Patient denies nausea vomiting or diarrhea. Patient denies any urinary burning or frequency. On 04/19/2018 patient is alert and oriented 3 resting comfortably in chair. Fevers have subsided. Patient did receive platelets early this a.m. per oncology. repeat platelet level remains low at 10. Awaiting oncology input. This time patient denies any signs of bleeding. Patient denies any abdominal pain or tenderness. Patient denies nausea vomiting or diarrhea. Patient denies any urinary burning or frequency. Patient's headaches have improved On 04/20/2018 patient remains alert and oriented 3. Patient is currently receiving platelet transfusion for platelet level of 5. Patient is still having low-grade temps at 100.1. Discussed case with oncology services. Planning bone marrow biopsy. Discussed with GI services. Will continue to monitor liver enzymes. At this time patient denies chest pain or shortness of breath. Denies nausea vomiting or diarrhea. Patient denies any urinary burning or frequency On 04/21/2018 Patient is s/p lumbar puncture per oncology. platelets remain low at 9. patient remains alert and oriented x 3. Denies chest pain or shortness of breath. Denies nausea or vomitting. denies any urinary burning or frequency. Patient having low grade temps at 100.1 On 04/23/2018 patient was seen and examined in the intensive care unit he states he is feeling the same, he denies any fever or chills, he is still complaining of headache he is complaining of fatigue and weakness otherwise no complaints there is chest pain or shortness of breath no cough no nausea or vomiting no abdominal pain no diarrhea and no urinary symptoms On 04/24/2018 patient remains in the intensive care unit. Patient headaches have significantly improved. Patient denies any nosebleed. Patient's platelets remain low at 8 this morning patient patient will receive an additional transfusion of platelets this a.m. at this time patient denies chest pain or diarrhea. Patient denies any urinary burning or frequency On 04/25/2018 patient has been to medical surgical floor. Awaiting platelet transfusion. Patient denies any signs of bleeding at this time. Patient states he does feel better. Headaches have subsided. Patient remains afebrile. Denies chest pain or shortness of breath. Patient denies nausea vomiting or diarrhea. Patient denies any urinary burning or frequency. On 04/26/2018 patient is currently sitting up in chair. Patient is alert and oriented 3. Platelets improving to 66. Patient denies headache. Patient has been afebrile. Patient denies any nausea vomiting or diarrhea. Patient denies any signs of bleeding. Patient denies any urinary burning or frequency. Cervical lymph node significantly improved. Patient denies headache. Objective - Vital Signs Vital signs: Vital Signs Temp 96.8 F L 04/26/18 06:57 Pulse 98 04/26/18 06:57 Resp 18 04/26/18 06:57 BP 126/72 04/26/18 06:57 Pulse Ox 95 04/26/18 06:57 Intake & Output 04/25/18 04/26/18 04/26/18 18:59 06:59 18:59 Intake Total 120 320 Balance 120 320 Intake: Oral 320 Blood Product 120 Platelet Irr Pheresis 120 Acda Unit [id number] Other: # Voids 3 1 - Exam Head normocephalic Neck supple. Right cervical lymph nodes significantly improved Lungs clear to auscultation bilaterally no wheezing or crackles Heart regular rate and rhythm S1-S2, no rub or gallop Abdomen is soft nontender nondistended positive bowel sounds no hepatosplenomegaly Extremities no edema Neuro alert and orientated to 3 - Labs CBC & Chem 7: 04/26/18 09:31 04/26/18 09:31 Labs: Abnormal Lab Results - Last 24 Hours (Table) 04/26/18 04/26/18 Range/Units 09:31 09:31 RBC 4.00 L (4.30-5.90) m/uL Hgb 10.2 L (13.0-17.5) gm/dL Hct 32.9 L (39.0-53.0) % MCHC 30.8 L (31.0-37.0) g/dL RDW 16.2 H (11.5-15.5) % Plt Count 66 L D (150-450) k/uL Glucose 318 H (74-99) mg/dL AST 79 H (17-59) U/L ALT 142 H (21-72) U/L Alkaline Phosphatase 424 H (38-126) U/L Albumin 3.3 L (3.5-5.0) g/dL Microbiology - Last 24 Hours (Table) 04/21/18 13:40 Anaerobic Culture - Final Bone Marrow 04/21/18 13:40 Gram Stain - Final Aspirate Body Fluid Culture - Final 04/19/18 14:06 Blood Culture - Final Blood No Growth after 144 hours 04/19/18 12:08 Blood Culture - Final Blood No Growth after 144 hours Assessment and Plan Assessment: 1. Acute febrile illness. Patient reports high fever of 104. Urine and blood cultures have been ordered. Chest x-ray completed showing normal chest. EKG completed showing sinus tachycardia. Influenza negative. Urine and blood cultures have been ordered. Patient started on Rocephin and Zithromax. Infectious disease following. Lumbar puncture has been performed. Patient remains Unasyn and Levaquin for antibiotics. Blood, urine and cerebrospinal fluid cultures currently negative. Per infectious disease patient remains on Unasyn for IV antibiotic. Patient with acute febrile illness likely secondary to acute EBV infection. no need for antibiotic treatment. continue supportive treatment. 2. History of right ACL repair 3. 2 enlarged right cervical lymph nodes. Dr. stevens has been consulted for hematology services. Case discussed today with Dr. Stevens at this time no need for intervention. Enlarged lymph nodes may be related to infectious process patient will continue to receive antibiotics if he still has enlarged lymph nodes in 2-3 weeks he will be followed as outpatient by Dr. Stevens and then may proceed with biopsy. 4. Elevated liver enzymes. Abdomen ultrasound completed showing marked fatty infiltration of liver redemonstrated. Splenomegaly again seen Alkaline phosphatase 512, ALT 205, AST 192 and total bili 3.5. Per GI services. Liver serologies ordered along with repeat liver enzymes per GI services. Per GI services continue supportive measures and monitor CMP and PT/INR daily. Total bilirubin within normal limits at 1.2. AST trending down to 79. ALT 142 and alkaline phosphatase [address] Stevens following. Per Oncology services likely due to bone marrow suppression from viral infection at this time. Platelet 16. patient started on Zarxio per oncology services. Platelets down to 10. Zaroxolyn has been DC'd per oncology services platelets have been ordered. Repeat platelet level 10. Patient received additional platelet transfusion yesterday. Platelets continue to drop to 5. Orders for additional platelets today per oncology. S/P bone marrow biopys per Oncology. platelets remain low at 9. Patient had stacks's lasting about 6 hours last night he was transferred to intensive care unit patient received a total of 7 platelet transfusions, currently no bleeding platelet count is 8. 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 Platelets improving to 66. Patient remains on IV steroids 6. Hyperglycemia related to steroids. Patient started on sliding scale coverage DVT prophylaxis Lovenox DC'd due to thrombocytopenia, SCDs I performed an examination of the patient and discussed their management with the Nurse Practitioner. I have reviewed the Nurse Practitioner's notes and agree with the documented findings and plan of care
[2018-04-26 11:52] LABS: Glucose,Whole Blood 280 mg/dL (75-99)
[2018-04-26 11:59] LABS: Lymphocytes # (M) 3.33 k/uL (1.0-4.8); Monocytes # (M) 0.99 k/uL (0-1.0); Neutrophils # (M) 4.68 k/uL (1.3-7.7); Neutrophils % (M) 52 %; Nucleated Red Blood Cells 0 /100 WBC (0-0); Total Cells Counted 100
[2018-04-26] MEDS: INSULIN ASPART 100 UNIT/ML 1 ML 10 ML VIAL SQ SCH ×3 (12:12→21:34)
--- NOTE | 2018-04-26 15:25 | P.PN ---
Subjective Progress Note Date: 04/26/18 Principal diagnosis: Pancytopenia, or fever of unknown origin Pt seen today in f/u, he is continues to improved, eating today, appetite is good. Bruises continue to heal, no significant new bruising or bleeding to report. Objective - Vital Signs Vital signs: Vital Signs Temp 96.9 F L 04/26/18 13:58 Pulse 99 04/26/18 13:58 Resp 20 04/26/18 13:58 BP 133/77 04/26/18 13:58 Pulse Ox 94 L 04/26/18 13:58 Intake & Output 04/25/18 04/26/18 04/26/18 18:59 06:59 18:59 Intake Total 120 320 600 Balance 120 320 600 Intake: IV 600 Immune Globulin (Gamunex- 200 C) 20 gm In Empty Bag 1 bag @ 0 mls/hr IV .Q0M ONE Rx#:[id number] Immune Globulin (Gamunex- 200 C) 20 gm In Empty Bag 1 bag @ 0 mls/hr IV .Q0M ONE Rx#:[id number] Immune Globulin (Gamunex- 200 C) 20 gm In Empty Bag 1 bag @ 0 mls/hr IV .Q0M ONE Rx#:[id number] Oral 320 Blood Product 120 Platelet Irr Pheresis 120 Acda Unit [id number] Other: # Voids 3 1 2 - Exam WD, obese, sitting up in bed eating, NAD, A&Ox4, respirations even and unlabored , no swelling in the legs. - Labs CBC & Chem 7: 04/26/18 09:31 04/26/18 09:31 Labs: Abnormal Lab Results - Last 24 Hours (Table) 04/26/18 04/26/18 04/26/18 Range/Units 09:31 09:31 11:42 RBC 4.00 L (4.30-5.90) m/uL Hgb 10.2 L (13.0-17.5) gm/dL Hct 32.9 L (39.0-53.0) % MCHC 30.8 L (31.0-37.0) g/dL RDW 16.2 H (11.5-15.5) % Plt Count 66 L D (150-450) k/uL Glucose 318 H (74-99) mg/dL POC Glucose (mg/dL) 280 H (75-99) mg/dL AST 79 H (17-59) U/L ALT 142 H (21-72) U/L Alkaline Phosphatase 424 H (38-126) U/L Albumin 3.3 L (3.5-5.0) g/dL Microbiology - Last 24 Hours (Table) 04/21/18 13:40 Anaerobic Culture - Final Bone Marrow 04/21/18 13:40 Gram Stain - Final Aspirate Body Fluid Culture - Final 04/19/18 14:06 Blood Culture - Final Blood No Growth after 144 hours 04/19/18 12:08 Blood Culture - Final Blood No Growth after 144 hours Assessment and Plan (1) Lymphadenopathy of right cervical region Narrative/Plan: Will cont to monitor Current Visit: Yes Status: Acute Priority: High Code(s): R59.0 - LOCALIZED ENLARGED LYMPH NODES SNOMED Code(s): 923590166 (2) Pancytopenia Narrative/Plan: Hgb stable. White blood cell count recovered and stable after short course of growth factors. Platelet count today is 66,000. Cont solumedrol, another dose of IVIG ordered Cont monitoring of platelet counts. Pending bone marrow biopsy results. Current Visit: Yes Status: Acute Priority: High Code(s): D61.818 - OTHER PANCYTOPENIA SNOMED Code(s): 122120640 Plan: Pt will cont TUMS for now for GI prophylaxis. CBC daily Discussed ITP, causes and treatment. Pt will be placed on an oral taper of steroids at discharge with f/u with Dr. Stevens 3-4 weeks later.
[2018-04-26 17:34] LABS: Glucose,Whole Blood 219 mg/dL (75-99)
[2018-04-26 21:28] LABS: Glucose,Whole Blood 220 mg/dL (75-99)
--- NOTE | 2018-04-26 23:26 | P.PN ---
Subjective Progress Note Date: 04/26/18 37-year-old female presents to hospital with significant fatigue and malaise. Also is having significant headaches. He has had extensive workup as noted in the record. Lumbar puncture was performed that is negative. He over continues to have difficulties with intermittent fever and anemia with worsening thrombocytopenia. Admission testing was performed and it positive heterophile antibody was found. No other positive serology to date including negative HIV and hepatitis C. Because of his ongoing thrombocytopenia and anemia, bone marrow aspiration was performed. This was sent for routine a viral assessment of the bone marrow. The patient was evaluated by the oncology team today. They stated to the patient that the virus testing was negative for Sarah-Rodriguez. Some concern arose and consequently further infectious diseases input was requested from the on-call physician. The patient is sitting up eating his dinner. Continues to feel poorly. Is having some low-grade fevers at time. Platelet Count is 10 with transfusions. He was symptomatic significant epistaxis which is now controlled. 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 As noted laboratories are reviewed. The EBV DNA is pending from the bone marrow aspiration. The repeat EBV panel is pending. Patient feeling slightly better today. Still with significant thrombocytopenia. Fevers have trended to improvement. 04/24/2018 the patient is having some further improvement. He started on steroids yesterday is not having fever, his appetite is definitely improved and denied acute new troubles. No nausea or emesis. Family brought in some food and he enjoyed it. 04/26/2018 patient is feeling better today. He is quite pleased this clinic on is increased to 66. His energy levels improved. However with high-dose steroids his blood sugars of increasing his been receiving some insulin therapy is a bit discouraged with this but understands that it is temporary. No bleeding events occurred. Appetite is excellent without nausea emesis diarrhea hematemesis or hematochezia and no epistaxis. Objective - Vital Signs Vital signs: Vital Signs Temp 96.9 F L 04/26/18 13:58 Pulse 99 04/26/18 13:58 Resp 20 04/26/18 13:58 BP 133/77 04/26/18 13:58 Pulse Ox 94 L 04/26/18 13:58 Intake & Output 04/26/18 04/26/18 04/27/18 06:59 18:59 06:59 Intake Total 320 600 Balance 320 600 Weight 135 kg Intake: IV 600 Immune Globulin (Gamunex- 200 C) 20 gm In Empty Bag 1 bag @ 0 mls/hr IV .Q0M ONE Rx#:[id number] Immune Globulin (Gamunex- 200 C) 20 gm In Empty Bag 1 bag @ 0 mls/hr IV .Q0M ONE Rx#:[id number] Immune Globulin (Gamunex- 200 C) 20 gm In Empty Bag 1 bag @ 0 mls/hr IV .Q0M ONE Rx#:[id number] Oral 320 Other: Voiding Method Toilet # Voids 1 2 - Exam Pleasant 37-year-old male who is a tall but overweight build is sitting up eating and not in distress HEENT: Anicteric conjunctiva are pink and moist nasal mucosa grossly intact without significant lesions, there is no thrush. No active bleeding of the nares at this time Neck: The neck is supple lymphadenopathy is noted especially to the right side of the neck with no thyromegaly Lungs: Good bilateral air entry without significant crackles or wheezing. There is no significant bronchial sounds. There is no egophony or dullness. Heart: Regular rate and rhythm with an audible S1-S2, no S3 no S4. There is no significant murmur click or rub, PMI was nondisplaced. Abdomen: Positive bowel sounds soft and nontender without palpable masses or organomegaly. There was no guarding or rebound. Extremities: The upper extremities have excellent pulses they are symmetric, no significant petechiae or telangiectasia. No splinter hemorrhages were noted. The lower extremities are free from significant edema. The peripheral pulses were 2+ and symmetric. Neuro: Awake alert oriented to person place and time. There are no acute new gross focal sensory motor deficits. Skin significant ecchymosis to recent IV sites. No evidence of any active nasal bleeding or oral bleeding at this time - Labs CBC & Chem 7: 04/26/18 09:31 04/26/18 09:31 Labs: Abnormal Lab Results - Last 24 Hours (Table) 04/26/18 04/26/18 04/26/18 Range/Units 09:31 09:31 11:42 RBC 4.00 L (4.30-5.90) m/uL Hgb 10.2 L (13.0-17.5) gm/dL Hct 32.9 L (39.0-53.0) % MCHC 30.8 L (31.0-37.0) g/dL RDW 16.2 H (11.5-15.5) % Plt Count 66 L D (150-450) k/uL Glucose 318 H (74-99) mg/dL POC Glucose (mg/dL) 280 H (75-99) mg/dL AST 79 H (17-59) U/L ALT 142 H (21-72) U/L Alkaline Phosphatase 424 H (38-126) U/L Albumin 3.3 L (3.5-5.0) g/dL 04/26/18 04/26/18 Range/Units 17:22 21:23 RBC (4.30-5.90) m/uL Hgb (13.0-17.5) gm/dL Hct (39.0-53.0) % MCHC (31.0-37.0) g/dL RDW (11.5-15.5) % Plt Count (150-450) k/uL Glucose (74-99) mg/dL POC Glucose (mg/dL) 219 H 220 H (75-99) mg/dL AST (17-59) U/L ALT (21-72) U/L Alkaline Phosphatase (38-126) U/L Albumin (3.5-5.0) g/dL Microbiology - Last 24 Hours (Table) 04/21/18 13:40 Anaerobic Culture - Final Bone Marrow Laboratory Results WBC 9.0 k/uL (3.8-10.6) 04/26/18 09:31 RBC 4.00 m/uL (4.30-5.90) L 04/26/18 09:31 Hgb 10.2 gm/dL (13.0-17.5) L 04/26/18 09:31 Hct 32.9 % (39.0-53.0) L 04/26/18 09:31 MCV 82.3 fL (80.0-100.0) 04/26/18 09:31 MCH 25.4 pg (25.0-35.0) 04/26/18 09:31 MCHC 30.8 g/dL (31.0-37.0) L 04/26/18 09:31 RDW 16.2 % (11.5-15.5) H 04/26/18 09:31 Plt Count 66 k/uL (150-450) L D 04/26/18 09:31 Neutrophils % 20 % 04/22/18 10:10 Neutrophils % (Manual) 52 % 04/26/18 09:31 Band Neutrophils % 3 % 04/24/18 04:39 Lymphocytes % 55 % 04/22/18 10:10 Lymphocytes % (Manual) 37 % 04/26/18 09:31 Monocytes % 4 % 04/22/18 10:10 Monocytes % (Manual) 11 % 04/26/18 09:31 Eosinophils % 0 % 04/22/18 10:10 Eosinophils % (Manual) 1 % 04/23/18 04:39 Basophils % 2 % 04/22/18 10:10 Basophils % (Manual) 1 % 04/19/18 20:26 Metamyelocytes % 1 % 04/15/18 06:03 Myelocytes % 1 % 04/24/18 04:39 Other Cells % % 04/14/18 06:04 Neutrophils # 2.5 k/uL (1.3-7.7) 04/22/18 10:10 Neutrophils # (Manual) 4.68 k/uL (1.3-7.7) 04/26/18 09:31 Lymphocytes # 6.7 k/uL (1.0-4.8) H 04/22/18 10:10 Lymphocytes # (Manual) 3.33 k/uL (1.0-4.8) 04/26/18 09:31 Monocytes # 0.5 k/uL (0-1.0) 04/22/18 10:10 Monocytes # (Manual) 0.99 k/uL (0-1.0) 04/26/18 09:31 Eosinophils # 0.0 k/uL (0-0.7) 04/22/18 10:10 Eosinophils # (Manual) 0.11 k/uL (0-0.7) 04/23/18 04:39 Basophils # 0.2 k/uL (0-0.2) 04/22/18 10:10 Basophils # (Manual) 0.08 k/uL (0-0.2) 04/19/18 20:26 Metamyelocytes # (Man) 0.03 k/uL (0) H 04/15/18 06:03 Myelocytes # (Manual) 0.08 k/uL (0) H 04/24/18 04:39 Nucleated RBCs 0 /100 WBC (0-0) 04/26/18 09:31 Differential Comment 04/16/18 06:41 Manual Slide Review Performed 04/26/18 09:31 Reactive Lymphocytes Present 04/25/18 09:03 Large Platelets Present 04/20/18 07:29 RBC Morphology Normal 04/17/18 08:09 Polychromasia Present 04/23/18 04:39 Hypochromasia Slight 04/26/18 09:31 Poikilocytosis (manual Present 04/25/18 09:03 Anisocytosis Slight 04/26/18 09:31 Anisocytosis (manual) Present 04/21/18 07:03 Retic Count 2.5 % (0.5-2.0) H 04/19/18 12:08 PT 10.4 sec (9.0-12.0) 04/23/18 04:39 INR 1.1 (<1.2) 04/23/18 04:39 APTT 26.5 sec (22.0-30.0) 04/20/18 07:29 Fibrinogen 379 mg/dL (200-500) 04/20/18 07:29 D-Dimer 8.48 mg/L FEU (<0.60) H 04/22/18 10:10 Sodium 137 mmol/L (137-145) 04/26/18 09:31 Potassium 4.6 mmol/L (3.5-5.1) 04/26/18 09:31 Chloride 106 mmol/L (98-107) 04/26/18 09:31 Carbon Dioxide 25 mmol/L (22-30) 04/26/18 09:31 Anion Gap 6 mmol/L 04/26/18 09:31 BUN 19 mg/dL (9-20) 04/26/18 09:31 Creatinine 0.72 mg/dL (0.66-1.25) 04/26/18 09:31 Est GFR (CKD-EPI)AfAm >90 (>60 ml/min/1.73 sqM) 04/26/18 09:31 Est GFR (CKD-EPI)NonAf >90 (>60 ml/min/1.73 sqM) 04/26/18 09:31 Glucose 318 mg/dL (74-99) H 04/26/18 09:31 POC Glucose (mg/dL) 220 mg/dL (75-99) H 04/26/18 21:23 POC Glu Dba Manager ID Tiana Parsons 04/26/18 21:23 Lactic Ac Sepsis Rflx Y 04/09/18 22:04 Plasma Lactic Acid Esau 0.8 mmol/L (0.7-2.0) 04/10/18 01:40 Uric Acid 5.2 mg/dL (3.5-8.5) 04/20/18 07:29 Calcium 9.0 mg/dL (8.4-10.2) 04/26/18 09:31 Phosphorus 3.8 mg/dL (2.5-4.5) 04/26/18 09:31 Magnesium 2.2 mg/dL (1.6-2.3) 04/26/18 09:31 Iron 35 ug/dL (65-175) L 04/18/18 06:10 TIBC 249 ug/dL (228-460) 04/18/18 06:10 Iron Saturation 14.06 (15.00-50.00) L 04/18/18 06:10 Transferrin 188.0 mg/dL (204.0-354.0) L 04/18/18 06:10 Ferritin 2590.7 ng/mL (22.0-322.0) H 04/18/18 06:10 Total Bilirubin 1.2 mg/dL (0.2-1.3) 04/26/18 09:31 Conjugated Bilirubin 1.3 mg/dL (0.0-0.3) H 04/18/18 06:10 Unconjugated Bilirubin 0.6 mg/dL (0.0-1.1) 04/18/18 06:10 Delta Bilirubin 1.7 mg/dL (0.0-0.2) H 04/18/18 06:10 AST 79 U/L (17-59) H 04/26/18 09:31 ALT 142 U/L (21-72) H 04/26/18 09:31 Alkaline Phosphatase 424 U/L (38-126) H 04/26/18 09:31 Lactate Dehydrogenase 1600 U/L (313-618) H 04/20/18 07:29 Troponin I <0.012 ng/mL (0.000-0.034) 04/09/18 21:20 Total Protein 7.2 g/dL (6.3-8.2) 04/26/18 09:31 Total Protein (PEP) 5.6 g/dL (6.2-8.2) L 04/12/18 06:36 Albumin 3.3 g/dL (3.5-5.0) L 04/26/18 09:31 Albumin (PEP) 2.90 g/dL (3.80-4.90) L 04/12/18 06:36 Pzhlx-0-Iaaciksmi 0.41 g/dL (0.10-0.40) H 04/12/18 06:36 Mjyvc-6-Huajdfvrr 0.64 g/dL (0.60-1.00) 04/12/18 06:36 Beta Globulins 0.77 g/dL (0.60-1.30) 04/12/18 06:36 Gamma Globulins 0.87 g/dL (0.70-1.50) 04/12/18 06:36 PEP Interpretation SEE NOTE 04/12/18 06:36 Yzpzg-2-Vvqjtcbcpyq 220.0 mg/dL (99.0-242.0) 04/18/18 06:10 Ceruloplasmin 37.6 mg/dL (20.0-60.0) 04/18/18 06:10 Vitamin B12 515.0 pg/mL (200.0-944.0) 04/20/18 07:29 Methylmalonic Acid 0.33 umol/L (<0.40) 04/20/18 07:29 Folate 11.8 ng/mL 04/20/18 07:29 Urine Color Yellow 04/09/18 23:08 Urine Appearance Clear (Clear) 04/09/18 23:08 Urine pH 6.5 (5.0-8.0) 04/09/18 23:08 Ur Specific [place] 1.039 (1.001-1.035) H 04/09/18 23:08 Urine Protein 1+ (Negative) H 04/09/18 23:08 Urine Glucose (UA) Negative (Negative) 04/09/18 23:08 Urine Ketones Negative (Negative) 04/09/18 23:08 Urine Blood Negative (Negative) 04/09/18 23:08 Urine Nitrite Negative (Negative) 04/09/18 23:08 Urine Bilirubin Negative (Negative) 04/09/18 23:08 Urine Urobilinogen 4.0 mg/dL (<2.0) 04/09/18 23:08 Ur Leukocyte Esterase Negative (Negative) 04/09/18 23:08 Urine RBC <1 /hpf (0-5) 04/09/18 23:08 Urine WBC 1 /hpf (0-5) 04/09/18 23:08 Ur Squamous Epith Cells <1 /hpf (0-4) 04/09/18 23:08 Urine Bacteria Rare /hpf (None) H 04/09/18 23:08 Urine Mucus Moderate /hpf (None) H 04/09/18 23:08 CSF Tube Number 4 04/10/18 20:46 CSF Volume 3.5 04/10/18 20:46 CSF Appearance Clear 04/10/18 20:46 CSF Color Colorless 04/10/18 20:46 CSF RBC 0 u/L (0-10) 04/10/18 20:46 CSF Tot Nucleated Cells 0 u/L (0-5) 04/10/18 20:46 CSF Glucose 60 mg/dL (40-70) 04/10/18 20:46 CSF Total Protein 86 mg/dL (12-60) H 04/10/18 20:46 IgG 1060.0 mg/dL (700.0-1600.0) 04/20/18 07:29 IgG1 633.0 mg/dL (405.0-1011.0) 04/18/18 06:10 IgG2 262.0 mg/dL (169.0-640.0) 04/18/18 06:10 IgG3 32.2 mg/dL (11.0-85.0) 04/18/18 06:10 IgG4 1.9 mg/dL (3.0-175.0) L 04/18/18 06:10 IgA 372.0 mg/dL (60.0-350.0) H 04/20/18 07:29 IgM 200.0 mg/dL (40.0-280.0) 04/20/18 07:29 Serum [place] Interpret SEE NOTE 04/12/18 06:36 Rheumatoid Factor 10 IU/mL (0-15) 04/12/18 06:36 [place] Screen NEGATIVE (NEGATIVE) 04/12/18 06:36 Anti-Smooth Muscle Ab 17 UNITS (<20) 04/18/18 06:10 Liver/Kid Microsomes Ab 1.2 UNITS (<=20) 04/18/18 06:10 [place] LC, Quant 1.32 mg/dL (0.33-1.94) 04/12/18 06:36 CMV IgG Ab Reactive (Non-Reactive) H 04/13/18 06:29 CMV IgM Ab Non-Reactive (Non-Reactive) 04/13/18 06:29 EBV Capsid Ag IgG Ab 3.2 AI 04/22/18 10:10 EBV Capsid Ag IgG Intrp POSITIVE (NEGATIVE) H 04/22/18 10:10 EBV Capsid Ag IgM Ab >4.0 AI 04/22/18 10:10 EBV Capsid Ag IgM Intrp POSITIVE (NEGATIVE) H 04/22/18 10:10 EBV Early Antigen IgG 5.3 AI 04/22/18 10:10 EBV EA IgG Ab Interp POSITIVE (NEGATIVE) 04/22/18 10:10 EBV Nuclear Ag IgG Ab 7.6 AI 04/22/18 10:10 EBV Nuc Ag IgG Interp POSITIVE (NEGATIVE) H 04/22/18 10:10 Hepatitis A IgM Ab Non-Reactive (Non-Reactive) 04/16/18 06:41 Hep Bs Antigen Non-Reactive (Non-Reactive) 04/16/18 06:41 Hep B Core IgM Ab Non-Reactive (Non-Reactive) 04/16/18 06:41 Hep C IgG Ab Non-Reactive (Non-Reactive) 04/16/18 06:41 HSV I&II IgM Ab 0.85 INDEX (<=0.90) 04/18/18 06:10 HSV I IgG Ab 15.60 (< or = 0.90) H 04/18/18 06:10 HSV II IgG 0.08 (< or = 0.90) 04/18/18 06:10 Heterophile Antibody Positive (Negative) 04/16/18 06:41 HIV-1 Antibody Non-Reactive (Non-Reactive) 04/18/18 06:10 HIV Ag/Ab Interpret 04/18/18 06:10 HIV p24 Antibody Non-Reactive (Non-Reactive) 04/18/18 06:10 HIV-2 Antibody Non-Reactive (Non-Reactive) 04/18/18 06:10 HIV P24 Antigen Non-Reactive (Non-Reactive) 04/18/18 06:10 Influenza Type A RNA Not Detected (Not Detectd) 04/09/18 22:04 Influenza Type B (PCR) Not Detected (Not Detectd) 04/09/18 22:04 Urine Legionella Ag Not detected (Not detected) 04/10/18 23:57 Parvovirus B19 IgG Ab 5.84 INDEX (<=0.90) H 04/13/18 06:29 Parvovirus B19 IgM Ab 0.43 INDEX (<=0.90) 04/13/18 06:29 Virus Source Bone Marrow 04/21/18 13:40 Viral Test See Below 04/21/18 13:40 Virus Analysis Interp See Below 04/21/18 13:40 Flow Results See Pathology Report 04/21/18 13:40 Blood Type O Positive 04/22/18 01:56 Blood Type Confirm O Positive 04/18/18 06:10 Blood Type Recheck No 04/22/18 01:56 Antibody Screen NEGATIVE 04/22/18 01:56 Crossmatch See Detail 04/22/18 01:56 Transfuse Platelets 04/24/18 04/24/18 09:08 Spec Expiration Date 04/25/2018 6437 04/22/18 01:56 Microbiology 04/21/18 13:40 Bone Marrow Anaerobic Culture - Final 04/21/18 13:40 Aspirate Gram Stain - Final 04/21/18 13:40 Aspirate Body Fluid Culture - Final 04/19/18 14:06 Blood Blood Culture - Final No Growth after 144 hours 04/19/18 12:08 Blood Blood Culture - Final No Growth after 144 hours 04/21/18 13:40 Bone Marrow Fungal Culture - Preliminary 04/10/18 23:36 Blood Blood Culture - Final No Growth after 144 hours 04/09/18 21:20 Blood Blood Culture - Final No Growth after 144 hours 04/10/18 20:46 Cerebral Spinal Fluid CSF Gram Stain - Final 04/10/18 20:46 Cerebral Spinal Fluid CSF Culture - Final 04/09/18 23:08 Urine,Voided Urine Culture - Final Assessment and Plan (1) Pancytopenia Narrative/Plan: 37-year-old male presents to Hospital many days ago feeling very poorly as an extensive workup to date that included a lumbar puncture that was negative for underlying meningeal encephalitis. At admission because of his symptom complex heterophile antibody was performed that was positive, and a EBV panel was negative. Since that time there's been ongoing difficulties with the evidence of a hepatitis as well as the progressive anemia and significant thrombocytopenia. To date only positive testing was of the heterophile antibody. This was performed about 10 days ago and constantly repeated EBV panel is requested to see if there is been development of antibodies. Given the severity of the illness EBV viral load has been requested, obviously a send out lab. The bone marrow viral panel is reviewed with the nursing staff and the patient and his family. His a standard viral PCR panel that does not include Sarah- Rodriguez viral testing. Consequently although the panel was negative it does not exclude Sarah-Rodriguez viral infection. At this time concern will be for Hemophagocytic lymphohistiocytosis which is associated with EBV infection which causes abnormal immune system activation which results in hepatosplenomegaly and hematological abnormality such as anemia and thrombocytopenia. Bone marrow aspiration has already been performed and may be helpful in determining the presence of this disease state. We'll discuss with hematology. 04/23/2018 patient feels slightly better today. Patient is understand that further testing is still in process. The EBV DNA is still pending and hopefully wound VAC by Tuesday. Follow-up EBV serology is in process. 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 Await the serological studies and will follow. 04/24/2018 the patient is feeling slightly better today and that steroids were started and has helped him with some of the symptoms. Case discussed with hematology and they will begin higher doses of steroids as well as IVIG to further evaluate response. EBV panel has come back as strongly positive for acute Sarah-Rodriguez viral infection EBV DNA is still pending Await the bone marrow results with concern for Hemophagocytic lymphohistiocytosis 04/26/2018 patient is feeling better today. The platelet count is increased to 66 which has helped his mood tremendously. Pulse 40 trying to get discharged from the hospital for the next day or so. They're working with his glucose control given the high-dose of steroids and the impact that it had on his blood glucose. Overall he is definitely improved with hours of any active bleeding. His received his final dose of IVIG today. He will be on a reducing dose of steroids the time of his discharge. As noted the EBV panels come back as strongly positive for acute EBV infection. EBV DNA is pending. Final bone marrow results are still pending. With the discharge home soon in follow-up in the outpatient clinic. Current Visit: Yes Status: Acute Priority: High Code(s): D61.818 - OTHER PANCYTOPENIA SNOMED Code(s): 419868550 (2) Lymphadenopathy of right cervical region Current Visit: Yes Status: Acute Priority: High Code(s): R59.0 - LOCALIZED ENLARGED LYMPH NODES SNOMED Code(s): 928925630 (3) Hepatitis Current Visit: Yes Status: Acute Code(s): K75.9 - INFLAMMATORY LIVER DISEASE , UNSPECIFIED SNOMED Code(s): 891370999 (4) Heterophil-positive mononucleosis syndrome Current Visit: Yes Status: Acute Code(s): B27.90 - INFECTIOUS MONONUCLEOSIS , UNSPECIFIED WITHOUT COMPLICATION SNOMED Code(s): 08087851
[2018-04-27] MEDS: methylPREDNISolone SOD SUCCI 125 MG/2 ML VIAL IV SCH ×2 (05:13→12:54)
[2018-04-27 07:17] LABS: Glucose,Whole Blood 226 mg/dL (75-99)
[2018-04-27] MEDS: INSULIN ASPART 100 UNIT/ML 1 ML 10 ML VIAL SQ SCH ×2 (08:00→13:21)
[2018-04-27] MEDS: SENNOSIDES-DOCUSATE SODIUM 1 EACH TAB PO SCH (08:01)
[2018-04-27 08:16] VITALS: BP 131/72; PULSE 71; RESP 16; TEMP 96.8
[2018-04-27 10:09] LABS: HCT 33.5 % (39.0-53.0); HGB 10.7 gm/dL (13.0-17.5); MCH 26.2 pg (25.0-35.0); MCHC 31.9 g/dL (31.0-37.0); MCV 82.2 fL (80.0-100.0); Mean Platelet Volume 7.6; RBC 4.07 m/uL (4.30-5.90); WBC 9.6 k/uL (3.8-10.6)
[2018-04-27 10:19] LABS: Platelet Count 97 k/uL (150-450)
[2018-04-27 10:27] LABS: ALT 145 U/L (21-72); AST 73 U/L (17-59); Albumin 3.6 g/dL (3.5-5.0); Alkaline Phosphatase 391 U/L (38-126); Anion Gap 9 mmol/L; Blood Urea Nitrogen 22 mg/dL (9-20); Calcium 9.2 mg/dL (8.4-10.2); Carbon Dioxide 24 mmol/L (22-30); Chloride 105 mmol/L (98-107); Glucose 276 mg/dL (74-99); Magnesium 2.1 mg/dL (1.6-2.3); Phosphorus 4.4 mg/dL (2.5-4.5); Potassium 4.9 mmol/L (3.5-5.1); Sodium 138 mmol/L (137-145); Total Bilirubin 1.1 mg/dL (0.2-1.3)
[2018-04-27 11:04] LABS: Band Neutrophils % 1 %; Monocytes # (M) 0.19 k/uL (0-1.0); Neutrophils % (M) 46 %; Nucleated Red Blood Cells 0 /100 WBC (0-0); Total Cells Counted 100
[2018-04-27 11:06] LABS: Reactive Lymphocytes Present
[2018-04-27 12:33] LABS: Glucose,Whole Blood 213 mg/dL (75-99)
--- NOTE | 2018-04-27 13:37 | P.DS ---
Providers Date of admission: 04/12/18 12:26 Expected date of discharge: 04/27/18 Attending physician: Sarah Rushing Consults: 04/10/18 10:16 Consult Physician Routine Consulting Provider: Ino De Santiago Consult Reason/Comments: Fever of unknown origin Do you want consulting provider notified?: Yes 04/10/18 16:46 Consult Physician Urgent Consulting Provider: [facility] Consult Reason/Comments: lumbar puncture Do you want consulting provider notified?: Yes 04/11/18 11:00 Consult Physician Routine Consulting Provider: John Stevens Consult Reason/Comments: enlaraged right neck lymph nodes Do you want consulting provider notified?: Yes 04/22/18 01:39 Consult Physician Stat Consulting Provider: Govind Mack Consult Reason/Comments: ICU Do you want consulting provider notified?: Yes Primary care physician: Lilo Patel [facility] Course: Discharge Diagnosis 1. Acute febrile illness. Patient reports high fever of 104. Urine and blood cultures have been ordered. Chest x-ray completed showing normal chest. EKG completed showing sinus tachycardia. Influenza negative. Urine and blood cultures have been ordered. Patient started on Rocephin and Zithromax. Infectious disease following. Lumbar puncture has been performed. Patient remains Unasyn and Levaquin for antibiotics. Blood, urine and cerebrospinal fluid cultures currently negative. Per infectious disease patient remains on Unasyn for IV antibiotic. Patient with acute febrile illness likely secondary to acute EBV infection. no need for antibiotic treatment. continue supportive treatment. Infectious disease EBV panels came back strongly positive for acute EBV infection EBV DNA is pending. Final bone marrow results are still pending patient has been cleared for discharge from infectious disease standpoint will follow-up in outpatient clinic. 2. History of right ACL repair 3. 2 enlarged right cervical lymph nodes. Dr. stevens has been consulted for hematology services. Case discussed today with Dr. Stevens at this time no need for intervention. Enlarged lymph nodes may be related to infectious process patient will continue to receive antibiotics if he still has enlarged lymph nodes in 2-3 weeks he will be followed as outpatient by Dr. Stevens and then may proceed with biopsy. 4. Elevated liver enzymes. Abdomen ultrasound completed showing marked fatty infiltration of liver redemonstrated. Splenomegaly again seen Alkaline phosphatase 512, ALT 205, AST 192 and total bili 3.5. Per GI services. Liver serologies ordered along with repeat liver enzymes per GI services. Per GI services continue supportive measures and monitor CMP and PT/INR daily. Total bilirubin within normal limits at 1.2. AST trending down to 79. ALT 142 and alkaline phosphatase 424. GI services have cleared patient for discharge 5. Thrombocytopenia. Dr. Stevens following. Per Oncology services likely due to bone marrow suppression from viral infection at this time. Platelet 16. patient started on Zarxio per oncology services. Platelets down to 10. Zaroxolyn has been DC'd per oncology services platelets have been ordered. Repeat platelet level 10. Patient received additional platelet transfusion yesterday. Platelets continue to drop to 5. Orders for additional platelets today per oncology. S/P bone marrow biopys per Oncology. platelets remain low at 9. Patient had stacks's lasting about 6 hours last night he was transferred to intensive care unit patient received a total of 7 platelet transfusions, currently no bleeding platelet count is 8. 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 Platelets improving to 66. Discussed case with oncology service. Patient received last dose of IVIG yesterday. Steroids have been switched to oral and patient will be DC'd home on prednisone taper per oncology. Patient has been cleared for discharge from oncology standpoint patient to follow-up outpatient in regards to bone marrow biopsy results 6. Hyperglycemia related to steroids. Patient started on sliding scale coverage Hospital course This is a 37-year-old male patient presents to emergency room with fever 104. Patient states fever started Saturday night and that he has taken Tylenol every 6 hours the fever has been persistent. Patient does complain that he's had slight cough for the past few days and headache. Patient had one episode of emesis in emergency room but denies any other GI issues. Patient denies any significant past medical history. Chest x-ray completed showing normal chest. EKG completed showing sinus tachycardia with a heart rate of 107. Patient denies any alcohol or drug use. Patient denies any nicotine dependence. Initial lactic 2.3. Repeat lactic 0.8. Urinary analysis completed. Influenza A and B negative. Urine and blood cultures have been ordered. Patient started on Zithromax and Rocephin. At this time patient denies chest pain or shortness of breath. Patient denies any nausea vomiting or diarrhea. Patient denies any urinary burning or frequency. Dr. De Santiago has been consulted for infectious disease. On 04/11/2018 patient is currently sitting up in chair. Patient still feels very fatigued. Patient had a temp of 102.8 last night. Patient also has two enlarged lymph nodes on right side of neck. Patient denies any open sores or problems with teeth. Patient denies any ear pain. Patient denies chest pain or shortness breath. Patient denies any nausea vomiting or diarrhea. Patient denies any upper respiratory symptoms. Patient denies any urinary burning or frequency On 04/12/2018 patient currently sitting up in chair with family at bedside. Patient had temp this AM 101.3. Per infectious disease possible viral syndrome versus bacterial pharyngitis. Patient does have right cervical lymph node enlargement. Dr. Stevens per oncology consulted. At this time patient denies chest pain or shortness of breath. Patient denies nausea vomiting or diarrhea. Patient denies any urinary burning or frequency On 04/13/2018 patient was seen and examined on the telemetry floor he is alert and oriented 3 in no apparent distress still having elevated temperature up to 102 this morning still complaining of headache and nausea otherwise no complaints at this time there is no dizziness no chest pain no shortness of breath there is occasional cough no vomiting no abdominal pain no diarrhea and no urinary symptoms On 04/14/2018 patient remains alert and oriented 3. Patient's temp remains elevated at 101.3. This time patient is requesting possible transfer to [facility] for further evaluation. Discussed with case management attempted transferring process. This time patient denies chest pain or shortness breath. Patient denies nausea vomiting or diarrhea. Patient denies any urinary burning or frequency. On 04/15/2018 patient is alert and oriented 3, temperature has been normal in the last 24 hours, he has occasional headache otherwise he denies any complaints , there is no dizziness no chest pain no shortness of breath no cough no nausea or vomiting no abdominal pain no diarrhea and no urinary symptoms enlarged lymph node on the right side of the neck are improving On 04/16/2018 patient was seen and examined on the medical floor he is alert and oriented 3 he is still having low-grade fever occasionally to 99 there is no chills no dizziness he has occasional headache no cough no nausea or vomiting no abdominal pain no diarrhea no burning with urination no frequency or urgency complains that urine is darker and smells strong, he is still complaining of enlarged nodule in the right side of his neck otherwise he denies any complaints On 04/17/2018 patient is alert and oriented 3 patient still having low-grade temps 99.3 this a.m. At this time patient denies chest pain or shortness of breath. Patient denies nausea vomiting or diarrhea. She denies any urinary burning or frequency. Patient still complaining of enlarged lymph nodes on the right side. Patient also complaining of intermittent headaches On 04/18/2018 patient is alert and oriented times.. Patient did have a temperature 100.4 this a.m. Platelets also down to 10. Oncology services are following platelets have been ordered. Patient remains fatigued. She denies chest pain or shortness breath. Patient denies nausea vomiting or diarrhea. Patient denies any urinary burning or frequency. On 04/19/2018 patient is alert and oriented 3 resting comfortably in chair. Fevers have subsided. Patient did receive platelets early this a.m. per oncology. repeat platelet level remains low at 10. Awaiting oncology input. This time patient denies any signs of bleeding. Patient denies any abdominal pain or tenderness. Patient denies nausea vomiting or diarrhea. Patient denies any urinary burning or frequency. Patient's headaches have improved On 04/20/2018 patient remains alert and oriented 3. Patient is currently receiving platelet transfusion for platelet level of 5. Patient is still having low-grade temps at 100.1. Discussed case with oncology services. Planning bone marrow biopsy. Discussed with GI services. Will continue to monitor liver enzymes. At this time patient denies chest pain or shortness of breath. Denies nausea vomiting or diarrhea. Patient denies any urinary burning or frequency On 04/21/2018 Patient is s/p lumbar puncture per oncology. platelets remain low at 9. patient remains alert and oriented x 3. Denies chest pain or shortness of breath. Denies nausea or vomitting. denies any urinary burning or frequency. Patient having low grade temps at 100.1 On 04/23/2018 patient was seen and examined in the intensive care unit he states he is feeling the same, he denies any fever or chills, he is still complaining of headache he is complaining of fatigue and weakness otherwise no complaints there is chest pain or shortness of breath no cough no nausea or vomiting no abdominal pain no diarrhea and no urinary symptoms On 04/24/2018 patient remains in the intensive care unit. Patient headaches have significantly improved. Patient denies any nosebleed. Patient's platelets remain low at 8 this morning patient patient will receive an additional transfusion of platelets this a.m. at this time patient denies chest pain or diarrhea. Patient denies any urinary burning or frequency On 04/25/2018 patient has been to medical surgical floor. Awaiting platelet transfusion. Patient denies any signs of bleeding at this time. Patient states he does feel better. Headaches have subsided. Patient remains afebrile. Denies chest pain or shortness of breath. Patient denies nausea vomiting or diarrhea. Patient denies any urinary burning or frequency. On 04/26/2018 patient is currently sitting up in chair. Patient is alert and oriented 3. Platelets improving to 66. Patient denies headache. Patient has been afebrile. Patient denies any nausea vomiting or diarrhea. Patient denies any signs of bleeding. Patient denies any urinary burning or frequency. Cervical lymph node significantly improved. Patient denies headache. On 04/27/2018 patient is currently resting in bed. Patient is alert and oriented 3. Patient states he feels much improved. Platelets improving to 97. Patient states he's feels eager to go home Discussed case with oncology services. Patient will be DC'd home on prednisone taper per oncology. Discussed with infectious disease. Patient has been cleared for discharge and will follow-up outpatient. At this time patient denies chest pain or shortness of breath. Patient denies nausea vomiting or diarrhea. Patient denies any urinary burning or frequency. Denies any signs of bleeding I performed an examination of the patient and discussed their management with the Nurse Practitioner. I have reviewed the Nurse Practitioner's notes and agree with the documented findings and plan of care Patient Condition at Discharge: Stable Plan - Discharge Summary Discharge Rx Participant: No New Discharge Prescriptions: Discontinued Acetaminophen Tab [Tylenol Tab] 650 mg PO Q4H PRN PRN Reason: Pain Follow up Appointment(s)/Referral(s): John Stevens MD [STAFF PHYSICIAN] - 4 Weeks Kalyan Gustafson MD [STAFF PHYSICIAN] - 2 Weeks Lilo Patel DO [Primary Care Provider] - 1 Week () Patient Instructions/Handouts: Mononucleosis (ED), Lumbar Puncture (DC) Activity/Diet/Wound Care/Special Instructions: Tapering prednisone Rx called to [facility] in [place] 11:40AM Eat before taking steroids. Steroids can cause insomnia, irritability, hyperglycemia and increased appetite. These will subside after stopping steroids. Discharge Disposition: HOME SELF-CARE
--- NOTE | 2018-04-27 15:35 | P.PN ---
Subjective Progress Note Date: 04/27/18 Principal diagnosis: Pancytopenia, or fever of unknown origin Pt seen in f/u, feels good, bruises are healing, no new bruises, petechiae or bleeding to report. He is tolerating the solumedrol, he did receive 2 doses of IVIG Objective - Vital Signs Vital signs: Vital Signs Temp 96.8 F L 04/27/18 07:00 Pulse 71 04/27/18 07:00 Resp 16 04/27/18 07:00 BP 131/72 04/27/18 07:00 Pulse Ox 96 04/27/18 07:00 Intake & Output 04/26/18 04/27/18 04/27/18 18:59 06:59 18:59 Intake Total 600 600 Balance 600 600 Weight 135 kg Intake: IV 600 Immune Globulin (Gamunex- 200 C) 20 gm In Empty Bag 1 bag @ 0 mls/hr IV .Q0M ONE Rx#:[id number] Immune Globulin (Gamunex- 200 C) 20 gm In Empty Bag 1 bag @ 0 mls/hr IV .Q0M ONE Rx#:[id number] Immune Globulin (Gamunex- 200 C) 20 gm In Empty Bag 1 bag @ 0 mls/hr IV .Q0M ONE Rx#:[id number] Oral 600 Other: Voiding Method Toilet # Voids 2 1 - Exam WD, NAD, A&Ox4, respirations even and unlabored, no swelling in the legs. Bruises on the upper extremities show signs of healing. - Constitutional General appearance: Present: cooperative, no acute distress, obese - Labs CBC & Chem 7: 04/27/18 09:45 04/27/18 09:45 Labs: Abnormal Lab Results - Last 24 Hours (Table) 04/26/18 04/26/18 04/27/18 Range/Units 17:22 21:23 07:13 RBC (4.30-5.90) m/uL Hgb (13.0-17.5) gm/dL Hct (39.0-53.0) % RDW (11.5-15.5) % Plt Count (150-450) k/uL Lymphocytes # (Manual) (1.0-4.8) k/uL BUN (9-20) mg/dL Glucose (74-99) mg/dL POC Glucose (mg/dL) 219 H 220 H 226 H (75-99) mg/dL AST (17-59) U/L ALT (21-72) U/L Alkaline Phosphatase (38-126) U/L 04/27/18 04/27/18 04/27/18 Range/Units 09:45 09:45 12:30 RBC 4.07 L (4.30-5.90) m/uL Hgb 10.7 L (13.0-17.5) gm/dL Hct 33.5 L (39.0-53.0) % RDW 16.0 H (11.5-15.5) % Plt Count 97 L (150-450) k/uL Lymphocytes # (Manual) 4.90 H (1.0-4.8) k/uL BUN 22 H (9-20) mg/dL Glucose 276 H (74-99) mg/dL POC Glucose (mg/dL) 213 H (75-99) mg/dL AST 73 H (17-59) U/L ALT 145 H (21-72) U/L Alkaline Phosphatase 391 H (38-126) U/L Assessment and Plan (1) Lymphadenopathy of right cervical region Narrative/Plan: Resolving! Right anterior cervical lymph node is no <1cm, soft, mobile, cannot palpate any suspicious adenopathy in the left supraclavicular area Status: Acute Priority: High Code(s): R59.0 - LOCALIZED ENLARGED LYMPH NODES SNOMED Code(s): 135840882 (2) Pancytopenia Narrative/Plan: Hgb stable, WBC recovered with few doses of GCSF. 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 Rx for tapering prednisone sent to pt pharmacy. Reviewed SE and prevention of SE of steroids with pt F/U CBC next week to monitor platelet counts is scheduled Status: Acute Priority: High Code(s): D61.818 - OTHER PANCYTOPENIA SNOMED Code(s): 449652248 Plan: Pt will cont TUMS for now for GI prophylaxis.
== END 2018-04-27 14:38 | disposition home or self-care (01) | DRG 866 ==
LOC: EC 20:33 → 3SCARD 04-10 01:13 → OBSVTOIN 04-12 12:26 → 4SSUR 04-15 17:15 → 2SICU 04-22 02:23 → 4MS4W 04-24 17:37
PROVIDERS: ADMIT Internal Medicine; ATTEND Internal Medicine
PROC: 009U3ZX Drainage of Spinal Canal, Percutaneous Approach, Diagnostic (ICD-10-PCS; principal; 2018-04-10 20:30)
PROC: 07DR3ZX Extraction of Iliac Bone Marrow, Percutaneous Approach, Diagnostic (ICD-10-PCS; 2018-04-21)
DX: B27.00 Gammaherpesviral mononucleosis without complication (principal); D61.818 Other pancytopenia; D69.3 Immune thrombocytopenic purpura; D76.1 Hemophagocytic lymphohistiocytosis; K92.0 Hematemesis; E87.2 Acidosis; D82.3 Immunodeficiency following hereditary defective response to Epstein-Barr virus; Z22.9 Carrier of infectious disease, unspecified; G47.33 Obstructive sleep apnea (adult) (pediatric); I71.2 Thoracic aortic aneurysm, without rupture; K75.9 Inflammatory liver disease, unspecified; N28.1 Cyst of kidney, acquired; R04.0 Epistaxis; T38.0X5A Adverse effect of glucocorticoids and synthetic analogues, initial encounter; R73.9 Hyperglycemia, unspecified; R16.1 Splenomegaly, not elsewhere classified; R59.0 Localized enlarged lymph nodes; K76.0 Fatty (change of) liver, not elsewhere classified
CPT/HCPCS: 36415; 38222; 62270; 70450; 70491; 71046; 71260; 74177; 76700; 80048; 80053; 80074; 81001; 82103; 82248; 82390; 82607; 82728; 82746; 82784; 82787; 82945; 83516; 83540; 83550; 83605; 83615; 83735; 83883; 83921; 84100; 84157; 84165; 84466; 84484; 84550; 85025; 85027; 85045; 85049; 85379; 85384; 85610; 85730; 86038; 86308; 86334; 86376; 86431; 86644; 86645; 86663; 86664; 86665; 86694; 86695; 86696; 86747; 86850; 86900; 86901; 86920; 87040; 87070; 87075; 87086; 87102; 87205; 87252; 87390; 87449; 87496; 87498; 87502; 87529; 87798; 89050; 93005; 94760; 96360; 96361; 96365; 99284

== ENCOUNTER 2020-04-22 16:45 | Emergency (ER) | payer BC ==
[2020-04-22 17:04] VITALS: RESP 16; TEMP 97.9
[2020-04-22] MEDS ORDERED: ONDANSETRON ODT 4 MG TAB PO STA (17:05)
[2020-04-22] MEDS ORDERED: ONDANSETRON 4 MG/2 ML VIAL IVP STA (17:52)
[2020-04-22] MEDS ORDERED: diazePAM 2 MG TAB PO STA (17:52)
[2020-04-22] MEDS ORDERED: SODIUM CHLORIDE 0.9% 500 ML 500 ML IV ONE (17:52)
[2020-04-22] MEDS ORDERED: MECLIZINE 12.5 MG TAB PO STA (17:52)
[2020-04-22] MEDS ORDERED: SODIUM CHLORIDE 0.9% 1,000 ML IV ONE (17:52)
--- NOTE | 2020-04-22 18:58 | CT ---
EXAMINATION TYPE: CT brain wo con DATE OF EXAM: 04/22/2020 COMPARISON: 04/10/2018 HISTORY: Dizziness, nausea and vomiting. CT DLP: 1129.4 mGycm Automated exposure control for dose reduction was used. Ventricles have normal size. There is no mass effect nor midline shift. There is no sign of intracran ial hemorrhage. Calvarium is intact. There are small areas of mucosal thickening in the maxillary sin uses. IMPRESSION: Maxillary sinusitis. No acute intracranial abnormality. Brain unchanged.
--- NOTE | 2020-04-22 19:00 | ED ---
Nausea/Vomiting/Diarrhea HPI - General Chief complaint: Nausea/Vomiting/Diarrhea Stated complaint: Vomiting,Dizziness Time Seen by Provider: 04/22/20 17:39 Source: patient Mode of arrival: wheelchair Limitations: no limitations - History of Present Illness Initial comments: 39-year-old male presenting for dizziness 2 days with vomiting. Patient states every time he turns his head he has nausea and vomiting. He states it is slight headache yesterday but did not notice it at the same time of the onset of dizziness. Patient states he struggles with chronic ALLERGIES. He denies any ear pain denies current headache denies neck stiffness he denies abdominal pain he endorses nausea. Patient denies any localized weakness or sensation deficits. Pt states the dizziness increases also with walking/change of position. Patient denies chest pain, shortness of breath, leg swelling. pt denies experiencing this in the past. patient appears well nontoxic. - Related Data Previous Rx's Medication Instructions Recorded Amoxic-Pot Clav 875-125Mg 1 tab PO Q12HR 7 Days #14 tab 04/22/20 [Augmentin 875-125] Loratadine [Claritin] 10 mg PO DAILY 7 Days #7 tab 04/22/20 Meclizine [Antivert] 25 mg PO BID 7 Days #14 tab 04/22/20 Ondansetron Odt [Zofran Odt] 4 mg PO Q8HR PRN 4 Days #12 tab NS 04/22/20 predniSONE 50 mg PO DAILY 4 Days #4 tab 04/22/20 Allergies Allergy/AdvReac Type Severity Reaction Status Date / Time peanut [Peanut Butter] AdvReac Nausea & Verified 04/22/20 19:15 Vomiting & Diarrhea Review of Systems ROS Statement: Those systems with pertinent positive or pertinent negative responses have been documented in the HPI. ROS Other: All systems not noted in ROS Statement are negative. Past Medical History Past Medical History: No Reported History Additional Past Medical History / Comment(s): seasonal allergies History of Any Multi-Drug Resistant Organisms: None Reported Past Surgical History: Orthopedic Surgery Additional Past Surgical History / Comment(s): Right ACL sx Past Anesthesia/Blood Transfusion Reactions: No Reported Reaction Past Psychological History: No Psychological Hx Reported Smoking Status: Never smoker Past Alcohol Use History: Rare Past Drug Use History: None Reported - Past Family History Mother Family Medical History: No Reported History Father History Unknown: Yes General Exam - General Exam Comments Initial Comments: General: The patient is awake and alert, in no distress Eye: +3 mm pupils are equal, round and reactive to light, extra-ocular movements are intact. Horizontal nystagmus. There is normal conjunctiva bilaterally. No signs of icterus. Ears, nose, mouth and throat: There are moist mucous membranes and no oral lesions. right TM erythematous. nasal congestion. left TM bulging. Neck: The neck is supple, there is no tenderness or JVD. No Nuchal rigidity. Cardiovascular: There is a regular rate and rhythm. No murmur, rub or gallop is appreciated. Respiratory: Lungs are clear to auscultation, respirations are non-labored, breath sounds are equal. No wheezes, stridor, rales, or rhonchi. Gastrointestinal: Soft, non-distended, non-tender abdomen without masses or organomegaly noted. There is no rebound or guarding present. Musculoskeletal: Normal ROM, no tenderness. Strength 5/5. Sensation intact. Radial pulses equal bilaterally 2+. Neurological: A&O x 3. CN II-XII intact, There are no obvious motor or sensory deficits. Coordination appears grossly intact. Speech is normal. Strength of UE and LE b/l. Finger to nose and heel to amanda smooth and coordinated bilaterally as well as hand flap And toe tap. gait coordinated and even in stride. Skin: Skin is warm and dry and no rashes or lesions are noted. Psychiatric: Cooperative, appropriate mood & affect, normal judgment. Limitations: no limitations Course Vital Signs 04/22/20 04/22/20 16:58 21:22 Temperature 97.9 F 97.9 F Pulse Rate 75 82 Respiratory 16 16 Rate Blood Pressure 134/87 112/55 O2 Sat by Pulse 97 98 Oximetry Medical Decision Making - Medical Decision Making horizontal nystagmus elicited (NO rotary or vertical), no focal deficits, pupils WNL, CT brain (-). movements smooth and coordinated, no ataxia. pt has a very red right ear, sinus congestion with sinusitis on CT. Suspected cause peripheral vertigo.pt agreeable to discharge with ENT f//u and symptomatic tratment. dr flanagan agreeable to care plan and discharge. - Lab Data Result diagrams: 04/22/20 19:35 04/22/20 19:35 Lab Results 04/22/20 04/22/20 04/22/20 Range/Units 19:35 19:35 Unknown WBC 12.0 H (3.8-10.6) k/uL RBC 5.26 (4.30-5.90) m/uL Hgb 14.7 (13.0-17.5) gm/dL Hct 43.4 (39.0-53.0) % MCV 82.5 (80.0-100.0) fL MCH 28.0 (25.0-35.0) pg MCHC 33.9 (31.0-37.0) g/dL RDW 13.3 (11.5-15.5) % Plt Count 229 (150-450) k/uL MPV 7.3 Neutrophils % 84 % Lymphocytes % 11 % Monocytes % 3 % Eosinophils % 1 % Basophils % 1 % Neutrophils # 10.1 H (1.3-7.7) k/uL Lymphocytes # 1.3 (1.0-4.8) k/uL Monocytes # 0.3 (0-1.0) k/uL Eosinophils # 0.1 (0-0.7) k/uL Basophils # 0.1 (0-0.2) k/uL Sodium 138 (137-145) mmol/L Potassium 4.4 (3.5-5.1) mmol/L Chloride 103 (98-107) mmol/L Carbon Dioxide 27 (22-30) mmol/L Anion Gap 8 mmol/L BUN 20 (9-20) mg/dL Creatinine 0.92 (0.66-1.25) mg/dL Est GFR (CKD-EPI)AfAm >90 (>60 ml/min/1.73 sqM) Est GFR (CKD-EPI)NonAf >90 (>60 ml/min/1.73 sqM) Glucose 113 H (74-99) mg/dL Calcium 9.7 (8.4-10.2) mg/dL Total Bilirubin 0.7 (0.2-1.3) mg/dL AST 42 (17-59) U/L ALT 57 H (4-49) U/L Alkaline Phosphatase 128 H (38-126) U/L Total Protein 7.5 (6.3-8.2) g/dL Albumin 4.5 (3.5-5.0) g/dL Amylase 53 (30-110) U/L Lipase 87 (23-300) U/L Coronavirus (PCR) Not Detected (Not Detectd) Disposition Clinical Impression: Nystagmus, Vomiting, Dizziness, Congestion of nasal sinus, Sinusitis, Otitis media of right ear Disposition: HOME SELF-CARE Condition: Good Instructions (If sedation given, give patient instructions): Vertigo (ED), Benign Paroxysmal Positional Vertigo (ED) Additional Instructions: Please use medication as discussed. Please follow-up with family doctor in the next 2 days, as well as ENT in next week. Please return to emergency room if the symptoms increase or worsen or for any other concerns. Prescriptions: Meclizine [Antivert] 25 mg PO BID 7 Days #14 tab Amoxic-Pot Clav 875-125Mg [Augmentin 875-125] 1 tab PO Q12HR 7 Days #14 tab Loratadine [Claritin] 10 mg PO DAILY 7 Days #7 tab predniSONE 50 mg PO DAILY 4 Days #4 tab Ondansetron Odt [Zofran Odt] 4 mg PO Q8HR PRN 4 Days #12 tab NS PRN Reason: Nausea Is patient prescribed a controlled substance at d/c from ED?: No Referrals: Lilo Patel DO [Primary Care Provider] - 1-2 days Alvarado Mathew MD [STAFF PHYSICIAN] - 1-2 days Time of Disposition: 20:36
[2020-04-22 19:45] LABS: Basophils # (A) 0.1 k/uL (0-0.2); Basophils % (A) 1 %; Eosinophils # (A) 0.1 k/uL (0-0.7); Eosinophils % (A) 1 %; HCT 43.4 % (39.0-53.0); HGB 14.7 gm/dL (13.0-17.5); Lymphocytes # (A) 1.3 k/uL (1.0-4.8); Lymphocytes % (A) 11 %; MCHC 33.9 g/dL (31.0-37.0); MCV 82.5 fL (80.0-100.0); Mean Platelet Volume 7.3; Monocytes # (A) 0.3 k/uL (0-1.0); Monocytes % (A) 3 %; Neutrophils # (A) 10.1 k/uL (1.3-7.7); Neutrophils % (A) 84 %; Platelet Count 229 k/uL (150-450); RBC 5.26 m/uL (4.30-5.90); RDW 13.3 % (11.5-15.5)
[2020-04-22 19:59] LABS: ALT 57 U/L (4-49); AST 42 U/L (17-59); African American GFR (CKD) >90 (>60 ml/min/1.73 sqM); Albumin 4.5 g/dL (3.5-5.0); Alkaline Phosphatase 128 U/L (38-126); Amylase 53 U/L (30-110); Anion Gap 8 mmol/L; Blood Urea Nitrogen 20 mg/dL (9-20); Calcium 9.7 mg/dL (8.4-10.2); Carbon Dioxide 27 mmol/L (22-30); Chloride 103 mmol/L (98-107); Glucose 113 mg/dL (74-99); Lipase 87 U/L (23-300); Non-African American GFR(CKD) >90 (>60 ml/min/1.73 sqM); Potassium 4.4 mmol/L (3.5-5.1); Sodium 138 mmol/L (137-145); Total Bilirubin 0.7 mg/dL (0.2-1.3); Total Protein 7.5 g/dL (6.3-8.2)
[2020-04-22] MEDS ORDERED: methylPREDNISolone SOD SUCCI 125 MG/2 ML VIAL IV STA (20:21)
[2020-04-22] MEDS ORDERED: AMOXIC-POT CLAV 875MG STARTER PACK 2 TAB BTL PO STA (20:43)
[2020-04-22] MEDS ORDERED: METOCLOPRAMIDE 5 MG/ML 2 ML VIAL IVP STA (20:43)
[2020-04-22 21:23] VITALS: BP 112/55; PULSE 82
== END 2020-04-22 21:23 | disposition home or self-care (01) ==
LOC: EC 16:45
DX: H66.91 Otitis media, unspecified, right ear (principal); J32.9 Chronic sinusitis, unspecified; H55.00 Unspecified nystagmus; Z20.828 Contact with and (suspected) exposure to other viral communicable diseases; Z91.010 Allergy to peanuts
CPT/HCPCS: 80053; 82150; 83690; 85025; 87635; 70450; 99284; 96374; 96375 ×2; 96361; J2765; J2930; J2405

== ENCOUNTER → 2023-10-04 | Outpatient (CLI) | payer BC ==
--- NOTE | 2023-10-05 12:20 | MR ---
EXAMINATION TYPE: MR knee RT wo con DATE OF EXAM: 10/04/2023 COMPARISON: NONE HISTORY: Right inner knee pain and swelling for 2 months with history of prior surgery TECHNIQUE: Multiplanar, multisequence images of the knee is performed without IV contrast. FINDINGS: MEDIAL MENISCUS: Truncated appearance posterior horn with abnormal signal extending to the inferior a rticular surface. LATERAL MENISCUS: Anterior and posterior horns are intact without tear. CRUCIATE LIGAMENTS: The posterior cruciate ligament is intact and unremarkable. Surgically repaired a nterior cruciate ligament is disrupted or torn. COLLATERAL LIGAMENTS: The medial collateral ligament and lateral collateral ligament complex are inta ct and unremarkable. EXTENSOR MECHANISM: Visualized quadriceps and patellar tendons are intact. EFFUSION: Small size suprapatellar joint effusion. POPLITEAL CYST: Moderate to large size popliteal/gordillo cyst with some septation posterior inferior as pect and some ill-defined fluid. TRICOMPARTMENT SPACES: Mild to moderate tricompartment joint space loss and spurring. CARTILAGE: Tricompartment cartilaginous loss most prominent medial tibiofemoral compartment. BONE MARROW SIGNAL: No focal abnormal marrow signal is appreciated. OTHER: Mild subcutaneous edema anterior superficial infrapatellar level. IMPRESSION: 1. Recurrent ACL tear despite prior surgery. 2. 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 3. Full-thickness tear posterior horn medial meniscus. 4. 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 5. Small-sized suprapatellar joint effusion.
== END ==
LOC: RADMRIMAIN 20:45
PROVIDERS: ATTEND Orthopaedic Surgery
DX: M17.0 Bilateral primary osteoarthritis of knee (principal); M23.611 Other spontaneous disruption of anterior cruciate ligament of right knee; M23.321 Other meniscus derangements, posterior horn of medial meniscus, right knee; M71.21 Synovial cyst of popliteal space [Baker], right knee